=== PATIENT | male | born 1940 | race American Indian/Alaskan Native ===

== ENCOUNTER 2019-09-24 20:52 | Emergency (ER) | payer SELFPAY ==
[2019-09-24] MEDS ORDERED: ACETAMINOPHEN 325 MG TAB PO ONE (20:57)
[2019-09-24] MEDS ORDERED: NEOMY 3.5 MG/BACIT 400 UNITS/POLY B 5000 UNITS/GM OINT PACKET TP ONE (20:57)
[2019-09-24] MEDS ORDERED: SODIUM CHLORIDE 0.9% IRR 500 ML BOTTLE IR ONE (20:57)
[2019-09-24] MEDS ORDERED: TETANUS,DIPHTHERIA TOXOID ADULT 0.5 ML INJ IM ONE (20:57)
[2019-09-24] MEDS ORDERED: LIDOCAINE (1%) 10 MG/1 ML VIAL 20 ML MDV INFILTRATI ONE (20:57)
--- NOTE | 2019-09-24 20:58 | Event Note ---
ED Screening Note ED Screening Note: lac l hand earlier today needs tdap cut on fence full rom no daily meds This initial assessment/diagnostic orders/clinical plan/treatment(s) is/are subject to change based on patients health status, clinical progression and re- assessment by fellow clinical providers in the ED. Further treatment and workup at subsequent clinical providers discretion. Patient/guardian urged not to elope from the ED as their condition may be serious if not clinically assessed and managed. Initial orders include: lac repair tdap
[2019-09-24 21:08] VITALS: BP 183/76
[2019-09-24] MEDS ORDERED: DIPHtheria,PERTUSSIS(ACELL),TETANUS VACCINE/PF 0.5 ML VIAL IM ONE (21:30)
== END 2019-09-25 01:58 | disposition left against medical advice (07) ==
LOC: ED 20:52
DX: M79.642 Pain in left hand (principal); Z53.21 Procedure and treatment not carried out due to patient leaving prior to being seen by health care provider

== ENCOUNTER 2020-09-08 19:13 | Inpatient (IN) | payer MEDICARE ==
[2020-09-08] MEDS ORDERED: dexAMETHasone 4 MG/ML VIAL IV ONE (19:42)
--- NOTE | 2020-09-08 19:42 | Emergency Department Report ---
<DALTON STRONG - Last Filed: 09/09/20 02:36> ED General Adult HPI - General Chief complaint: Fever Stated complaint: Patient very hard of hearing Time Seen by Provider: 09/08/20 19:39 - Related Data Home Medications Medication Instructions Recorded Confirmed Last Taken No Known Home Medications [No 09/08/20 09/08/20 Unknown Reported Home Medications] Allergies Allergy/AdvReac Type Severity Reaction Status Date / Time No Known Allergies Allergy Verified 09/24/19 21:12 ED Past Medical Hx - Medications Home Medications: Home Medications Medication Instructions Recorded Confirmed Last Taken Type No Known Home Medications [No 09/08/20 09/08/20 Unknown History Reported Home Medications] ED Medical Decision Making - Lab Data Result diagrams: 09/08/20 20:34 09/08/20 20:34 ED Disposition Clinical Impression: SIRS (systemic inflammatory response syndrome), Narrow complex tachycardia, Fall, Suspected 2019 novel coronavirus infection, Acute respiratory failure with hypoxia, Hypokalemia, Hydronephrosis, Atherosclerotic vascular disease, UTI (urinary tract infection), Pneumonia Disposition: OP ADMIT IP TO THIS HOSP Is pt being admited?: Yes Does the pt Need Aspirin: No Condition: Serious Time of Disposition: 02:36 <ARNIE VALDEZ - Last Filed: 09/09/20 23:16> ED General Adult HPI - General PUI?: Yes Source: patient, EMS (Verbal report received from emergency medical services. EMS documentation not available at time of chart dictation ), RN notes reviewed Mode of arrival: Stretcher Limitations: Physical Limitation - History of Present Illness Initial comments: The patient was evaluated in the emergency department for symptoms described in the history of present illness. He/she was evaluated in the context of the global COVID-19 pandemic, which necessitated consideration that the patient might be at risk for infection with the virus that causes COVID-19. Institutional protocols and algorithms that pertain to the evaluation of patients at risk for COVID-19 are in a state of rapid change based on i nformation released by regulatory bodies including the CDC and federal and state organizations. These policies and algorithms were followed during the patient's care in the emergency department. Please note that these policies, procedures and recommendations changed on a rapid basis. During the entire history and physical examination, I had on complete personal protective equipment. Patient is an 79-year-old gentleman. He is not known to myself previously. The details of his past medical history, primary care doctor, current medical conditions are unknown. The patient is brought to the hospital by the fire department. History entirely obtained from EMS. EMS states that the family brought the patient over to the fire house with flulike symptoms for about 1 week. EMS states th the patient was hypoxic in the field, and tachypneic. The patient is not accompanied by friends or family at this time for additional information or collateral information. He is awake, very hard of hearing, and is moving 4 extremities. He is found to be febrile, tachycardic, and hypoxic in the emergency room. The patient is very hard of hearing, not able to describe the qualitative nature of symptoms, exacerbating factors, relieving factors, or aggravating factors. EMS states that the patient did not receive their Covid vaccination. Patient's Courtney Louise; [phone] Daughter: [phone]; Sola Bravo Called up patient's , and patient's daughter, and obtain additional col lateral information. Patient reportedly exposed to COVID-19 last week. Patient fell and may have hit head a few days ago. Has not seen a primary care doctor in years. No chronic medical issues that they are aware of. No allergies to medications. No hematemesis, bright red blood per rectum that they are aware of. -: Gradual, days(s) Consistency: constant Improves with: none Worsens with: none ED Review of Systems ROS: Stated complaint: FLU LIKE SX Other details as noted in HPI Comment: Unobtainable due to pts medical conditions Constitutional: fever, malaise, weakness ENT: congestion Respiratory: shortness of breath Cardiovascular: denies: syncope Gastrointestinal: denies: nausea, vomiting, diarrhea Neurological: weakness ED Past Medical Hx - Social History Smoking Status: Current Every Day Smoker Substance Use Type: None ED Physical Exam - General Limitations: Physical Limitation General appearance: anxious - Head Head exam: Present: atraumatic, normocephalic - Eye Eye exam: Present: normal appearance, EOMI. Absent: nystagmus - ENT ENT exam: Present: normal exam, normal orophraynx, mucous membranes dry, normal external ear exam - Neck Neck exam: Present: normal inspection, full ROM. Absent: tenderness, meningismus - Respiratory Respiratory exam: Present: other (Pulmonary auscultation not performed secondary to lack of disposable stethoscope). Absent: stridor - Cardiovascular Cardiovascular Exam: Present: tachycardia, other (Cardiac auscultation not performed secondary to lack of disposable stethoscope) - GI/Abdominal GI/Abdominal exam: Present: soft. Absent: distended, tenderness, guarding, rebound, rigid, pulsatile mass - Rectal Rectal exam: Present: deferred - Extremities Exam Extremities exam: Present: normal inspection, full ROM, other (2+ pulses noted in the bilateral upper and lower extremities. There is no palpable cord. negative Homans sign. Muscular compartments are soft. The pelvis is stable.). Absent: pedal edema, calf tenderness - Back Exam Back exam: Present: normal inspection. Absent: tenderness, CVA tenderness (R), CVA tenderness (L), paraspinal tenderness, vertebral tenderness - Neurological Exam Neurological exam: Present: alert, other (The patient is awake. The patient is moving 4 extremities. There is no facial droop. The tongue is midline.) - Psychiatric Psychiatric exam: Present: normal affect, normal mood - Skin Skin exam: Present: warm, dry, intact, normal color. Absent: rash ED Course Vital Signs 09/08/20 09/08/20 09/08/20 19:30 19:35 19:50 Temperature 101.8 F H Pulse Rate 136 H Respiratory 25 H Rate Blood Pressure 137/71 Blood Pressure [Left] O2 Sat by Pulse 88 93 91 Oximetry 09/08/20 09/08/20 09/08/20 20:00 20:30 20:45 Temperature Pulse Rate 142 H 132 H Respiratory 25 H 31 H Rate Blood Pressure 137/71 Blood Pressure 145/83 [Left] O2 Sat by Pulse 95 93 Oximetry 09/08/20 09/08/20 09/08/20 21:01 21:31 22:01 Temperature Pulse Rate 134 H 131 H 123 H Respiratory 26 H 20 33 H Rate Blood Pressure 145/83 131/70 138/78 Blood Pressure [Left] O2 Sat by Pulse 94 93 93 Oximetry 09/08/20 09/08/20 09/08/20 22:20 22:41 23:01 Temperature 99.6 F Pulse Rate 138 H 126 H 70 Respiratory 19 22 19 Rate Blood Pressure 138/78 131/70 120/54 Blood Pressure [Left] O2 Sat by Pulse 93 94 94 Oximetry 09/08/20 09/08/20 09/09/20 23:21 23:31 00:01 Temperature Pulse Rate 69 59 L 68 Respiratory 20 19 22 Rate Blood Pressure 138/78 136/64 130/55 Blood Pressure [Left] O2 Sat by Pulse 93 96 95 Oximetry 09/09/20 09/09/20 09/09/20 00:47 01:01 01:31 Temperature Pulse Rate 62 58 L 63 Respiratory 19 12 19 Rate Blood Pressure 140/59 Blood Pressure [Left] O2 Sat by Pulse 100 97 93 Oximetry 09/09/20 09/09/20 09/09/20 02:01 03:01 04:01 Temperature Pulse Rate 62 59 L 64 Respiratory 18 14 17 Rate Blood Pressure 152/60 157/68 160/69 Blood Pressure [Left] O2 Sat by Pulse 95 99 90 Oximetry - Reevaluation(s) Reevaluation #1: 09/08/20 21:11 Differential diagnosis, including but not limited to: Pneumonia, COVID-19, urinary tract infection, bacteremia, viremia, dementia, arrhythmia, delirium, thyroid derangement, electrolyte derangement Assessment and plan: 79-year-old gentleman, who is tachycardic, febrile and hypoxic, hemodynamically stable, meets criteria for sepsis/systemic inflammatory response syndrome. Place patient on cardiac technician, isolation, and supplemental oxygen. Administer Tylenol, steroids, and empiric antibiotics, and appropriate fluid bolus. Obtain CT scan of the brain, CT scan of the chest. Patient's family endorses a possible fall a few days ago. EKG suggests a flutter. This may be compensatory to underlying sepsis picture. Hold negative inotropes; after initial resuscitation, reassess rate, and if still tachycardic after antipyresis, and appropriate fluid bolus, consider negative inotropes. Admit patient to the medical service. Have discussed this plan of care with the patient's daughter, and his . They are agreeable to the aforementioned. 09/08/20 23:28 CT scan of the brain shows no bleed. Nonspecific facial areas noted. No evidence of pneumomediastinum noted on x-ray/CT scan of the chest. Pneumonia is suggested. Right-sided hydronephrosis is suggested. Discussed with interpreting radiologist. Offers that mild blunt trauma, coughing and Valsalva can cause these findings. Patient has spontaneously converted to a normal sinus rhythm at this time. Have ordered on CT scan of the face, soft tissue neck, soft tissue/noncontrast abdomen pelvis. Patient resting comfortably at this time. 09/09/20 01:50 CT scan of the face, neck did not demonstrate any significant findings that would require emergent intervention or transfer. CT scan of the abdomen pelvis demonstrates hydronephrosis, redemonstration of pneumonia, without evidence of obstructing kidney stone. Hospitalist currently responded to code met/rapid response upstairs on the floor. Care will be transferred to the oncoming ER physician/overnight physician, to contact hospital physician to arrange admission, when they are available to take this admission. Please note that I did not cancel this patient's repeat lactic acid. I spoke to our phlebotomists, Mr. Medrano, and Mr. Dorado, and it was not clear how this patient's repeat lactic acid was canceled. I have therefore ordered the patient's repeat lactic acid. He has also been ordered for additional 500 cc of lactated Ringer's. I will defer to the inpatient team to follow-up on repeat lactic acid. Patient resting comfortably in stretcher, tachycardia resolved, he is now in normal sinus rhythm, and does not require negative inotropes, or systemic anticoagulation. ED Medical Decision Making - Lab Data Result diagrams: 09/08/20 20:34 09/08/20 20:34 Vital Signs 09/08/20 09/08/20 09/08/20 19:30 19:35 20:30 Temperature 101.8 F H Pulse Rate 136 H Respiratory 25 H Rate Blood Pressure 137/71 Blood Pressure 145/83 [Left] O2 Sat by Pulse 88 93 Oximetry 09/08/20 20:45 Temperature Pulse Rate 132 H Respiratory 31 H Rate Blood Pressure Blood Pressure [Left] O2 Sat by Pulse 93 Oximetry Lab Results 09/08/20 Range/Units 20:34 WBC 6.6 (4.5-11.0) K/mm3 RBC 4.09 (3.65-5.03) M/mm3 Hgb 13.2 (11.8-15.2) gm/dl Hct 38.3 (35.5-45.6) % MCV 94 (84-94) fl MCH 32 (28-32) pg MCHC 34 (32-34) % RDW 14.7 (13.2-15.2) % Plt Count 146 (140-440) K/mm3 Seg Neutrophils % [employer] - EKG Data -: EKG Interpreted by Wy Rate: tachycardia - EKG Data 09/08/20 21:10 EKG is interpreted at 20: 1 2 Narrow complex tachycardia, borderline rightward axis deviation, nonspecific ST depression, right bundle branch block, borderline left anterior fascicular block, motion artifact, QTC 450 ms, a flutter versus SVT. EKG. Not a STEMI. No prior for comparison. Favor a flutter. 09/08/20 23:29 EKG #3 shows a sinus rhythm, 71 bpm, QTC prolonged, 529 ms, borderline normal axis, right bundle branch block, left ventricular hypertrophy, not a STEMI, interpreted at 23: 07 EKG #2 unchanged from EKG #1. - Radiology Data Radiology results: report reviewed, image reviewed CHEST 1 VIEW 1956 INDICATION / CLINICAL INFORMATION: Dyspnea COMPARISON: None available. FINDINGS: SUPPORT DEVICES: None HEART / MEDIASTINUM: Mild cardiomegaly LUNGS / PLEURA: Patient is mildly rotated. Pulmonary vascularity appears within normal limits. Moderate chronic changes are seen. Bibasilar mostly linear densities are noted which are of unknown chronicity. These are more prominent on the right. This could just be scarring and/or atelectasis but developing pneumonitis is possible the right base and I would suggest clinical correlation and follow-up. No pneumothorax. ADDITIONAL FINDINGS: No significant additional findings. Signer Name: Abiodun Tijerina MD Signed: 09/08/2020 7:43 PM Workstation Name: [id number] CT HEAD WITHOUT CONTRAST INDICATION / CLINICAL INFORMATION: Fall A.M.S.. TECHNIQUE: All CT scans at this location are performed using CT dose reduction for ALARA by means of automated exposure control. COMPARISON: None available. FINDINGS: HEMORRHAGE: None. EXTRA-AXIAL SPACES: Mildly prominent likely related to cortical atrophy. VENTRICULAR SYSTEM: Normal in size and morphology for the patient's age. CEREBRAL PARENCHYMA: No acute abnormality. No acute territorial infarct. There is decreased attenuation periventricular white matter characteristic of microangiopathic change. MIDLINE SHIFT / HERNIATION: None. CEREBELLUM / BRAINSTEM: No significant abnormality. ORBITS: Normal as visualized. SOFT TISSUES: There is small amount of gas noted in the soft tissues in the lower anterior temporal regions and posterior to the maxillary sinuses. The source for this soft tissue gas is not defined. SKULL: No significant abnormality. PARANASAL SINUSES / MASTOID AIR CELLS: There is a small amount of fluid in the right maxillary sinus. There is mucosal thickening in sphenoid sinus and several ethmoid air cells. ADDITIONAL FINDINGS: None. IMPRESSION: 1. No acute intracranial abnormality. 2. There is some soft tissue gas noted in the anterior temporal musculature bilaterally in the musculature posterior to the maxillary sinuses. The source for this soft tissue gas is not identified. Signer Name: Quentin Campbell MD Signed: 09/08/2020 9:57 PM Workstation Name: [id number] CT CHEST WITHOUT CONTRAST INDICATION / CLINICAL INFORMATION: Fever, cough pna vs Covid. TECHNIQUE: Axial CT images were obtained through the chest without contrast. All CT scans at this location are performed using CT dose reduction for [employer] by means of automated exposure control. COMPARISON: None available. FINDINGS: HEART: Heart is enlarged CORONARY ARTERY CALCIFICATION: Severe. THORACIC AORTA: Moderate atherosclerotic calcification without acute abnormality. . MEDIASTINUM / LATOYA: No significant abnormality. PLEURA: There is mild pleural thickening posteriorly on the left. No significant pleural effusion is seen. No pneumothorax. LUNGS: There is airspace consolidation noted in both lung bases which could represent pneumonia or atelectasis. There is bullous disease most prominent in the upper lobes. ADDITIONAL FINDINGS: None. UPPER ABDOMEN: There is moderate to severe hydronephrosis on the right. Ath erosclerotic calcifications are noted in the imaged portion of the abdominal aorta. SKELETAL SYSTEM: No significant abnormality. IMPRESSION: 1. There is airspace consolidation in the lung bases could represent atelectasis or pneumonia. 2. There is cardiomegaly. 3. There is atherosclerotic disease. 4. There is moderate to severe right hydronephrosis. Signer Name: Quentin Campbell MD Signed: 09/08/2020 10:02 PM Workstation Name: [id number] CT MAXILLOFACIAL WITHOUT CONTRAST INDICATION / CLINICAL INFORMATION: coughing, air in face. TECHNIQUE: All CT scans at this location are performed using CT dose reduction for ALARA by means of automated exposure control. COMPARISON: CT head dated 08/09/2020 FINDINGS: FACIAL BONES: No fracture or other significant abnormality. PARANASAL SINUSES: There is mucosal thickening in the maxillary sinuses and several ethmoid air cells. ORBITS: No acute abnormality SOFT TISSUES: Soft tissue gas within the musculature posterior to the sinuses is decreased in volume when compared to the CT scan performed earlier. The air in the temporal musculature region is also decreased. VISUALIZED INTRACRANIAL STRUCTURES: No acute abnormality ADDITIONAL FINDINGS: There is degenerative change in the imaged portion of the cervical spine. IMPRESSION: 1. There is an interval decrease in soft tissue gas. No fracture is seen. No fluid collections are seen. Signer Name: Quentin Campbell MD Signed: 09/09/2020 12:16 AM Workstation Name: [email or web address] CT ABDOMEN AND PELVIS WITHOUT CONTRAST INDICATION / CLINICAL INFORMATION: rigth sided hydronephrosis. TECHNIQUE: Axial CT images were obtained through the abdomen and pelvis without IV contrast. All CT scans at this location are performed using CT dose reduction for ALARA by means of automated exposure control. COMPARISON: Chest CT performed 09/08/2020 FINDINGS: LOWER CHEST: Airspace opacities in the lung bases appear unchanged. LIVER: No acute abnormality. GALLBLADDER: Gallbladder is contracted BILE DUCTS: No significant abnormality. PANCREAS: No significant abnormality. SPLEEN: No significant abnorm ality. ADRENALS: No significant abnormality. RIGHT KIDNEY / URETER: There is moderate right hydroureteronephrosis. No ureteral calculi are seen. The cause for the dilatation is not identified. LEFT KIDNEY / URETER: No significant abnormality. STOMACH / SMALL BOWEL: No significant abnormality. COLON: Diverticulosis without acute inflammation. APPENDIX: Not visualized. PERITONEUM: No free fluid. No free air. No fluid collection. LYMPH NODES: No significant adenopathy. AORTA / ARTERIES: Moderate atherosclerotic calcification without acute abnormality. IVC / VEINS: No significant abnormality. URINARY BLADDER: No significant abnormality. REPRODUCTIVE ORGANS: No significant abnormality. ADDITIONAL FINDINGS: None. SKELETAL SYSTEM: No acute abnormality IMPRESSION: 1. There is moderate right hydronephrosis. The cause is not determined by this exam. No renal or ureteral calculi are seen. 2. There is atherosclerotic disease. 3. There is no bowel obstruction, inflammation, or free air. Signer Name: Quentin Campbell MD Signed: 09/09/2020 12:22 AM Workstation Name: [id number] CT scan of the neck without contrast INDICATION: coughing, air in face. TECHNIQUE: All CT scans at this location are performed using the following dose modulation technique: Automated exposure control. Helical slices were obtained through the neck. No contrast is administered. COMPARISON: None available. F INDINGS: Overall volume of soft tissue gas is decreased in the interval. Source of soft tissue gas is not identified definitively is likely related to the patient's coughing. No fluid collections are seen. No discrete mass lesions are seen within limits of this study. There are small lymph nodes in the neck is are not pathologically enlarged. There is relatively extensive atherosclerotic calcifications in the carotid arteries and vertebral arteries. On review of bone windows there is extensive degenerative change in the cervical spine. No fracture is seen. There is bullous disease in the lung apices. There is no pneumothorax. There is no pneumomediastinum. IMPRESSION: 1. Volume of soft [place] gas noted in the temporal regions and posterior to the maxillary sinuses is decreased since previous imaging. There is atherosclerotic disease in the carotid arteries and vertebral arteries. No fluid collections are seen. Signer Name: Quentin Campbell MD Signed: 09/09/2020 12:45 AM Workstation Name: [id number] Critical Care Time: Yes Critical care time in (mins) excluding proc time.: 45 Critical care attestation.: If time is entered above; I have spent that time in minutes in the direct care of this critically ill patient, excluding procedure time. Critical Care Time: Critical care time includes time spent interpreting laboratory studies, radiology studies, EKG, donning and doffing personal protective equipment, discussing with family, daughter, and time spent resuscitating patient with hypoxic respiratory failure, meeting SIRS criteria. This does not include procedure time. ED Disposition Is pt being admited?: Yes Does the pt Need Aspirin: No
[2020-09-08] MEDS ORDERED: ACETAMINOPHEN 325 MG TAB PO STA (20:22)
[2020-09-08] MEDS ORDERED: cefTRIAXone/NS 2 GM/100 ML 2 GM/100 ML BAG IV ONE (20:22)
[2020-09-08] MEDS ORDERED: SODIUM CHLORIDE 0.9% 1000 ML IV SOLN IV ONE (20:22)
[2020-09-08] MEDS ORDERED: AZITHROMYCIN/NS 500 MG/250 ML 500 MG/250 ML BAG IV ONE (20:22)
--- NOTE | 2020-09-08 20:47 | XRay Report ---
CHEST 1 VIEW 1956 INDICATION / CLINICAL INFORMATION: Dyspnea COMPARISON: None available. FINDINGS: SUPPORT DEVICES: None HEART / MEDIASTINUM: Mild cardiomegaly LUNGS / PLEURA: Patient is mildly rotated. Pulmonary vascularity appears within normal limits. Modera te chronic changes are seen. Bibasilar mostly linear densities are noted which are of unknown chronic ity. These are more prominent on the right. This could just be scarring and/or atelectasis but develo ping pneumonitis is possible the right base and I would suggest clinical correlation and follow-up. N o pneumothorax. ADDITIONAL FINDINGS: No significant additional findings. Signer Name: Abiodun Tijerina MD Signed: 09/08/2020 8:43 PM Workstation Name: [id number]
[2020-09-08 20:50] LABS: Hematocrit 38.3 % (35.5-45.6); Hemoglobin 13.2 gm/dl (11.8-15.2); Mean Corpuscular HGB Conc 34 % (32-34); Mean Corpuscular Volume 94 fl (84-94); Platelet Count 146 K/mm3 (140-440); Red Blood Count 4.09 M/mm3 (3.65-5.03); Red Cell Distribution Width 14.7 % (13.2-15.2)
[2020-09-08 20:58] LABS: INR 1.06 (0.87-1.13); Partial Thromboplastin Time 36.1 Sec. (24.2-36.6)
[2020-09-08 21:12] LABS: C-Reactive Protein 5.4 mg/dL (0.00-1.30)
[2020-09-08 21:14] LABS: Alanine Aminotransferase 27 units/L (7-56); Albumin 3.3 g/dL (3.9-5); Blood Urea Nitrogen 21 mg/dL (9-20); Calcium 8.9 mg/dL (8.4-10.2); Hemolysis Index 5
[2020-09-08 21:19] LABS: BUN/Creatinine Ratio 30
[2020-09-08] MEDS ORDERED: POTASSIUM CHLORIDE 20 MEQ 20 MEQ/100 ML BAG IV ONE (21:34)
[2020-09-08] MEDS ORDERED: POTASSIUM CHLORIDE ER 20 MEQ TAB PO ONE (21:34)
[2020-09-08 21:41] LABS: Platelet Estimate Consistent w Auto; RBC Morphology Normal; Total Cells Counted 100; Toxic Vacuolation Few
[2020-09-08] MEDS: POTASSIUM CHLORIDE 10 MEQ 10 MEQ/100 ML BAG IV SCH (22:45)
--- NOTE | 2020-09-08 23:02 | Cat Scan Report ---
CT HEAD WITHOUT CONTRAST INDICATION / CLINICAL INFORMATION: Fall A.M.S.. TECHNIQUE: All CT scans at this location are performed using CT dose reduction for ALARA by means of automated exposure control. COMPARISON: None available. FINDINGS: HEMORRHAGE: None. EXTRA-AXIAL SPACES: Mildly prominent likely related to cortical atrophy. VENTRICULAR SYSTEM: Normal in size and morphology for the patient's age. CEREBRAL PARENCHYMA: No acute abnormality. No acute territorial infarct. There is decreased attenuat ion periventricular white matter characteristic of microangiopathic change. MIDLINE SHIFT / HERNIATION: None. CEREBELLUM / BRAINSTEM: No significant abnormality. ORBITS: Normal as visualized. SOFT TISSUES: There is small amount of gas noted in the soft tissues in the lower anterior temporal r egions and posterior to the maxillary sinuses. The source for this soft tissue gas is not defined. SKULL: No significant abnormality. PARANASAL SINUSES / MASTOID AIR CELLS: There is a small amount of fluid in the right maxillary sinus. There is mucosal thickening in sphenoid sinus and several ethmoid air cells. ADDITIONAL FINDINGS: None. IMPRESSION: 1. No acute intracranial abnormality. 2. There is some soft tissue gas noted in the anterior temporal musculature bilaterally in the muscul ature posterior to the maxillary sinuses. The source for this soft tissue gas is not identified. Signer Name: Quentin Campbell MD Signed: 09/08/2020 10:57 PM Workstation Name: [id number]
--- NOTE | 2020-09-08 23:06 | Cat Scan Report ---
CT CHEST WITHOUT CONTRAST INDICATION / CLINICAL INFORMATION: Fever, cough pna vs Covid. TECHNIQUE: Axial CT images were obtained through the chest without contrast. [facility] CT [facility] are performed using CT dose reduction for ALARA by means of automated exposure control. COMPARISON: None available. FINDINGS: HEART: Heart is enlarged CORONARY ARTERY CALCIFICATION: Severe. THORACIC AORTA: Moderate atherosclerotic calcification without acute abnormality. . MEDIASTINUM / LATOYA: No significant abnormality. PLEURA: There is mild pleural thickening posteriorly on the left. No significant pleural effusion is seen. No pneumothorax. LUNGS: There is airspace consolidation noted in both lung bases which could represent pneumonia or at electasis. There is bullous disease most prominent in the upper lobes. ADDITIONAL FINDINGS: None. UPPER ABDOMEN: There is moderate to severe hydronephrosis on the right. Atherosclerotic calcification s are noted in the imaged portion of the abdominal aorta. SKELETAL SYSTEM: No significant abnormality. IMPRESSION: 1. There is airspace consolidation in the lung bases could represent atelectasis or pneumonia. 2. There is cardiomegaly. 3. There is atherosclerotic disease. 4. There is moderate to severe right hydronephrosis. Signer Name: Quentin Campbell MD Signed: 09/08/2020 11:02 PM Workstation Name: [id number]
[2020-09-09 00:32] LABS: Bacteria,Urine 4+ /HPF (Negative); Bilirubin,Urine NEG (Negative); Blood,Urine MOD (Negative); Color,Urine Yellow (Yellow); Hyaline Casts,Urine 1 /LPF; Mucus,Urine FEW /HPF; Urobilinogen,Urine < 2.0 mg/dL (<2.0)
[2020-09-09] MEDS: POTASSIUM CHLORIDE 10 MEQ 10 MEQ/100 ML BAG IV SCH (01:03)
--- NOTE | 2020-09-09 01:21 | Cat Scan Report ---
CT MAXILLOFACIAL WITHOUT CONTRAST INDICATION / CLINICAL INFORMATION: coughing, air in face. TECHNIQUE: All CT scans at this location are performed using CT dose reduction for ALARA by means of automated exposure control. COMPARISON: CT head dated 08/09/2020 FINDINGS: FACIAL BONES: No fracture or other significant abnormality. PARANASAL SINUSES: There is mucosal thickening in the maxillary sinuses and several ethmoid air cells . ORBITS: No acute abnormality SOFT TISSUES: Soft tissue gas within the musculature posterior to the sinuses is decreased in volume when compared to the CT scan performed earlier. The air in the temporal musculature region is also de creased. VISUALIZED INTRACRANIAL STRUCTURES: No acute abnormality ADDITIONAL FINDINGS: There is degenerative change in the imaged portion of the cervical spine. IMPRESSION: 1. There is an interval decrease in soft tissue gas. No fracture is seen. No fluid collections are se en. Signer Name: Quentin Campbell MD Signed: 09/09/2020 1:16 AM Workstation Name: [id number]
--- NOTE | 2020-09-09 01:26 | Cat Scan Report ---
CT ABDOMEN AND PELVIS WITHOUT CONTRAST INDICATION / CLINICAL INFORMATION: rigth sided hydronephrosis. TECHNIQUE: Axial CT images were obtained through the abdomen and pelvis without IV contrast. All CT scans at this location are performed using CT dose reduction for ALARA by means of automated exposure control. COMPARISON: Chest CT performed 09/08/2020 FINDINGS: LOWER CHEST: Airspace opacities in the lung bases appear unchanged. LIVER: No acute abnormality. GALLBLADDER: Gallbladder is contracted BILE DUCTS: No significant abnormality. PANCREAS: No significant abnormality. SPLEEN: No significant abnormality. ADRENALS: No significant abnormality. RIGHT KIDNEY / URETER: There is moderate right hydroureteronephrosis. No ureteral calculi are seen. T he cause for the dilatation is not identified. LEFT KIDNEY / URETER: No significant abnormality. STOMACH / SMALL BOWEL: No significant abnormality. COLON: Diverticulosis without acute inflammation. APPENDIX: Not visualized. PERITONEUM: No free fluid. No free air. No fluid collection. LYMPH NODES: No significant adenopathy. AORTA / ARTERIES: Moderate atherosclerotic calcification without acute abnormality. IVC / VEINS: No significant abnormality. URINARY BLADDER: No significant abnormality. REPRODUCTIVE ORGANS: No significant abnormality. ADDITIONAL FINDINGS: None. SKELETAL SYSTEM: No acute abnormality IMPRESSION: 1. There is moderate right hydronephrosis. The cause is not determined by this exam. No renal or uret eral calculi are seen. 2. There is atherosclerotic disease. 3. There is no bowel obstruction, inflammation, or free air. Signer Name: Quentin Campbell MD Signed: 09/09/2020 1:22 AM Workstation Name: [id number]
[2020-09-09] MEDS ORDERED: LACTATED RINGERS 500 ML IV ONE (01:46)
--- NOTE | 2020-09-09 01:49 | Cat Scan Report ---
CT scan of the neck without contrast INDICATION: coughing, air in face. TECHNIQUE: All CT scans at this location are performed using the following dose modulation technique: Automated exposure control. Helical slices were obtained through the neck. No contrast is administered. COMPARISON: None available. FINDINGS: Overall volume of soft tissue gas is decreased in the interval. Source of soft tissue gas is not iden tified definitively is likely related to the patient's coughing. No fluid collections are seen. No di screte mass lesions are seen within limits of this study. There are small lymph nodes in the neck is are not pathologically enlarged. There is relatively extensive atherosclerotic calcifications in the carotid arteries and vertebral arteries. On review of bone windows there is extensive degenerative change in the cervical spine. No fracture i s seen. There is bullous disease in the lung apices. There is no pneumothorax. There is no pneumomedi astinum. IMPRESSION: 1. Volume of soft tissue gas noted in the temporal regions and posterior to the maxillary sinuses is decreased since previous imaging. There is atherosclerotic disease in the carotid arteries and vertebral arteries. No fluid collections are seen. Signer Name: Quentin Campbell MD Signed: 09/09/2020 1:45 AM Workstation Name: [id number]
[2020-09-09] MEDS ORDERED: ALBUTEROL 2.5 MG/3 ML NEBU IH PRN (02:56)
[2020-09-09] MEDS ORDERED: ONDANSETRON 4 MG/2 ML INJ IV PRN (02:56)
[2020-09-09] MEDS ORDERED: NALOXONE 0.4 MG/1 ML INJ IV PRN (02:56)
[2020-09-09] MEDS ORDERED: ACETAMINOPHEN 325 MG TAB PO PRN (02:56)
--- NOTE | 2020-09-09 03:14 | History and Physical Report ---
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 Of note patient is unable to provide history. History is provided by review of medical records, medical reports, and family ( Courtney Louise [phone]). reports patient spent a prolonged period of time with her grandson over the past 2 weeks, who has since tested positive for COVID-19 virus. Upon arrival to the ED patient was found to be febrile, tachycardic, and hypoxic on room air. Additionally right foot reports patient fell and may have hit his head a few days ago. denies medical history, and surgical history. Per patient, "has not seen a medical provider in many years", and he is not currently nor has he been on any medication in the past 10 years or greater. Upon assessment patient is seen a week on stretcher. Able to track with eyes, spontaneously moves extremities, but unable to answer simple yes/no questions. Past History Past Surgical History: No surgical history Social history: , lives with family, smoking (1 pack of small cigars per day (provided by )) Family history: no significant family history Medications and Allergies Allergies Allergy/AdvReac Type Severity Reaction Status Date / Time No Known Allergies Allergy Verified 09/24/19 21:12 Home Medications Medication Instructions Recorded Confirmed Last Taken Type No Known Home Medications [No 09/08/20 09/08/20 Unknown History Reported Home Medications] Active Meds: Active Medications Acetaminophen (Acetaminophen 325 Mg Tab) 650 mg PO Q4H PRN PRN Reason: Pain MILD(1-3)/Fever >100.5/SALAMANCA Albuterol (Albuterol 2.5 Mg/3 Ml Nebu) 2.5 mg IH Q3HRT PRN PRN Reason: Shortness Of Breath Docusate Sodium (Docusate Sodium 100 Mg Cap) 100 mg PO BID TEJAS Enoxaparin Sodium (Enoxaparin 40 Mg/0.4 Ml Inj) 40 mg SUB-Q QDAY TEJAS Ceftriaxone Sodium (Rocephin/Ns 1 Gm/50 Ml) 1 gm in 50 mls @ 100 mls/hr IV Q24H TEJAS; Protocol Azithromycin (Zithromax/Ns) 500 mg in 250 mls @ 250 mls/hr IV Q24H TEJAS Naloxone HCl (Naloxone 0.4 Mg/1 Ml Inj) 0.1 mg IV Q2MIN PRN PRN Reason: Res Rate </= 8 or 02 SAT < 92% Nicotine (Nicotine 14 Mg/24 Hr Patch) 14 mg TD QDAY TEJAS Ondansetron HCl (Ondansetron 4 Mg/2 Ml Inj) 4 mg IV Q6H PRN PRN Reason: Nausea And Vomiting Oxycodone/Acetaminophen (Oxycodone /Acetaminophen 5-325mg Tab) 1 tab PO Q6H PRN PRN Reason: Pain, Moderate (4-6) Sodium Chloride (Sodium Chloride 0.9% 10 Ml Flush Syringe) 10 ml IV BID TEJAS Sodium Chloride (Sodium Chloride 0.9% 10 Ml Flush Syringe) 10 ml IV PRN PRN PRN Reason: LINE FLUSH Zinc Sulfate (Zinc Sulfate 220 Mg Cap) 220 mg PO BID TEJAS Review of Systems ROS unobtainable: due to mental status Exam - Physical Exam Narrative exam: Physical exam General appearance: Present: Chronically ill-appearing, thin, awake in stretcher, older adult male - EENT Eyes: Present: PERRL, EOM intact ENT: Hard of hearing, missing teeth - Neck Neck: Present: supple, normal ROM - Respiratory Respiratory effort: Non-labored Respiratory: Clear throughout - Cardiovascular Heart rate: 71 (bpm) Rhythm: Sinus Heart Sounds: Present: S1 & S2. Absent: rub, click - Extremities Extremities: no ischemia, pulses intact, - Peripheral Assessment Peripheral Pulses: within normal limits - Abdominal General gastrointestinal: soft, non-tender, normal bowel sounds - Integumentary Integumentary: Present: warm, dry - Musculoskeletal Musculoskeletal: Able to move all extremities -Neurological Neurological: CN II-XII intact - Psychiatric Psychiatric: Calm - Constitutional Vitals: Temp Pulse Resp BP Pulse Ox 99.6 F 62 18 152/60 95 09/08/20 22:20 09/09/20 02:01 09/09/20 02:01 09/09/20 02:01 09/09/20 02:01 HEART Score - HEART Score Troponin: Troponin T 0.029 ng/mL (0.00-0.029) 09/08/20 20:34 Results - Labs CBC & Chem 7: 09/08/20 20:34 09/08/20 20:34 Labs: Laboratory Last Values WBC 6.6 K/mm3 (4.5-11.0) 09/08/20 20:34 RBC 4.09 M/mm3 (3.65-5.03) 09/08/20 20:34 Hgb 13.2 gm/dl (11.8-15.2) 09/08/20 20:34 Hct 38.3 % (35.5-45.6) 09/08/20 20:34 MCV 94 fl (84-94) 09/08/20 20:34 MCH 32 pg (28-32) 09/08/20 20:34 MCHC 34 % (32-34) 09/08/20 20:34 RDW 14.7 % (13.2-15.2) 09/08/20 20:34 Plt Count 146 K/mm3 (140-440) 09/08/20 20:34 Add Manual Diff Complete 09/08/20 20:34 Total Counted 100 09/08/20 20:34 Seg Neutrophils % [employer] 09/08/20 20:34 Seg Neuts % (Manual) 90.0 % (40.0-70.0) H 09/08/20 20:34 Lymphocytes % (Manual) 4.0 % (13.4-35.0) L 09/08/20 20:34 Monocytes % (Manual) 6.0 % (0.0-7.3) 09/08/20 20:34 Nucleated RBC % Not Reportable 09/08/20 20:34 Seg Neutrophils # Man 5.9 K/mm3 (1.8-7.7) 09/08/20 20:34 Band Neutrophils # 0.0 K/mm3 09/08/20 20:34 Lymphocytes # (Manual) 0.3 K/mm3 (1.2-5.4) L 09/08/20 20:34 Abs React Lymphs (Man) 0.0 K/mm3 09/08/20 20:34 Monocytes # (Manual) 0.4 K/mm3 (0.0-0.8) 09/08/20 20:34 Eosinophils # (Manual) 0.0 K/mm3 (0.0-0.4) 09/08/20 20:34 Basophils # (Manual) 0.0 K/mm3 (0.0-0.1) 09/08/20 20:34 Metamyelocytes # 0.0 K/mm3 09/08/20 20:34 Myelocytes # 0.0 K/mm3 09/08/20 20:34 Promyelocytes # 0.0 K/mm3 09/08/20 20:34 Blast Cells # 0.0 K/mm3 09/08/20 20:34 WBC Morphology Not Reportable 09/08/20 20:34 Hypersegmented Neuts Not Reportable 09/08/20 20:34 Hyposegmented Neuts Not Reportable 09/08/20 20:34 Hypogranular Neuts Not Reportable 09/08/20 20:34 Smudge Cells Not Reportable 09/08/20 20:34 Toxic Granulation Not Reportable 09/08/20 20:34 Toxic Vacuolation Few 09/08/20 20:34 Dohle Bodies Not Reportable 09/08/20 20:34 Pelger-Huet Anomaly Not Reportable 09/08/20 20:34 Shweta Rods Not Reportable 09/08/20 20:34 Platelet Estimate Consistent w auto 09/08/20 20:34 Clumped Platelets Not Reportable 09/08/20 20:34 Plt Clumps, EDTA Not Reportable 09/08/20 20:34 Large Platelets Not Reportable 09/08/20 20:34 Giant Platelets Not Reportable 09/08/20 20:34 Platelet Satelliting Not Reportable 09/08/20 20:34 Plt Morphology Comment Not Reportable 09/08/20 20:34 RBC Morphology Normal 09/08/20 20:34 Dimorphic RBCs Not Reportable 09/08/20 20:34 Polychromasia Not Reportable 09/08/20 20:34 Hypochromasia Not Reportable 09/08/20 20:34 Poikilocytosis Not Reportable 09/08/20 20:34 Anisocytosis Not Reportable 09/08/20 20:34 Microcytosis Not Reportable 09/08/20 20:34 Macrocytosis Not Reportable 09/08/20 20:34 Spherocytes Not Reportable 09/08/20 20:34 Pappenheimer Bodies Not Reportable 09/08/20 20:34 Sickle Cells Not Reportable 09/08/20 20:34 Target Cells Not Reportable 09/08/20 20:34 Tear Drop Cells Not Reportable 09/08/20 20:34 Ovalocytes Not Reportable 09/08/20 20:34 Helmet Cells Not Reportable 09/08/20 20:34 Carr-[place] Bodies Not Reportable 09/08/20 20:34 [place] Rings Not Reportable 09/08/20 20:34 Milena Cells Not Reportable 09/08/20 20:34 Bite Cells Not Reportable 09/08/20 20:34 Crenated Cell Not Reportable 09/08/20 20:34 Elliptocytes Not Reportable 09/08/20 20:34 Acanthocytes (Spur) Not Reportable 09/08/20 20:34 Rouleaux Not Reportable 09/08/20 20:34 Hemoglobin C Crystals Not Reportable 09/08/20 20:34 Schistocytes Not Reportable 09/08/20 20:34 Malaria parasites Not Reportable 09/08/20 20:34 Viraj Bodies Not Reportable 09/08/20 20:34 Hem Pathologist Commnt No 09/08/20 20:34 PT 14.3 Sec. (12.2-14.9) 09/08/20 20:34 INR 1.06 (0.87-1.13) 09/08/20 20:34 APTT 36.1 Sec. (24.2-36.6) 09/08/20 20:34 D-Dimer 405.34 ng/mlDDU (0-234) H 09/08/20 20:34 Sodium 137 mmol/L (137-145) 09/08/20 20:34 Potassium 3.3 mmol/L (3.6-5.0) L 09/08/20 20:34 Chloride 97.1 mmol/L (98-107) L 09/08/20 20:34 Carbon Dioxide 24 mmol/L (22-30) 09/08/20 20:34 Anion Gap 19 mmol/L 09/08/20 20:34 BUN 21 mg/dL (9-20) H 09/08/20 20:34 Creatinine 0.7 mg/dL (0.8-1.3) L 09/08/20 20:34 Estimated GFR > 60 ml/min 09/08/20 20:34 BUN/Creatinine Ratio 30 % 09/08/20 20:34 Glucose 162 mg/dL (75-100) H 09/08/20 20:34 Glucose 164 mg/dL (75-100) H 09/08/20 20:34 Lactic Acid 1.60 mmol/L (0.7-2.0) 09/09/20 01:09 Calcium 8.9 mg/dL (8.4-10.2) 09/08/20 20:34 Magnesium 1.70 mg/dL (1.7-2.3) 09/08/20 20:34 Ferritin 638.9 ng/mL (30.0-300.0) H 09/08/20 20:34 Total Bilirubin 0.40 mg/dL (0.1-1.2) 09/08/20 20:34 AST 96 units/L (5-40) H 09/08/20 20:34 ALT 27 units/L (7-56) 09/08/20 20:34 Alkaline Phosphatase 84 units/L (35-129) 09/08/20 20:34 Lactate Dehydrogenase 286 units/L (91-180) H 09/08/20 20:34 Total Creatine Kinase 1277 units/L (55-170) H 09/08/20 20:34 Troponin T 0.029 ng/mL (0.00-0.029) 09/08/20 20:34 C-Reactive Protein 5.40 mg/dL (0.00-1.30) H 09/08/20 20:34 NT-Pro-B Natriuret Pep 4471 pg/mL (0-900) H 09/08/20 20:34 Total Protein 7.0 g/dL (6.3-8.2) 09/08/20 20:34 Albumin 3.3 g/dL (3.9-5) L 09/08/20 20:34 Albumin/Globulin Ratio 0.9 % 09/08/20 20:34 TSH 0.581 mlU/mL (0.270-4.200) 09/08/20 20:34 Free T4 1.37 ng/dL (0.76-1.46) 09/08/20 20:34 Urine Color Yellow (Yellow) 09/08/20 Unknown Urine Turbidity Hazy (Clear) 09/08/20 Unknown Urine pH 5.0 (5.0-7.0) 09/08/20 Unknown Ur Specific Isabel 1.015 (1.003-1.030) 09/08/20 Unknown Urine Protein 30 mg/dl mg/dL (Negative) 09/08/20 Unknown Urine Glucose (UA) 50 mg/dL (Negative) 09/08/20 Unknown Urine Ketones Neg mg/dL (Negative) 09/08/20 Unknown Urine Blood Mod (Negative) 09/08/20 Unknown Urine Nitrite Pos (Negative) 09/08/20 Unknown Urine Bilirubin Neg (Negative) 09/08/20 Unknown Urine Urobilinogen < 2.0 mg/dL (<2.0) 09/08/20 Unknown Ur Leukocyte Esterase Neg (Negative) 09/08/20 Unknown Urine WBC (Auto) 7.0 /HPF (0.0-6.0) H 09/08/20 Unknown Urine RBC (Auto) 3.0 /HPF (0.0-6.0) 09/08/20 Unknown Urine Bacteria (Auto) 4+ /HPF (Negative) 09/08/20 Unknown Hyaline Casts 1 /LPF 09/08/20 Unknown Urine Mucus Few /HPF 09/08/20 Unknown Microbiology: Microbiology 09/08/20 20:34 Peripheral/Venous Blood Culture - Preliminary Culture in Progress 09/08/20 20:34 Peripheral/Venous Blood Culture - Preliminary Culture in Progress - Imaging and Cardiology Imaging and Cardiology: CT chest FINDINGS: HEART: Heart is enlarged CORONARY ARTERY CALCIFICATION: Severe. THORACIC AORTA: Moderate atherosclerotic calcification without acute abnormality. . MEDIASTINUM / LATOYA: No significant abnormality. PLEURA: There is mild pleural thickening posteriorly on the left. No significant pleural effusion is seen. No pneumothorax. LUNGS: There is airspace consolidation noted in both lung bases which could represent pneumonia or atelectasis. There is bullous dis ease most prominent in the upper lobes. ADDITIONAL FINDINGS: None. UPPER ABDOMEN: There is moderate to severe hydronephrosis on the right. Atherosclerotic calcifications are noted in the imaged portion of the abdominal aorta. SKELETAL SYSTEM: No significant abnormality. IMPRESSION: 1. There is airspace consolidation in the lung bases could represent atelectasis or pneumonia. 2. There is cardiomegaly. 3. There is atherosclerotic disease. 4. There is moderate to severe right hydronephrosis. CT head FINDINGS: HEMORRHAGE: None. EXTRA-AXIAL SPACES: Mildly prominent likely related to cortical atrophy. VENTRICULAR SYSTEM: Normal in size and morphology for the patient's age. CEREBRAL PARENCHYMA: No acute abnormality. No acute territorial infarct. There is decreased attenuation periventricular white matter characteristic of microangiopathic change. MIDLINE SHIFT / HERNIATION: None. CEREBELLUM / BRAINSTEM: No significant abnormality. ORBITS: Normal as visualized. SOFT TISSUES: There is small amount of gas noted in the soft tissues in the lower anterior temporal regions and posterior to the maxillary sinuses. The source for this soft tissue gas is not defined. SKULL: No significant abnormality. PARANASAL SINUSES / MASTOID AIR CELLS: There is a small amount of fluid in the right maxillary sinus. There is mucosal thickening in sphenoid sinus and several ethmoid air cells. ADDITIONAL FINDINGS: None. IMPRESSION: 1. No acute intracranial abnormality. 2. There is some soft tissue gas noted in the anterior temporal musculature bilaterally in the musculature posterior to the maxillary sinuses. The source for this soft tissue gas is not identified. CXR: FINDINGS: SUPPORT DEVICES: None HEART / MEDIASTINUM: Mild cardiomegaly LUNGS / PLEURA: Patient is mildly rotated. Pulmonary vascularity appears within normal limits. Moderate chronic changes are seen. Bibasilar mostly linear densities are noted which are of unknown chronicity. These are more prominent on the right. This could just be scarring and/or atelectasis but developing pneumonitis is possible the right base and I would suggest clinical correlation and follow-up. No pneumothorax. ADDITIONAL FINDINGS: No significant additional findings. CT abdomen pelvis: FINDINGS: LOWER CHEST: Airspace opacities in the lung bases appear unchanged. LIVER: No acute abnormality. GALLBLADDER: Gallbladder is contracted BILE DUCTS: No significant abnormality. PANCREAS: No significant abnormality. SPLEEN: No significant abnormality. ADRENALS: No significant abnormality. RIGHT KIDNEY / URETER: There is moderate right hydroureteronephrosis. No ureteral calculi are seen. The cause for the dilatation is not identified. LEFT KIDNEY / URETER: No significant abnormality. STOMACH / SMALL BOWEL: No significant abnormality. COLON: Diverticulosis without acute inflammation. APPENDIX: Not visualized. PERITONEUM: No free fluid. No free air. No fluid collection. LYMPH NODES: No significant adenopathy. AORTA / ARTERIES: Moderate atherosclerotic calcification without acute abnormality. IVC / VEINS: No significant abnormality. URINARY BLADDER: No significant abnormality. REPRODUCTIVE ORGANS: No significant abnormality. ADDITIONAL FINDINGS: None. SKELETAL SYSTEM: No acute abnormality IMPRESSION: 1. There is moderate right hydronephrosis. The cause is not determined by this exam. No renal or ureteral calculi are seen. 2. There is atherosclerotic disease. 3. There is no bowel obstruction, inflammation, or free air CT neck FINDINGS: Overall volume of soft tissue gas is decreased in the interval. Source of soft tissue gas is not identified definitively is likely related to the patient's coughing. No fluid collections are seen. No discrete mass lesions are seen within limits of this study. There are small lymph nodes in the neck is are not pathologically enlarged. There is relatively extensive atherosclerotic calcifications in the carotid arteries and vertebral arteries. On review of bone windows there is extensive degenerative change in the cervical spine. No fracture is seen. There is bullous disease in the lung apices. There is no pneumothorax. There is no pneumomediastinum. IMPRESSION: 1. Volume of soft tissue gas noted in the temporal regions and posterior to the maxillary sinuses is decreased since previous imaging. There is atherosclerotic disease in the carotid arteries and vertebral arteries. No fluid collections are seen. CT face FINDINGS: FACIAL BONES: No fracture or other significant abnormality. PARANASAL SINUSES: There is mucosal thickening in the maxillary sinuses and several ethmoid air cells. ORBITS: No acute abnormality SOFT TISSUES: Soft tissue gas within the musculature posterior to the sinuses is decreased in volume when compared to the CT scan performed earlier. The air in the temporal musculature region is also decreased. VISUALIZED INTRACRANIAL STRUCTURES: No acute abnormality ADDITIONAL FINDINGS: There is degenerative change in the imaged portion of the cervical spine. IMPRESSION: 1. There is an interval decrease in soft tissue gas. No fracture is seen. No fluid collections are seen. Assessment and Plan Assessment and plan: Suspected COVID-19 virus -Confirmed exposure to COVID-19 (grandson tested positive, and was around grandson for prolonged periods of time) -Ferritin, and D-dimer inflammatory markers elevated -CT angio chest shows consolidation in both lungs -PCR pending -Isolate -Follow-up on labs -ID consulted -On IV azithromycin and Rocephin Pneumonia -Likely due to #1 -CXR negative -CT angio chest shows airspace consolidation in both lungs -Blood Cultures pending -Start on IV Abx Acute hypoxic respiratory failure -No Baseline home oxygen requirements -Saturation of 88% on room air -Currently on supplemental -Monitor saturations -Continue supplemental oxygen wean as tolerated Acute metabolic encephalopathy -CT head negative for acute abnormalities; show some soft tissue gas noted in anterior temporal musculature bilaterally and in the posterior maxillary sinuses -T-max one 1.8 -No leukocytosis -Blood cultures pending -Neuro checks Urinary tract infection -UA positive for UTI -Urine culture pending -on IV Abx Elevated D-dimer -CT angio chest negative for PE -On prophylaxis Lovenox Elevated BNP - at 4417 -Troponin x1, will trend -Denies history of heart failure, or cardiac history -Echo pending -Day team may consider cardiology consult Malnutrition -Mild to moderate -Albumin 3.3 -Dietitian consult pending Tobacco abuse -Current every day smoker -Per patient smokes 1 pack of small cigars daily -Counseled for cessation, will need reinforcement when mentation improves -Nicotine patch when necessary Hypokalemia -Moderate -Received replacement -Monitor electrolytes and replace as needed History of recent fall -Patient fell may have hit his head, per reports -Imaging negative for acute abnormalities -Initiate fall precautions -PT OT eval pending DVT PPX -On Lovenox Advance Directives: No VTE prophylaxis?: Chemical, Mechanical Plan of care discussed with patient/family: Yes
--- NOTE | 2020-09-09 10:49 | Event Note ---
Date: 09/09/20 Patient seen and examined no acute distress answers yes or no to questions poor historian. I will obtain an MRI of the head to further evaluate. Hydronephrosis noted on CT. Renal function is intact no complaints of urinary output issues. Will monitor closely if worsening renal function will obtain urology consult. Consider possible rhabdomyolysis we will repeat creatinine kinase
[2020-09-09] MEDS: ENOXAPARIN 40 MG/0.4 ML INJ SUB-Q SCH (11:20)
[2020-09-09] MEDS: NICOTINE 14 MG/24 HR PATCH TD SCH (11:21)
[2020-09-09] MEDS: DOCUSATE SODIUM 100 MG CAP PO SCH ×2 (11:21→21:45)
[2020-09-09] MEDS: ZINC SULFATE 220 MG CAP PO SCH ×2 (11:21→21:45)
--- NOTE | 2020-09-09 17:05 | Consultation ---
History of Present Illness - Reason for Consult Consult date: 09/09/20 covid19 Requesting physician: KHUSHBOO NAIK - History of Present Illness 79-year-old male with a smoking abuse, hard of hearing, admitted on 09/08/2020 secondary to a week history of generalized malaise, cough and subjective fever. Patient is not the best historian. Patient was exposed to grandson 2 weeks before who tested positive for 19. On arrival, temperature 101.8, HR 136, RR 25, O2 sat 98%, BP 137/71. Initial WBC 6.6. Hemoglobin 13.2. Platelets 146. Lactate 3. Creatinine 0.7. AST 96. Procalcitonin 0.2. CRP 5.4. Urinalysis with [address] shows right moderate hydronephrosis. Chest CT shows bibasilar airspace disease. SARS-CoV-2 PCR positive. Review of Systems: Unable to obtain due to altered mental status Past History Past Surgical History: No surgical history Social history: , lives with family, smoking (1 pack of small cigars per day (provided by )) Family history: no significant family history Medications and Allergies Allergies Allergy/AdvReac Type Severity Reaction Status Date / Time No Known Allergies Allergy Verified 09/24/19 21:12 Home Medications Medication Instructions Recorded Confirmed Last Taken Type No Known Home Medications [No 09/08/20 09/08/20 Unknown History Reported Home Medications] Active Meds: Active Medications Acetaminophen (Acetaminophen 325 Mg Tab) 650 mg PO Q4H PRN PRN Reason: Pain MILD(1-3)/Fever >100.5/SALAMANCA Albuterol (Albuterol 2.5 Mg/3 Ml Nebu) 2.5 mg IH Q3HRT PRN PRN Reason: Shortness Of Breath Docusate Sodium (Docusate Sodium 100 Mg Cap) 100 mg PO BID [facility] Last Admin: 09/09/20 11:21 Dose: 100 mg Documented by: Enoxaparin Sodium (Enoxaparin 40 Mg/0.4 Ml Inj) 40 mg SUB-Q QDAY [facility] Last Admin: 09/09/20 11:20 Dose: 40 mg Documented by: Ceftriaxone Sodium (Rocephin/Ns 1 Gm/50 Ml) 1 gm in 50 mls @ 100 mls/hr IV Q24H [facility]; Protocol Azithromycin (Zithromax/Ns) 500 mg in 250 mls @ 250 mls/hr IV Q24H [facility] Stop: 09/12/20 21:59 Naloxone HCl (Naloxone 0.4 Mg/1 Ml Inj) 0.1 mg IV Q2MIN PRN PRN Reason: Res Rate </= 8 or 02 SAT < 92% Nicotine (Nicotine 14 Mg/24 Hr Patch) 14 mg TD QDAY [facility] Last Admin: 09/09/20 11:21 Dose: 14 mg Documented by: Ondansetron HCl (Ondansetron 4 Mg/2 Ml Inj) 4 mg IV Q6H PRN PRN Reason: Nausea And Vomiting Oxycodone/Acetaminophen (Oxycodone /Acetaminophen 5-325mg Tab) 1 tab PO Q6H PRN PRN Reason: Pain, Moderate (4-6) Sodium Chloride (Sodium Chloride 0.9% 10 Ml Flush Syringe) 10 ml IV BID [facility] Last Admin: 09/09/20 11:21 Dose: 10 ml Documented by: Sodium Chloride (Sodium Chloride 0.9% 10 Ml Flush Syringe) 10 ml IV PRN PRN PRN Reason: LINE FLUSH Zinc Sulfate (Zinc Sulfate 220 Mg Cap) 220 mg PO BID [facility] Last Admin: 09/09/20 11:21 Dose: 220 mg Documented by: Physical Examination - Physical Exam Narrative exam: General appearance: Alert in NAD pleasant nonverbal cachectic Eyes: anicteric sclerae, moist conjunctivae; no lid-lag; PERRLA HENT: Normocephalic, Atraumatic; normal external ears, nares open, oropharynx clear Neck: supple, tracheal midline, no JVD Lungs: Bilateral crackles CV: RRR no murmur Abdomen: Soft, non-tender; no masses or hepatosplenomegaly Extremities: no edema, no cyanosis Skin: No rash. Psych: no agitated Neuro: alert and oriented x 3. Moving all extermities - Constitutional Vitals: Vital Signs Temp Pulse Resp BP Pulse Ox 97.6 F 70 18 175/71 90 09/09/20 11:25 09/09/20 11:25 09/09/20 11:25 09/09/20 11:25 09/09/20 11:25 Temperature -Last 24 Hours Temperature 97.6 F Temperature 97.5 F Temperature 99.6 F Temperature 101.8 F Results - Labs CBC & Chem 7: 09/08/20 20:34 09/08/20 20:34 Labs: Abnormal lab results 09/08/20 09/08/20 09/08/20 Range/Units 20:34 20:34 20:34 Seg Neuts % (Manual) 90.0 H (40.0-70.0) % Lymphocytes % (Manual) 4.0 L (13.4-35.0) % Lymphocytes # (Manual) 0.3 L (1.2-5.4) K/mm3 D-Dimer (0-234) ng/mlDDU Potassium 3.3 L (3.6-5.0) mmol/L Chloride 97.1 L (98-107) mmol/L BUN 21 H (9-20) mg/dL Creatinine 0.7 L (0.8-1.3) mg/dL Glucose 162 H (75-100) mg/dL Lactic Acid 3.00 H* (0.7-2.0) mmol/L Ferritin (30.0-300.0) ng/mL AST 96 H (5-40) units/L Lactate Dehydrogenase (91-180) units/L Total Creatine Kinase 1277 H (55-170) units/L C-Reactive Protein (0.00-1.30) mg/dL NT-Pro-B Natriuret Pep 4471 H (0-900) pg/mL Albumin 3.3 L (3.9-5) g/dL Urine WBC (Auto) (0.0-6.0) /HPF Coronavirus (PCR) (Negative) 09/08/20 09/08/20 09/08/20 Range/Units 20:34 20:34 20:34 Seg Neuts % (Manual) (40.0-70.0) % Lymphocytes % (Manual) (13.4-35.0) % Lymphocytes # (Manual) (1.2-5.4) K/mm3 D-Dimer 405.34 H (0-234) ng/mlDDU Potassium (3.6-5.0) mmol/L Chloride (98-107) mmol/L BUN (9-20) mg/dL Creatinine (0.8-1.3) mg/dL Glucose 164 H (75-100) mg/dL Lactic Acid (0.7-2.0) mmol/L Ferritin 638.9 H (30.0-300.0) ng/mL AST (5-40) units/L Lactate Dehydrogenase 286 H (91-180) units/L Total Creatine Kinase (55-170) units/L C-Reactive Protein 5.40 H (0.00-1.30) mg/dL NT-Pro-B Natriuret Pep (0-900) pg/mL Albumin (3.9-5) g/dL Urine WBC (Auto) (0.0-6.0) /HPF Coronavirus (PCR) (Negative) 09/08/20 09/08/20 09/09/20 Range/Units Unknown Unknown 16:04 Seg Neuts % (Manual) (40.0-70.0) % Lymphocytes % (Manual) (13.4-35.0) % Lymphocytes # (Manual) (1.2-5.4) K/mm3 D-Dimer (0-234) ng/mlDDU Potassium (3.6-5.0) mmol/L Chloride (98-107) mmol/L BUN (9-20) mg/dL Creatinine (0.8-1.3) mg/dL Glucose (75-100) mg/dL Lactic Acid (0.7-2.0) mmol/L Ferritin (30.0-300.0) ng/mL AST (5-40) units/L Lactate Dehydrogenase (91-180) units/L Total Creatine Kinase 1303 H (55-170) units/L C-Reactive Protein (0.00-1.30) mg/dL NT-Pro-B Natriuret Pep (0-900) pg/mL Albumin (3.9-5) g/dL Urine WBC (Auto) 7.0 H (0.0-6.0) /HPF Coronavirus (PCR) Positive A (Negative) Assessment and Plan Cultures: SARS-CoV-2 PCR positive Blood cultures pending. Assessment: 79-year-old male with a smoking abuse, hard of hearing, admitted on 09/08/2020 secondary to a week history of generalized malaise, cough and subjective fever: #Severe sepsis: Present on admission with elevated lactate, tachycardia, fever, hypoxia, likely due to bilateral pneumonia +/-UTI. #Severe COVID pneumonia: Chest CT with bibasilar airspace disease. Inflammatory markers elevated CRP 5.4, ferritin 628, D-dimer 405. Patient is not vaccinated. #Mild UTI with moderate right hydronephrosis: Urinalysis with mild pyuria. #Acute hypoxemic respiratory failure: Currently on 3 days. Initial steps dropped to 88%. Likely secondary to COVID-19 infection. #Elevated LFTs: from COVID #Thrombocytopenia: Mild likely secondary to COVID-19 #Sinusitis on CT Recommendations: -Start Dexamethasone 6 mg IV/PO daily for 10 days -Start Remdesivir for 5 days (CrCl>30 mg/mL) -Monitor inflammatory markers - ferritin, Ddimer, CRP, LDH -Monitor liver function test on Remdesivir -Continue anticoagulation per System Protocol -Prone positioning as possible -Continue ceftriaxone for UTI -Urology consult for right moderate hydronephrosis examination -Stop azithromycin All laboratory, cultures and imaging were reviewed. Will follow Kylee Lira MD Infectious Diseases Boring Machine Set Up Operator [facility] M [phone] O [phone]
[2020-09-09] MEDS ORDERED: REMDESIVIR 200 MG in SODIUM CHLORIDE 0.9% 250ML 250 ML IV ONE (18:30)
[2020-09-09] MEDS: dexAMETHasone 4 MG/ML VIAL IV SCH (18:32)
[2020-09-09] MEDS: cefTRIAXone/NS 1 GM/50 ML 1 GM/50 ML BAG IV SCH (20:10)
[2020-09-09] MEDS: SODIUM CHLORIDE 0.9% 50 ML IVPB IV SCH (20:11)
[2020-09-09] MEDS ORDERED: AZITHROMYCIN/NS 500 MG/250 ML 500 MG/250 ML BAG IV SCH (21:00)
--- NOTE | 2020-09-10 07:39 | Progress Note ---
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 Of note patient is unable to provide history. History is provided by review of medical records, medical reports, and family ( Courtney Louise [phone]). reports patient spent a prolonged period of time with her grandson over the past 2 weeks, who has since tested positive for COVID-19 virus. Upon arrival to the ED patient was found to be febrile, tachycardic, and hypoxic on room air. Additionally right foot reports patient fell and may have hit his head a few days ago. denies medical history, and surgical history. Per patient, "has not seen a medical provider in many years", and he is not currently nor has he been on any medication in the past 10 years or greater. Upon assessment patient is seen a week on stretcher. Able to track with eyes, spontaneously moves extremities, but unable to answer simple yes/no questions. Imaging studies were reviewed showed some in the maxillary area unknown etiology. CT shows a right hydronephrosis. 09/10: ID input is appreciated of also discussed with family of the patient and informed him of the diagnosis and the need to have other people at home tested. Patient is on 3 L of oxygen will continue to monitor. Patient will need PT OT evaluation considering recurrent falls. May actually need rehab based on the condition he appears. Dietitian consultation. Considering his age he is with a guarded prognosis at this time. Azithromycin has been discontinued for the antibiotics management per ID at this time. We will continue remdesivir and steroid therapy. And intermittent pulse ox monitoring. We will continue to encourage prone positioning. We will also obtain pulmonary evaluation COVID-19 virus pneumonia with associated respiratory hypoxia. -Confirmed exposure to COVID-19 (grandson tested positive, and was around grandson for prolonged periods of time) -Ferritin, and D-dimer inflammatory markers elevated -CT angio chest shows consolidation in both lungs -PCR pending -Isolate -Follow-up on labs -ID consulted -On IV azithromycin and Rocephin Severe sepsis secondary to COVID-19 -ID currently following Pneumonia -Likely due to #1 -CXR negative -CT angio chest shows airspace consolidation in both lungs -Blood Cultures pending -Start on IV Abx Acute hypoxic respiratory failure -No Baseline home oxygen requirements -Saturation of 88% on room air -Currently on supplemental -Monitor saturations -Continue supplemental oxygen wean as tolerated Acute metabolic encephalopathy -CT head negative for acute abnormalities; show some soft tissue gas noted in anterior temporal musculature bilaterally and in the posterior maxillary sinuses -T-max one 1.8 -No leukocytosis -Blood cultures pending -Neuro checks Acute cystitismild -UA positive for UTI -Urine culture pending -on IV Abx Elevated D-dimer -CT angio chest negative for PE -On prophylaxis Lovenox Elevated BNP - at 4417 -Troponin x1, will trend -Denies history of heart failure, or cardiac history -Echo pending -Day team may consider cardiology consult Malnutrition -Mild to moderate -Albumin 3.3 -Dietitian consult pending Tobacco abuse -Current every day smoker -Per patient smokes 1 pack of small cigars daily -Counseled for cessation, will need reinforcement when mentation improves -Nicotine patch when necessary Thrombocytopenia Mild sinusitis Elevated LFTs likely secondary to COVID-19 hypokalemia -Moderate -Received replacement -Monitor electrolytes and replace as needed History of recent fall -Patient fell may have hit his head, per reports -Imaging negative for acute abnormalities -Initiate fall precautions -PT OT eval pending Right-sided hydronephrosis -No renal impairment -Outpatient urology follow-up DVT PPX -On Lovenox Advance Directives: No VTE prophylaxis?: Chemical, Mechanical Plan of care discussed with patient/family: Yes History Interval history: Seen and examined resting no acute distress on 3 L. Hospitalist Physical - Physical exam Narrative exam: VITAL SIGNS: Reviewed. GENERAL: The patient appears markedly cachectic, lethargic, on 3 L of oxygen vital signs as documented. HEAD: No signs of head trauma. EYES: Pupils are equal. Extraocular motions intact. EARS: Hearing grossly intact. MOUTH: Oropharynx is normal. NECK: No adenopathy, no JVD. CHEST: Chest with clear breath sounds bilaterally. No wheezes, rales, or rhonchi. CARDIAC: Regular rate and rhythm. S1 and S2, without murmurs, gallops, or rubs. VASCULAR: No Edema. Peripheral pulses normal and equal in all extremities. ABDOMEN: Soft, non tender and non distended. No rebound or guarding, and no masses palpated. Bowel Sounds normal. MUSCULOSKELETAL: Good range of motion of all major joints. Extremities without clubbing, cyanosis or edema. NEUROLOGIC EXAM: Awake orientation could not be fully examined nursing mumbles words. While he does not have any focal neurological deficit he is deconditioned. He does move all extremities but I doubt. Follows commands. PSYCHIATRIC: Mood normal. SKIN: detail exam as documented in skin assessment - Constitutional Vitals: Temp Pulse Resp BP Pulse Ox 98.0 F 83 20 175/84 98 09/09/20 20:36 09/09/20 20:36 09/09/20 20:36 09/09/20 20:36 09/09/20 22:00 HEART Score - HEART Score Troponin: Troponin T 0.020 ng/mL (0.00-0.029) 09/09/20 04:25 Results - Labs CBC & Chem 7: 09/10/20 08:42 09/08/20 20:34 Labs: Laboratory Last Values WBC 6.6 K/mm3 (4.5-11.0) 09/08/20 20:34 RBC 4.09 M/mm3 (3.65-5.03) 09/08/20 20:34 Hgb 13.2 gm/dl (11.8-15.2) 09/08/20 20:34 Hct 38.3 % (35.5-45.6) 09/08/20 20:34 MCV 94 fl (84-94) 09/08/20 20:34 MCH 32 pg (28-32) 09/08/20 20:34 MCHC 34 % (32-34) 09/08/20 20:34 RDW 14.7 % (13.2-15.2) 09/08/20 20:34 Plt Count 146 K/mm3 (140-440) 09/08/20 20:34 Add Manual Diff Complete 09/08/20 20:34 Total Counted 100 09/08/20 20:34 Seg Neutrophils % Monument Setter Helper 09/08/20 20:34 Seg Neuts % (Manual) 90.0 % (40.0-70.0) H 09/08/20 20:34 Lymphocytes % (Manual) 4.0 % (13.4-35.0) L 09/08/20 20:34 Monocytes % (Manual) 6.0 % (0.0-7.3) 09/08/20 20:34 Nucleated RBC % Not Reportable 09/08/20 20:34 Seg Neutrophils # Man 5.9 K/mm3 (1.8-7.7) 09/08/20 20:34 Band Neutrophils # 0.0 K/mm3 09/08/20 20:34 Lymphocytes # (Manual) 0.3 K/mm3 (1.2-5.4) L 09/08/20 20:34 Abs React Lymphs (Man) 0.0 K/mm3 09/08/20 20:34 Monocytes # (Manual) 0.4 K/mm3 (0.0-0.8) 09/08/20 20:34 Eosinophils # (Manual) 0.0 K/mm3 (0.0-0.4) 09/08/20 20:34 Basophils # (Manual) 0.0 K/mm3 (0.0-0.1) 09/08/20 20:34 Metamyelocytes # 0.0 K/mm3 09/08/20 20:34 Myelocytes # 0.0 K/mm3 09/08/20 20:34 Promyelocytes # 0.0 K/mm3 09/08/20 20:34 Blast Cells # 0.0 K/mm3 09/08/20 20:34 WBC Morphology Not Reportable 09/08/20 20:34 Hypersegmented Neuts Not Reportable 09/08/20 20:34 Hyposegmented Neuts Not Reportable 09/08/20 20:34 Hypogranular Neuts Not Reportable 09/08/20 20:34 Smudge Cells Not Reportable 09/08/20 20:34 Toxic Granulation Not Reportable 09/08/20 20:34 Toxic Vacuolation Few 09/08/20 20:34 Dohle Bodies Not Reportable 09/08/20 20:34 Pelger-Huet Anomaly Not Reportable 09/08/20 20:34 Shweta Rods Not Reportable 09/08/20 20:34 Platelet Estimate Consistent w auto 09/08/20 20:34 Clumped Platelets Not Reportable 09/08/20 20:34 Plt Clumps, EDTA Not Reportable 09/08/20 20:34 Large Platelets Not Reportable 09/08/20 20:34 Giant Platelets Not Reportable 09/08/20 20:34 Platelet Satelliting Not Reportable 09/08/20 20:34 Plt Morphology Comment Not Reportable 09/08/20 20:34 RBC Morphology Normal 09/08/20 20:34 Dimorphic RBCs Not Reportable 09/08/20 20:34 Polychromasia Not Reportable 09/08/20 20:34 Hypochromasia Not Reportable 09/08/20 20:34 Poikilocytosis Not Reportable 09/08/20 20:34 Anisocytosis Not Reportable 09/08/20 20:34 Microcytosis Not Reportable 09/08/20 20:34 Macrocytosis Not Reportable 09/08/20 20:34 Spherocytes Not Reportable 09/08/20 20:34 Pappenheimer Bodies Not Reportable 09/08/20 20:34 Sickle Cells Not Reportable 09/08/20 20:34 Target Cells Not Reportable 09/08/20 20:34 Tear Drop Cells Not Reportable 09/08/20 20:34 Ovalocytes Not Reportable 09/08/20 20:34 Helmet Cells Not Reportable 09/08/20 20:34 Carr-Amberg Bodies Not Reportable 09/08/20 20:34 Chester Rings Not Reportable 09/08/20 20:34 Piseco Cells Not Reportable 09/08/20 20:34 Bite Cells Not Reportable 09/08/20 20:34 Crenated Cell Not Reportable 09/08/20 20:34 Elliptocytes Not Reportable 09/08/20 20:34 Acanthocytes (Spur) Not Reportable 09/08/20 20:34 Rouleaux Not Reportable 09/08/20 20:34 Hemoglobin C Crystals Not Reportable 09/08/20 20:34 Schistocytes Not Reportable 09/08/20 20:34 Malaria parasites Not Reportable 09/08/20 20:34 Viraj Bodies Not Reportable 09/08/20 20:34 Hem Pathologist Commnt No 09/08/20 20:34 PT 14.3 Sec. (12.2-14.9) 09/08/20 20:34 INR 1.06 (0.87-1.13) 09/08/20 20:34 APTT 36.1 Sec. (24.2-36.6) 09/08/20 20:34 D-Dimer 405.34 ng/mlDDU (0-234) H 09/08/20 20:34 Sodium 137 mmol/L (137-145) 09/08/20 20:34 Potassium 3.3 mmol/L (3.6-5.0) L 09/08/20 20:34 Chloride 97.1 mmol/L (98-107) L 09/08/20 20:34 Carbon Dioxide 24 mmol/L (22-30) 09/08/20 20:34 Anion Gap 19 mmol/L 09/08/20 20:34 BUN 21 mg/dL (9-20) H 09/08/20 20:34 Creatinine 0.7 mg/dL (0.8-1.3) L 09/08/20 20:34 Estimated GFR > 60 ml/min 09/08/20 20:34 BUN/Creatinine Ratio 30 % 09/08/20 20:34 Glucose 162 mg/dL (75-100) H 09/08/20 20:34 Glucose 164 mg/dL (75-100) H 09/08/20 20:34 Lactic Acid 1.60 mmol/L (0.7-2.0) 09/09/20 01:09 Calcium 8.9 mg/dL (8.4-10.2) 09/08/20 20:34 Magnesium 1.70 mg/dL (1.7-2.3) 09/08/20 20:34 Ferritin 638.9 ng/mL (30.0-300.0) H 09/08/20 20:34 Total Bilirubin 0.40 mg/dL (0.1-1.2) 09/08/20 20:34 AST 96 units/L (5-40) H 09/08/20 20:34 ALT 27 units/L (7-56) 09/08/20 20:34 Alkaline Phosphatase 84 units/L (35-129) 09/08/20 20:34 Lactate Dehydrogenase 286 units/L (91-180) H 09/08/20 20:34 Total Creatine Kinase 1303 units/L (55-170) H 09/09/20 16:04 Troponin T 0.020 ng/mL (0.00-0.029) 09/09/20 04:25 C-Reactive Protein 5.40 mg/dL (0.00-1.30) H 09/08/20 20:34 NT-Pro-B Natriuret Pep 4471 pg/mL (0-900) H 09/08/20 20:34 Total Protein 7.0 g/dL (6.3-8.2) 09/08/20 20:34 Albumin 3.3 g/dL (3.9-5) L 09/08/20 20:34 Albumin/Globulin Ratio 0.9 % 09/08/20 20:34 Procalcitonin 0.23 ng/mL (<0.15) 09/08/20 20:34 TSH 0.581 mlU/mL (0.270-4.200) 09/08/20 20:34 Free T4 1.37 ng/dL (0.76-1.46) 09/08/20 20:34 Urine Color Yellow (Yellow) 09/08/20 Unknown Urine Turbidity Hazy (Clear) 09/08/20 Unknown Urine pH 5.0 (5.0-7.0) 09/08/20 Unknown Ur Specific [place] 1.015 (1.003-1.030) 09/08/20 Unknown Urine Protein 30 mg/dl mg/dL (Negative) 09/08/20 Unknown Urine Glucose (UA) 50 mg/dL (Negative) 09/08/20 Unknown Urine Ketones Neg mg/dL (Negative) 09/08/20 Unknown Urine Blood Mod (Negative) 09/08/20 Unknown Urine Nitrite Pos (Negative) 09/08/20 Unknown Urine Bilirubin Neg (Negative) 09/08/20 Unknown Urine Urobilinogen < 2.0 mg/dL (<2.0) 09/08/20 Unknown Ur Leukocyte Esterase Neg (Negative) 09/08/20 Unknown Urine WBC (Auto) 7.0 /HPF (0.0-6.0) H 09/08/20 Unknown Urine RBC (Auto) 3.0 /HPF (0.0-6.0) 09/08/20 Unknown Urine Bacteria (Auto) 4+ /HPF (Negative) 09/08/20 Unknown Hyaline Casts 1 /LPF 09/08/20 Unknown Urine Mucus Few /HPF 09/08/20 Unknown Coronavirus (PCR) Positive (Negative) A 09/08/20 Unknown Microbiology: Microbiology 09/08/20 20:34 Peripheral/Venous Blood Culture - Preliminary NO GROWTH AFTER 24 HOURS 09/08/20 20:34 Peripheral/Venous Blood Culture - Preliminary NO GROWTH AFTER 24 HOURS Long/IV: Voiding Method Condom Catheter Active Medications - Current Medications Current Medications: Generic Name Dose Route Start Last Admin Trade Name Freq PRN Reason Stop Dose Admin Acetaminophen 650 mg 09/09/20 02:56 Acetaminophen 325 Mg Tab PO Q4H PRN Pain MILD(1-3)/Fever >100.5/SALAMANCA Albuterol 2.5 mg 09/09/20 02:56 Albuterol 2.5 Mg/3 Ml Nebu IH Q3HRT PRN Shortness Of Breath Dexamethasone 6 mg 09/09/20 18:00 09/09/20 18:32 Dexamethasone 4 Mg/Ml Vial IV 09/19/20 17:59 6 mg Q24HR TEJAS Administration Docusate Sodium 100 mg 09/09/20 10:00 09/09/20 21:45 Docusate Sodium 100 Mg Cap PO 100 mg BID TEJAS Administration Enoxaparin Sodium 40 mg 09/09/20 10:00 09/09/20 11:20 Enoxaparin 40 Mg/0.4 Ml Inj SUB-Q 40 mg QDAY TEJAS Administration Ceftriaxone Sodium 1 gm in 50 mls @ 100 mls/hr 09/09/20 20:00 09/09/20 20:10 Rocephin/Ns 1 Gm/50 Ml IV 100 mls/hr Q24H TEJAS Administration Protocol REMDESIVIR 100 mg/ Sodium 250 mls @ 500 mls/hr 09/10/20 21:00 Chloride IV 09/13/20 21:29 Q24HR@2100 TEJAS Naloxone HCl 0.1 mg 09/09/20 02:56 Naloxone 0.4 Mg/1 Ml Inj IV Q2MIN PRN Res Rate </= 8 or 02 SAT < 92% Nicotine 14 mg 09/09/20 10:00 09/09/20 11:21 Nicotine 14 Mg/24 Hr Patch TD 14 mg QDAY TEJAS Administration Ondansetron HCl 4 mg 09/09/20 02:56 Ondansetron 4 Mg/2 Ml Inj IV Q6H PRN Nausea And Vomiting Oxycodone/Acetaminophen 1 tab 09/09/20 02:56 Oxycodone /Acetaminophen 5-325mg Tab PO Q6H PRN Pain, Moderate (4-6) Sodium Chloride 10 ml 09/09/20 10:00 09/09/20 21:45 Sodium Chloride 0.9% 10 Ml Flush Syringe IV 10 ml BID TEJAS Administration Sodium Chloride 10 ml 09/09/20 02:56 Sodium Chloride 0.9% 10 Ml Flush Syringe IV PRN PRN LINE FLUSH Sodium Chloride 50 ml 09/09/20 19:00 09/09/20 20:11 Sodium Chloride 0.9% 50 Ml Ivpb IV 09/13/20 21:01 50 ml Q24HR@2100 TEJAS Administration Zinc Sulfate 220 mg 09/09/20 10:00 09/09/20 21:45 Zinc Sulfate 220 Mg Cap PO 220 mg BID TEJAS Administration Nutrition/Malnutrition Assess - Dietary Evaluation Nutrition/Malnutrition Findings: Nutrition Notes Start: 09/09/20 08:51 Freq: Status: Active Protocol: Document 09/09/20 08:51 NIVIA (Rec: 09/09/20 09:05 NIVIA [id number]) Nutrition Notes Need for Assessment generated from: MD Order Initial or Follow up Assessment Other Pertinent Diagnosis Pneu, r/o COVID-19, acute metabolic encephalopathy, UTI, tobacco dependence Current Diet Cardiac/Consistent CHO Labs/Tests Reviewed Pertinent Medications Colace, zinc sulfate Height 5 ft 5 in Weight 44.497 kg [place] Body Weight (kg) 61.81 BMI 16.3 Weight Status Underweight Subjective/Other Information RD consulted for malnutrition; pt also screened for low BMI. Pt currently alert and oriented x 1. Burn Absent Trauma Absent Skin Integrity/Comment Mathew score: 13 Minimum of two criteria Yes Body Fat Depletion Moderate depletion (severe) Muscle Mass Moderate Depletion (severe) Reduced Credit Risk Analytics Manager Strength Measurably Reduced (severe) Protein-Calorie Malnutrition Severe #1 Nutrition Diagnosis Malnutrition Etiology advanced age, questionable PO intake As Evidenced by Signs and Symptoms subcutaneous fat loss, muscle loss, weak hand law firm consultant strength, BMI 16.3 Is patient on ventilator? No Is Patient Ambulatory and/or Out of Bed No REE-([facility]-confined to bed) 1299.456 Kcal/Kg value to use for calculation 40 Approximate Energy Requirements Using 1780 kcal/Kg Calculation Used for Recommendations Kcal/kg Additional Notes Pro needs 1.2-1.5g/k-67g/ day Fluid needs 1500ml/day Nutrition Intervention Change Diet Order: Continue current diet order Add Supplement/Snack (indicate name/kcal Ensure Enlive BID /protein ) Provides kCal: 700 Provides Protein (gm) 40 Goal #1 PO intake of meals plus ONS to meet 80-100% energy and pro needs Goal #2 Wt maintenance and/or gain Anticipated Discharge Needs: ONS 1-2 times daily for wt maintenance Follow-Up By: 09/11/20 Additional Comments F/U: intakes (meals, ONS)
[2020-09-10 09:20] LABS: Hemoglobin 15.3 gm/dl (11.8-15.2); Mean Corpuscular HGB Conc 34 % (32-34); Mean Corpuscular Volume 92 fl (84-94); Platelet Count 123 K/mm3 (140-440); Red Blood Count 4.83 M/mm3 (3.65-5.03); Red Cell Distribution Width 14.2 % (13.2-15.2)
[2020-09-10 09:26] LABS: Basophils % (Auto) 0.2 % (0.0-1.8); Hematocrit 43.5 % (35.5-45.6); Lymphocytes # (Auto) 0.4 K/mm3 (1.2-5.4); Lymphocytes % (Auto) 6.2 % (13.4-35.0); Monocytes # (Auto) 0.5 K/mm3 (0.0-0.8); Monocytes % (Auto) 7.6 % (0.0-7.3)
[2020-09-10] MEDS: DOCUSATE SODIUM 100 MG CAP PO SCH ×2 (09:43→22:14)
[2020-09-10] MEDS: NICOTINE 14 MG/24 HR PATCH TD SCH (09:43)
[2020-09-10] MEDS: ENOXAPARIN 40 MG/0.4 ML INJ SUB-Q SCH (09:43)
[2020-09-10] MEDS: ZINC SULFATE 220 MG CAP PO SCH ×2 (09:43→22:14)
[2020-09-10] MEDS: dexAMETHasone 4 MG/ML VIAL IV SCH (09:43)
[2020-09-10 09:55] LABS: Alanine Aminotransferase 38 units/L (7-56); Albumin 3.2 g/dL (3.9-5); Blood Urea Nitrogen 23 mg/dL (9-20); Calcium 9.2 mg/dL (8.4-10.2); Hemolysis Index 4
[2020-09-10 09:58] LABS: BUN/Creatinine Ratio 46
--- NOTE | 2020-09-10 12:15 | Electrocardiograph Report ---
[facility] Test Date: 2020-09-08 Test Time: 20:12:09 Pat Name: LUIS CAO Department: Room: A360 1 Gender: M Tool Filer: EVERARDO : 1940 Requested By: ARNIE VALDEZ Order Number: [id number] Reading MD: Riki Cleveland Measurements Intervals [place] Rate: 132 P: MN: QRS: -112 QRSD: 141 T: -72 QT: 344 QTc: 514 Interpretive Statements Probably atrial fibrillation with rapid ventricular rate RBBB and LAFB ST depression consider acute inferior ischemia No previous ECG available for comparison Electronically Signed On 09-10-2020 12:15:30 EDT by Riki Cleveland
--- NOTE | 2020-09-10 12:17 | Electrocardiograph Report ---
[facility] Test Date: 2020-09-08 Test Time: 23:07:41 Pat Name: LUIS CAO Department: Room: A360 1 Gender: M Evp Chief Exploration Officer: : 1940 Requested By: ARNIE VALDEZ Order Number: [id number] Reading MD: Riki Cleveland Measurements Intervals [place] Rate: 71 P: 87 [place]: 155 QRS: 73 QRSD: 152 T: -45 QT: 487 QTc: 529 Interpretive Statements Sinus rhythm Probable left atrial enlargement Right bundle branch block No previous ECG available for comparison Electronically Signed On 09-10-2020 12:17:12 EDT by Riki Cleveland
--- NOTE | 2020-09-10 12:17 | Electrocardiograph Report ---
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
--- NOTE | 2020-09-10 16:39 | Magnetic Resonance Report ---
MRI BRAIN WITHOUT CONTRAST INDICATION / CLINICAL INFORMATION: encephalopathy. TECHNIQUE: Multiplanar, multisequence MR images of the brain were obtained. COMPARISON: Head CT on 09/08/2020 FINDINGS: BRAIN / INTRACRANIAL CONTENTS: No acute ischemia, acute hemorrhage, mass effect, midline shift, or hy drocephalus. There is extensive cerebral white matter confluent T2/FLAIR hyperintensity. There is mo derate global brain atrophy. CRANIOCERVICAL JUNCTION: No significant abnormality. VASCULAR FLOW-VOIDS: No significant abnormality. ORBITS: No significant abnormality of visualized orbits. SINUSES / MASTOIDS: No significant abnormality of visualized sinuses and mastoid air cells. ADDITIONAL FINDINGS: None. IMPRESSION: 1. No acute intracranial abnormality. 2. Moderate global brain atrophy. 3. Extensive confluent cerebral white matter T2/FLAIR hyperintensity that most likely indicates chron ic small vessel ischemic change. Signer Name: Willie Ohara MD Signed: 09/10/2020 4:33 PM Workstation Name: [id number]
--- NOTE | 2020-09-10 17:55 | Progress Note ---
Assessment and Plan Cultures: SARS-CoV-2 PCR positive Blood cultures no growth today Assessment: 79-year-old male with a smoking abuse, hard of hearing, admitted on 09/08/2020 secondary to a week history of generalized malaise, cough and subjective fever: #Severe sepsis: Present on admission with elevated lactate, tachycardia, fever, hypoxia, likely due to bilateral pneumonia +/-UTI. #Severe COVID pneumonia: Chest CT with bibasilar airspace disease. Inflammatory markers elevated CRP 5.4, ferritin 628, D-dimer 405. Patient is not vaccinated. #Mild UTI with moderate right hydronephrosis: Urinalysis with mild pyuria. #Acute hypoxemic respiratory failure: Currently on 3 days. Initial steps dropped to 88%. Likely secondary to COVID-19 infection. #Elevated LFTs: from COVID #Thrombocytopenia: Mild likely secondary to COVID-19 #Sinusitis on CT #Encephalopathy: Noted global brain atrophy and extensive confluent white matter on MRI. Recommendations: -Continue dexamethasone 6 mg IV/PO daily for 10 days -Continue remdesivir D2 of 5 -Monitor inflammatory markers - ferritin, Ddimer, CRP, LDH -Monitor liver function test on Remdesivir -Continue anticoagulation per System Protocol -Prone positioning as possible -Continue ceftriaxone for UTI total 3 days -Urology consult for right moderate hydronephrosis examination All laboratory, cultures and imaging were reviewed. Will follow Kylee Lira MD Infectious Diseases Pharm Tech [facility] ([facility]) M [phone] O [phone] Subjective Date of service: 09/10/20 Principal diagnosis: COVID Interval history: Patient remains on 3 L. Currently out of the room. Objective - Exam Narrative Exam: Out of the room for imaging - Constitutional Vitals: Vital Signs Temp Pulse Resp BP Pulse Ox 98.2 F 89 18 140/78 94 09/10/20 11:29 09/10/20 11:29 09/10/20 11:29 09/10/20 11:29 09/10/20 11:29 Temperature -Last 24 Hours Temperature 98.2 F Temperature 98.0 F - Labs CBC & Chem 7: 09/10/20 08:42 09/10/20 08:42 Labs: Abnormal lab results 09/10/20 09/10/20 09/10/20 Range/Units 08:42 08:42 08:42 Hgb 15.3 H (11.8-15.2) gm/dl Plt Count 123 L (140-440) K/mm3 Lymph % (Auto) 6.2 L (13.4-35.0) % [place] % (Auto) 7.6 H (0.0-7.3) % Lymph # (Auto) 0.4 L (1.2-5.4) K/mm3 Seg Neutrophils % 86.0 H (40.0-70.0) % Sodium 134 L (137-145) mmol/L Chloride 93.0 L (98-107) mmol/L BUN 23 H (9-20) mg/dL Creatinine 0.5 L (0.8-1.3) mg/dL Glucose 134 H (75-100) mg/dL AST 117 H (5-40) units/L Total Creatine Kinase 1113 H (55-170) units/L Albumin 3.2 L (3.9-5) g/dL
[2020-09-10] MEDS: REMDESIVIR 100 MG in SODIUM CHLORIDE 0.9% 250ML 250 ML IV SCH (22:12)
[2020-09-10] MEDS: SODIUM CHLORIDE 0.9% 50 ML IVPB IV SCH (22:12)
[2020-09-10] MEDS: cefTRIAXone/NS 1 GM/50 ML 1 GM/50 ML BAG IV SCH (22:13)
[2020-09-10] MEDS: D5W/0.9% NACL 1,000 ML IV SCH (22:15)
[2020-09-10] MEDS ORDERED: METOPROLOL TARTRATE 5 MG/5 ML INJ IV ONE (22:21)
[2020-09-10] MEDS ORDERED: traZODone 50 MG TAB PO ONE (22:30)
[2020-09-11] MEDS ORDERED: SODIUM CHLORIDE 0.9% 500 ML 500 ML IV ONE ×2 (01:46→15:00)
[2020-09-11] MEDS: oxyCODONE /ACETAMINOPHEN 5-325MG TAB PO PRN (01:58)
--- NOTE | 2020-09-11 07:13 | Event Note ---
Date: 09/10/20 Called by patient's nurse-Patients heart rate was at 170 and was sustaining. patient on A-fib. Lopressor IVP ordered and given. Heart rate in the 130's,
[2020-09-11 07:44] LABS: Alanine Aminotransferase 29 units/L (7-56); Albumin 2.9 g/dL (3.9-5); BUN/Creatinine Ratio 44; Blood Urea Nitrogen 53 mg/dL (9-20); Calcium 8.3 mg/dL (8.4-10.2); Hemolysis Index 14
--- NOTE | 2020-09-11 08:25 | Progress Note ---
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 Of note patient is unable to provide history. History is provided by review of medical records, medical reports, and family ( Courtney Louise [phone]). reports patient spent a prolonged period of time with her grandson over the past 2 weeks, who has since tested positive for COVID-19 virus. Upon arrival to the ED patient was found to be febrile, tachycardic, and hypoxic on room air. Additionally right foot reports patient fell and may have hit his head a few days ago. denies medical history, and surgical history. Per patient, "has not seen a medical provider in many years", and he is not currently nor has he been on any medication in the past 10 years or greater. Upon assessment patient is seen a week on stretcher. Able to track with eyes, spontaneously moves extremities, but unable to answer simple yes/no questions. Imaging studies were reviewed showed some in the maxillary area unknown etiology. CT shows a right hydronephrosis. 09/10: ID input is appreciated of also discussed with family of the patient and informed him of the diagnosis and the need to have other people at home tested. Patient is on 3 L of oxygen will continue to monitor. Patient will need PT OT evaluation considering recurrent falls. May actually need rehab based on the condition he appears. Dietitian consultation. Considering his age he is with a guarded prognosis at this time. Azithromycin has been discontinued for the antibiotics management per ID at this time. We will continue remdesivir and steroid therapy. And intermittent pulse ox monitoring. We will continue to encourage prone positioning. We will also obtain pulmonary evaluation 09/11: Afib with RVR, Cardiology consulted, will start on Eliquis. Echo Reviewed. Pulmonary consulted due to worsening hypoxia. Prone positioning if able. Will give a dose of lasix today. Monitor Renal function. Disucssed and updated spouse. She is still insistent of home management when he is better,and also tells me he was not on any medication of physician care prior to hospitalization. Poor prognosis considering her tobacco use disorder and overall medical condition including severe protein calorie malnutrition COVID-19 virus pneumonia with associated respiratory hypoxia. -Confirmed exposure to COVID-19 (grandson tested positive, and was around grandson for prolonged periods of time) -Ferritin, and D-dimer inflammatory markers elevated -CT angio chest shows consolidation in both lungs -PCR pending -Isolate -Follow-up on labs -ID consulted -On IV azithromycin and Rocephin Severe sepsis secondary to COVID-19 -ID currently following Afib with RVR Pneumonia -Likely due to #1 -CXR negative -CT angio chest shows airspace consolidation in both lungs -Blood Cultures pending -Start on IV Abx Acute hypoxic respiratory failure -No Baseline home oxygen requirements -Saturation of 88% on room air -Currently on supplemental -Monitor saturations -Continue supplemental oxygen wean as tolerated Acute metabolic encephalopathy -CT head negative for acute abnormalities; show some soft tissue gas noted in anterior temporal musculature bilaterally and in the posterior maxillary sinuses -T-max one 1.8 -No leukocytosis -Blood cultures pending -Neuro checks Acute cystitismild -UA positive for UTI -Urine culture pending -on IV Abx Elevated D-dimer -CT angio chest negative for PE -On prophylaxis Lovenox Elevated BNP - at 4417 -Troponin x1, will trend -Denies history of heart failure, or cardiac history -Echo pending -Day team may consider cardiology consult Malnutrition -Moderate to severe -Albumin 3.3 -Dietitian consult Tobacco abuse -Current every day smoker -Per patient smokes 1 pack of small cigars daily -Counseled for cessation, will need reinforcement when mentation improves -Nicotine patch when necessary Thrombocytopenia Mild sinusitis Elevated LFTs likely secondary to COVID-19 hypokalemia -Moderate -Received replacement -Monitor electrolytes and replace as needed History of recent fall -Patient fell may have hit his head, per reports -Imaging negative for acute abnormalities -Initiate fall precautions -PT OT eval pending Right-sided hydronephrosis -No renal impairment -Outpatient urology follow-up DVT PPX -On Lovenox Advance Directives: No VTE prophylaxis?: Chemical, Mechanical Plan of care discussed with patient/family: Yes History Interval history: Seen and examined worsening respiratory status, now on 8 liters, noted to have Afib with RVR. Hospitalist Physical - Physical exam Narrative exam: VITAL SIGNS: Reviewed. GENERAL: The patient appears markedly cachectic, lethargic, on 8 L of oxygen vital signs as documented. HEAD: No signs of head trauma. EYES: Pupils are equal. Extraocular motions intact. EARS: Hearing grossly intact. MOUTH: Oropharynx is normal. NECK: No adenopathy, no JVD. CHEST: Chest with Diminshed, breath sounds bilaterally. No wheezes, rales, or rhonchi. CARDIAC: Irregulary irregular rate and rhythm. S1 and S2, without murmurs, gallops, or rubs. VASCULAR: No Edema. Peripheral pulses normal and equal in all extremities. ABDOMEN: Soft, non tender and non distended. No rebound or guarding, and no masses palpated. Bowel Sounds normal. MUSCULOSKELETAL: Good range of motion of all major joints. Extremities without clubbing, cyanosis or edema. NEUROLOGIC EXAM: Awake orientation could not be fully examined nursing mumbles words. While he does not have any focal neurological deficit he is deconditioned. He does move all extremities but I doubt. Follows commands. PSYCHIATRIC: Mood normal. SKIN: detail exam as documented in skin assessment - Constitutional Vitals: Temp Pulse Resp BP Pulse Ox 97.7 F 136 H 18 96/62 95 09/11/20 07:35 09/11/20 07:35 09/11/20 07:35 09/11/20 07:35 09/11/20 08:09 HEART Score - HEART Score Troponin: Troponin T 0.020 ng/mL (0.00-0.029) 09/09/20 04:25 Results - Labs CBC & Chem 7: 09/10/20 08:42 09/11/20 06:43 Labs: Laboratory Last Values WBC 6.7 K/mm3 (4.5-11.0) 09/10/20 08:42 RBC 4.83 M/mm3 (3.65-5.03) 09/10/20 08:42 Hgb 15.3 gm/dl (11.8-15.2) H 09/10/20 08:42 Hct 43.5 % (35.5-45.6) 09/10/20 08:42 MCV 92 fl (84-94) 09/10/20 08:42 MCH 32 pg (28-32) 09/10/20 08:42 MCHC 34 % (32-34) 09/10/20 08:42 RDW 14.2 % (13.2-15.2) 09/10/20 08:42 Plt Count 123 K/mm3 (140-440) L 09/10/20 08:42 Lymph % (Auto) 6.2 % (13.4-35.0) L 09/10/20 08:42 [place] % (Auto) 7.6 % (0.0-7.3) H 09/10/20 08:42 Eos % (Auto) 0.0 % (0.0-4.3) 09/10/20 08:42 Baso % (Auto) 0.2 % (0.0-1.8) 09/10/20 08:42 Lymph # (Auto) 0.4 K/mm3 (1.2-5.4) L 09/10/20 08:42 [place] # (Auto) 0.5 K/mm3 (0.0-0.8) 09/10/20 08:42 Eos # (Auto) 0.0 K/mm3 (0.0-0.4) 09/10/20 08:42 Baso # (Auto) 0.0 K/mm3 (0.0-0.1) 09/10/20 08:42 Add Manual Diff Complete 09/08/20 20:34 Total Counted 100 09/08/20 20:34 Seg Neutrophils % 86.0 % (40.0-70.0) H 09/10/20 08:42 Seg Neuts % (Manual) 90.0 % (40.0-70.0) H 09/08/20 20:34 Lymphocytes % (Manual) 4.0 % (13.4-35.0) L 09/08/20 20:34 Monocytes % (Manual) 6.0 % (0.0-7.3) 09/08/20 20:34 Nucleated RBC % Not Reportable 09/08/20 20:34 Seg Neutrophils # 5.8 K/mm3 (1.8-7.7) 09/10/20 08:42 Seg Neutrophils # Man 5.9 K/mm3 (1.8-7.7) 09/08/20 20:34 Band Neutrophils # 0.0 K/mm3 09/08/20 20:34 Lymphocytes # (Manual) 0.3 K/mm3 (1.2-5.4) L 09/08/20 20:34 Abs React Lymphs (Man) 0.0 K/mm3 09/08/20 20:34 Monocytes # (Manual) 0.4 K/mm3 (0.0-0.8) 09/08/20 20:34 Eosinophils # (Manual) 0.0 K/mm3 (0.0-0.4) 09/08/20 20:34 Basophils # (Manual) 0.0 K/mm3 (0.0-0.1) 09/08/20 20:34 Metamyelocytes # 0.0 K/mm3 09/08/20 20:34 Myelocytes # 0.0 K/mm3 09/08/20 20:34 Promyelocytes # 0.0 K/mm3 09/08/20 20:34 Blast Cells # 0.0 K/mm3 09/08/20 20:34 WBC Morphology Not Reportable 09/08/20 20:34 Hypersegmented Neuts Not Reportable 09/08/20 20:34 Hyposegmented Neuts Not Reportable 09/08/20 20:34 Hypogranular Neuts Not Reportable 09/08/20 20:34 Smudge Cells Not Reportable 09/08/20 20:34 Toxic Granulation Not Reportable 09/08/20 20:34 Toxic Vacuolation Few 09/08/20 20:34 Dohle Bodies Not Reportable 09/08/20 20:34 Pelger-Huet Anomaly Not Reportable 09/08/20 20:34 Shweta Rods Not Reportable 09/08/20 20:34 Platelet Estimate Consistent w auto 09/08/20 20:34 Clumped Platelets Not Reportable 09/08/20 20:34 Plt Clumps, EDTA Not Reportable 09/08/20 20:34 Large Platelets Not Reportable 09/08/20 20:34 Giant Platelets Not Reportable 09/08/20 20:34 Platelet Satelliting Not Reportable 09/08/20 20:34 Plt Morphology Comment Not Reportable 09/08/20 20:34 RBC Morphology Normal 09/08/20 20:34 Dimorphic RBCs Not Reportable 09/08/20 20:34 Polychromasia Not Reportable 09/08/20 20:34 Hypochromasia Not Reportable 09/08/20 20:34 Poikilocytosis Not Reportable 09/08/20 20:34 Anisocytosis Not Reportable 09/08/20 20:34 Microcytosis Not Reportable 09/08/20 20:34 Macrocytosis Not Reportable 09/08/20 20:34 Spherocytes Not Reportable 09/08/20 20:34 Pappenheimer Bodies Not Reportable 09/08/20 20:34 Sickle Cells Not Reportable 09/08/20 20:34 Target Cells Not Reportable 09/08/20 20:34 Tear Drop Cells Not Reportable 09/08/20 20:34 Ovalocytes Not Reportable 09/08/20 20:34 Helmet Cells Not Reportable 09/08/20 20:34 Carr-Marston Bodies Not Reportable 09/08/20 20:34 Burns Rings Not Reportable 09/08/20 20:34 [place] Cells Not Reportable 09/08/20 20:34 Bite Cells Not Reportable 09/08/20 20:34 Crenated Cell Not Reportable 09/08/20 20:34 Elliptocytes Not Reportable 09/08/20 20:34 Acanthocytes (Spur) Not Reportable 09/08/20 20:34 Rouleaux Not Reportable 09/08/20 20:34 Hemoglobin C Crystals Not Reportable 09/08/20 20:34 Schistocytes Not Reportable 09/08/20 20:34 Malaria parasites Not Reportable 09/08/20 20:34 Viraj Bodies Not Reportable 09/08/20 20:34 Hem Pathologist Commnt No 09/08/20 20:34 PT 14.3 Sec. (12.2-14.9) 09/08/20 20:34 INR 1.06 (0.87-1.13) 09/08/20 20:34 APTT 36.1 Sec. (24.2-36.6) 09/08/20 20:34 D-Dimer 405.34 ng/mlDDU (0-234) H 09/08/20 20:34 Sodium 136 mmol/L (137-145) L 09/11/20 06:43 Potassium 3.7 mmol/L (3.6-5.0) 09/11/20 06:43 Chloride 97.3 mmol/L (98-107) L 09/11/20 06:43 Carbon Dioxide 25 mmol/L (22-30) 09/11/20 06:43 Anion Gap 17 mmol/L 09/11/20 06:43 BUN 53 mg/dL (9-20) H 09/11/20 06:43 Creatinine 1.2 mg/dL (0.8-1.3) D 09/11/20 06:43 Estimated GFR > 60 ml/min 09/11/20 06:43 BUN/Creatinine Ratio 44 % 09/11/20 06:43 Glucose 175 mg/dL (75-100) H 09/11/20 06:43 Lactic Acid 1.60 mmol/L (0.7-2.0) 09/09/20 01:09 Calcium 8.3 mg/dL (8.4-10.2) L 09/11/20 06:43 Magnesium 1.70 mg/dL (1.7-2.3) 09/08/20 20:34 Ferritin 638.9 ng/mL (30.0-300.0) H 09/08/20 20:34 Total Bilirubin 0.20 mg/dL (0.1-1.2) 09/11/20 06:43 AST 94 units/L (5-40) H 09/11/20 06:43 ALT 29 units/L (7-56) 09/11/20 06:43 Alkaline Phosphatase 67 units/L (35-129) 09/11/20 06:43 Lactate Dehydrogenase 286 units/L (91-180) H 09/08/20 20:34 Total Creatine Kinase 1113 units/L (55-170) H 09/10/20 08:42 Troponin T 0.020 ng/mL (0.00-0.029) 09/09/20 04:25 C-Reactive Protein 5.40 mg/dL (0.00-1.30) H 09/08/20 20:34 NT-Pro-B Natriuret Pep 4471 pg/mL (0-900) H 09/08/20 20:34 Total Protein 6.0 g/dL (6.3-8.2) L 09/11/20 06:43 Albumin 2.9 g/dL (3.9-5) L 09/11/20 06:43 Albumin/Globulin Ratio 0.9 % 09/11/20 06:43 Procalcitonin 0.23 ng/mL (<0.15) 09/08/20 20:34 TSH 0.581 mlU/mL (0.270-4.200) 09/08/20 20:34 Free T4 1.37 ng/dL (0.76-1.46) 09/08/20 20:34 Urine Color Yellow (Yellow) 09/08/20 Unknown Urine Turbidity Hazy (Clear) 09/08/20 Unknown Urine pH 5.0 (5.0-7.0) 09/08/20 Unknown Ur Specific [place] 1.015 (1.003-1.030) 09/08/20 Unknown Urine Protein 30 mg/dl mg/dL (Negative) 09/08/20 Unknown Urine Glucose (UA) 50 mg/dL (Negative) 09/08/20 Unknown Urine Ketones Neg mg/dL (Negative) 09/08/20 Unknown Urine Blood Mod (Negative) 09/08/20 Unknown Urine Nitrite Pos (Negative) 09/08/20 Unknown Urine Bilirubin Neg (Negative) 09/08/20 Unknown Urine Urobilinogen < 2.0 mg/dL (<2.0) 09/08/20 Unknown Ur Leukocyte Esterase Neg (Negative) 09/08/20 Unknown Urine WBC (Auto) 7.0 /HPF (0.0-6.0) H 09/08/20 Unknown Urine RBC (Auto) 3.0 /HPF (0.0-6.0) 09/08/20 Unknown Urine Bacteria (Auto) 4+ /HPF (Negative) 09/08/20 Unknown Hyaline Casts 1 /LPF 09/08/20 Unknown Urine Mucus Few /HPF 09/08/20 Unknown Coronavirus (PCR) Positive (Negative) A 09/08/20 Unknown Microbiology: Microbiology 09/08/20 20:34 Peripheral/Venous Blood Culture - Preliminary NO GROWTH AFTER 48 HOURS 09/08/20 20:34 Peripheral/Venous Blood Culture - Preliminary NO GROWTH AFTER 48 HOURS Long/IV: Voiding Method Incontinent Active Medications - Current Medications Current Medications: Generic Name Dose Route Start Last Admin Trade Name Freq PRN Reason Stop Dose Admin Acetaminophen 650 mg 09/09/20 02:56 Acetaminophen 325 Mg Tab PO Q4H PRN Pain MILD(1-3)/Fever >100.5/SALAMANCA Albuterol 2.5 mg 09/09/20 02:56 Albuterol 2.5 Mg/3 Ml Nebu IH Q3HRT PRN Shortness Of Breath Dexamethasone 6 mg 09/09/20 18:00 09/10/20 09:43 Dexamethasone 4 Mg/Ml Vial IV 09/19/20 17:59 6 mg Q24HR TEJAS Administration Docusate Sodium 100 mg 09/09/20 10:00 09/10/20 22:14 Docusate Sodium 100 Mg Cap PO Not Given BID TEJAS Enoxaparin Sodium 40 mg 09/09/20 10:00 09/10/20 09:43 Enoxaparin 40 Mg/0.4 Ml Inj SUB-Q 40 mg QDAY TEJAS Administration Ceftriaxone Sodium 1 gm in 50 mls @ 100 mls/hr 09/09/20 20:00 09/10/20 22:13 Rocephin/Ns 1 Gm/50 Ml IV 100 mls/hr Q24H TEJAS Administration Protocol REMDESIVIR 100 mg/ Sodium 250 mls @ 500 mls/hr 09/10/20 21:00 09/10/20 22:12 Chloride IV 09/13/20 21:29 500 mls/hr Q24HR@2100 TEJAS Administration Dextrose/Sodium Chloride 1,000 mls @ 42 mls/hr 09/10/20 20:00 09/10/20 22:15 D5ns IV 42 mls/hr DIRECT TEJAS Administration Naloxone HCl 0.1 mg 09/09/20 02:56 Naloxone 0.4 Mg/1 Ml Inj IV Q2MIN PRN Res Rate </= 8 or 02 SAT < 92% Nicotine 14 mg 09/09/20 10:00 09/10/20 09:43 Nicotine 14 Mg/24 Hr Patch TD 14 mg QDAY TEJAS Administration Ondansetron HCl 4 mg 09/09/20 02:56 Ondansetron 4 Mg/2 Ml Inj IV Q6H PRN Nausea And Vomiting Oxycodone/Acetaminophen 1 tab 09/09/20 02:56 09/11/20 01:58 Oxycodone /Acetaminophen 5-325mg Tab PO 1 tab Q6H PRN Administration Pain, Moderate (4-6) Sodium Chloride 10 ml 09/09/20 10:00 09/10/20 22:14 Sodium Chloride 0.9% 10 Ml Flush Syringe IV 10 ml BID TEJAS Administration Sodium Chloride 10 ml 09/09/20 02:56 Sodium Chloride 0.9% 10 Ml Flush Syringe IV PRN PRN LINE FLUSH Sodium Chloride 50 ml 09/09/20 19:00 09/10/20 22:12 Sodium Chloride 0.9% 50 Ml Ivpb IV 09/13/20 21:01 50 ml Q24HR@2100 TEJAS Administration Zinc Sulfate 220 mg 09/09/20 10:00 09/10/20 22:14 Zinc Sulfate 220 Mg Cap PO 220 mg BID TEJAS Administration Nutrition/Malnutrition Assess - Dietary Evaluation Nutrition/Malnutrition Findings: Nutrition Notes Start: 09/09/20 08:51 Freq: Status: Active Protocol: Document 09/09/20 08:51 NIVIA (Rec: 09/09/20 09:05 NIVIA [id number]) Nutrition Notes Need for Assessment generated from: MD Order Initial or Follow up Assessment Other Pertinent Diagnosis Pneu, r/o COVID-19, acute metabolic encephalopathy, UTI, tobacco dependence Current Diet Cardiac/Consistent CHO Labs/Tests Reviewed Pertinent Medications Colace, zinc sulfate Height 5 ft 5 in Weight 44.497 kg [place] Body Weight (kg) 61.81 BMI 16.3 Weight Status Underweight Subjective/Other Information RD consulted for malnutrition; pt also screened for low BMI. Pt currently alert and oriented x 1. 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 No Is Patient Ambulatory and/or Out of Bed No REE-([facility]-confined to bed) 1299.456 Kcal/Kg value to use for calculation 40 Approximate Energy Requirements Using 1780 kcal/Kg Calculation Used for Recommendations Kcal/kg Additional Notes Pro needs 1.2-1.5g/k-67g/ day Fluid needs 1500ml/day Nutrition Intervention Change Diet Order: Continue current diet order Add Supplement/Snack (indicate name/kcal Ensure Enlive BID /protein ) Provides kCal: 700 Provides Protein (gm) 40 Goal #1 PO intake of meals plus ONS to meet 80-100% energy and pro needs Goal #2 Wt maintenance and/or gain Anticipated Discharge Needs: ONS 1-2 times daily for wt maintenance Follow-Up By: 09/11/20 Additional Comments F/U: intakes (meals, ONS)
[2020-09-11] MEDS: DOCUSATE SODIUM 100 MG CAP PO SCH (10:43)
[2020-09-11] MEDS: dexAMETHasone 4 MG/ML VIAL IV SCH (10:43)
[2020-09-11] MEDS: NICOTINE 14 MG/24 HR PATCH TD SCH (10:43)
[2020-09-11] MEDS: ZINC SULFATE 220 MG CAP PO SCH (10:44)
[2020-09-11] MEDS ORDERED: APIXABAN 5 MG TAB PO SCH ×2 (11:00→11:28)
[2020-09-11 11:35] LABS: Hematocrit 43.5 % (35.5-45.6); Hemoglobin 14.8 gm/dl (11.8-15.2); Mean Corpuscular HGB Conc 34 % (32-34); Mean Corpuscular Volume 94 fl (84-94); Platelet Count 121 K/mm3 (140-440); Red Blood Count 4.61 M/mm3 (3.65-5.03); Red Cell Distribution Width 14.6 % (13.2-15.2)
[2020-09-11 11:45] LABS: INR 1.17 (0.87-1.13)
[2020-09-11 11:47] LABS: Partial Thromboplastin Time 39.2 Sec. (24.2-36.6)
[2020-09-11] MEDS ORDERED: METOPROLOL TARTRATE 25 MG TAB PO SCH (12:00)
--- NOTE | 2020-09-11 14:42 | Consultation ---
History of Present Illness Consult date: 09/11/20 Requesting physician: ROBERTO CARLOS VEGA Consult reason: atrial fibrillation History of present illness: Patient is an 79 y/o male with no significant PMHx. At time of interview patient was unable to provide history due to AMS, therefor ehistroy is taken from the chart. Patient was brought into the ED for flu like symptoms x 1 week. Per documentation patient has not had a provider or been on any medication for years. Patient has reportedly spent time around his grandson over the last 2 weeks who has tested positive for COVID-19. Patient arrived to hospital febrile, tachycardic, and hypoxic. Patient has since tested positive for COVID- 19. Cardiology has been consulted for Afib w/ RVR. 09/09/2020-Left ventricular function is mildly decreased with an EF of 40 to 45%, mild diastolic dysfunction, normal left ventricular wall thickness, right ventricular function is normal, mild to moderate aortic regurgitation, no tricuspid valve regurgitation mild to moderate pulmonic regurgitation Past History Past Surgical History: No surgical history Social history: , lives with family, smoking (1 pack of small cigars per day (provided by )) Family history: no significant family history Medications and Allergies Allergies Allergy/AdvReac Type Severity Reaction Status Date / Time No Known Allergies Allergy Verified 09/24/19 21:12 Home Medications Medication Instructions Recorded Confirmed Last Taken Type No Known Home Medications [No 09/08/20 09/08/20 Unknown History Reported Home Medications] Active Meds: Active Medications Acetaminophen (Acetaminophen 325 Mg Tab) 650 mg PO Q4H PRN PRN Reason: Pain MILD(1-3)/Fever >100.5/[place] Albuterol (Albuterol 2.5 Mg/3 Ml Nebu) 2.5 mg IH Q3HRT PRN PRN Reason: Shortness Of Breath Apixaban (Apixaban 2.5 Mg Tab) 2.5 mg PO Q12HR [facility] Dexamethasone (Dexamethasone 4 Mg/Ml Vial) 6 mg IV Q24HR TEJAS Stop: 09/19/20 17:59 Last Admin: 09/11/20 10:43 Dose: 6 mg Documented by: Docusate Sodium (Docusate Sodium 100 Mg Cap) 100 mg PO BID [facility]JAS Last Admin: 09/11/20 10:43 Dose: 100 mg Documented by: Ceftriaxone Sodium (Rocephin/Ns 1 Gm/50 Ml) 1 gm in 50 mls @ 100 mls/hr IV Q24H [facility]; Protocol Stop: 09/11/20 20:29 Last Admin: 09/10/20 22:13 Dose: 100 mls/hr Documented by: REMDESIVIR 100 mg/ Sodium (Chloride) 250 mls @ 500 mls/hr IV Q24HR@2100 [facility] Stop: 09/13/20 21:29 Last Admin: 09/10/20 22:12 Dose: 500 mls/hr Documented by: Dextrose/Sodium Chloride (D5ns) 1,000 mls @ 42 mls/hr IV DIRECT [facility] Last Admin: 09/10/20 22:15 Dose: 42 mls/hr Documented by: Sodium Chloride (Nacl 0.9% 500 Ml) 500 mls @ 999 mls/hr IV ONCE ONE Stop: 09/11/20 15:08 Metoprolol Tartrate (Metoprolol Tartrate 25 Mg Tab) 25 mg PO BID [facility] Last Admin: 09/11/20 12:12 Dose: 25 mg Documented by: Naloxone HCl (Naloxone 0.4 Mg/1 Ml Inj) 0.1 mg IV Q2MIN PRN PRN Reason: Res Rate </= 8 or 02 SAT < 92% Nicotine (Nicotine 14 Mg/24 Hr Patch) 14 mg TD QDAY [facility] Last Admin: 09/11/20 10:43 Dose: 14 mg Documented by: Ondansetron HCl (Ondansetron 4 Mg/2 Ml Inj) 4 mg IV Q6H PRN PRN Reason: Nausea And Vomiting Oxycodone/Acetaminophen (Oxycodone /Acetaminophen 5-325mg Tab) 1 tab PO Q6H PRN PRN Reason: Pain, Moderate (4-6) Last Admin: 09/11/20 01:58 Dose: 1 tab Documented by: Sodium Chloride (Sodium Chloride 0.9% 10 Ml Flush Syringe) 10 ml IV BID [facility] Last Admin: 09/11/20 10:44 Dose: 10 ml Documented by: Sodium Chloride (Sodium Chloride 0.9% 10 Ml Flush Syringe) 10 ml IV PRN PRN PRN Reason: LINE FLUSH Sodium Chloride (Sodium Chloride 0.9% 50 Ml Ivpb) 50 ml IV Q24HR@2100 [facility] Stop: 09/13/20 21:01 Last Admin: 09/10/20 22:12 Dose: 50 ml Documented by: Zinc Sulfate (Zinc Sulfate 220 Mg Cap) 220 mg PO BID [facility] Last Admin: 09/11/20 10:44 Dose: 220 mg Documented by: Review of Systems ROS unobtainable: due to mental status Physical Examination Last Vital Signs Temp 97.9 F 09/11/20 12:05 Pulse 125 H 09/11/20 12:05 Resp 18 09/11/20 12:05 BP 102/72 09/11/20 12:05 Pulse Ox 94 09/11/20 12:05 General appearance: no acute distress, cachectic HEENT: Positive: PERRL Neck: Positive: trachea midline Cardiac: Positive: Irregularly Regular, S1/S2 Lungs: Positive: Decreased Breath Sounds. Negative: Rales, Wheezes Neuro: Positive: Grossly Intact Abdomen: Positive: Soft, Active Bowel Sounds Skin: Negative: Rash, Suspicious Lesions, Ulceration Extremities: Present: upper extr. pulses, lower extr. pulses. Absent: edema Results 09/11/20 11:07 09/11/20 11:07 Cardiac Enzymes 09/11/20 Range/Units 06:43 AST 94 H (5-40) units/L Coagulation 09/11/20 Range/Units 11:07 PT 15.5 H (12.2-14.9) Sec. INR 1.17 H (0.87-1.13) APTT 39.2 H (24.2-36.6) Sec. CBC 09/11/20 Range/Units 11:07 WBC 7.7 (4.5-11.0) K/mm3 RBC 4.61 (3.65-5.03) M/mm3 Hgb 14.8 (11.8-15.2) gm/dl Hct 43.5 (35.5-45.6) % Plt Count 121 L (140-440) K/mm3 Comprehensive Metabolic Panel 09/11/20 09/11/20 Range/Units 06:43 11:07 Sodium 136 L (137-145) mmol/L Potassium 3.7 (3.6-5.0) mmol/L Chloride 97.3 L (98-107) mmol/L Carbon Dioxide 25 (22-30) mmol/L BUN 53 H (9-20) mg/dL Creatinine 1.2 D 1.1 (0.8-1.3) mg/dL Glucose 175 H (75-100) mg/dL Calcium 8.3 L (8.4-10.2) mg/dL AST 94 H (5-40) units/L ALT 29 (7-56) units/L Alkaline Phosphatase 67 (35-129) units/L Total Protein 6.0 L (6.3-8.2) g/dL Albumin 2.9 L (3.9-5) g/dL - Imaging and Cardiology Echo: report reviewed EKG: report reviewed, image reviewed EKG interpretations - Telemetry EKG Rhythm: Atrial Flutter - EKG Supraventricular dysrhythmia: atrial flutter Assessment and Plan Atrial Flutter 2:1 conduction with RVR * Patient is atrial flutter on monitor with RVR into 130s * Initiate Eliquis 5mg PO QD for anticoagulation * Initiaated Amiodorone gtt and Metoprolol 25mg PO BID for rate control * Continue to monitor on Tele * Echo 09/09/2020-Left ventricular function is mildly decreased with an EF of 40 to 45%, mild diastolic dysfunction, normal left ventricular wall thickness, right ventricular function is normal, mild to moderate aortic regurgitation, no tricuspid valve regurgitation mild to moderate pulmonic regurgitation COVID-19 Severe Sepsis * Likely Secondary to COVID-19 infection * Infectious disease is following Acute hypoxic respiratory failure * Likely due to COVID-19 infection * Pulmonology is following DVT prophylaxis * Patient anticoagulated on Eliquis Patient seen in conjunction with Dr. Yadav who agrees with this plan. We will continue to follow - Patient Problems (1) Atrial flutter Current Visit: Yes Status: Acute (2) Acute respiratory failure with hypoxia Current Visit: Yes Status: Acute (3) SIRS (systemic inflammatory response syndrome) Current Visit: Yes Status: Acute (4) Suspected 2019 novel coronavirus infection Current Visit: Yes Status: Acute
--- NOTE | 2020-09-11 14:52 | Consultation ---
History of Present Illness Consult date: 09/11/20 Requesting physician: ROBERTO CARLOS VEGA Reason for consult: other (COVID-19 infection; Pneumonia) History of present illness: PULMONARY/CCM CONSULT NOTE (Full dictation # [id number]) Please see dictated notes for full details Past History Past Surgical History: No surgical history Social history: , lives with family, smoking (1 pack of small cigars per day (provided by )) Family history: no significant family history Medications and Allergies Allergies Allergy/AdvReac Type Severity Reaction Status Date / Time No Known Allergies Allergy Verified 09/24/19 21:12 Home Medications Medication Instructions Recorded Confirmed Last Taken Type No Known Home Medications [No 09/08/20 09/08/20 Unknown History Reported Home Medications] Active Meds: Active Medications Acetaminophen (Acetaminophen 325 Mg Tab) 650 mg PO Q4H PRN PRN Reason: Pain MILD(1-3)/Fever >100.5/[place] Albuterol (Albuterol 2.5 Mg/3 Ml Nebu) 2.5 mg IH Q3HRT PRN PRN Reason: Shortness Of Breath Apixaban (Apixaban 2.5 Mg Tab) 2.5 mg PO Q12HR [facility] Dexamethasone (Dexamethasone 4 Mg/Ml Vial) 6 mg IV Q24HR [facility] Stop: 09/19/20 17:59 Last Admin: 09/11/20 10:43 Dose: 6 mg Documented by: Docusate Sodium (Docusate Sodium 100 Mg Cap) 100 mg PO BID TEJAS Last Admin: 09/11/20 10:43 Dose: 100 mg Documented by: Ceftriaxone Sodium (Rocephin/Ns 1 Gm/50 Ml) 1 gm in 50 mls @ 100 mls/hr IV Q24H [facility]; Protocol Stop: 09/11/20 20:29 Last Admin: 09/10/20 22:13 Dose: 100 mls/hr Documented by: REMDESIVIR 100 mg/ Sodium (Chloride) 250 mls @ 500 mls/hr IV Q24HR@2100 [facility] Stop: 09/13/20 21:29 Last Admin: 09/10/20 22:12 Dose: 500 mls/hr Documented by: Dextrose/Sodium Chloride (D5ns) 1,000 mls @ 42 mls/hr IV DIRECT [facility] Last Admin: 09/10/20 22:15 Dose: 42 mls/hr Documented by: Sodium Chloride (Nacl 0.9% 500 Ml) 500 mls @ 999 mls/hr IV ONCE ONE Stop: 09/11/20 15:30 Metoprolol Tartrate (Metoprolol Tartrate 25 Mg Tab) 25 mg PO BID [facility] Last Admin: 09/11/20 12:12 Dose: 25 mg Documented by: Naloxone HCl (Naloxone 0.4 Mg/1 Ml Inj) 0.1 mg IV Q2MIN PRN PRN Reason: Res Rate </= 8 or 02 SAT < 92% Nicotine (Nicotine 14 Mg/24 Hr Patch) 14 mg TD QDAY [facility] Last Admin: 09/11/20 10:43 Dose: 14 mg Documented by: Ondansetron HCl (Ondansetron 4 Mg/2 Ml Inj) 4 mg IV Q6H PRN PRN Reason: Nausea And Vomiting Oxycodone/Acetaminophen (Oxycodone /Acetaminophen 5-325mg Tab) 1 tab PO Q6H PRN PRN Reason: Pain, Moderate (4-6) Last Admin: 09/11/20 01:58 Dose: 1 tab Documented by: Sodium Chloride (Sodium Chloride 0.9% 10 Ml Flush Syringe) 10 ml IV BID [facility] Last Admin: 09/11/20 10:44 Dose: 10 ml Documented by: Sodium Chloride (Sodium Chloride 0.9% 10 Ml Flush Syringe) 10 ml IV PRN PRN PRN Reason: LINE FLUSH Sodium Chloride (Sodium Chloride 0.9% 50 Ml Ivpb) 50 ml IV Q24HR@2100 [facility] Stop: 09/13/20 21:01 Last Admin: 09/10/20 22:12 Dose: 50 ml Documented by: Zinc Sulfate (Zinc Sulfate 220 Mg Cap) 220 mg PO BID [facility] Last Admin: 09/11/20 10:44 Dose: 220 mg Documented by: Physical Examination Vital signs: Vital Signs Temp Pulse Resp BP Pulse Ox 101.8 F H 136 H 25 H 137/71 88 09/08/20 19:30 09/08/20 19:30 09/08/20 19:30 09/08/20 19:30 09/08/20 19:30 Results - Laboratory Findings CBC and BMP: 09/11/20 11:07 09/11/20 11:07 PT/INR, D-dimer PT 15.5 Sec. (12.2-14.9) H 09/11/20 11:07 INR 1.17 (0.87-1.13) H 09/11/20 11:07 D-Dimer 405.34 ng/mlDDU (0-234) H 09/08/20 20:34 Abnormal lab findings: Abnormal Labs 09/08/20 09/08/20 09/08/20 20:34 20:34 20:34 Hgb Plt Count Lymph % (Auto) [place] % (Auto) Lymph # (Auto) Seg Neutrophils % Seg Neuts % (Manual) 90.0 H Lymphocytes % (Manual) 4.0 L Lymphocytes # (Manual) 0.3 L PT INR APTT D-Dimer Sodium Potassium 3.3 L Chloride 97.1 L BUN 21 H Creatinine 0.7 L Glucose 162 H Lactic Acid 3.00 H* Calcium Ferritin AST 96 H Lactate Dehydrogenase Total Creatine Kinase 1277 H C-Reactive Protein NT-Pro-B Natriuret Pep 4471 H Total Protein Albumin 3.3 L Urine WBC (Auto) Coronavirus (PCR) 09/08/20 09/08/20 09/08/20 20:34 20:34 20:34 Hgb Plt Count Lymph % (Auto) [place] % (Auto) Lymph # (Auto) Seg Neutrophils % Seg Neuts % (Manual) Lymphocytes % (Manual) Lymphocytes # (Manual) PT INR APTT D-Dimer 405.34 H Sodium Potassium Chloride BUN Creatinine Glucose 164 H Lactic Acid Calcium Ferritin 638.9 H AST Lactate Dehydrogenase 286 H Total Creatine Kinase C-Reactive Protein 5.40 H NT-Pro-B Natriuret Pep Total Protein Albumin Urine WBC (Auto) Coronavirus (PCR) 09/08/20 09/08/20 09/09/20 Unknown Unknown 16:04 Hgb Plt Count Lymph % (Auto) [place] % (Auto) Lymph # (Auto) Seg Neutrophils % Seg Neuts % (Manual) Lymphocytes % (Manual) Lymphocytes # (Manual) PT INR APTT D-Dimer Sodium Potassium Chloride BUN Creatinine Glucose Lactic Acid Calcium Ferritin AST Lactate Dehydrogenase Total Creatine Kinase 1303 H C-Reactive Protein NT-Pro-B Natriuret Pep Total Protein Albumin Urine WBC (Auto) 7.0 H Coronavirus (PCR) Positive A 09/10/20 09/10/20 09/10/20 08:42 08:42 08:42 Hgb 15.3 H Plt Count 123 L Lymph % (Auto) 6.2 L [place] % (Auto) 7.6 H Lymph # (Auto) 0.4 L Seg Neutrophils % 86.0 H Seg Neuts % (Manual) Lymphocytes % (Manual) Lymphocytes # (Manual) PT INR APTT D-Dimer Sodium 134 L Potassium Chloride 93.0 L BUN 23 H Creatinine 0.5 L Glucose 134 H Lactic Acid Calcium Ferritin AST 117 H Lactate Dehydrogenase Total Creatine Kinase 1113 H C-Reactive Protein NT-Pro-B Natriuret Pep Total Protein Albumin 3.2 L Urine WBC (Auto) Coronavirus (PCR) 09/11/20 09/11/20 09/11/20 06:43 11:07 11:07 Hgb Plt Count 121 L Lymph % (Auto) [place] % (Auto) Lymph # (Auto) Seg Neutrophils % Seg Neuts % (Manual) Lymphocytes % (Manual) Lymphocytes # (Manual) PT 15.5 H INR 1.17 H APTT 39.2 H D-Dimer Sodium 136 L Potassium Chloride 97.3 L BUN 53 H Creatinine Glucose 175 H Lactic Acid Calcium 8.3 L Ferritin AST 94 H Lactate Dehydrogenase Total Creatine Kinase C-Reactive Protein NT-Pro-B Natriuret Pep Total Protein 6.0 L Albumin 2.9 L Urine WBC (Auto) Coronavirus (PCR)
[2020-09-11] MEDS ORDERED: AMIODARONE 150 MG in DEXTROSE 5% IN WATER 97 ML IV ONE (16:00)
[2020-09-11] MEDS ORDERED: AZITHROMYCIN/NS 500 MG/250 ML 500 MG/250 ML BAG IV SCH (16:00)
[2020-09-11] MEDS: AMIODARONE 900 MG in DEXTROSE 5% IN WATER 482 ML IV SCH (16:26)
[2020-09-11] MEDS: FAMOTIDINE 20 MG TAB PO SCH (16:44)
--- NOTE | 2020-09-11 19:41 | Procedure Note ---
Date of procedure: 09/11/20 Pre-op diagnosis: Sepsis, coronavirus infection Post-op diagnosis: same Procedure: Right internal jugular vein central line placement under ultrasound guidance. A timeout was taken to verify the correct patient, procedure and correct operative site. The patient was prepped and draped in usual sterile fashion. Local anesthesia obtained with 2% lidocaine. The ultrasound was used to localize the right internal jugular vein without difficulty. The Seldinger technique was utilized to access the right internal jugular vein under ultrasound guidance without difficulty. Under ultrasound guidance the right internal jugular vein was identified a seeker needle was then utilized to access the right internal jugular vein without difficulty a guidewire was then advanced into the right internal jugular vein and the seeker needle removed over the guidewire. A scalpel was used to incise the skin and a dilator was then subsequently placed over the guidewire and subsequently removed. A preflushed triple-lumen catheter was then advanced to the right internal jugular vein without difficulty and subsequently sewn in place. A Biopatch was placed at the insertion site. All 3 ports flush and draw with ease. Estimated blood loss minimal. Complications none. Anesthesia: local Estimated blood loss: minimal Pathology: none Disposition: ICU
[2020-09-11] MEDS ORDERED: MIDODRINE 5 MG TAB PO ONE (20:00)
[2020-09-11] MEDS ORDERED: SODIUM CHLORIDE 0.9% 250ML 250 ML IV ONE (20:00)
--- NOTE | 2020-09-11 22:10 | XRay Report ---
Abdomen 1 view INDICATION: NG tube placement FINDINGS: NG tube is not visualized. There is diffuse opacities in bilateral lungs. IMPRESSION: NG tube is not visualized. Chest 1 view INDICATION: Central line placement FINDINGS: Right jugular line tip overlies the distal SVC. Bilateral pulmonary opacities are noted. No pneumothorax. Signer Name: Catracho Bronson MD Signed: 09/11/2020 10:06 PM Workstation Name: [id number]
[2020-09-11] MEDS: REMDESIVIR 100 MG in SODIUM CHLORIDE 0.9% 250ML 250 ML IV SCH (22:38)
[2020-09-11] MEDS: cefTRIAXone/NS 1 GM/50 ML 1 GM/50 ML BAG IV SCH (22:38)
--- NOTE | 2020-09-12 01:09 | Consultation ---
DATE OF CONSULTATION: 09/11/2020 PULMONARY CRITICAL CARE CONSULT NOTE CONSULTING PHYSICIAN: Dr. Doyle. REASON FOR CONSULTATION: 1. Acute hypoxemic respiratory failure. 2. COVID-19 pneumonia. 3. Atrial fibrillation with rapid ventricular response. CHIEF COMPLAINT AND HISTORY OF PRESENT ILLNESS: The patient is a now 79-year-old male with a past medical history that is undocumented who was transferred to the Emergency Room after his family brought the patient the patient to the [facility] complaining of flu-like symptoms for about a week. The patient himself is unable to give a history. According to the , the patient spent a prolonged period of time with her grandson in the preceding 2 weeks. He had since tested positive for COVID-19 virus infection. In the ER, the patient was febrile, tachycardic and hypoxemic. He was initially admitted to the medical floor; however, on the floor, he developed atrial fibrillation with rapid ventricular response this morning and his work of breathing increased slightly. Hence, the decision to transfer him down to intermediate care unit. We are asked to assist with management. When I stopped by to see him, he was resting peacefully in bed. He was tachycardic with a pulse ranging from about 130-140 per minute. It was an irregular pulse, intermittently it seemed like he was in paroxysmal type atrial fibrillation. I do not have any history of vomiting or overt aspiration. There is a report of the patient possibly falling and hitting his head a few days prior. The above is as much of the history of presentation as I have. I should mention he is described as an ongoing smoker. PAST MEDICAL HISTORY: Unknown then also history of tobacco use. PAST SURGICAL HISTORY: Unknown. MEDICATIONS: He was on at the time I stopped by to see him, according to the medication administration record included the following: Tylenol 650 mg p.o. q. 4 hours p.r.n. mild pain or fevers, albuterol 2.5 mg nebulized q. 3 hours p.r.n. shortness of breath, Eliquis 2.5 mg p.o. q. 12 hours scheduled, Rocephin 1 gram IV daily, Decadron 6 mg IV daily, docusate sodium 100 mg p.o. b.i.d., D5NS was going at 42 mL per hour, metoprolol 25 mg p.o. b.i.d., nicotine 14 mg per day transdermally, Zofran 4 mg IV q. 6 hours p.r.n. nausea and vomiting, Percocet 5/325 mg 1 tablet p.o. q. 6 hours p.r.n. moderate pain, remdesivir 100 mg IV daily. Zinc sulfate 220 mg p.o. b.i.d. ALLERGIES: No known drug allergies. DIET: Cachectic gentleman, BMI 16.3. Acute weight loss or gain history is unknown. FAMILY AND SOCIAL HISTORY: Apparently lived in the community. No current alcohol, illicit drug use or abuse reported. He is a daily smoker, 40+ pack year smoker. FAMILY AND SOCIAL HISTORY: Otherwise unknown. REVIEW OF SYSTEMS: Unobtainable secondary to patient's medical and mental condition. Since he has been here, no gross hematochezia or melena, no gross hematuria, no hematemesis, no hemoptysis. REVIEW OF SYSTEMS: Otherwise unobtainable or as in body of history above. PHYSICAL EXAMINATION: VITAL SIGNS: On presentation, he was febrile, temperature 101.8 degrees Fahrenheit, pulse was 136, respiratory rate was 25, blood pressure 137/71, O2 sats were 88%, inspired oxygen concentration at that time was not recorded. When I stopped by to see him, O2 sats were about 95% on 8 liters nasal cannula. GENERAL: He is an elderly looking, chronically ill looking male. Normocephalic, atraumatic. Resting in bed with mildly increased respiratory effort at rest. HEAD, EYES, EARS, NOSE AND THROAT: Anicteric. No conjunctival erythema. Oropharynx was dry. NECK: No gross jugular venous distention, no thyromegaly. Grossly, there were no palpable lymph nodes in the supraclavicular or submandibular lymph node chains. He was partially edentulous. HEART: Sounds 1 and 2 are heard at the time of my evaluation, regular rate and rhythm without overt rubs or murmurs. LUNGS: Auscultation of both lung perez significant for diminished bilateral breath sounds, however, clear mostly, scant basilar rhonchi at the time of my evaluation. Slightly prolonged expiratory phase. ABDOMEN: Soft, flat, bowel sounds are positive, nontender, no palpable hepatosplenomegaly. EXTREMITIES: Without overt digital clubbing or cyanosis, no pedal edema. Pedal pulses are 2+ bilaterally. NEUROLOGIC: Pupils were equal, round, about 3 mm, reactive to light. Extraocular muscle movements could not be assessed. He had some spontaneous movements to all extremities. SKIN: Very poor turgor; however, without overt cellulitis or rash in the areas I examined. Please see the wound care nurses' notes for full description of his skin. PSYCHIATRIC: Mood and affect could not be well examined, his affect was flat essentially. He was encephalopathic. LABORATORY DATA: From my review are as follows: Admission white cell count 6600, hemoglobin 13.2, hematocrit 38.3, platelet count 146. No band forms on the manual differential. INR was 1.06. D-dimer was slightly elevated at 405. Serum sodium was 137, potassium 3.3, chloride 97, bicarbonate 24, BUN 21, creatinine 0.7, glucose was 164. Lactic acid level was 3.0, now within normal limits. Ferritin elevated at 639, AST 96. CPK was up at 1277. CRP 5.4. BNP was elevated at 4471. Procalcitonin 0.23. TSH within normal limits. Free T4 within normal limits. Urinalysis was positive for nitrites, 7 white cells per high power field and 4+ bacteria. Coronavirus PCR was positive. Two sets of blood cultures are no growth to date. Chest x-ray shows cardiomegaly in the setting of hyperinflation and COPD with flattened hemidiaphragms, especially on the left side. I cannot rule out a small pleural effusion on the left. Increased interstitial markings and bilateral alveolar type infiltrates. No gross pneumothorax, no gross bony fracture. A CT scan was also done of his head. It was read as no acute intracranial abnormality. They think they see some soft tissue gas in the musculature posterior to the maxillary sinuses, indication is unclear, I should say the cause of that gas. A CT scan of his chest was also done. It shows severe emphysematous changes bilaterally and bibasilar predominant infiltrates in particular actually both lower lobes. It was a noncontrast CT scan. Unable to evaluate the mediastinum well, but he does have an enlarged main pulmonary artery trunk. An echocardiogram was done. CT of the abdomen and pelvis reports moderate to severe right hydronephrosis. CT scan of the orbits showed a decrease in soft tissue gas. CT of the neck, no mention of any C-spine fracture. An MRI of the brain has also been done, the report is pending. A 2D echocardiogram was done, reports ejection fraction of 40-45% with diastolic dysfunction, normal right ventricular systolic function. RV systolic pressures of 8.0. ASSESSMENT: 1. Acute hypoxemic respiratory failure. 2. COVID-19 virus infection. 3. Bilateral pneumonia. 4. Acute toxic metabolic encephalopathy. 5. Severe sepsis, presumably secondary to urinary tract infection. 6. Urinary tract infection. 7. Tobacco use disorder. 8. Dehydration and a mild element of intravascular volume depletion. 9. Rhabdomyolysis. 10. Congestive heart failure with reduced ejection fraction. 11. Adult failure to thrive. PLAN: I am going to bolus him 500 mL of normal saline to see if it helps with atrial fibrillation, blood pressure is a little bit soft at this time. Oxygen will be weaned to keep sats greater than or equal to about 92%. Aspiration precautions will be maintained. He will be also started on vitamin C along with the zinc as adjuncts for COVID-19 treatment. He is on remdesivir therapy. I will defer to the infectious disease physician. We will continue with Rocephin for his urinary tract infection, but I will also give about 3-5 days of azithromycin for treatment of a possible community-acquired pneumonia in this gentleman with severe COPD. I will be starting him on long-acting bronchodilators with Brovana as well as inhaled corticosteroids for the COPD. He will remain in contact and airborne precautions. We will defer to the infectious disease physician otherwise. Cardiology consultation has been placed. I will defer to them for optimization of his congestive heart failure. In the acute septic state, I think he will benefit from volume resuscitation. I will defer also to Cardiology in terms of rate control and rhythm control. I do feel that there is a physiologic element here and continued volume resuscitation should help the pulse and stroke volume variation in the short term. Otherwise, again I will defer to the chief sustainability officer for rate control. Enteral nutrition will be the feeding modality of choice. I am going to ask that a feeding tube be placed. We will follow him clinically off full anticoagulation at this time, the VTE workup is negative so far, but he is also on anticoagulation for his atrial fibrillation, so I guess that is the issue. Consideration will be made for bilateral lower extremity Dopplers and we will continue the dexamethasone therapy for severe oxygen dependent COVID-19 infection. He is going to be placed on GI prophylaxis with Pepcid. Flu and pneumonia vaccination will be addressed per protocol. I will deploy bilevel positive airway pressure ventilation therapy at bedtime just to ensure adequate ventilation and for alveolar recruitment. Thank you very much for the consult, Dr. Doyle. We will follow along and make further recommendations as picture progresses/becomes clearer. He will be watched closely in the step-down unit for now with a short leash to transfer to the critical care unit. TID: [id number] RECEIPT: [id number] JAYE/BALJIT
--- NOTE | 2020-09-12 01:17 | XRay Report ---
ABDOMEN 1 VIEW INDICATION / CLINICAL INFORMATION: ngt placement. COMPARISON: KUB from 09/11/2020 FINDINGS: TUBES / LINES: An NG tube has been placed down the right main bronchus with the tip terminating along the right lung base. Unchanged positioning of a right internal jugular CVL. BOWEL GAS PATTERN: No significant abnormality. FREE AIR / EXTRALUMINAL GAS: None seen. ADDITIONAL FINDINGS: Bilateral pulmonary opacities are unchanged. IMPRESSION: Malpositioned NG tube as above. CRITICAL RESULT: Time of Discovery (CASINO CONTROLLER/CDT): 00:05 Time of Communication (CASINO CONTROLLER/CDT): 00:12 Licensed Practitioner Receiving Report: EMMA Granados nurse Read-Back Performed: Yes. Signer Name: Paul Gonzáles MD Signed: 09/12/2020 1:12 AM Workstation Name: [id number]
--- NOTE | 2020-09-12 01:36 | XRay Report ---
ABDOMEN 1 VIEW INDICATION / CLINICAL INFORMATION: feeding tube placement. COMPARISON: KUB performed earlier today. FINDINGS: TUBES / LINES: The NG tube has been repositioned and now terminates over the gastric fundus. Unchange d right internal jugular CVL. BOWEL GAS PATTERN: No significant abnormality. FREE AIR / EXTRALUMINAL GAS: None seen. ADDITIONAL FINDINGS: Unchanged bilateral pulmonary opacities. IMPRESSION: Satisfactory positioning of the NG tube. No new acute findings. Signer Name: Paul Gonzáles MD Signed: 09/12/2020 1:32 AM Workstation Name: [id number]
[2020-09-12] MEDS: APIXABAN 2.5 MG TAB PO SCH ×3 (03:27→22:45)
[2020-09-12] MEDS: DOCUSATE SODIUM 100 MG CAP PO SCH ×3 (03:27→22:11)
[2020-09-12] MEDS: ASCORBIC ACID 500 MG TAB PO SCH ×4 (03:28→22:11)
[2020-09-12] MEDS: SODIUM CHLORIDE 0.9% 50 ML IVPB IV SCH ×2 (03:33→22:10)
[2020-09-12] MEDS: ZINC SULFATE 220 MG CAP PO SCH ×4 (04:12→22:11)
[2020-09-12] MEDS: D5W/0.9% NACL 1,000 ML IV SCH (04:57)
[2020-09-12 07:29] LABS: Alanine Aminotransferase 34 units/L (7-56); Albumin 2.8 g/dL (3.9-5); BUN/Creatinine Ratio 60; Blood Urea Nitrogen 54 mg/dL (9-20); Calcium 8.1 mg/dL (8.4-10.2); Hemolysis Index 4
--- NOTE | 2020-09-12 08:09 | Progress Note ---
Assessment and Plan Cultures: SARS-CoV-2 PCR positive Blood cultures no growth today Assessment: 79-year-old male with a smoking abuse, hard of hearing, admitted on 09/08/2020 secondary to a week history of generalized malaise, cough and subjective fever: #Severe sepsis: Present on admission with elevated lactate, tachycardia, fever, hypoxia, likely due to bilateral pneumonia +/-UTI. #Severe COVID pneumonia: Chest CT with bibasilar airspace disease. Inflammatory markers elevated CRP 5.4, ferritin 628, D-dimer 405. Patient is not vaccinated. #Mild UTI with moderate right hydronephrosis: Urinalysis with mild pyuria. #Acute hypoxemic respiratory failure: worsening now on Salter 10L. Initial sats dropped to 88%. Likely secondary to COVID-19 infection. #Elevated LFTs: from COVID #Thrombocytopenia: Mild likely secondary to COVID-19 #Sinusitis on CT #A flutter/RVR #Encephalopathy: Noted global brain atrophy and extensive confluent white matter on MRI. Recommendations: -Continue dexamethasone 6 mg IV/PO daily for 10 days -Continue remdesivir D4 of 5 -No indication for Tocilizumab as CRP < 7.5 -Monitor inflammatory markers - ferritin, Ddimer, CRP, LDH -Monitor liver function test on Remdesivir -Continue anticoagulation per System Protocol -Prone positioning as possible -Completed ceftriaxone for UTI total 3 days -Urology consult for right moderate hydronephrosis examination/obtain renal ultrasound All laboratory, cultures and imaging were reviewed. Will follow Kylee Lira MD Infectious Diseases Social Science Professor [facility] M [phone] O [phone] Subjective Date of service: 09/12/20 Principal diagnosis: COVID Interval history: Worsening hypoxia, now on salter nasal cannula 10 L. No complaints, looks anxious. Objective - Exam Narrative Exam: General appearance: Alert, anxious, in moderate respiratory distress Eyes: anicteric sclerae, moist conjunctivae; no lid-lag; PERRLA HENT: Normocephalic, Atraumatic; normal external ears, nares open, oropharynx edentulous Neck: supple, tracheal midline, no JVD Lungs: Diminished breath sounds CV: Tachycardic Abdomen: Soft, non-tender; no masses or hepatosplenomegaly Extremities: no edema, no cyanosis Skin: No rash. Psych: Anxious Neuro: Alert, confused, not following commands - Constitutional Vitals: Vital Signs Temp Pulse Resp BP Pulse Ox 97.9 F 133 H 25 H 132/81 97 09/12/20 08:00 09/12/20 07:46 09/12/20 07:46 09/12/20 07:46 09/12/20 07:52 Temperature -Last 24 Hours Temperature 97.9 F Temperature 98.2 F Temperature 98.8 F Temperature 99.8 F Temperature 98.5 F Temperature 97.9 F - Labs CBC & Chem 7: 09/11/20 11:07 09/12/20 06:40 Labs: Abnormal lab results 09/11/20 09/11/20 09/11/20 Range/Units 11:07 11:07 14:39 Plt Count 121 L (140-440) K/mm3 PT 15.5 H (12.2-14.9) Sec. INR 1.17 H (0.87-1.13) APTT 39.2 H (24.2-36.6) Sec. POC ABG pO2 81.5 L (83-108) mmHg ABG Sodium 135.5 L (136.0-145.0) mmol/L ABG Potassium 3.3 L (3.40-4.50) mmol/L ABG Glucose 355 H (65-95) mg/dL Carboxyhemoglobin 0.4 L (0.5-1.5) BUN (9-20) mg/dL Glucose (75-100) mg/dL POC Glucose (70-105) mg/dL Calcium (8.4-10.2) mg/dL AST (5-40) units/L Total Protein (6.3-8.2) g/dL Albumin (3.9-5) g/dL Arterial Blood Glucose 355 H (65-95) mg/dL Arterial Blood Ionized Calcium 4.3 L (4.6-5.3) mg/dL 09/11/20 09/11/20 09/12/20 Range/Units 17:26 23:27 05:16 Plt Count (140-440) K/mm3 PT (12.2-14.9) Sec. INR (0.87-1.13) APTT (24.2-36.6) Sec. POC ABG pO2 (83-108) mmHg ABG Sodium (136.0-145.0) mmol/L ABG Potassium (3.40-4.50) mmol/L ABG Glucose (65-95) mg/dL Carboxyhemoglobin (0.5-1.5) BUN (9-20) mg/dL Glucose (75-100) mg/dL POC Glucose 220 H 136 H 137 H (70-105) mg/dL Calcium (8.4-10.2) mg/dL AST (5-40) units/L Total Protein (6.3-8.2) g/dL Albumin (3.9-5) g/dL Arterial Blood Glucose (65-95) mg/dL Arterial Blood Ionized Calcium (4.6-5.3) mg/dL 09/12/20 Range/Units 06:40 Plt Count (140-440) K/mm3 PT (12.2-14.9) Sec. INR (0.87-1.13) APTT (24.2-36.6) Sec. POC ABG pO2 (83-108) mmHg ABG Sodium (136.0-145.0) mmol/L ABG Potassium (3.40-4.50) mmol/L ABG Glucose (65-95) mg/dL Carboxyhemoglobin (0.5-1.5) BUN 54 H (9-20) mg/dL Glucose 140 H (75-100) mg/dL POC Glucose (70-105) mg/dL Calcium 8.1 L (8.4-10.2) mg/dL AST 100 H (5-40) units/L Total Protein 5.9 L (6.3-8.2) g/dL Albumin 2.8 L (3.9-5) g/dL Arterial Blood Glucose (65-95) mg/dL Arterial Blood Ionized Calcium (4.6-5.3) mg/dL
--- NOTE | 2020-09-12 08:29 | Progress Note ---
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 Of note patient is unable to provide history. History is provided by review of medical records, medical reports, and family ( Courtney Louise [phone]). reports patient spent a prolonged period of time with her grandson over the past 2 weeks, who has since tested positive for COVID-19 virus. Upon arrival to the ED patient was found to be febrile, tachycardic, and hypoxic on room air. Additionally right foot reports patient fell and may have hit his head a few days ago. denies medical history, and surgical history. Per patient, "has not seen a medical provider in many years", and he is not currently nor has he been on any medication in the past 10 years or greater. Upon assessment patient is seen a week on stretcher. Able to track with eyes, spontaneously moves extremities, but unable to answer simple yes/no questions. Imaging studies were reviewed showed some in the maxillary area unknown etiology. CT shows a right hydronephrosis. 09/10: ID input is appreciated of also discussed with family of the patient and informed him of the diagnosis and the need to have other people at home tested. Patient is on 3 L of oxygen will continue to monitor. Patient will need PT OT evaluation considering recurrent falls. May actually need rehab based on the condition he appears. Dietitian consultation. Considering his age he is with a guarded prognosis at this time. Azithromycin has been discontinued for the antibiotics management per ID at this time. We will continue remdesivir and steroid therapy. And intermittent pulse ox monitoring. We will continue to encourage prone positioning. We will also obtain pulmonary evaluation 09/11: Afib with RVR, Cardiology consulted, will start on Eliquis. Echo Reviewed. Pulmonary consulted due to worsening hypoxia. Prone positioning if able. Will give a dose of lasix today. Monitor Renal function. Disucssed and updated spouse. She is still insistent of home management when he is better,and also tells me he was not on any medication of physician care prior to hospitalization. Poor prognosis considering her tobacco use disorder and overall medical condition including severe protein calorie malnutrition 09/12: Patient unfortunately is declining medically. Now with A. fib with RVR and was hypotensive yesterday right central line placed and internal jugular pressure extremely good satisfactory position. Also NG tube in place will obtain dietary consultation for tube feeds. Patient currently off pressors on my understanding was that the amiodarone drip was off for some time due to mechanical issues which has since been fixed and the drip is back on running heart rate was still in the 130s this morning he remains very lethargic discussed with the nurse to continue to monitor closely. I have also called the family (Spouse) and updated them on the condition and the patient being in the ICU. Continue aggressive Blood sugar control COVID-19 virus pneumonia with associated respiratory hypoxia. -Confirmed exposure to COVID-19 (grandson tested positive, and was around grandson for prolonged periods of time) -Ferritin, and D-dimer inflammatory markers elevated -CT angio chest shows consolidation in both lungs -PCR pending -Isolate -Follow-up on labs -ID consulted -On IV azithromycin and Rocephin Severe sepsis secondary to COVID-19 -ID currently following Afib with RVR Hypotensive- Presumed Septic Shock Severe sepsis with pneumonia -Likely due to #1 -CXR negative -CT angio chest shows airspace consolidation in both lungs -Blood Cultures pending -Start on IV Abx Acute hypoxic respiratory failure -No Baseline home oxygen requirements -Saturation of 88% on room air -Currently on supplemental -Monitor saturations -Continue supplemental oxygen wean as tolerated Acute metabolic encephalopathy -CT head negative for acute abnormalities; show some soft tissue gas noted in anterior temporal musculature bilaterally and in the posterior maxillary sinuses -T-max one 1.8 -No leukocytosis -Blood cultures pending -Neuro checks Acute cystitismild -UA positive for UTI -Urine culture pending -on IV Abx Elevated D-dimer -CT angio chest negative for PE -On prophylaxis Lovenox Elevated BNP - at 4417 -Troponin x1, will trend -Denies history of heart failure, or cardiac history -Echo pending -Day team may consider cardiology consult Malnutrition -Moderate to severe -Albumin 3.3 -Dietitian consult Tobacco abuse -Current every day smoker -Per patient smokes 1 pack of small cigars daily -Counseled for cessation, will need reinforcement when mentation improves -Nicotine patch when necessary Thrombocytopenia Mild sinusitis Elevated LFTs likely secondary to COVID-19 hypokalemia -Moderate -Received replacement -Monitor electrolytes and replace as needed History of recent fall -Patient fell may have hit his head, per reports -Imaging negative for acute abnormalities -Initiate fall precautions -PT OT eval pending Right-sided hydronephrosis -No renal impairment -Outpatient urology follow-up DVT PPX -On Lovenox Advance Directives: No VTE prophylaxis?: Chemical, Mechanical Plan of care discussed with patient/family: Yes History Interval history: Seen and examined no acute overnight event except A. fib with RVR which started late yesterday requiring transfer to the ICU. Patient blood pressure improved with a bolus of fluid and also with midodrine. Hospitalist Physical - Physical exam Narrative exam: VITAL SIGNS: Reviewed. GENERAL: The patient appears markedly cachectic, lethargic, on 10 L of oxygen vital signs as documented. HEAD: No signs of head trauma. EYES: Pupils are equal. Extraocular motions intact. EARS: Hearing grossly intact. MOUTH: Oropharynx is normal. NECK: No adenopathy, no JVD. CHEST: Chest with Diminshed, breath sounds bilaterally. No wheezes, rales, or rhonchi. CARDIAC: Irregulary irregular rate and rhythm. S1 and S2, without murmurs, gallops, or rubs. VASCULAR: No Edema. Peripheral pulses normal and equal in all extremities. ABDOMEN: Soft, non tender and non distended. No rebound or guarding, and no masses palpated. Bowel Sounds normal. MUSCULOSKELETAL: Good range of motion of all major joints. Extremities without clubbing, cyanosis or edema. NEUROLOGIC EXAM: Somnolent although arousable still markedly lethargic. While he does not have any focal neurological deficit he is deconditioned. He does move all extremities but I doubt. Follows simple commands. PSYCHIATRIC: Lethargic SKIN: detail exam as documented in skin assessment - Constitutional Vitals: Temp Pulse Resp BP Pulse Ox 97.9 F 133 H 25 H 132/81 97 09/12/20 08:00 09/12/20 07:46 09/12/20 07:46 09/12/20 07:46 09/12/20 07:52 General appearance: Present: no acute distress, cachectic HEART Score - HEART Score Troponin: Troponin T 0.020 ng/mL (0.00-0.029) 09/09/20 04:25 Results - Labs CBC & Chem 7: 09/11/20 11:07 09/12/20 06:40 Labs: Laboratory Last Values WBC 7.7 K/mm3 (4.5-11.0) 09/11/20 11:07 RBC 4.61 M/mm3 (3.65-5.03) 09/11/20 11:07 Hgb 14.8 gm/dl (11.8-15.2) 09/11/20 11:07 Hct 43.5 % (35.5-45.6) 09/11/20 11:07 MCV 94 fl (84-94) 09/11/20 11:07 MCH 32 pg (28-32) 09/11/20 11:07 MCHC 34 % (32-34) 09/11/20 11:07 RDW 14.6 % (13.2-15.2) 09/11/20 11:07 Plt Count 121 K/mm3 (140-440) L 09/11/20 11:07 Lymph % (Auto) 6.2 % (13.4-35.0) L 09/10/20 08:42 [place] % (Auto) 7.6 % (0.0-7.3) H 09/10/20 08:42 Eos % (Auto) 0.0 % (0.0-4.3) 09/10/20 08:42 Baso % (Auto) 0.2 % (0.0-1.8) 09/10/20 08:42 Lymph # (Auto) 0.4 K/mm3 (1.2-5.4) L 09/10/20 08:42 [place] # (Auto) 0.5 K/mm3 (0.0-0.8) 09/10/20 08:42 Eos # (Auto) 0.0 K/mm3 (0.0-0.4) 09/10/20 08:42 Baso # (Auto) 0.0 K/mm3 (0.0-0.1) 09/10/20 08:42 Add Manual Diff Complete 09/08/20 20:34 Total Counted 100 09/08/20 20:34 Seg Neutrophils % 86.0 % (40.0-70.0) H 09/10/20 08:42 Seg Neuts % (Manual) 90.0 % (40.0-70.0) H 09/08/20 20:34 Lymphocytes % (Manual) 4.0 % (13.4-35.0) L 09/08/20 20:34 Monocytes % (Manual) 6.0 % (0.0-7.3) 09/08/20 20:34 Nucleated RBC % Not Reportable 09/08/20 20:34 Seg Neutrophils # 5.8 K/mm3 (1.8-7.7) 09/10/20 08:42 Seg Neutrophils # Man 5.9 K/mm3 (1.8-7.7) 09/08/20 20:34 Band Neutrophils # 0.0 K/mm3 09/08/20 20:34 Lymphocytes # (Manual) 0.3 K/mm3 (1.2-5.4) L 09/08/20 20:34 Abs React Lymphs (Man) 0.0 K/mm3 09/08/20 20:34 Monocytes # (Manual) 0.4 K/mm3 (0.0-0.8) 09/08/20 20:34 Eosinophils # (Manual) 0.0 K/mm3 (0.0-0.4) 09/08/20 20:34 Basophils # (Manual) 0.0 K/mm3 (0.0-0.1) 09/08/20 20:34 Metamyelocytes # 0.0 K/mm3 09/08/20 20:34 Myelocytes # 0.0 K/mm3 09/08/20 20:34 Promyelocytes # 0.0 K/mm3 09/08/20 20:34 Blast Cells # 0.0 K/mm3 09/08/20 20:34 WBC Morphology Not Reportable 09/08/20 20:34 Hypersegmented Neuts Not Reportable 09/08/20 20:34 Hyposegmented Neuts Not Reportable 09/08/20 20:34 Hypogranular Neuts Not Reportable 09/08/20 20:34 Smudge Cells Not Reportable 09/08/20 20:34 Toxic Granulation Not Reportable 09/08/20 20:34 Toxic Vacuolation Few 09/08/20 20:34 Dohle Bodies Not Reportable 09/08/20 20:34 Pelger-Huet Anomaly Not Reportable 09/08/20 20:34 Shweta Rods Not Reportable 09/08/20 20:34 Platelet Estimate Consistent w auto 09/08/20 20:34 Clumped Platelets Not Reportable 09/08/20 20:34 Plt Clumps, EDTA Not Reportable 09/08/20 20:34 Large Platelets Not Reportable 09/08/20 20:34 Giant Platelets Not Reportable 09/08/20 20:34 Platelet Satelliting Not Reportable 09/08/20 20:34 Plt Morphology Comment Not Reportable 09/08/20 20:34 RBC Morphology Normal 09/08/20 20:34 Dimorphic RBCs Not Reportable 09/08/20 20:34 Polychromasia Not Reportable 09/08/20 20:34 Hypochromasia Not Reportable 09/08/20 20:34 Poikilocytosis Not Reportable 09/08/20 20:34 Anisocytosis Not Reportable 09/08/20 20:34 Microcytosis Not Reportable 09/08/20 20:34 Macrocytosis Not Reportable 09/08/20 20:34 Spherocytes Not Reportable 09/08/20 20:34 Pappenheimer Bodies Not Reportable 09/08/20 20:34 Sickle Cells Not Reportable 09/08/20 20:34 Target Cells Not Reportable 09/08/20 20:34 Tear Drop Cells Not Reportable 09/08/20 20:34 Ovalocytes Not Reportable 09/08/20 20:34 Helmet Cells Not Reportable 09/08/20 20:34 Carr-Cale Bodies Not Reportable 09/08/20 20:34 Sidon Rings Not Reportable 09/08/20 20:34 Milena Cells Not Reportable 09/08/20 20:34 Bite Cells Not Reportable 09/08/20 20:34 Crenated Cell Not Reportable 09/08/20 20:34 Elliptocytes Not Reportable 09/08/20 20:34 Acanthocytes (Spur) Not Reportable 09/08/20 20:34 Rouleaux Not Reportable 09/08/20 20:34 Hemoglobin C Crystals Not Reportable 09/08/20 20:34 Schistocytes Not Reportable 09/08/20 20:34 Malaria parasites Not Reportable 09/08/20 20:34 Viraj Bodies Not Reportable 09/08/20 20:34 Hem Pathologist Commnt No 09/08/20 20:34 PT 15.5 Sec. (12.2-14.9) H 07/23/21 11:07 INR 1.17 (0.87-1.13) H 09/11/20 11:07 APTT 39.2 Sec. (24.2-36.6) H 09/11/20 11:07 D-Dimer 405.34 ng/mlDDU (0-234) H 09/08/20 20:34 ABG pH 7.433 (7.320-7.450) 09/11/20 14:39 POC ABG pCO2 37.0 mmHg (32.0-48.0) 09/11/20 14:39 POC ABG pO2 81.5 mmHg (83-108) L 09/11/20 14:39 POC ABG HCO3 24.2 09/11/20 14:39 ABG O2 Saturation 95.4 (0-100) 09/11/20 14:39 POC ABG Base Excess 0.2 09/11/20 14:39 ABG Hemoglobin 14.1 (12.0-17.5) 09/11/20 14:39 ABG Oxyhemoglobin 94.7 (94-98) 09/11/20 14:39 ABG Methemoglobin 0.3 (0.0-1.5) 09/11/20 14:39 ABG Sodium 135.5 mmol/L (136.0-145.0) L 09/11/20 14:39 ABG Potassium 3.3 mmol/L (3.40-4.50) L 09/11/20 14:39 ABG Chloride 104.0 mmol/L (98-107) 09/11/20 14:39 ABG Glucose 355 mg/dL (65-95) H 09/11/20 14:39 Carboxyhemoglobin 0.4 (0.5-1.5) L 09/11/20 14:39 FiO2 % 65.0 09/11/20 14:39 Sodium 141 mmol/L (137-145) 09/12/20 06:40 Potassium 3.6 mmol/L (3.6-5.0) 09/12/20 06:40 Chloride 102.9 mmol/L (98-107) 09/12/20 06:40 Carbon Dioxide 28 mmol/L (22-30) 09/12/20 06:40 Anion Gap 14 mmol/L 09/12/20 06:40 BUN 54 mg/dL (9-20) H 09/12/20 06:40 Creatinine 0.9 mg/dL (0.8-1.3) 09/12/20 06:40 Estimated GFR > 60 ml/min 09/12/20 06:40 BUN/Creatinine Ratio 60 % 09/12/20 06:40 Glucose 140 mg/dL (75-100) H 09/12/20 06:40 POC Glucose 137 mg/dL (70-105) H 09/12/20 05:16 Lactic Acid 1.80 mmol/L (0.7-2.0) 09/12/20 06:40 Calcium 8.1 mg/dL (8.4-10.2) L 09/12/20 06:40 Phosphorus 4.10 mg/dL (2.5-4.5) 09/11/20 11:07 Magnesium 1.70 mg/dL (1.7-2.3) 09/08/20 20:34 Ferritin 638.9 ng/mL (30.0-300.0) H 09/08/20 20:34 Total Bilirubin 0.30 mg/dL (0.1-1.2) 09/12/20 06:40 AST 100 units/L (5-40) H 09/12/20 06:40 ALT 34 units/L (7-56) 09/12/20 06:40 Alkaline Phosphatase 83 units/L (35-129) 09/12/20 06:40 Lactate Dehydrogenase 286 units/L (91-180) H 09/08/20 20:34 Total Creatine Kinase 1113 units/L (55-170) H 09/10/20 08:42 Troponin T 0.020 ng/mL (0.00-0.029) 09/09/20 04:25 C-Reactive Protein 5.40 mg/dL (0.00-1.30) H 09/08/20 20:34 NT-Pro-B Natriuret Pep 4471 pg/mL (0-900) H 09/08/20 20:34 Total Protein 5.9 g/dL (6.3-8.2) L 09/12/20 06:40 Albumin 2.8 g/dL (3.9-5) L 09/12/20 06:40 Albumin/Globulin Ratio 0.9 % 09/12/20 06:40 Procalcitonin 0.23 ng/mL (<0.15) 09/08/20 20:34 TSH 0.581 mlU/mL (0.270-4.200) 09/08/20 20:34 Free T4 1.37 ng/dL (0.76-1.46) 09/08/20 20:34 Arterial Blood Glucose 355 mg/dL (65-95) H 09/11/20 14:39 Arterial Blood Ionized Calcium 4.3 mg/dL (4.6-5.3) L 09/11/20 14:39 Urine Color Yellow (Yellow) 09/08/20 Unknown Urine Turbidity Hazy (Clear) 09/08/20 Unknown Urine pH 5.0 (5.0-7.0) 09/08/20 Unknown Ur Specific Avinger 1.015 (1.003-1.030) 09/08/20 Unknown Urine Protein 30 mg/dl mg/dL (Negative) 09/08/20 Unknown Urine Glucose (UA) 50 mg/dL (Negative) 09/08/20 Unknown Urine Ketones Neg mg/dL (Negative) 09/08/20 Unknown Urine Blood Mod (Negative) 09/08/20 Unknown Urine Nitrite Pos (Negative) 09/08/20 Unknown Urine Bilirubin Neg (Negative) 09/08/20 Unknown Urine Urobilinogen < 2.0 mg/dL (<2.0) 09/08/20 Unknown Ur Leukocyte Esterase Neg (Negative) 09/08/20 Unknown Urine WBC (Auto) 7.0 /HPF (0.0-6.0) H 09/08/20 Unknown Urine RBC (Auto) 3.0 /HPF (0.0-6.0) 09/08/20 Unknown Urine Bacteria (Auto) 4+ /HPF (Negative) 09/08/20 Unknown Hyaline Casts 1 /LPF 09/08/20 Unknown Urine Mucus Few /HPF 09/08/20 Unknown Coronavirus (PCR) Positive (Negative) A 09/08/20 Unknown Microbiology: Microbiology 09/08/20 20:34 Peripheral/Venous Blood Culture - Preliminary NO GROWTH AFTER 72 HOURS 09/08/20 20:34 Peripheral/Venous Blood Culture - Preliminary NO GROWTH AFTER 72 HOURS Long/IV: Voiding Method Condom Catheter Active Medications - Current Medications Current Medications: Generic Name Dose Route Start Last Admin Trade Name Freq PRN Reason Stop Dose Admin Acetaminophen 650 mg 09/09/20 02:56 Acetaminophen 325 Mg Tab PO Q4H PRN Pain MILD(1-3)/Fever >100.5/SALAMANCA Albuterol 2.5 mg 09/09/20 02:56 Albuterol 2.5 Mg/3 Ml Nebu IH Q3HRT PRN Shortness Of Breath Apixaban 2.5 mg 09/11/20 22:00 09/12/20 03:27 Apixaban 2.5 Mg Tab PO 2.5 mg Q12HR TEJAS Administration Ascorbic Acid 500 mg 09/11/20 22:00 09/12/20 03:28 Ascorbic Acid 500 Mg Tab PO 500 mg BID TEJAS Administration Dexamethasone 6 mg 09/09/20 18:00 09/11/20 10:43 Dexamethasone 4 Mg/Ml Vial IV 09/19/20 17:59 6 mg Q24HR TEJAS Administration Docusate Sodium 100 mg 09/09/20 10:00 09/12/20 03:27 Docusate Sodium 100 Mg Cap PO 100 mg BID TEJAS Administration Famotidine 20 mg 09/11/20 16:00 09/11/20 16:44 Famotidine 20 Mg Tab PO Not Given QDAY TEJAS REMDESIVIR 100 mg/ Sodium 250 mls @ 500 mls/hr 09/10/20 21:00 09/11/20 22:38 Chloride IV 09/13/20 21:29 500 mls/hr Q24HR@2100 TEJAS Administration Dextrose/Sodium Chloride 1,000 mls @ 42 mls/hr 09/10/20 20:00 09/12/20 04:57 D5ns IV 42 mls/hr DIRECT TEJAS Administration Amiodarone HCl 900 mg/ 500 mls @ 33.333 mls/hr 09/11/20 16:30 09/11/20 16:26 Dextrose IV 1 mg/min DIRECT TEJAS 33.333 mls/hr Administration Protocol 1 MG/MIN Norepinephrine 4 mg in 250 mls @ 7.5 mls/hr 09/11/20 20:00 Levophed Drip 4 Mg/Ns 250 Ml IV TITR TEJAS Protocol 2 MCG/MIN Naloxone HCl 0.1 mg 09/09/20 02:56 Naloxone 0.4 Mg/1 Ml Inj IV Q2MIN PRN Res Rate </= 8 or 02 SAT < 92% Nicotine 14 mg 09/09/20 10:00 09/11/20 10:43 Nicotine 14 Mg/24 Hr Patch TD 14 mg QDAY TEJAS Administration Ondansetron HCl 4 mg 09/09/20 02:56 Ondansetron 4 Mg/2 Ml Inj IV Q6H PRN Nausea And Vomiting Oxycodone/Acetaminophen 1 tab 09/09/20 02:56 09/11/20 01:58 Oxycodone /Acetaminophen 5-325mg Tab PO 1 tab Q6H PRN Administration Pain, Moderate (4-6) Sodium Chloride 10 ml 09/09/20 10:00 09/12/20 03:29 Sodium Chloride 0.9% 10 Ml Flush Syringe IV 10 ml BID TEJAS Administration Sodium Chloride 10 ml 09/09/20 02:56 Sodium Chloride 0.9% 10 Ml Flush Syringe IV PRN PRN LINE FLUSH Sodium Chloride 50 ml 09/09/20 19:00 09/12/20 03:33 Sodium Chloride 0.9% 50 Ml Ivpb IV 09/13/20 21:01 Not Given Q24HR@2100 TEJAS Zinc Sulfate 220 mg 09/09/20 10:00 09/12/20 04:12 Zinc Sulfate 220 Mg Cap PO 220 mg BID TEJAS Administration Nutrition/Malnutrition Assess - Dietary Evaluation Nutrition/Malnutrition Findings: Nutrition Notes Start: 09/09/20 08:51 Freq: Status: Active Protocol: Document 09/11/20 11:16 (Rec: 09/11/20 11:22 [id number]) Nutrition Notes Initial or Follow up Reassessment Other Pertinent Diagnosis Pneu, r/o COVID-19, acute metabolic encephalopathy, UTI, tobacco dependence Current Diet Cardiac/Consistent CHO Labs/Tests Na 136 BUN 53 BG 175 Pertinent Medications decadron Height 5 ft 5 in Weight 44.497 kg Supai Body Weight (kg) 61.81 BMI 16.3 Weight Status Underweight Subjective/Other Information F/u for intakes. POLITICAL SCIENCE CHAIR recommends NPO. Burn Absent Trauma Absent Minimum of two criteria Yes Body Fat Depletion Moderate depletion (severe) Muscle Mass Moderate Depletion (severe) Reduced Pig Farmer Strength Measurably Reduced (severe) Protein-Calorie Malnutrition Severe #1 Nutrition Diagnosis Malnutrition Diagnosis Progress(for reassessment Continues documentation) Is patient on ventilator? No Is Patient Ambulatory and/or Out of Bed No REE-([place]-St. Jeor-confined to bed) 1299.456 Kcal/Kg value to use for calculation 40 Approximate Energy Requirements Using 1780 kcal/Kg Calculation Used for Recommendations Kcal/kg Additional Notes Pro needs 1.2-1.5g/k-67g/ day Fluid needs 1500ml/day Nutrition Intervention Change Diet Order: Start TF when able Nutrition Support: Osmolite 1.5 at 50 ml/hr. Flush 150 ml q4h Kcal 1,800 Protein (gm) 75 Fluid (mL) 914 Goal #1 Start TF Goal #2 Wt maintenance and/or gain Anticipated Discharge Needs: Unable to detemine at this time Follow-Up By: 09/15/20 Additional Comments FU for POC or TF consult
[2020-09-12] MEDS ORDERED: SIMPLE SYRUP 15 ML FEEDTUBE PRN ×2 (09:57)
[2020-09-12] MEDS ORDERED: LIPASE 10,500/PROTEASE 25,000/AMYLASE 43,750 (UNITS) DR CAP FEEDTUBE PRN (09:57)
[2020-09-12] MEDS ORDERED: SODIUM BICARBONATE 325 MG TAB FEEDTUBE PRN (09:57)
[2020-09-12 10:15] LABS: C-Reactive Protein 5.7 mg/dL (0.00-1.30)
[2020-09-12] MEDS: NICOTINE 14 MG/24 HR PATCH TD SCH (10:30)
[2020-09-12] MEDS: POTASSIUM CHLORIDE 10 MEQ 10 MEQ/100 ML BAG IV SCH ×4 (10:30→14:18)
[2020-09-12] MEDS: dexAMETHasone 4 MG/ML VIAL IV SCH (10:30)
--- NOTE | 2020-09-12 10:44 | Progress Note ---
Assessment and Plan 79-year-old male with malnutrition Covid pneumonia with hypoxemia with atrial flutter on oral anticoagulation and amiodarone add low-dose Cardizem. Prognosis guarded - Patient Problems (1) Pneumonia due to COVID-19 virus Current Visit: Yes Status: Acute (2) Acute respiratory failure with hypoxia Current Visit: Yes Status: Acute (3) Atherosclerotic vascular disease Current Visit: Yes Status: Chronic (4) Atrial flutter Current Visit: Yes Status: Acute (5) Pneumonia Current Visit: Yes Status: Acute (6) SIRS (systemic inflammatory response syndrome) Current Visit: Yes Status: Acute (7) Malnutrition of moderate degree Current Visit: Yes Status: Acute Subjective Date of service: 09/12/20 Principal diagnosis: COVID Interval history: on 10 l lethargic opens eyes Objective Vital Signs Temp Pulse Pulse Resp BP Pulse Ox 09/12/20 10:14 134 H 31 H 128/93 100 09/12/20 08:00 97.9 F 09/12/20 07:52 97 09/12/20 07:46 133 H 25 H 132/81 09/12/20 07:30 133 H 26 H 132/81 09/12/20 07:16 23 132/81 09/12/20 07:00 132 H 23 132/81 09/12/20 06:46 132 H 30 H 143/88 09/12/20 06:30 133 H 24 143/88 09/12/20 06:16 127 H 25 H 143/88 09/12/20 06:00 131 H 25 H 143/88 09/12/20 05:46 131 H 21 127/85 09/12/20 05:30 130 H 31 H 127/85 09/12/20 05:16 126 H 24 127/85 09/12/20 05:00 114 H 20 127/85 09/12/20 04:46 129 H 17 133/92 09/12/20 04:30 125 H 16 133/92 09/12/20 04:16 123 H 18 133/92 09/12/20 04:00 129 H 28 H 133/92 09/12/20 03:46 128 H 28 H 126/72 09/12/20 03:30 130 H 17 126/72 09/12/20 03:21 98.2 F 09/12/20 03:16 130 H 17 126/72 09/12/20 03:00 114 H 17 126/72 09/12/20 02:46 124 H 15 120/90 09/12/20 02:30 113 H 16 120/90 09/12/20 02:16 113 H 20 120/90 09/12/20 02:00 105 H 18 120/90 09/12/20 01:46 106 H 16 104/56 09/12/20 01:30 105 H 18 104/56 09/12/20 01:16 112 H 24 104/56 09/12/20 01:06 94 H 22 104/56 100 09/12/20 01:00 98 H 23 104/56 09/12/20 00:46 98 H 23 107/43 09/12/20 00:30 111 H 23 107/43 09/12/20 00:16 90 21 107/43 09/12/20 00:00 96 H 19 107/43 09/11/20 23:46 95 H 21 104/68 09/11/20 23:41 98.8 F 09/11/20 23:30 104 H 18 104/68 09/11/20 23:16 110 H 24 104/68 09/11/20 23:00 80 18 85/61 09/11/20 22:46 82 17 85/61 09/11/20 22:30 88 19 85/61 09/11/20 22:24 83 19 85/61 09/11/20 22:19 83 16 09/11/20 22:00 85 24 100/65 09/11/20 21:45 98 H 21 95/61 09/11/20 21:30 85 20 97/62 09/11/20 21:15 89 19 96/64 09/11/20 21:00 86 19 93/72 09/11/20 20:45 96 H 21 90/67 09/11/20 20:30 94 H 25 H 109/66 09/11/20 20:15 72 87 18 101/62 09/11/20 20:09 99.8 F H 09/11/20 20:00 98.5 F 83 18 09/11/20 19:46 70 19 85/61 09/11/20 19:45 89 09/11/20 19:30 67 19 85/61 09/11/20 19:16 168 H 20 85/61 09/11/20 19:00 76 19 85/61 09/11/20 18:30 79 21 79/45 69 L 09/11/20 18:16 67 30 H 76/53 98 09/11/20 18:00 63 17 112/65 96 09/11/20 17:45 64 17 112/65 96 09/11/20 17:30 65 14 112/65 97 09/11/20 17:16 66 19 112/65 93 09/11/20 17:00 65 18 112/65 98 09/11/20 16:46 79 20 109/76 98 09/11/20 16:30 81 14 109/76 98 09/11/20 16:16 99 H 15 109/76 97 09/11/20 16:00 120 H 21 109/76 96 09/11/20 15:46 108 H 18 105/81 98 09/11/20 15:30 126 H 14 105/81 98 09/11/20 15:16 102 H 15 105/81 96 09/11/20 15:00 120 H 22 105/81 98 09/11/20 14:46 94 H 21 98/72 09/11/20 14:30 144 H 25 H 98/72 93 09/11/20 14:16 138 H 18 98/72 90 09/11/20 14:00 139 H 17 98/72 92 09/11/20 13:48 96 09/11/20 12:05 97.9 F 125 H 18 102/72 94 - Physical Examination General: Cachectic HEENT: Positive: PERRL Neck: Positive: trachea midline Cardiac: Positive: Tachycardia Lungs: Positive: Decreased Breath Sounds Neuro: Positive: Grossly Intact Abdomen: Positive: Soft, Active Bowel Sounds Skin: Negative: Rash, Suspicious Lesions, Ulceration Extremities: Present: upper extr. pulses, lower extr. pulses. Absent: edema - Labs and Meds Cardiac Enzymes 09/12/20 09/12/20 Range/Units 06:40 Unknown AST 100 H (5-40) units/L Lactate Dehydrogenase 521 H (91-180) units/L Coagulation 09/11/20 Range/Units 11:07 PT 15.5 H (12.2-14.9) Sec. INR 1.17 H (0.87-1.13) APTT 39.2 H (24.2-36.6) Sec. CBC 09/11/20 Range/Units 11:07 WBC 7.7 (4.5-11.0) K/mm3 RBC 4.61 (3.65-5.03) M/mm3 Hgb 14.8 (11.8-15.2) gm/dl Hct 43.5 (35.5-45.6) % Plt Count 121 L (140-440) K/mm3 Comprehensive Metabolic Panel 09/11/20 09/12/20 Range/Units 11:07 06:40 Sodium 141 (137-145) mmol/L Potassium 3.6 (3.6-5.0) mmol/L Chloride 102.9 (98-107) mmol/L Carbon Dioxide 28 (22-30) mmol/L BUN 54 H (9-20) mg/dL Creatinine 1.1 0.9 (0.8-1.3) mg/dL Glucose 140 H (75-100) mg/dL Calcium 8.1 L (8.4-10.2) mg/dL AST 100 H (5-40) units/L ALT 34 (7-56) units/L Alkaline Phosphatase 83 (35-129) units/L Total Protein 5.9 L (6.3-8.2) g/dL Albumin 2.8 L (3.9-5) g/dL - Imaging and Cardiology EKG: report reviewed, image reviewed Echo: report reviewed (Mild LV dysfunction EF 45% with mild mitral rotation) - Telemetry EKG Rhythm: Atrial Flutter
[2020-09-12] MEDS: FAMOTIDINE 20 MG TAB PO SCH (11:42)
[2020-09-12] MEDS: dilTIAZem 30 MG TAB PO SCH ×3 (12:41→23:24)
--- NOTE | 2020-09-12 16:07 | Progress Note ---
Assessment and Plan Acute hypoxemic respiratory failure COVID-19 virus infection Bilateral pneumonia Acute toxic metabolic encephalopathy Severe sepsis Urinary tract infection Tobacco use disorder Dehydration and a mild element of intravascular volume depletion Rhabdomyolysis Congestive heart failure with reduced ejection fraction Adult failure to thrive - begin mucomyst nebs for secretion control - NGT placed at bedside and placement confirmed - begin oral cardizem and continue IV Amiodarone - continue NIV scheduled qhs with prn daytime use - continue to wean supplemental oxygen for target O2 sat's > 92% acutely - aspiration precautions - continue bronchodilators (YAMILKA & LABA) with pulmonary hygiene per RT - wean per pulmonary driven protocols otherwise - continue accuchecks with glycemic control per SSI (While critically ill target blood glucose of 140-180 mg/dL; avoid hypoglycemia) - avoid nephrotoxins, renally dose all medications - continue to avoid benzodiazepine's, reduce the possibility of delirium - complete antiinfective's per ID rec's - prn analgesia per CPOT score - Maintenance of sleep-wake cycle, avoid delirium - continue enteral nutritional support at goal rate as tolerated - G.I. & VTE prophylaxis - PT/OT/ROM exercises - continue mobility protocols for pressure ulcer prophylaxis - Monitor hemodynamics closely - continue other care per attending / other consultants - discharge planning ongoing concurrently COVID SPECIFIC INTERVENTIONS - Remdesivir as per ID/Pulmonary developed protocols - continue systemic steroids for severe COVID-19 infection empirically - follow repeat COVID tests results - zinc and vitamin C supplementation - Monitor inflammatory markers per facility protocol - ferritin, Ddimer, CRP - therapeutic anticoagulation per system Protocol based on d-dimer and clinical considerations (Full anticoagulation for A-fib) - Continue contact and airborne isolation .... Re-evaluate in am & prn CONDITION: CRITICAL PROGNOSIS: GUARDED CODE STATUS: FULL CODE The high probability of a clinically significant, sudden or life-threatening deterioration of the [respiratory, cardiovascular & neurologic] system(s) required my full and direct attention, intervention and personal management. The aggregate critical care time was [34] minutes without overlap. Time includes spent on; [x] Data Review and interpretation [x] Patient assessment and monitoring of vital signs [x] Documentation [x] Medication orders and management Subjective Date of service: 09/12/20 Principal diagnosis: Ac hypoxemic resp failure; COVID-19; PNA; AMS; Sepsis; UTI; A-fib; CHF Interval history: Patient is seen today for: Acute hypoxemic respiratory failure; COVID-19 infxn; Chay. pneumonia; Acute toxic metabolic encephalopathy; Severe sepsis; UTI; Rhabdomyolysis; HFrEF; A-fib with RVR Seen and examined at bedside; 24hour events reviewed; nursing and respiratory care staff consulted; no adverse overnight events reported to me; resting in bed; FiO2 up to 100% via HFNC; secretions thick and moderate per RT; he is NPO+ acutely; remains on supplemental oxygen; remains in A-fib/flutter with RVR; Levophed started yesterday for hypotension Objective Vital Signs - 12hr 09/12/20 09/12/20 09/12/20 04:16 04:30 04:46 Temperature Pulse Rate 123 H 125 H 129 H Pulse Rate [ Apical] Respiratory 18 16 17 Rate Blood Pressure 133/92 133/92 133/92 O2 Sat by Pulse Oximetry 09/12/20 09/12/20 09/12/20 05:00 05:16 05:30 Temperature Pulse Rate 114 H 126 H 130 H Pulse Rate [ Apical] Respiratory 20 24 31 H Rate Blood Pressure 127/85 127/85 127/85 O2 Sat by Pulse Oximetry 09/12/20 09/12/20 09/12/20 05:46 06:00 06:16 Temperature Pulse Rate 131 H 131 H 127 H Pulse Rate [ Apical] Respiratory 21 25 H 25 H Rate Blood Pressure 127/85 143/88 143/88 O2 Sat by Pulse Oximetry 09/12/20 09/12/20 09/12/20 06:30 06:46 07:00 Temperature Pulse Rate 133 H 132 H 132 H Pulse Rate [ Apical] Respiratory 24 30 H 23 Rate Blood Pressure 143/88 143/88 132/81 O2 Sat by Pulse Oximetry 09/12/20 09/12/20 09/12/20 07:16 07:30 07:46 Temperature Pulse Rate 133 H 133 H Pulse Rate [ Apical] Respiratory 23 26 H 25 H Rate Blood Pressure 132/81 132/81 132/81 O2 Sat by Pulse Oximetry 09/12/20 09/12/20 09/12/20 07:52 08:00 08:16 Temperature 97.9 F Pulse Rate 134 H 133 H Pulse Rate [ Apical] Respiratory 25 H 16 Rate Blood Pressure 139/85 139/85 O2 Sat by Pulse 97 97 94 Oximetry 0709/12/20 09/12/20 08:30 08:46 09:00 Temperature Pulse Rate 134 H 136 H 136 H Pulse Rate [ Apical] Respiratory 17 26 H 28 H Rate Blood Pressure 139/85 139/85 137/84 O2 Sat by Pulse 96 94 96 Oximetry 09/12/20 09/12/20 09/12/20 09:16 09:30 09:46 Temperature Pulse Rate 137 H 136 H 133 H Pulse Rate [ Apical] Respiratory 20 26 H 25 H Rate Blood Pressure 137/84 137/84 137/84 O2 Sat by Pulse 96 96 95 Oximetry 09/12/20 09/12/20 09/12/20 10:00 10:14 10:16 Temperature Pulse Rate 134 H 134 H 135 H Pulse Rate [ 134 H Apical] Respiratory 37 H 31 H 34 H Rate Blood Pressure 137/84 128/93 128/93 O2 Sat by Pulse 87 100 100 Oximetry 09/12/20 09/12/20 09/12/20 10:30 10:46 11:00 Temperature Pulse Rate 136 H 135 H 137 H Pulse Rate [ Apical] Respiratory 30 H 32 H 25 H Rate Blood Pressure 128/93 128/93 128/93 O2 Sat by Pulse 100 100 100 Oximetry 09/12/20 09/12/20 09/12/20 11:13 11:16 11:30 Temperature Pulse Rate 136 H 136 H 135 H Pulse Rate [ Apical] Respiratory 21 28 H 26 H Rate Blood Pressure 138/91 138/91 138/91 O2 Sat by Pulse 100 99 99 Oximetry 09/12/20 09/12/20 09/12/20 11:46 12:00 12:16 Temperature 99 F Pulse Rate 136 H 137 H 137 H Pulse Rate [ Apical] Respiratory 24 32 H 30 H Rate Blood Pressure 138/91 123/79 123/79 O2 Sat by Pulse 100 99 99 Oximetry 09/12/20 09/12/20 12:30 13:40 Temperature Pulse Rate 131 H Pulse Rate [ Apical] Respiratory 27 H Rate Blood Pressure 123/79 O2 Sat by Pulse 98 95 Oximetry Constitutional: appears uncomfortable, other (elderly thin male with mildly in creased respiratory effort at rest ) Eyes: non-icteric ENT: oropharynx dry Neck: supple, no lymphadenopathy, no JVD Effort: mildly labored Ascultation: Bilateral: diminished breath sounds, rhonchi Percussion: Bilateral: not dull Cardiovascular: regular rate and rhythm Gastrointestinal: normoactive bowel sounds, soft, non-tender, non-distended Integumentary: other (poor turgor) Extremities: no cyanosis, no edema, pink and warm, pulses normal Neurologic: non-focal exam (grossly), pupils equal and round, unable to assess Psychiatric: anxious CBC and BMP: 09/11/20 11:07 09/12/20 06:40 ABG, PT/INR, D-dimer: ABG ABG pH 7.433 (7.320-7.450) 09/11/20 14:39 POC ABG pCO2 37.0 mmHg (32.0-48.0) 09/11/20 14:39 POC ABG pO2 81.5 mmHg (83-108) L 09/11/20 14:39 POC ABG HCO3 24.2 09/11/20 14:39 ABG O2 Saturation 95.4 (0-100) 09/11/20 14:39 PT/INR, D-dimer PT 15.5 Sec. (12.2-14.9) H 09/11/20 11:07 INR 1.17 (0.87-1.13) H 09/11/20 11:07 D-Dimer 352.35 ng/mlDDU (0-234) H 09/12/20 Unknown Abnormal lab findings: Abnormal Labs 09/08/20 09/08/20 09/08/20 20:34 20:34 20:34 Hgb Plt Count Lymph % (Auto) Bartholomew % (Auto) Lymph # (Auto) Seg Neutrophils % Seg Neuts % (Manual) 90.0 H Lymphocytes % (Manual) 4.0 L Lymphocytes # (Manual) 0.3 L PT INR APTT D-Dimer POC ABG pO2 ABG Sodium ABG Potassium ABG Glucose Carboxyhemoglobin Sodium Potassium 3.3 L Chloride 97.1 L BUN 21 H Creatinine 0.7 L Glucose 162 H POC Glucose Lactic Acid 3.00 H* Calcium Ferritin AST 96 H Lactate Dehydrogenase Total Creatine Kinase 1277 H C-Reactive Protein NT-Pro-B Natriuret Pep 4471 H Total Protein Albumin 3.3 L Arterial Blood Glucose Arterial Blood Ionized Calcium Urine WBC (Auto) Coronavirus (PCR) 09/08/20 09/08/20 09/08/20 20:34 20:34 20:34 Hgb Plt Count Lymph % (Auto) Bartholomew % (Auto) Lymph # (Auto) Seg Neutrophils % Seg Neuts % (Manual) Lymphocytes % (Manual) Lymphocytes # (Manual) PT INR APTT D-Dimer 405.34 H POC ABG pO2 ABG Sodium ABG Potassium ABG Glucose Carboxyhemoglobin Sodium Potassium Chloride BUN Creatinine Glucose 164 H POC Glucose Lactic Acid Calcium Ferritin 638.9 H AST Lactate Dehydrogenase 286 H Total Creatine Kinase C-Reactive Protein 5.40 H NT-Pro-B Natriuret Pep Total Protein Albumin Arterial Blood Glucose Arterial Blood Ionized Calcium Urine WBC (Auto) Coronavirus (PCR) 09/08/20 09/08/20 09/09/20 Unknown Unknown 16:04 Hgb Plt Count Lymph % (Auto) Bartholomew % (Auto) Lymph # (Auto) Seg Neutrophils % Seg Neuts % (Manual) Lymphocytes % (Manual) Lymphocytes # (Manual) PT INR APTT D-Dimer POC ABG pO2 ABG Sodium ABG Potassium ABG Glucose Carboxyhemoglobin Sodium Potassium Chloride BUN Creatinine Glucose POC Glucose Lactic Acid Calcium Ferritin AST Lactate Dehydrogenase Total Creatine Kinase 1303 H C-Reactive Protein NT-Pro-B Natriuret Pep Total Protein Albumin Arterial Blood Glucose Arterial Blood Ionized Calcium Urine WBC (Auto) 7.0 H Coronavirus (PCR) Positive A 09/10/20 09/10/20 09/10/20 08:42 08:42 08:42 Hgb 15.3 H Plt Count 123 L Lymph % (Auto) 6.2 L Bartholomew % (Auto) 7.6 H Lymph # (Auto) 0.4 L Seg Neutrophils % 86.0 H Seg Neuts % (Manual) Lymphocytes % (Manual) Lymphocytes # (Manual) PT INR APTT D-Dimer POC ABG pO2 ABG Sodium ABG Potassium ABG Glucose Carboxyhemoglobin Sodium 134 L Potassium Chloride 93.0 L BUN 23 H Creatinine 0.5 L Glucose 134 H POC Glucose Lactic Acid Calcium Ferritin AST 117 H Lactate Dehydrogenase Total Creatine Kinase 1113 H C-Reactive Protein NT-Pro-B Natriuret Pep Total Protein Albumin 3.2 L Arterial Blood Glucose Arterial Blood Ionized Calcium Urine WBC (Auto) Coronavirus (PCR) 09/11/20 09/11/20 09/11/20 06:43 11:07 11:07 Hgb Plt Count 121 L Lymph % (Auto) Bartholomew % (Auto) Lymph # (Auto) Seg Neutrophils % Seg Neuts % (Manual) Lymphocytes % (Manual) Lymphocytes # (Manual) PT 15.5 H INR 1.17 H APTT 39.2 H D-Dimer POC ABG pO2 ABG Sodium ABG Potassium ABG Glucose Carboxyhemoglobin Sodium 136 L Potassium Chloride 97.3 L BUN 53 H Creatinine Glucose 175 H POC Glucose Lactic Acid Calcium 8.3 L Ferritin AST 94 H Lactate Dehydrogenase Total Creatine Kinase C-Reactive Protein NT-Pro-B Natriuret Pep Total Protein 6.0 L Albumin 2.9 L Arterial Blood Glucose Arterial Blood Ionized Calcium Urine WBC (Auto) Coronavirus (PCR) 09/11/20 09/11/20 09/11/20 14:39 17:26 23:27 Hgb Plt Count Lymph % (Auto) Bartholomew % (Auto) Lymph # (Auto) Seg Neutrophils % Seg Neuts % (Manual) Lymphocytes % (Manual) Lymphocytes # (Manual) PT INR APTT D-Dimer POC ABG pO2 81.5 L ABG Sodium 135.5 L ABG Potassium 3.3 L ABG Glucose 355 H Carboxyhemoglobin 0.4 L Sodium Potassium Chloride BUN Creatinine Glucose POC Glucose 220 H 136 H Lactic Acid Calcium Ferritin AST Lactate Dehydrogenase Total Creatine Kinase C-Reactive Protein NT-Pro-B Natriuret Pep Total Protein Albumin Arterial Blood Glucose 355 H Arterial Blood Ionized Calcium 4.3 L Urine WBC (Auto) Coronavirus (PCR) 09/12/20 09/12/20 09/12/20 05:16 06:40 Unknown Hgb Plt Count Lymph % (Auto) Bartholomew % (Auto) Lymph # (Auto) Seg Neutrophils % Seg Neuts % (Manual) Lymphocytes % (Manual) Lymphocytes # (Manual) PT INR APTT D-Dimer 352.35 H POC ABG pO2 ABG Sodium ABG Potassium ABG Glucose Carboxyhemoglobin Sodium Potassium Chloride BUN 54 H Creatinine Glucose 140 H POC Glucose 137 H Lactic Acid Calcium 8.1 L Ferritin AST 100 H Lactate Dehydrogenase Total Creatine Kinase C-Reactive Protein NT-Pro-B Natriuret Pep Total Protein 5.9 L Albumin 2.8 L Arterial Blood Glucose Arterial Blood Ionized Calcium Urine WBC (Auto) Coronavirus (PCR) 09/12/20 09/12/20 Unknown Unknown Hgb Plt Count Lymph % (Auto) Bartholomew % (Auto) Lymph # (Auto) Seg Neutrophils % Seg Neuts % (Manual) Lymphocytes % (Manual) Lymphocytes # (Manual) PT INR APTT D-Dimer POC ABG pO2 ABG Sodium ABG Potassium ABG Glucose Carboxyhemoglobin Sodium Potassium Chloride BUN Creatinine Glucose POC Glucose Lactic Acid Calcium Ferritin 1869.0 H AST Lactate Dehydrogenase 521 H Total Creatine Kinase C-Reactive Protein 5.70 H NT-Pro-B Natriuret Pep Total Protein Albumin Arterial Blood Glucose Arterial Blood Ionized Calcium Urine WBC (Auto) Coronavirus (PCR) Allied health notes reviewed: nursing
--- NOTE | 2020-09-12 17:38 | XRay Report ---
ABDOMEN 1 VIEW 09/12/2020 4:27 PM INDICATION / CLINICAL INFORMATION: ngt placement. COMPARISON: None available. FINDINGS: TUBES / LINES: NG tube is within the stomach in the left upper abdomen. Signer Name: Catracho Bronson MD Signed: 09/12/2020 5:34 PM Workstation Name: [id number]
[2020-09-12] MEDS: ACETYLCYSTEINE 20% 200 MG/1 ML *FOR INHALATION USE INHALATION SCH (21:34)
[2020-09-12] MEDS: ALBUTEROL 2.5 MG/3 ML NEBU IH SCH (21:34)
[2020-09-12] MEDS: REMDESIVIR 100 MG in SODIUM CHLORIDE 0.9% 250ML 250 ML IV SCH (22:10)
[2020-09-12] MEDS: AMIODARONE 900 MG in DEXTROSE 5% IN WATER 482 ML IV SCH (22:32)
[2020-09-13] MEDS: oxyCODONE /ACETAMINOPHEN 5-325MG TAB PO PRN (03:27)
[2020-09-13] MEDS: dilTIAZem 30 MG TAB PO SCH (05:14)
[2020-09-13 06:09] LABS: Hematocrit 40.1 % (35.5-45.6); Hemoglobin 13.4 gm/dl (11.8-15.2); Mean Corpuscular HGB Conc 34 % (32-34); Mean Corpuscular Volume 94 fl (84-94); Platelet Count 115 K/mm3 (140-440); Red Blood Count 4.29 M/mm3 (3.65-5.03); Red Cell Distribution Width 14.3 % (13.2-15.2)
[2020-09-13 06:39] LABS: Alanine Aminotransferase 36 units/L (7-56); Albumin 2.3 g/dL (3.9-5); BUN/Creatinine Ratio 51; Blood Urea Nitrogen 46 mg/dL (9-20); Calcium 7.5 mg/dL (8.4-10.2); Hemolysis Index 1
[2020-09-13] MEDS: ALBUTEROL 2.5 MG/3 ML NEBU IH SCH ×3 (07:46→20:43)
[2020-09-13] MEDS: ACETYLCYSTEINE 20% 200 MG/1 ML *FOR INHALATION USE INHALATION SCH ×3 (07:46→20:42)
[2020-09-13] MEDS: ASCORBIC ACID 500 MG TAB PO SCH ×2 (09:27→21:45)
[2020-09-13] MEDS: D5W/0.9% NACL 1,000 ML IV SCH (09:27)
[2020-09-13] MEDS: NICOTINE 14 MG/24 HR PATCH TD SCH (09:27)
[2020-09-13] MEDS: APIXABAN 2.5 MG TAB PO SCH ×2 (09:27→21:46)
[2020-09-13] MEDS: DOCUSATE SODIUM 100 MG CAP PO SCH ×2 (09:27→21:44)
[2020-09-13] MEDS: FAMOTIDINE 20 MG TAB PO SCH (09:28)
[2020-09-13] MEDS: dexAMETHasone 4 MG/ML VIAL IV SCH (09:28)
[2020-09-13] MEDS: ZINC SULFATE 220 MG CAP PO SCH ×2 (09:28→21:44)
--- NOTE | 2020-09-13 09:38 | Progress Note ---
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 Of note patient is unable to provide history. History is provided by review of medical records, medical reports, and family ( Courtney Louise [phone]). reports patient spent a prolonged period of time with her grandson over the past 2 weeks, who has since tested positive for COVID-19 virus. Upon arrival to the ED patient was found to be febrile, tachycardic, and hypoxic on room air. Additionally right foot reports patient fell and may have hit his head a few days ago. denies medical history, and surgical history. Per patient, "has not seen a medical provider in many years", and he is not currently nor has he been on any medication in the past 10 years or greater. Upon assessment patient is seen a week on stretcher. Able to track with eyes, spontaneously moves extremities, but unable to answer simple yes/no questions. Imaging studies were reviewed showed some in the maxillary area unknown etiology. CT shows a right hydronephrosis. 09/10: ID input is appreciated of also discussed with family of the patient and informed him of the diagnosis and the need to have other people at home tested. Patient is on 3 L of oxygen will continue to monitor. Patient will need PT OT evaluation considering recurrent falls. May actually need rehab based on the condition he appears. Dietitian consultation. Considering his age he is with a guarded prognosis at this time. Azithromycin has been discontinued for the antibiotics management per ID at this time. We will continue remdesivir and steroid therapy. And intermittent pulse ox monitoring. We will continue to encourage prone positioning. We will also obtain pulmonary evaluation 09/11: Afib with RVR, Cardiology consulted, will start on Eliquis. Echo Reviewed. Pulmonary consulted due to worsening hypoxia. Prone positioning if able. Will give a dose of lasix today. Monitor Renal function. Disucssed and updated spouse. She is still insistent of home management when he is better,and also tells me he was not on any medication of physician care prior to hospitalization. Poor prognosis considering her tobacco use disorder and overall medical condition including severe protein calorie malnutrition 09/12: Patient unfortunately is declining medically. Now with A. fib with RVR and was hypotensive yesterday right central line placed and internal jugular pressure extremely good satisfactory position. Also NG tube in place will obtain dietary consultation for tube feeds. Patient currently off pressors on my understanding was that the amiodarone drip was off for some time due to mechanical issues which has since been fixed and the drip is back on running heart rate was still in the 130s this morning he remains very lethargic discussed with the nurse to continue to monitor closely. I have also called the family (Spouse) and updated them on the condition and the patient being in the ICU. Continue aggressive Blood sugar control 09/13: Blood pressure shown some improvement. Patient currently on amiodarone and Cardizem. Heart rate appears better controlled with the addition of the Cardizem may need to adjust as mild bradycardia is also noted in regards today a flutter/A. fib. Electrolytes reviewed and stable. Still with some hypoxia. Very high risk for aspiration and as a result tube feeds has been held. Continue monitoring discussed with nursing staff at bedside Patient is on Mucomyst nebs for secretion. Still with intermittent BiPAP COVID-19 virus pneumonia with associated respiratory hypoxia. -Confirmed exposure to COVID-19 (grandson tested positive, and was around grandson for prolonged periods of time) -Ferritin, and D-dimer inflammatory markers elevated -CT angio chest shows consolidation in both lungs -PCR pending -Isolate -Follow-up on labs -ID consulted -On IV azithromycin and Rocephin Severe sepsis secondary to COVID-19 -ID currently following Afib with RVR Hypotensive- Presumed Septic Shock Severe sepsis with pneumonia -Likely due to #1 -CXR negative -CT angio chest shows airspace consolidation in both lungs -Blood Cultures pending -Start on IV Abx Acute hypoxic respiratory failure -No Baseline home oxygen requirements -Saturation of 88% on room air -Currently on supplemental -Monitor saturations -Continue supplemental oxygen wean as tolerated Acute metabolic encephalopathy -CT head negative for acute abnormalities; show some soft tissue gas noted in anterior temporal musculature bilaterally and in the posterior maxillary sinuses -T-max one 1.8 -No leukocytosis -Blood cultures pending -Neuro checks Acute cystitismild -UA positive for UTI -Urine culture pending -on IV Abx Elevated D-dimer -CT angio chest negative for PE -On prophylaxis Lovenox Elevated BNP - at 4417 -Troponin x1, will trend -Denies history of heart failure, or cardiac history -Echo pending -Day team may consider cardiology consult Malnutrition -Moderate to severe -Albumin 3.3 -Dietitian consult Tobacco abuse -Current every day smoker -Per patient smokes 1 pack of small cigars daily -Counseled for cessation, will need reinforcement when mentation improves -Nicotine patch when necessary Thrombocytopenia Mild sinusitis Elevated LFTs likely secondary to COVID-19 Adult failure to thrive hypokalemia -Moderate -Received replacement -Monitor electrolytes and replace as needed History of recent fall -Patient fell may have hit his head, per reports -Imaging negative for acute abnormalities -Initiate fall precautions -PT OT eval pending Right-sided hydronephrosis -No renal impairment -Outpatient urology follow-up DVT PPX -On Lovenox Advance Directives: No VTE prophylaxis?: Chemical, Mechanical Plan of care discussed with patient/family: Yes Prognosis remains guarded The high probability of a clinically significant, sudden or life threatening deterioration of the [pulmonary, cardiac] system(s) required my full and direct attention, intervention and personal management. The aggregate critical care time was [35] minutes. This time is in addition to time spent performing reported procedures but includes the following: [x] Data Review and interpretation [x] Patient assessment and monitoring of vital signs [x] Documentation [x] Medication orders and management History Interval history: Seen and examined no acute overnight event except still in A. fib but with slow ventricular response now. Still intermittently confused although follows some commands. Hospitalist Physical - Physical exam Narrative exam: VITAL SIGNS: Reviewed. GENERAL: The patient appears markedly cachectic, lethargic, on 10 L of oxygen vital signs as documented. HEAD: No signs of head trauma. EYES: Pupils are equal. Extraocular motions intact. EARS: Hearing grossly intact. MOUTH: Oropharynx is normal. NECK: No adenopathy, no JVD. CHEST: Chest with Diminshed, breath sounds bilaterally. No wheezes, rales, or rhonchi. CARDIAC: Irregulary irregular rate and rhythm. Bradycardia S1 and S2, without murmurs, gallops, or rubs. VASCULAR: No Edema. Peripheral pulses normal and equal in all extremities. ABDOMEN: Soft, non tender and non distended. No rebound or guarding, and no masses palpated. Bowel Sounds normal. MUSCULOSKELETAL: Good range of motion of all major joints. Extremities without clubbing, cyanosis or edema. NEUROLOGIC EXAM: Somnolent although arousable still markedly lethargic. While he does not have any focal neurological deficit he is deconditioned. He does move all extremities Follows simple commands. PSYCHIATRIC: Lethargic SKIN: detail exam as documented in skin assessment - Constitutional Vitals: Temp Pulse Resp BP Pulse Ox 97.7 F 64 34 H 112/64 96 09/13/20 07:15 09/13/20 08:00 09/13/20 08:00 09/13/20 08:00 09/13/20 08:40 General appearance: Present: no acute distress, cachectic HEART Score - HEART Score Troponin: Troponin T 0.020 ng/mL (0.00-0.029) 09/09/20 04:25 Results - Labs CBC & Chem 7: 09/13/20 05:00 09/13/20 05:00 Labs: Laboratory Last Values WBC 11.5 K/mm3 (4.5-11.0) H 09/13/20 05:00 RBC 4.29 M/mm3 (3.65-5.03) 09/13/20 05:00 Hgb 13.4 gm/dl (11.8-15.2) 09/13/20 05:00 Hct 40.1 % (35.5-45.6) 09/13/20 05:00 MCV 94 fl (84-94) 09/13/20 05:00 MCH 31 pg (28-32) 09/13/20 05:00 MCHC 34 % (32-34) 09/13/20 05:00 RDW 14.3 % (13.2-15.2) 09/13/20 05:00 Plt Count 115 K/mm3 (140-440) L 09/13/20 05:00 Lymph % (Auto) 6.2 % (13.4-35.0) L 09/10/20 08:42 [place] % (Auto) 7.6 % (0.0-7.3) H 09/10/20 08:42 Eos % (Auto) 0.0 % (0.0-4.3) 09/10/20 08:42 Baso % (Auto) 0.2 % (0.0-1.8) 09/10/20 08:42 Lymph # (Auto) 0.4 K/mm3 (1.2-5.4) L 09/10/20 08:42 [place] # (Auto) 0.5 K/mm3 (0.0-0.8) 09/10/20 08:42 Eos # (Auto) 0.0 K/mm3 (0.0-0.4) 09/10/20 08:42 Baso # (Auto) 0.0 K/mm3 (0.0-0.1) 09/10/20 08:42 Add Manual Diff Complete 09/08/20 20:34 Total Counted 100 09/08/20 20:34 Seg Neutrophils % 86.0 % (40.0-70.0) H 09/10/20 08:42 Seg Neuts % (Manual) 90.0 % (40.0-70.0) H 09/08/20 20:34 Lymphocytes % (Manual) 4.0 % (13.4-35.0) L 09/08/20 20:34 Monocytes % (Manual) 6.0 % (0.0-7.3) 09/08/20 20:34 Nucleated RBC % Not Reportable 09/08/20 20:34 Seg Neutrophils # 5.8 K/mm3 (1.8-7.7) 09/10/20 08:42 Seg Neutrophils # Man 5.9 K/mm3 (1.8-7.7) 09/08/20 20:34 Band Neutrophils # 0.0 K/mm3 09/08/20 20:34 Lymphocytes # (Manual) 0.3 K/mm3 (1.2-5.4) L 09/08/20 20:34 Abs React Lymphs (Man) 0.0 K/mm3 09/08/20 20:34 Monocytes # (Manual) 0.4 K/mm3 (0.0-0.8) 09/08/20 20:34 Eosinophils # (Manual) 0.0 K/mm3 (0.0-0.4) 09/08/20 20:34 Basophils # (Manual) 0.0 K/mm3 (0.0-0.1) 09/08/20 20:34 Metamyelocytes # 0.0 K/mm3 09/08/20 20:34 Myelocytes # 0.0 K/mm3 09/08/20 20:34 Promyelocytes # 0.0 K/mm3 09/08/20 20:34 Blast Cells # 0.0 K/mm3 09/08/20 20:34 WBC Morphology Not Reportable 09/08/20 20:34 Hypersegmented Neuts Not Reportable 09/08/20 20:34 Hyposegmented Neuts Not Reportable 09/08/20 20:34 Hypogranular Neuts Not Reportable 09/08/20 20:34 Smudge Cells Not Reportable 09/08/20 20:34 Toxic Granulation Not Reportable 09/08/20 20:34 Toxic Vacuolation Few 09/08/20 20:34 Dohle Bodies Not Reportable 09/08/20 20:34 Pelger-Huet Anomaly Not Reportable 09/08/20 20:34 Shweta Rods Not Reportable 09/08/20 20:34 Platelet Estimate Consistent w auto 09/08/20 20:34 Clumped Platelets Not Reportable 09/08/20 20:34 Plt Clumps, EDTA Not Reportable 09/08/20 20:34 Large Platelets Not Reportable 09/08/20 20:34 Giant Platelets Not Reportable 09/08/20 20:34 Platelet Satelliting Not Reportable 09/08/20 20:34 Plt Morphology Comment Not Reportable 09/08/20 20:34 RBC Morphology Normal 09/08/20 20:34 Dimorphic RBCs Not Reportable 09/08/20 20:34 Polychromasia Not Reportable 09/08/20 20:34 Hypochromasia Not Reportable 09/08/20 20:34 Poikilocytosis Not Reportable 09/08/20 20:34 Anisocytosis Not Reportable 09/08/20 20:34 Microcytosis Not Reportable 09/08/20 20:34 Macrocytosis Not Reportable 09/08/20 20:34 Spherocytes Not Reportable 09/08/20 20:34 Pappenheimer Bodies Not Reportable 09/08/20 20:34 Sickle Cells Not Reportable 09/08/20 20:34 Target Cells Not Reportable 09/08/20 20:34 Tear Drop Cells Not Reportable 09/08/20 20:34 Ovalocytes Not Reportable 09/08/20 20:34 Helmet Cells Not Reportable 09/08/20 20:34 Carr-Burna Bodies Not Reportable 09/08/20 20:34 Jackson Rings Not Reportable 09/08/20 20:34 Milena Cells Not Reportable 09/08/20 20:34 Bite Cells Not Reportable 09/08/20 20:34 Crenated Cell Not Reportable 09/08/20 20:34 Elliptocytes Not Reportable 09/08/20 20:34 Acanthocytes (Spur) Not Reportable 09/08/20 20:34 Rouleaux Not Reportable 09/08/20 20:34 Hemoglobin C Crystals Not Reportable 09/08/20 20:34 Schistocytes Not Reportable 09/08/20 20:34 Malaria parasites Not Reportable 09/08/20 20:34 Viraj Bodies Not Reportable 09/08/20 20:34 Hem Pathologist Commnt No 09/08/20 20:34 PT 15.5 Sec. (12.2-14.9) H 09/11/20 11:07 INR 1.17 (0.87-1.13) H 09/11/20 11:07 APTT 39.2 Sec. (24.2-36.6) H 09/11/20 11:07 D-Dimer 352.35 ng/mlDDU (0-234) H 09/12/20 Unknown ABG pH 7.416 (7.320-7.450) 09/13/20 09:00 POC ABG pCO2 34.0 mmHg (32.0-48.0) 09/13/20 09:00 POC ABG pO2 69.0 mmHg (83-108) L 09/13/20 09:00 POC ABG HCO3 21.4 09/13/20 09:00 ABG O2 Saturation 92.6 (0-100) 09/13/20 09:00 POC ABG Base Excess -2.4 09/13/20 09:00 ABG Hemoglobin 14.6 (12.0-17.5) 09/13/20 09:00 ABG Oxyhemoglobin 92.1 (94-98) L 09/13/20 09:00 ABG Methemoglobin 0.3 (0.0-1.5) 09/13/20 09:00 ABG Sodium 140.9 mmol/L (136.0-145.0) 09/13/20 09:00 ABG Potassium 3.8 mmol/L (3.40-4.50) 09/13/20 09:00 ABG Chloride 110.0 mmol/L (98-107) H 09/13/20 09:00 ABG Glucose 196 mg/dL (65-95) H 09/13/20 09:00 Carboxyhemoglobin 0.2 (0.5-1.5) L 09/13/20 09:00 FiO2 % 100.0 09/13/20 09:00 Sodium 143 mmol/L (137-145) 09/13/20 05:00 Potassium 4.0 mmol/L (3.6-5.0) 09/13/20 05:00 Chloride 108.0 mmol/L (98-107) H 09/13/20 05:00 Carbon Dioxide 25 mmol/L (22-30) 09/13/20 05:00 Anion Gap 14 mmol/L 09/13/20 05:00 BUN 46 mg/dL (9-20) H 09/13/20 05:00 Creatinine 0.9 mg/dL (0.8-1.3) 09/13/20 05:00 Estimated GFR > 60 ml/min 09/13/20 05:00 BUN/Creatinine Ratio 51 % 09/13/20 05:00 Glucose 187 mg/dL (75-100) H 09/13/20 05:00 POC Glucose 181 mg/dL (70-105) H 09/13/20 05:35 Lactic Acid 1.80 mmol/L (0.7-2.0) 09/12/20 06:40 Calcium 7.5 mg/dL (8.4-10.2) L 09/13/20 05:00 Phosphorus 4.10 mg/dL (2.5-4.5) 09/11/20 11:07 Magnesium 2.10 mg/dL (1.7-2.3) 09/12/20 Unknown Ferritin 1869.0 ng/mL (30.0-300.0) H 09/12/20 Unknown Total Bilirubin 0.50 mg/dL (0.1-1.2) 09/13/20 05:00 AST 93 units/L (5-40) H 09/13/20 05:00 ALT 36 units/L (7-56) 09/13/20 05:00 Alkaline Phosphatase 83 units/L (35-129) 09/13/20 05:00 Lactate Dehydrogenase 521 units/L (91-180) H 09/12/20 Unknown Total Creatine Kinase 1113 units/L (55-170) H 09/10/20 08:42 Troponin T 0.020 ng/mL (0.00-0.029) 09/09/20 04:25 C-Reactive Protein 5.70 mg/dL (0.00-1.30) H 09/12/20 Unknown NT-Pro-B Natriuret Pep 4471 pg/mL (0-900) H 09/08/20 20:34 Total Protein 5.5 g/dL (6.3-8.2) L 09/13/20 05:00 Albumin 2.3 g/dL (3.9-5) L 09/13/20 05:00 Albumin/Globulin Ratio 0.7 % 09/13/20 05:00 Procalcitonin 0.44 ng/mL (<0.15) 09/12/20 Unknown TSH 0.581 mlU/mL (0.270-4.200) 09/08/20 20:34 Free T4 1.37 ng/dL (0.76-1.46) 09/08/20 20:34 Arterial Blood Glucose 196 mg/dL (65-95) H 09/13/20 09:00 Arterial Blood Ionized Calcium 4.5 mg/dL (4.6-5.3) L 09/13/20 09:00 Urine Color Yellow (Yellow) 09/08/20 Unknown Urine Turbidity Hazy (Clear) 09/08/20 Unknown Urine pH 5.0 (5.0-7.0) 09/08/20 Unknown Ur Specific [place] 1.015 (1.003-1.030) 09/08/20 Unknown Urine Protein 30 mg/dl mg/dL (Negative) 09/08/20 Unknown Urine Glucose (UA) 50 mg/dL (Negative) 09/08/20 Unknown Urine Ketones Neg mg/dL (Negative) 09/08/20 Unknown Urine Blood Mod (Negative) 09/08/20 Unknown Urine Nitrite Pos (Negative) 09/08/20 Unknown Urine Bilirubin Neg (Negative) 09/08/20 Unknown Urine Urobilinogen < 2.0 mg/dL (<2.0) 09/08/20 Unknown Ur Leukocyte Esterase Neg (Negative) 09/08/20 Unknown Urine WBC (Auto) 7.0 /HPF (0.0-6.0) H 09/08/20 Unknown Urine RBC (Auto) 3.0 /HPF (0.0-6.0) 09/08/20 Unknown Urine Bacteria (Auto) 4+ /HPF (Negative) 09/08/20 Unknown Hyaline Casts 1 /LPF 09/08/20 Unknown Urine Mucus Few /HPF 09/08/20 Unknown Coronavirus (PCR) Positive (Negative) A 09/08/20 Unknown Microbiology: Microbiology 09/08/20 20:34 Peripheral/Venous Blood Culture - Preliminary NO GROWTH AFTER 4 DAYS 09/08/20 20:34 Peripheral/Venous Blood Culture - Preliminary NO GROWTH AFTER 4 DAYS Long/IV: Voiding Method Condom Catheter Active Medications - Current Medications Current Medications: Generic Name Dose Route Start Last Admin Trade Name Freq PRN Reason Stop Dose Admin Acetaminophen 650 mg 09/09/20 02:56 Acetaminophen 325 Mg Tab PO Q4H PRN Pain MILD(1-3)/Fever >100.5/SALAMANCA Acetylcysteine 200 mg 09/12/20 20:00 09/13/20 07:46 Acetylcysteine 20% 200 Mg/1 Ml *For Inhalation Use* INHALATION 09/17/20 19:59 200 mg TIDRT TEJAS Administration Albuterol 2.5 mg 09/12/20 20:00 09/13/20 07:46 Albuterol 2.5 Mg/3 Ml Nebu IH 2.5 mg TIDRT TEJAS Administration Lipase/Protease/Amylase 1 each 09/12/20 09:57 Lipase 10,500/Protease 25,000/Amylase 43,750 (Units) Dr Rowe FEEDTUBE PRN PRN For Clogged Feeding Tube Apixaban 2.5 mg 09/11/20 22:00 09/13/20 09:27 Apixaban 2.5 Mg Tab PO 2.5 mg Q12HR TEJAS Administration Ascorbic Acid 500 mg 09/11/20 22:00 09/13/20 09:27 Ascorbic Acid 500 Mg Tab PO 500 mg BID TEJAS Administration Dexamethasone 6 mg 09/09/20 18:00 09/13/20 09:28 Dexamethasone 4 Mg/Ml Vial IV 09/19/20 17:59 6 mg Q24HR TEJAS Administration Diltiazem HCl 30 mg 09/12/20 12:00 09/13/20 05:14 Diltiazem 30 Mg Tab PO 30 mg Q6HR TEJAS Administration Docusate Sodium 100 mg 09/09/20 10:00 09/13/20 09:27 Docusate Sodium 100 Mg Cap PO 100 mg BID TEJAS Administration Famotidine 20 mg 09/11/20 16:00 09/13/20 09:28 Famotidine 20 Mg Tab PO 20 mg QDAY TEJAS Administration REMDESIVIR 100 mg/ Sodium 250 mls @ 500 mls/hr 09/10/20 21:00 09/12/20 22:10 Chloride IV 09/13/20 21:29 500 mls/hr Q24HR@2100 TEJAS Administration Dextrose/Sodium Chloride 1,000 mls @ 42 mls/hr 09/10/20 20:00 09/13/20 09:27 D5ns IV 42 mls/hr DIRECT TEJAS Administration Amiodarone HCl 900 mg/ 500 mls @ 33.333 mls/hr 09/11/20 16:30 09/12/20 22:32 Dextrose IV 1 mg/min DIRECT TEJAS 33.3 mls/hr Administration Protocol 1 MG/MIN Norepinephrine 4 mg in 250 mls @ 7.5 mls/hr 09/11/20 20:00 Levophed Drip 4 Mg/Ns 250 Ml IV TITR TEJAS Protocol 2 MCG/MIN Naloxone HCl 0.1 mg 09/09/20 02:56 Naloxone 0.4 Mg/1 Ml Inj IV Q2MIN PRN Res Rate </= 8 or 02 SAT < 92% Nicotine 14 mg 09/09/20 10:00 09/13/20 09:27 Nicotine 14 Mg/24 Hr Patch TD 14 mg QDAY TEJAS Administration Ondansetron HCl 4 mg 09/09/20 02:56 Ondansetron 4 Mg/2 Ml Inj IV Q6H PRN Nausea And Vomiting Oxycodone/Acetaminophen 1 tab 09/09/20 02:56 09/13/20 03:27 Oxycodone /Acetaminophen 5-325mg Tab PO 1 tab Q6H PRN Administration Pain, Moderate (4-6) Simple Syrup 15 ml 09/12/20 09:57 Simple Syrup 15 Ml FEEDTUBE PRN PRN Hypoglycemia Simple Syrup 30 ml 09/12/20 09:57 Simple Syrup 15 Ml FEEDTUBE PRN PRN Hypoglycemia Sodium Bicarbonate 325 mg 09/12/20 09:57 Sodium Bicarbonate 325 Mg Tab FEEDTUBE PRN PRN For Clogged Feeding Tube Sodium Chloride 10 ml 09/09/20 10:00 09/13/20 09:28 Sodium Chloride 0.9% 10 Ml Flush Syringe IV 10 ml BID TEJAS Administration Sodium Chloride 10 ml 09/09/20 02:56 Sodium Chloride 0.9% 10 Ml Flush Syringe IV PRN PRN LINE FLUSH Sodium Chloride 50 ml 09/09/20 19:00 09/12/20 22:10 Sodium Chloride 0.9% 50 Ml Ivpb IV 09/13/20 21:01 50 ml Q24HR@2100 TEJAS Administration Zinc Sulfate 220 mg 09/09/20 10:00 09/13/20 09:28 Zinc Sulfate 220 Mg Cap PO 220 mg BID TEJAS Administration Nutrition/Malnutrition Assess - Dietary Evaluation Nutrition/Malnutrition Findings: Nutrition Notes Start: 09/09/20 08:51 Freq: Status: Active Protocol: Document 09/12/20 09:52 DIXON (Rec: 09/12/20 09:55 [id number]) Nutrition Notes Need for Assessment generated from: MD Order Initial or Follow up Reassessment Other Pertinent Diagnosis Pneu, COVID-19, acute metabolic encephalopathy, UTI, tobacco dependence Current Diet Cardiac/Consistent CHO Labs/Tests BUN 54 Pertinent Medications D5NS at 75ml/hr Height 5 ft 5 in Weight 44.497 kg [place] Body Weight (kg) 61.81 BMI 16.3 Weight Status Underweight Subjective/Other Information MD consult for TF. RN screen for MST and skin risk. Pt has pressure ulcers on R and L hip . 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 No Is Patient Ambulatory and/or Out of Bed No REE-(Ellis-St. Jeor-confined to bed) 1299.456 Kcal/Kg value to use for calculation 40 Approximate Energy Requirements Using 1780 kcal/Kg Calculation Used for Recommendations Kcal/kg Additional Notes Pro needs 1.25-1.5g/k-67g /day Fluid needs 1500ml/day Nutrition Intervention Change Diet Order: Start TF Nutrition Support: Osmolite 1.5 at 50 ml/hr. Flush 150 ml q4h Kcal 1,800 Protein (gm) 75 Fluid (mL) 914 Goal #1 Meet 80-100% energy and pro needs via TF Goal #2 Wt maintenance and/or gain Anticipated Discharge Needs: Unable to detemine at this time Follow-Up By: 09/15/20 Additional Comments FU for TF start and tolerance, BG
--- NOTE | 2020-09-13 10:29 | Progress Note ---
Assessment and Plan 79-year-old male with malnutrition Covid pneumonia with hypoxemia with atrial flutter on oral anticoagulation patient converted to sinus rhythm we will stop amiodarone and start low-dose beta-erasto prognosis poor - Patient Problems (1) Pneumonia due to COVID-19 virus Current Visit: Yes Status: Acute (2) Acute respiratory failure with hypoxia Current Visit: Yes Status: Acute (3) Atherosclerotic vascular disease Current Visit: Yes Status: Chronic (4) Atrial flutter Current Visit: Yes Status: Acute (5) Pneumonia Current Visit: Yes Status: Acute (6) SIRS (systemic inflammatory response syndrome) Current Visit: Yes Status: Acute (7) Malnutrition of moderate degree Current Visit: Yes Status: Acute Subjective Date of service: 09/13/20 Principal diagnosis: Ac hypoxemic resp failure; COVID-19; PNA; AMS; Sepsis; UTI; A-fib; CHF Interval history: On high flow oxygen lethargic Objective Vital Signs Temp Pulse Pulse Resp Resp BP Pulse Ox 09/13/20 08:40 96 09/13/20 08:00 64 34 H 112/64 99 09/13/20 07:46 69 55 L 33 H 24 99/70 98 09/13/20 07:30 97 H 15 99/70 97 09/13/20 07:15 97.7 F 09/13/20 07:00 92 H 12 99/70 95 09/13/20 06:30 102 H 17 107/68 96 09/13/20 06:00 98 H 13 107/68 97 09/13/20 05:30 94 H 15 115/70 96 09/13/20 05:14 94 H 115/70 09/13/20 05:00 99 H 12 115/70 97 09/13/20 04:30 110 H 15 117/77 97 09/13/20 04:00 127 H 28 H 117/77 94 09/13/20 03:30 135 H 29 H 135/81 09/13/20 03:29 99.0 F 09/13/20 03:13 130 H 38 H 135/81 93 09/13/20 03:00 129 H 37 H 135/81 95 09/13/20 02:30 130 H 37 H 86/62 09/13/20 02:00 130 H 125/73 97 09/13/20 01:30 129 H 21 125/73 95 09/13/20 01:00 132 H 26 H 122/80 95 09/13/20 00:50 131 H 37 H 125/73 95 09/13/20 00:30 130 H 29 H 122/80 89 09/13/20 00:00 132 H 122/80 99 09/12/20 23:57 98.9 F 09/12/20 23:30 135 H 34 H 121/71 94 09/12/20 23:24 139 H 121/71 09/12/20 23:18 130 H 36 H 120/96 96 09/12/20 23:00 135 H 36 H 120/96 97 09/12/20 22:33 96 09/12/20 22:30 131 H 38 H 120/96 97 09/12/20 22:00 138 H 35 H 120/96 95 09/12/20 21:35 111 H 28 H 09/12/20 21:30 131 H 30 H 120/96 92 09/12/20 21:00 131 H 34 H 126/66 89 09/12/20 20:30 130 H 48 H 126/66 86 09/12/20 20:00 99.5 F 129 H 39 H 126/66 93 09/12/20 19:30 132 H 42 H 103/71 90 09/12/20 19:00 132 H 33 H 119/75 86 09/12/20 18:46 132 H 41 H 119/75 87 09/12/20 18:30 131 H 41 H 119/75 80 L 09/12/20 18:16 132 H 22 119/75 83 L 09/12/20 18:00 132 H 42 H 119/75 85 09/12/20 17:46 131 H 44 H 139/90 89 09/12/20 17:31 131 H 139/90 09/12/20 17:30 131 H 43 H 139/90 95 09/12/20 17:16 137 H 36 H 139/90 88 09/12/20 17:00 131 H 47 H 139/90 82 L 09/12/20 16:46 130 H 47 H 133/78 95 09/12/20 16:30 129 H 44 H 133/78 94 09/12/20 16:16 129 H 46 H 133/78 89 09/12/20 16:00 99.2 F 130 H 31 H 133/78 09/12/20 15:46 130 H 48 H 125/83 98 09/12/20 15:30 131 H 40 H 125/83 92 09/12/20 15:16 131 H 33 H 125/83 67 L 09/12/20 15:00 132 H 49 H 125/83 94 09/12/20 14:46 133 H 43 H 131/74 94 09/12/20 14:30 134 H 36 H 131/74 83 L 09/12/20 14:16 137 H 51 H 131/74 86 09/12/20 14:00 26 H 131/74 97 09/12/20 13:46 22 129/79 95 09/12/20 13:40 95 09/12/20 13:30 134 H 25 H 129/79 99 09/12/20 13:16 31 H 129/79 100 09/12/20 13:00 162 H 20 123/79 100 09/12/20 12:46 135 H 29 H 123/79 93 09/12/20 12:30 131 H 27 H 123/79 98 09/12/20 12:16 137 H 30 H 123/79 99 09/12/20 12:00 99 F 137 H 32 H 123/79 99 09/12/20 11:46 136 H 24 138/91 100 09/12/20 11:30 135 H 26 H 138/91 99 09/12/20 11:16 136 H 28 H 138/91 99 09/12/20 11:13 136 H 21 138/91 100 09/12/20 11:00 137 H 25 H 128/93 100 09/12/20 10:46 135 H 32 H 128/93 100 09/12/20 10:30 136 H 30 H 128/93 100 - Physical Examination General: Cachectic HEENT: Positive: PERRL Neck: Positive: trachea midline Cardiac: Positive: Reg Rate and Rhythm Lungs: Positive: Decreased Breath Sounds Neuro: Positive: Grossly Intact Abdomen: Positive: Soft, Active Bowel Sounds Skin: Negative: Rash, Suspicious Lesions, Ulceration Extremities: Present: upper extr. pulses, lower extr. pulses. Absent: edema - Labs and Meds Cardiac Enzymes 09/13/20 Range/Units 05:00 AST 93 H (5-40) units/L CBC 09/13/20 Range/Units 05:00 WBC 11.5 H (4.5-11.0) K/mm3 RBC 4.29 (3.65-5.03) M/mm3 Hgb 13.4 (11.8-15.2) gm/dl Hct 40.1 (35.5-45.6) % Plt Count 115 L (140-440) K/mm3 Comprehensive Metabolic Panel 09/13/20 Range/Units 05:00 Sodium 143 (137-145) mmol/L Potassium 4.0 (3.6-5.0) mmol/L Chloride 108.0 H (98-107) mmol/L Carbon Dioxide 25 (22-30) mmol/L BUN 46 H (9-20) mg/dL Creatinine 0.9 (0.8-1.3) mg/dL Glucose 187 H (75-100) mg/dL Calcium 7.5 L (8.4-10.2) mg/dL AST 93 H (5-40) units/L ALT 36 (7-56) units/L Alkaline Phosphatase 83 (35-129) units/L Total Protein 5.5 L (6.3-8.2) g/dL Albumin 2.3 L (3.9-5) g/dL - Imaging and Cardiology EKG: report reviewed, image reviewed Echo: report reviewed (Mild LV dysfunction EF 45% with mild mitral rotation) - Telemetry EKG Rhythm: Sinus Rhythm - Allied health notes Allied health notes reviewed: nursing
--- NOTE | 2020-09-13 10:34 | Ultrasound Report ---
ULTRASOUND RENAL INDICATION / CLINICAL INFORMATION: Evaluation for hydronephrosis, stone. COMPARISON: None available. FINDINGS: RIGHT KIDNEY: Length = 10.1 cm. - Echogenicity: Normal. - Cortical Thickness: Normal. - Hydronephrosis: Mild - Cyst or mass: No significant abnormality. - Stones: None seen. LEFT KIDNEY: Length = 9.4 cm. - Echogenicity: Normal. - Cortical Thickness: Normal. - Hydronephrosis: None. - Cyst or mass: No significant abnormality. - Stones: None seen. URINARY BLADDER: No significant abnormality. FREE FLUID: None. ADDITIONAL FINDINGS: Questionable small amount of fluid between the liver and the right kidney hypoec hoic area in the spleen. IMPRESSION: 1. Small amount of fluid between the liver in the right kidney. Mild right hydronephrosis Signer Name: Catracho Bronson MD Signed: 09/13/2020 10:30 AM Workstation Name: [id number]
[2020-09-13 11:03] LABS: Hematocrit 42.7 % (35.5-45.6); Hemoglobin 14.4 gm/dl (11.8-15.2); Mean Corpuscular HGB Conc 34 % (32-34); Mean Corpuscular Volume 94 fl (84-94); Platelet Count 113 K/mm3 (140-440); Red Blood Count 4.56 M/mm3 (3.65-5.03); Red Cell Distribution Width 14.5 % (13.2-15.2)
[2020-09-13] MEDS: METOPROLOL TARTRATE 25 MG TAB PO SCH ×2 (11:24→21:43)
--- NOTE | 2020-09-13 14:23 | Electrocardiograph Report ---
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
--- NOTE | 2020-09-13 14:36 | Electrocardiograph Report ---
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
--- NOTE | 2020-09-13 15:48 | Progress Note ---
Assessment and Plan Acute hypoxemic respiratory failure COVID-19 virus infection Bilateral pneumonia Acute toxic metabolic encephalopathy Severe sepsis Urinary tract infection Tobacco use disorder Dehydration and a mild element of intravascular volume depletion Rhabdomyolysis Congestive heart failure with reduced ejection fraction Adult failure to thrive - repeat CXR in am - continue NIV scheduled qhs with prn daytime use (HFNC in am) - continue mucomyst nebs for secretion control - continue care as below otherwise; - A-fib rate & rhythm control per cardiology (on IV Amiodarone) - continue to wean supplemental oxygen for target O2 sat's > 92% acutely - continue aspiration precautions - continue bronchodilators (YAMILKA & LABA) with pulmonary hygiene per RT - wean per pulmonary driven protocols otherwise - continue accuchecks with glycemic control per SSI (While critically ill target blood glucose of 140-180 mg/dL; avoid hypoglycemia) - avoid nephrotoxins, renally dose all medications - continue to avoid benzodiazepine's, reduce the possibility of delirium - complete antiinfective's per ID rec's - prn analgesia per CPOT score - Maintenance of sleep-wake cycle, avoid delirium - continue enteral nutritional support at goal rate as tolerated - G.I. & VTE prophylaxis - PT/OT/ROM exercises - continue mobility protocols for pressure ulcer prophylaxis - Monitor hemodynamics closely - continue other care per attending / other consultants - discharge planning ongoing concurrently COVID SPECIFIC INTERVENTIONS - Remdesivir as per ID/Pulmonary developed protocols - continue systemic steroids for severe COVID-19 infection empirically - follow repeat COVID tests results - zinc and vitamin C supplementation - Monitor inflammatory markers per facility protocol - ferritin, Ddimer, CRP - therapeutic anticoagulation per system Protocol based on d-dimer and clinical considerations (Full anticoagulation for A-fib) - Continue contact and airborne isolation .... Re-evaluate in am & prn CONDITION: CRITICAL PROGNOSIS: GUARDED CODE STATUS: FULL CODE The high probability of a clinically significant, sudden or life-threatening deterioration of the [respiratory, cardiovascular & neurologic] system(s) requi red my full and direct attention, intervention and personal management. The aggregate critical care time was [32] minutes without overlap. Time includes spent on; [x] Data Review and interpretation [x] Patient assessment and monitoring of vital signs [x] Documentation [x] Medication orders and management Subjective Date of service: 09/13/20 Principal diagnosis: Ac hypoxemic resp failure; COVID-19; PNA; AMS; Sepsis; UTI; A-fib; CHF Interval history: Patient is seen today for: Acute hypoxemic respiratory failure; COVID-19 infxn; [place]. pneumonia; Acute toxic metabolic encephalopathy; Severe sepsis; UTI; Rhabdomyolysis; HFrEF; A-fib with RVR Seen and examined at bedside; 24hour events reviewed; nursing and respiratory care staff consulted; no adverse overnight events reported to me; resting peacefully in bed; remains on 100% FiO2 via HFNC; no emesis or overt aspiration; not hypotensive; afebrile Objective Vital Signs - 12hr 09/13/20 09/13/20 09/13/20 04:00 04:30 05:00 Temperature Pulse Rate 127 H 110 H 99 H Pulse Rate [ Posterior Bilateral Throughout] Respiratory 28 H 15 12 Rate Respiratory Rate [Posterior Bilateral Throughout] Blood Pressure 117/77 117/77 115/70 O2 Sat by Pulse 94 97 97 Oximetry 09/13/20 09/13/20 09/13/20 05:14 05:30 06:00 Temperature Pulse Rate 94 H 94 H 98 H Pulse Rate [ Posterior Bilateral Throughout] Respiratory 15 13 Rate Respiratory Rate [Posterior Bilateral Throughout] Blood Pressure 115/70 115/70 107/68 O2 Sat by Pulse 96 97 Oximetry 09/13/20 09/13/20 09/13/20 06:30 07:00 07:15 Temperature 97.7 F Pulse Rate 102 H 92 H Pulse Rate [ Posterior Bilateral Throughout] Respiratory 17 12 Rate Respiratory Rate [Posterior Bilateral Throughout] Blood Pressure 107/68 99/70 O2 Sat by Pulse 96 95 Oximetry 09/13/20 09/13/20 09/13/20 07:30 07:46 08:00 Temperature 98.9 F Pulse Rate 97 H 69 64 Pulse Rate [ 55 L Posterior Bilateral Throughout] Respiratory 15 33 H 34 H Rate Respiratory 24 Rate [Posterior Bilateral Throughout] Blood Pressure 99/70 99/70 112/64 O2 Sat by Pulse 97 98 99 Oximetry 09/13/20 09/13/20 09/13/20 08:30 08:40 09:00 Temperature Pulse Rate 62 62 Pulse Rate [ Posterior Bilateral Throughout] Respiratory 17 26 H Rate Respiratory Rate [Posterior Bilateral Throughout] Blood Pressure 112/64 108/60 O2 Sat by Pulse 99 96 97 Oximetry 09/13/20 09/13/20 09/13/20 09:30 10:00 10:30 Temperature Pulse Rate 55 L 56 L 63 Pulse Rate [ Posterior Bilateral Throughout] Respiratory 11 L 12 39 H Rate Respiratory Rate [Posterior Bilateral Throughout] Blood Pressure 108/60 107/63 107/63 O2 Sat by Pulse 93 99 95 Oximetry 09/13/20 09/13/20 09/13/20 11:00 11:24 11:30 Temperature Pulse Rate 58 L 59 L 53 L Pulse Rate [ Posterior Bilateral Throughout] Respiratory 14 13 Rate Respiratory Rate [Posterior Bilateral Throughout] Blood Pressure 108/61 108/61 108/61 O2 Sat by Pulse Oximetry 09/13/20 09/13/20 09/13/20 11:57 12:00 12:30 Temperature 97.4 F L Pulse Rate 65 55 L Pulse Rate [ Posterior Bilateral Throughout] Respiratory 28 H 15 Rate Respiratory Rate [Posterior Bilateral Throughout] Blood Pressure 108/61 119/60 O2 Sat by Pulse 87 89 Oximetry 09/13/20 09/13/20 09/13/20 13:00 13:30 14:00 Temperature Pulse Rate 56 L 65 70 Pulse Rate [ Posterior Bilateral Throughout] Respiratory 12 25 H 19 Rate Respiratory Rate [Posterior Bilateral Throughout] Blood Pressure 126/65 126/65 125/61 O2 Sat by Pulse 99 98 80 L Oximetry 09/13/20 09/13/20 14:30 15:44 Temperature Pulse Rate 53 L Pulse Rate [ Posterior Bilateral Throughout] Respiratory 14 Rate Respiratory Rate [Posterior Bilateral Throughout] Blood Pressure 125/61 O2 Sat by Pulse 96 97 Oximetry Constitutional: appears uncomfortable, other (elderly thin male with mildly increased respiratory effort at rest ) Eyes: non-icteric ENT: oropharynx dry Neck: supple, no lymphadenopathy, no JVD Effort: mildly labored Ascultation: Bilateral: diminished breath sounds, rhonchi Percussion: Bilateral: not dull Cardiovascular: regular rate and rhythm Gastrointestinal: normoactive bowel sounds, soft, non-tender, non-distended Integumentary: other (poor turgor) Extremities: no cyanosis, no edema, pink and warm, pulses normal Neurologic: non-focal exam (grossly), pupils equal and round, unable to assess Psychiatric: anxious CBC and BMP: 09/13/20 10:12 09/13/20 05:00 ABG, PT/INR, D-dimer: ABG ABG pH 7.416 (7.320-7.450) 09/13/20 09:00 POC ABG pCO2 34.0 mmHg (32.0-48.0) 09/13/20 09:00 POC ABG pO2 69.0 mmHg (83-108) L 09/13/20 09:00 POC ABG HCO3 21.4 09/13/20 09:00 ABG O2 Saturation 92.6 (0-100) 09/13/20 09:00 PT/INR, D-dimer PT 15.5 Sec. (12.2-14.9) H 09/11/20 11:07 INR 1.17 (0.87-1.13) H 09/11/20 11:07 D-Dimer 352.35 ng/mlDDU (0-234) H 09/12/20 Unknown Abnormal lab findings: Abnormal Labs 09/08/20 09/08/20 09/08/20 20:34 20:34 20:34 WBC Hgb Plt Count Lymph % (Auto) [place] % (Auto) Lymph # (Auto) Seg Neutrophils % Seg Neuts % (Manual) 90.0 H Lymphocytes % (Manual) 4.0 L Lymphocytes # (Manual) 0.3 L PT INR APTT D-Dimer POC ABG pO2 ABG Oxyhemoglobin ABG Sodium ABG Potassium ABG Chloride ABG Glucose Carboxyhemoglobin Sodium Potassium 3.3 L Chloride 97.1 L BUN 21 H Creatinine 0.7 L Glucose 162 H POC Glucose Lactic Acid 3.00 H* Calcium Ferritin AST 96 H Lactate Dehydrogenase Total Creatine Kinase 1277 H C-Reactive Protein NT-Pro-B Natriuret Pep 4471 H Total Protein Albumin 3.3 L Arterial Blood Glucose Arterial Blood Ionized Calcium Urine WBC (Auto) Coronavirus (PCR) 09/08/20 09/08/20 09/08/20 20:34 20:34 20:34 WBC Hgb Plt Count Lymph % (Auto) [place] % (Auto) Lymph # (Auto) Seg Neutrophils % Seg Neuts % (Manual) Lymphocytes % (Manual) Lymphocytes # (Manual) PT INR APTT D-Dimer 405.34 H POC ABG pO2 ABG Oxyhemoglobin ABG Sodium ABG Potassium ABG Chloride ABG Glucose Carboxyhemoglobin Sodium Potassium Chloride BUN Creatinine Glucose 164 H POC Glucose Lactic Acid Calcium Ferritin 638.9 H AST Lactate Dehydrogenase 286 H Total Creatine Kinase C-Reactive Protein 5.40 H NT-Pro-B Natriuret Pep Total Protein Albumin Arterial Blood Glucose Arterial Blood Ionized Calcium Urine WBC (Auto) Coronavirus (PCR) 09/08/20 09/08/20 09/09/20 Unknown Unknown 16:04 WBC Hgb Plt Count Lymph % (Auto) [place] % (Auto) Lymph # (Auto) Seg Neutrophils % Seg Neuts % (Manual) Lymphocytes % (Manual) Lymphocytes # (Manual) PT INR APTT D-Dimer POC ABG pO2 ABG Oxyhemoglobin ABG Sodium ABG Potassium ABG Chloride ABG Glucose Carboxyhemoglobin Sodium Potassium Chloride BUN Creatinine Glucose POC Glucose Lactic Acid Calcium Ferritin AST Lactate Dehydrogenase Total Creatine Kinase 1303 H C-Reactive Protein NT-Pro-B Natriuret Pep Total Protein Albumin Arterial Blood Glucose Arterial Blood Ionized Calcium Urine WBC (Auto) 7.0 H Coronavirus (PCR) Positive A 09/10/20 09/10/20 09/10/20 08:42 08:42 08:42 WBC Hgb 15.3 H Plt Count 123 L Lymph % (Auto) 6.2 L [place] % (Auto) 7.6 H Lymph # (Auto) 0.4 L Seg Neutrophils % 86.0 H Seg Neuts % (Manual) Lymphocytes % (Manual) Lymphocytes # (Manual) PT INR APTT D-Dimer POC ABG pO2 ABG Oxyhemoglobin ABG Sodium ABG Potassium ABG Chloride ABG Glucose Carboxyhemoglobin Sodium 134 L Potassium Chloride 93.0 L BUN 23 H Creatinine 0.5 L Glucose 134 H POC Glucose Lactic Acid Calcium Ferritin AST 117 H Lactate Dehydrogenase Total Creatine Kinase 1113 H C-Reactive Protein NT-Pro-B Natriuret Pep Total Protein Albumin 3.2 L Arterial Blood Glucose Arterial Blood Ionized Calcium Urine WBC (Auto) Coronavirus (PCR) 09/11/20 09/11/20 09/11/20 06:43 11:07 11:07 WBC Hgb Plt Count 121 L Lymph % (Auto) [place] % (Auto) Lymph # (Auto) Seg Neutrophils % Seg Neuts % (Manual) Lymphocytes % (Manual) Lymphocytes # (Manual) PT 15.5 H INR 1.17 H APTT 39.2 H D-Dimer POC ABG pO2 ABG Oxyhemoglobin ABG Sodium ABG Potassium ABG Chloride ABG Glucose Carboxyhemoglobin Sodium 136 L Potassium Chloride 97.3 L BUN 53 H Creatinine Glucose 175 H POC Glucose Lactic Acid Calcium 8.3 L Ferritin AST 94 H Lactate Dehydrogenase Total Creatine Kinase C-Reactive Protein NT-Pro-B Natriuret Pep Total Protein 6.0 L Albumin 2.9 L Arterial Blood Glucose Arterial Blood Ionized Calcium Urine WBC (Auto) Coronavirus (PCR) 09/11/20 09/11/20 09/11/20 14:39 17:26 23:27 WBC Hgb Plt Count Lymph % (Auto) [place] % (Auto) Lymph # (Auto) Seg Neutrophils % Seg Neuts % (Manual) Lymphocytes % (Manual) Lymphocytes # (Manual) PT INR APTT D-Dimer POC ABG pO2 81.5 L ABG Oxyhemoglobin ABG Sodium 135.5 L ABG Potassium 3.3 L ABG Chloride ABG Glucose 355 H Carboxyhemoglobin 0.4 L Sodium Potassium Chloride BUN Creatinine Glucose POC Glucose 220 H 136 H Lactic Acid Calcium Ferritin AST Lactate Dehydrogenase Total Creatine Kinase C-Reactive Protein NT-Pro-B Natriuret Pep Total Protein Albumin Arterial Blood Glucose 355 H Arterial Blood Ionized Calcium 4.3 L Urine WBC (Auto) Coronavirus (PCR) 09/12/20 09/12/20 09/12/20 05:16 06:40 17:25 WBC Hgb Plt Count Lymph % (Auto) [place] % (Auto) Lymph # (Auto) Seg Neutrophils % Seg Neuts % (Manual) Lymphocytes % (Manual) Lymphocytes # (Manual) PT INR APTT D-Dimer POC ABG pO2 ABG Oxyhemoglobin ABG Sodium ABG Potassium ABG Chloride ABG Glucose Carboxyhemoglobin Sodium Potassium Chloride BUN 54 H Creatinine Glucose 140 H POC Glucose 137 H 126 H Lactic Acid Calcium 8.1 L Ferritin AST 100 H Lactate Dehydrogenase Total Creatine Kinase C-Reactive Protein NT-Pro-B Natriuret Pep Total Protein 5.9 L Albumin 2.8 L Arterial Blood Glucose Arterial Blood Ionized Calcium Urine WBC (Auto) Coronavirus (PCR) 09/12/20 09/12/20 09/12/20 23:20 Unknown Unknown WBC Hgb Plt Count Lymph % (Auto) [place] % (Auto) Lymph # (Auto) Seg Neutrophils % Seg Neuts % (Manual) Lymphocytes % (Manual) Lymphocytes # (Manual) PT INR APTT D-Dimer 352.35 H POC ABG pO2 ABG Oxyhemoglobin ABG Sodium ABG Potassium ABG Chloride ABG Glucose Carboxyhemoglobin Sodium Potassium Chloride BUN Creatinine Glucose POC Glucose 169 H Lactic Acid Calcium Ferritin 1869.0 H AST Lactate Dehydrogenase Total Creatine Kinase C-Reactive Protein NT-Pro-B Natriuret Pep Total Protein Albumin Arterial Blood Glucose Arterial Blood Ionized Calcium Urine WBC (Auto) Coronavirus (PCR) 09/12/20 09/13/20 09/13/20 Unknown 05:00 05:00 WBC 11.5 H Hgb Plt Count 115 L Lymph % (Auto) [place] % (Auto) Lymph # (Auto) Seg Neutrophils % Seg Neuts % (Manual) Lymphocytes % (Manual) Lymphocytes # (Manual) PT INR APTT D-Dimer POC ABG pO2 ABG Oxyhemoglobin ABG Sodium ABG Potassium ABG Chloride ABG Glucose Carboxyhemoglobin Sodium Potassium Chloride 108.0 H BUN 46 H Creatinine Glucose 187 H POC Glucose Lactic Acid Calcium 7.5 L Ferritin AST 93 H Lactate Dehydrogenase 521 H Total Creatine Kinase C-Reactive Protein 5.70 H NT-Pro-B Natriuret Pep Total Protein 5.5 L Albumin 2.3 L Arterial Blood Glucose Arterial Blood Ionized Calcium Urine WBC (Auto) Coronavirus (PCR) 09/13/20 09/13/20 09/13/20 05:35 09:00 10:12 WBC 13.6 H Hgb Plt Count 113 L Lymph % (Auto) [place] % (Auto) Lymph # (Auto) Seg Neutrophils % Seg Neuts % (Manual) Lymphocytes % (Manual) Lymphocytes # (Manual) PT INR APTT D-Dimer POC ABG pO2 69.0 L ABG Oxyhemoglobin 92.1 L ABG Sodium ABG Potassium ABG Chloride 110.0 H ABG Glucose 196 H Carboxyhemoglobin 0.2 L Sodium Potassium Chloride BUN Creatinine Glucose POC Glucose 181 H Lactic Acid Calcium Ferritin AST Lactate Dehydrogenase Total Creatine Kinase C-Reactive Protein NT-Pro-B Natriuret Pep Total Protein Albumin Arterial Blood Glucose 196 H Arterial Blood Ionized Calcium 4.5 L Urine WBC (Auto) Coronavirus (PCR) 09/13/20 11:34 WBC Hgb Plt Count Lymph % (Auto) [place] % (Auto) Lymph # (Auto) Seg Neutrophils % Seg Neuts % (Manual) Lymphocytes % (Manual) Lymphocytes # (Manual) PT INR APTT D-Dimer POC ABG pO2 ABG Oxyhemoglobin ABG Sodium ABG Potassium ABG Chloride ABG Glucose Carboxyhemoglobin Sodium Potassium Chloride BUN Creatinine Glucose POC Glucose 188 H Lactic Acid Calcium Ferritin AST Lactate Dehydrogenase Total Creatine Kinase C-Reactive Protein NT-Pro-B Natriuret Pep Total Protein Albumin Arterial Blood Glucose Arterial Blood Ionized Calcium Urine WBC (Auto) Coronavirus (PCR) Chest x-ray: pending Allied health notes reviewed: nursing
[2020-09-13] MEDS: SODIUM CHLORIDE 0.9% 50 ML IVPB IV SCH (21:44)
[2020-09-13] MEDS: REMDESIVIR 100 MG in SODIUM CHLORIDE 0.9% 250ML 250 ML IV SCH (21:45)
[2020-09-14] MEDS: ALBUTEROL 2.5 MG/3 ML NEBU IH SCH ×3 (08:06→20:05)
[2020-09-14] MEDS: ACETYLCYSTEINE 20% 200 MG/1 ML *FOR INHALATION USE INHALATION SCH ×3 (08:06→20:04)
[2020-09-14] MEDS: D5W/0.9% NACL 1,000 ML IV SCH ×2 (08:20→20:23)
--- NOTE | 2020-09-14 10:47 | Progress Note ---
Assessment and Plan Cultures: SARS-CoV-2 PCR positive Blood cultures no growth Assessment: 79-year-old male with smoking abuse, hard of hearing, admitted on 09/08/2020 secondary to a week history of generalized malaise, cough and subjective fever: #Severe sepsis: likely due to bilateral pneumonia +/-UTI. #Severe COVID pneumonia: Chest CT with bibasilar airspace disease. Inflammatory markers elevated CRP 5.4, ferritin 628, D-dimer 405. Patient is not vaccinated. #Mild UTI with mild right hydronephrosis noted on renal US: Urinalysis with mild pyuria. S/P ceftriaxone. #Acute hypoxemic respiratory failure: secondary to COVID-19 infection. on HFNC. #Elevated LFTs: from COVID #Thrombocytopenia: Mild likely secondary to COVID-19 #Sinusitis on CT #A flutter/RVR #Encephalopathy: Noted global brain atrophy and extensive confluent white matter on MRI. Recs: -Continue dexamethasone 6 mg IV/PO daily for 10 days -Completed Remdesivir x 5 days -Monitor inflammatory markers - ferritin, Ddimer, CRP, LDH every 2-3 days -on Eliquis for A.fib -prone positioning as tolerated Francisco Hazel MD, FACP [facility] O: [phone] F: [phone] Subjective Date of service: 09/14/20 Principal diagnosis: Ac hypoxemic resp failure; COVID-19; PNA; AMS; Sepsis; UTI; A-fib; CHF Interval history: No fever. On high flow nasal cannula. Mild bradycardia. Objective - Exam Narrative Exam: Physical Exam (reviewed in chart to minimize risk of transmission) Constitutional: deferred Head, Ears, Nose: deferred Eyes: deferred Neck: deferred Oral: deferred Cardiovascular: deferred Respiratory: deferred GI: deferred Musculoskeletal: deferred Skin: deferred Hem/Lymphatic: deferred Psych: deferred Neurological: deferred - Constitutional Vitals: Vital Signs Temp Pulse Resp BP Pulse Ox 97.6 F 63 25 H 117/94 92 09/14/20 07:12 09/14/20 10:00 09/14/20 10:00 09/14/20 10:00 09/14/20 10:00 Temperature -Last 24 Hours Temperature 97.6 F Temperature 97.3 F Temperature 97.9 F Temperature 98.8 F Temperature 97.6 F Temperature 97.4 F - Labs CBC & Chem 7: 09/13/20 10:12 09/14/20 05:50 Labs: Abnormal lab results 09/13/20 09/13/20 09/13/20 Range/Units 10:12 11:34 23:13 WBC 13.6 H (4.5-11.0) K/mm3 Plt Count 113 L (140-440) K/mm3 POC Glucose 188 H 176 H (70-105) mg/dL 09/14/20 Range/Units 05:28 WBC (4.5-11.0) K/mm3 Plt Count (140-440) K/mm3 POC Glucose 169 H (70-105) mg/dL
[2020-09-14] MEDS: DOCUSATE SODIUM 100 MG CAP PO SCH ×3 (11:02→21:33)
[2020-09-14] MEDS: ASCORBIC ACID 500 MG TAB PO SCH ×2 (11:03→21:34)
[2020-09-14] MEDS: METOPROLOL TARTRATE 25 MG TAB PO SCH (11:03)
[2020-09-14] MEDS: ZINC SULFATE 220 MG CAP PO SCH ×2 (11:03→21:32)
[2020-09-14] MEDS: dexAMETHasone 4 MG/ML VIAL IV SCH (11:03)
[2020-09-14] MEDS: APIXABAN 2.5 MG TAB PO SCH ×2 (11:04→21:32)
[2020-09-14] MEDS: NICOTINE 14 MG/24 HR PATCH TD SCH (11:04)
[2020-09-14] MEDS: FAMOTIDINE 20 MG TAB PO SCH (11:04)
[2020-09-14 11:23] LABS: Alanine Aminotransferase 44 units/L (7-56); Albumin 2.4 g/dL (3.9-5); Blood Urea Nitrogen 42 mg/dL (9-20); Calcium 8.3 mg/dL (8.4-10.2); Hemolysis Index 15
[2020-09-14 11:26] LABS: BUN/Creatinine Ratio 60
[2020-09-14 11:30] LABS: C-Reactive Protein 15.8 mg/dL (0.00-1.30)
--- NOTE | 2020-09-14 11:37 | Progress Note ---
Assessment and Plan Obtain repeat ECG. Decrease PO Lopressor to 12.5mg BID. Continue anticoagulation with Eliquis 2.5mg BID. Prognosis remains guarded. Pt seen in conjunction with Dr. Johnson, who agrees with the assessment and plan of care. - Patient Problems (1) Acute metabolic encephalopathy Current Visit: Yes Status: Acute (2) Acute respiratory failure Current Visit: Yes Status: Acute (3) Sepsis Current Visit: Yes Status: Acute (4) Pneumonia due to COVID-19 virus Current Visit: Yes Status: Acute (5) UTI (urinary tract infection) Current Visit: Yes Status: Acute (6) Rhabdomyolysis Current Visit: Yes Status: Acute (7) Atrial flutter Current Visit: Yes Status: Resolved (8) LV dysfunction Current Visit: Yes Status: Acute (9) Tobacco abuse Current Visit: Yes Status: Chronic (10) Failure to thrive Current Visit: Yes Status: Chronic Subjective Date of service: 09/14/20 Principal diagnosis: AF Interval history: Remains lethargic. On HFNC. Tele reviewed - SR 50-60s w/PACs and intermittent short sinus pauses. Objective Last Vital Signs Temp 97.6 F 09/14/20 07:12 Pulse 61 09/14/20 11:03 Resp 26 H 09/14/20 11:00 BP 140/68 09/14/20 11:03 Pulse Ox 92 09/14/20 11:00 - Physical Examination General: Cachectic HEENT: Positive: EOMI, Normocephaly Neck: Negative: JVD/HJR Cardiac: Positive: Reg Rate and Rhythm, S1/S2 Lungs: Positive: Decreased Breath Sounds Neuro: Positive: Grossly Intact Abdomen: Positive: Soft. Negative: Tender Skin: Negative: Rash Musculoskeletal: No Pain Extremities: Present: lower extr. pulses. Absent: edema - Labs and Meds Cardiac Enzymes 09/14/20 09/14/20 Range/Units 10:45 10:45 AST 90 H (5-40) units/L Lactate Dehydrogenase 658 H (91-180) units/L Comprehensive Metabolic Panel 09/14/20 09/14/20 Range/Units 05:50 10:45 Sodium 145 (137-145) mmol/L Potassium 4.2 (3.6-5.0) mmol/L Chloride 111.5 H (98-107) mmol/L Carbon Dioxide 23 (22-30) mmol/L BUN 42 H (9-20) mg/dL Creatinine 0.8 0.7 L (0.8-1.3) mg/dL Glucose 169 H (75-100) mg/dL Calcium 8.3 L (8.4-10.2) mg/dL AST 90 H (5-40) units/L ALT 44 (7-56) units/L Alkaline Phosphatase 85 (35-129) units/L Total Protein 5.6 L (6.3-8.2) g/dL Albumin 2.4 L (3.9-5) g/dL - Imaging and Cardiology EKG: report reviewed, image reviewed Echo: report reviewed (09/09/2020 - EF 40-45%, mild diastolic dysfxn, mild-mod AR, mild MR, mild-mod OR) - Telemetry EKG Rhythm: Sinus Rhythm - EKG Sinus rhythms and dysrhythmias: sinus rhythm AV and intraventricular conduction: right bundle branch block Repolarization changes or abnormalities: nonspecific abnormality, ST segment, and/or T wave - Allied health notes Allied health notes reviewed: nursing
[2020-09-14] MEDS ORDERED: DEXTROSE 50% IN WATER (25GM) 50 ML SYRINGE IV PRN (12:17)
--- NOTE | 2020-09-14 12:43 | Progress Note ---
Assessment and Plan Acute hypoxemic respiratory failure COVID-19 virus infection Bilateral pneumonia Acute toxic metabolic encephalopathy Severe sepsis Urinary tract infection Tobacco use disorder Dehydration and a mild element of intravascular volume depletion Rhabdomyolysis Congestive heart failure with reduced ejection fraction Adult failure to thrive - intubated - Levophed started for target MAP > 65 mmHg - s/p ACLS with epi X 1; atropine prior and bicabonate X 1 - repeat ABG at 9pm and address - warming blanket for hypothermia - trend CVP's - to get A-line - continue mucomyst nebs for secretion control - continue care as below otherwise; - A-fib rate & rhythm control per cardiology - continue to wean supplemental oxygen for target O2 sat's > 92% acutely - continue Daily SAT and SBT assessment as tolerated - VAP bundle addressed - continue lung protective strategies - continue bronchodilators (YAMILKA & LABA) with pulmonary hygiene per RT - wean per pulmonary driven protocols otherwise - continue accuchecks with glycemic control per SSI (While critically ill target blood glucose of 140-180 mg/dL; avoid hypoglycemia) - sedation prn for target RASS 0 to -1 - avoid nephrotoxins, renally dose all medications - continue to avoid benzodiazepine's, reduce the possibility of delirium - complete antiinfective's per ID rec's - prn analgesia per CPOT score - Maintenance of sleep-wake cycle, avoid delirium - continue enteral nutritional support at goal rate as tolerated - G.I. & VTE prophylaxis - PT/OT/ROM exercises - continue mobility protocols for pressure ulcer prophylaxis - Monitor hemodynamics closely - continue other care per attending / other consultants - discharge planning ongoing concurrently COVID SPECIFIC INTERVENTIONS - Remdesivir as per ID/Pulmonary developed protocols - continue systemic steroids for severe COVID-19 infection empirically - follow repeat COVID tests results - zinc and vitamin C supplementation - Monitor inflammatory markers per facility protocol - ferritin, Ddimer, CRP - therapeutic anticoagulation per system Protocol based on d-dimer and clinical considerations (Full anticoagulation for A-fib) - Continue contact and airborne isolation .... Re-evaluate in am & prn CONDITION: CRITICAL PROGNOSIS: GUARDED CODE STATUS: FULL CODE The high probability of a clinically significant, sudden or life-threatening deterioration of the [respiratory, cardiovascular & neurologic] system(s) required my full and direct attention, intervention and personal management. The aggregate critical care time was [48] minutes without overlap. Time includes spent on; [x] Data Review and interpretation [x] Patient assessment and monitoring of vital signs [x] Documentation [x] Medication orders and management Subjective Date of service: 09/14/20 Principal diagnosis: Ac hypoxemic resp failure; COVID-19; PNA; AMS; Sepsis; UTI; A-fib; CHF Interval history: Patient is seen today for: Acute hypoxemic respiratory failure; COVID-19 infxn; Chay. pneumonia; Acute toxic metabolic encephalopathy; Severe sepsis; UTI; Rhabdomyolysis; HFrEF; A-fib with RVR Seen and examined at bedside; 24hour events reviewed; nursing and respiratory care staff consulted; no adverse overnight events reported to me; resting peacefully in bed; s/p cardiac arrest; de-compensated with bradycardia and persistent hypoxemia and after consultation with his a decision was made to intubate; no N/V/F/C reported prior Objective Vital Signs - 12hr 09/14/20 09/14/20 09/14/20 01:00 01:30 01:59 Temperature Pulse Rate 57 L 59 L 50 L Respiratory 22 25 H Rate Blood Pressure 114/66 108/45 O2 Sat by Pulse 92 97 Oximetry 09/14/20 09/14/20 09/14/20 02:00 02:30 03:00 Temperature Pulse Rate 59 L 57 L 58 L Respiratory 26 H 20 24 Rate Blood Pressure 108/45 105/58 105/58 O2 Sat by Pulse 94 92 93 Oximetry 09/14/20 09/14/20 09/14/20 03:30 03:41 04:00 Temperature 97.3 F L Pulse Rate 58 L 57 L 58 L Respiratory 27 H 25 H 19 Rate Blood Pressure 105/58 105/58 O2 Sat by Pulse 92 89 Oximetry 09/14/20 09/14/20 09/14/20 05:00 06:00 07:00 Temperature Pulse Rate 55 L 56 L 55 L Respiratory 26 H 24 25 H Rate Blood Pressure 109/73 124/79 134/65 O2 Sat by Pulse 90 95 94 Oximetry 09/14/20 09/14/20 09/14/20 07:12 08:00 08:14 Temperature 97.6 F Pulse Rate 59 L Respiratory 28 H Rate Blood Pressure 134/65 O2 Sat by Pulse 95 94 Oximetry 09/14/20 09/14/20 09/14/20 08:41 09:00 10:00 Temperature Pulse Rate 56 L 54 L 63 Respiratory 24 25 H Rate Blood Pressure 128/80 117/94 O2 Sat by Pulse 92 92 Oximetry 09/14/20 09/14/20 09/14/20 11:00 11:03 11:52 Temperature Pulse Rate 58 L 61 55 L Respiratory 26 H Rate Blood Pressure 140/68 140/68 O2 Sat by Pulse 92 Oximetry 09/14/20 11:58 Temperature 98.2 F Pulse Rate Respiratory Rate Blood Pressure O2 Sat by Pulse Oximetry Constitutional: appears uncomfortable, other (elderly thin male with mildly increased respiratory effort at rest now on MVS) Eyes: non-icteric ENT: oropharynx dry, other (ETT 24 cm EBENEZER) Neck: supple, no lymphadenopathy, no JVD Effort: mildly labored Ascultation: Bilateral: diminished breath sounds, rhonchi Percussion: Bilateral: not dull Cardiovascular: regular rate and rhythm Gastrointestinal: normoactive bowel sounds, soft, non-tender, non-distended Integumentary: other (poor turgor) Extremities: no cyanosis, no edema, pink and warm, pulses normal Neurologic: non-focal exam (grossly), pupils equal and round, unable to assess Psychiatric: other (sedated) CBC and BMP: 09/13/20 10:12 09/14/20 10:45 ABG, PT/INR, D-dimer: ABG ABG pH 7.416 (7.320-7.450) 09/13/20 09:00 POC ABG pCO2 34.0 mmHg (32.0-48.0) 09/13/20 09:00 POC ABG pO2 69.0 mmHg (83-108) L 09/13/20 09:00 POC ABG HCO3 21.4 09/13/20 09:00 ABG O2 Saturation 92.6 (0-100) 09/13/20 09:00 PT/INR, D-dimer PT 15.5 Sec. (12.2-14.9) H 09/11/20 11:07 INR 1.17 (0.87-1.13) H 09/11/20 11:07 D-Dimer 430.94 ng/mlDDU (0-234) H 09/14/20 10:45 Abnormal lab findings: Abnormal Labs 09/08/20 09/08/20 09/08/20 20:34 20:34 20:34 WBC Hgb Plt Count Lymph % (Auto) [place] % (Auto) Lymph # (Auto) Seg Neutrophils % Seg Neuts % (Manual) 90.0 H Lymphocytes % (Manual) 4.0 L Lymphocytes # (Manual) 0.3 L PT INR APTT D-Dimer POC ABG pO2 ABG Oxyhemoglobin ABG Sodium ABG Potassium ABG Chloride ABG Glucose Carboxyhemoglobin Sodium Potassium 3.3 L Chloride 97.1 L BUN 21 H Creatinine 0.7 L Glucose 162 H POC Glucose Lactic Acid 3.00 H* Calcium Ferritin AST 96 H Lactate Dehydrogenase Total Creatine Kinase 1277 H C-Reactive Protein NT-Pro-B Natriuret Pep 4471 H Total Protein Albumin 3.3 L Arterial Blood Glucose Arterial Blood Ionized Calcium Urine WBC (Auto) Coronavirus (PCR) 09/08/20 09/08/20 09/08/20 20:34 20:34 20:34 WBC Hgb Plt Count Lymph % (Auto) [place] % (Auto) Lymph # (Auto) Seg Neutrophils % Seg Neuts % (Manual) Lymphocytes % (Manual) Lymphocytes # (Manual) PT INR APTT D-Dimer 405.34 H POC ABG pO2 ABG Oxyhemoglobin ABG Sodium ABG Potassium ABG Chloride ABG Glucose Carboxyhemoglobin Sodium Potassium Chloride BUN Creatinine Glucose 164 H POC Glucose Lactic Acid Calcium Ferritin 638.9 H AST Lactate Dehydrogenase 286 H Total Creatine Kinase C-Reactive Protein 5.40 H NT-Pro-B Natriuret Pep Total Protein Albumin Arterial Blood Glucose Arterial Blood Ionized Calcium Urine WBC (Auto) Coronavirus (PCR) 09/08/20 09/08/20 09/09/20 Unknown Unknown 16:04 WBC Hgb Plt Count Lymph % (Auto) [place] % (Auto) Lymph # (Auto) Seg Neutrophils % Seg Neuts % (Manual) Lymphocytes % (Manual) Lymphocytes # (Manual) PT INR APTT D-Dimer POC ABG pO2 ABG Oxyhemoglobin ABG Sodium ABG Potassium ABG Chloride ABG Glucose Carboxyhemoglobin Sodium Potassium Chloride BUN Creatinine Glucose POC Glucose Lactic Acid Calcium Ferritin AST Lactate Dehydrogenase Total Creatine Kinase 1303 H C-Reactive Protein NT-Pro-B Natriuret Pep Total Protein Albumin Arterial Blood Glucose Arterial Blood Ionized Calcium Urine WBC (Auto) 7.0 H Coronavirus (PCR) Positive A 09/10/20 09/10/20 09/10/20 08:42 08:42 08:42 WBC Hgb 15.3 H Plt Count 123 L Lymph % (Auto) 6.2 L [place] % (Auto) 7.6 H Lymph # (Auto) 0.4 L Seg Neutrophils % 86.0 H Seg Neuts % (Manual) Lymphocytes % (Manual) Lymphocytes # (Manual) PT INR APTT D-Dimer POC ABG pO2 ABG Oxyhemoglobin ABG Sodium ABG Potassium ABG Chloride ABG Glucose Carboxyhemoglobin Sodium 134 L Potassium Chloride 93.0 L BUN 23 H Creatinine 0.5 L Glucose 134 H POC Glucose Lactic Acid Calcium Ferritin AST 117 H Lactate Dehydrogenase Total Creatine Kinase 1113 H C-Reactive Protein NT-Pro-B Natriuret Pep Total Protein Albumin 3.2 L Arterial Blood Glucose Arterial Blood Ionized Calcium Urine WBC (Auto) Coronavirus (PCR) 09/11/20 09/11/20 09/11/20 06:43 11:07 11:07 WBC Hgb Plt Count 121 L Lymph % (Auto) [place] % (Auto) Lymph # (Auto) Seg Neutrophils % Seg Neuts % (Manual) Lymphocytes % (Manual) Lymphocytes # (Manual) PT 15.5 H INR 1.17 H APTT 39.2 H D-Dimer POC ABG pO2 ABG Oxyhemoglobin ABG Sodium ABG Potassium ABG Chloride ABG Glucose Carboxyhemoglobin Sodium 136 L Potassium Chloride 97.3 L BUN 53 H Creatinine Glucose 175 H POC Glucose Lactic Acid Calcium 8.3 L Ferritin AST 94 H Lactate Dehydrogenase Total Creatine Kinase C-Reactive Protein NT-Pro-B Natriuret Pep Total Protein 6.0 L Albumin 2.9 L Arterial Blood Glucose Arterial Blood Ionized Calcium Urine WBC (Auto) Coronavirus (PCR) 09/11/20 09/11/20 09/11/20 14:39 17:26 23:27 WBC Hgb Plt Count Lymph % (Auto) [place] % (Auto) Lymph # (Auto) Seg Neutrophils % Seg Neuts % (Manual) Lymphocytes % (Manual) Lymphocytes # (Manual) PT INR APTT D-Dimer POC ABG pO2 81.5 L ABG Oxyhemoglobin ABG Sodium 135.5 L ABG Potassium 3.3 L ABG Chloride ABG Glucose 355 H Carboxyhemoglobin 0.4 L Sodium Potassium Chloride BUN Creatinine Glucose POC Glucose 220 H 136 H Lactic Acid Calcium Ferritin AST Lactate Dehydrogenase Total Creatine Kinase C-Reactive Protein NT-Pro-B Natriuret Pep Total Protein Albumin Arterial Blood Glucose 355 H Arterial Blood Ionized Calcium 4.3 L Urine WBC (Auto) Coronavirus (PCR) 09/12/20 09/12/20 09/12/20 05:16 06:40 17:25 WBC Hgb Plt Count Lymph % (Auto) [place] % (Auto) Lymph # (Auto) Seg Neutrophils % Seg Neuts % (Manual) Lymphocytes % (Manual) Lymphocytes # (Manual) PT INR APTT D-Dimer POC ABG pO2 ABG Oxyhemoglobin ABG Sodium ABG Potassium ABG Chloride ABG Glucose Carboxyhemoglobin Sodium Potassium Chloride BUN 54 H Creatinine Glucose 140 H POC Glucose 137 H 126 H Lactic Acid Calcium 8.1 L Ferritin AST 100 H Lactate Dehydrogenase Total Creatine Kinase C-Reactive Protein NT-Pro-B Natriuret Pep Total Protein 5.9 L Albumin 2.8 L Arterial Blood Glucose Arterial Blood Ionized Calcium Urine WBC (Auto) Coronavirus (PCR) 09/12/20 09/12/20 09/12/20 23:20 Unknown Unknown WBC Hgb Plt Count Lymph % (Auto) [place] % (Auto) Lymph # (Auto) Seg Neutrophils % Seg Neuts % (Manual) Lymphocytes % (Manual) Lymphocytes # (Manual) PT INR APTT D-Dimer 352.35 H POC ABG pO2 ABG Oxyhemoglobin ABG Sodium ABG Potassium ABG Chloride ABG Glucose Carboxyhemoglobin Sodium Potassium Chloride BUN Creatinine Glucose POC Glucose 169 H Lactic Acid Calcium Ferritin 1869.0 H AST Lactate Dehydrogenase Total Creatine Kinase C-Reactive Protein NT-Pro-B Natriuret Pep Total Protein Albumin Arterial Blood Glucose Arterial Blood Ionized Calcium Urine WBC (Auto) Coronavirus (PCR) 09/12/20 09/13/20 09/13/20 Unknown 05:00 05:00 WBC 11.5 H Hgb Plt Count 115 L Lymph % (Auto) [place] % (Auto) Lymph # (Auto) Seg Neutrophils % Seg Neuts % (Manual) Lymphocytes % (Manual) Lymphocytes # (Manual) PT INR APTT D-Dimer POC ABG pO2 ABG Oxyhemoglobin ABG Sodium ABG Potassium ABG Chloride ABG Glucose Carboxyhemoglobin Sodium Potassium Chloride 108.0 H BUN 46 H Creatinine Glucose 187 H POC Glucose Lactic Acid Calcium 7.5 L Ferritin AST 93 H Lactate Dehydrogenase 521 H Total Creatine Kinase C-Reactive Protein 5.70 H NT-Pro-B Natriuret Pep Total Protein 5.5 L Albumin 2.3 L Arterial Blood Glucose Arterial Blood Ionized Calcium Urine WBC (Auto) Coronavirus (PCR) 09/13/20 09/13/20 09/13/20 05:35 09:00 10:12 WBC 13.6 H Hgb Plt Count 113 L Lymph % (Auto) [place] % (Auto) Lymph # (Auto) Seg Neutrophils % Seg Neuts % (Manual) Lymphocytes % (Manual) Lymphocytes # (Manual) PT INR APTT D-Dimer POC ABG pO2 69.0 L ABG Oxyhemoglobin 92.1 L ABG Sodium ABG Potassium ABG Chloride 110.0 H ABG Glucose 196 H Carboxyhemoglobin 0.2 L Sodium Potassium Chloride BUN Creatinine Glucose POC Glucose 181 H Lactic Acid Calcium Ferritin AST Lactate Dehydrogenase Total Creatine Kinase C-Reactive Protein NT-Pro-B Natriuret Pep Total Protein Albumin Arterial Blood Glucose 196 H Arterial Blood Ionized Calcium 4.5 L Urine WBC (Auto) Coronavirus (PCR) 09/13/20 09/13/20 09/14/20 11:34 23:13 05:28 WBC Hgb Plt Count Lymph % (Auto) [place] % (Auto) Lymph # (Auto) Seg Neutrophils % Seg Neuts % (Manual) Lymphocytes % (Manual) Lymphocytes # (Manual) PT INR APTT D-Dimer POC ABG pO2 ABG Oxyhemoglobin ABG Sodium ABG Potassium ABG Chloride ABG Glucose Carboxyhemoglobin Sodium Potassium Chloride BUN Creatinine Glucose POC Glucose 188 H 176 H 169 H Lactic Acid Calcium Ferritin AST Lactate Dehydrogenase Total Creatine Kinase C-Reactive Protein NT-Pro-B Natriuret Pep Total Protein Albumin Arterial Blood Glucose Arterial Blood Ionized Calcium Urine WBC (Auto) Coronavirus (PCR) 09/14/20 09/14/20 09/14/20 10:45 10:45 10:45 WBC Hgb Plt Count Lymph % (Auto) [place] % (Auto) Lymph # (Auto) Seg Neutrophils % Seg Neuts % (Manual) Lymphocytes % (Manual) Lymphocytes # (Manual) PT INR APTT D-Dimer 430.94 H POC ABG pO2 ABG Oxyhemoglobin ABG Sodium ABG Potassium ABG Chloride ABG Glucose Carboxyhemoglobin Sodium Potassium Chloride BUN Creatinine Glucose POC Glucose Lactic Acid Calcium Ferritin 2709.0 H AST Lactate Dehydrogenase 658 H Total Creatine Kinase C-Reactive Protein 15.80 H NT-Pro-B Natriuret Pep Total Protein Albumin Arterial Blood Glucose Arterial Blood Ionized Calcium Urine WBC (Auto) Coronavirus (PCR) 09/14/20 09/14/20 10:45 11:38 WBC Hgb Plt Count Lymph % (Auto) [place] % (Auto) Lymph # (Auto) Seg Neutrophils % Seg Neuts % (Manual) Lymphocytes % (Manual) Lymphocytes # (Manual) PT INR APTT D-Dimer POC ABG pO2 ABG Oxyhemoglobin ABG Sodium ABG Potassium ABG Chloride ABG Glucose Carboxyhemoglobin Sodium Potassium Chloride 111.5 H BUN 42 H Creatinine 0.7 L Glucose 169 H POC Glucose 154 H Lactic Acid Calcium 8.3 L Ferritin AST 90 H Lactate Dehydrogenase Total Creatine Kinase C-Reactive Protein NT-Pro-B Natriuret Pep Total Protein 5.6 L Albumin 2.4 L Arterial Blood Glucose Arterial Blood Ionized Calcium Urine WBC (Auto) Coronavirus (PCR) Chest x-ray: image reviewed (ETT in good position; RLL infiltrate increased) Allied health notes reviewed: nursing
[2020-09-14] MEDS ORDERED: SUCCINYLCHOLINE CHLORIDE 200 MG/10 ML INJ MDV ONE (12:58)
[2020-09-14] MEDS ORDERED: ETOMIDATE 20 MG/10 ML INJ IV ONE (12:58)
[2020-09-14] MEDS ORDERED: ROCURONIUM 50 MG/5 ML INJ IV ONE (12:58)
[2020-09-14] MEDS ORDERED: propofoL 200 MG/20 ML VIAL IV ONE ×2 (12:59→14:00)
[2020-09-14] MEDS ORDERED: ATROPINE 0.1% (1 MG/10 ML) CARDIAC SYRINGE ONE (13:06)
[2020-09-14] MEDS ORDERED: MINERAL OIL/PETROLATUM, WHITE OPHTH OINT 3.5 GM OU PRN (13:15)
[2020-09-14] MEDS ORDERED: SODIUM BICARB 8.4% 50 MEQ/50 ML SYRINGE IV ONE ×2 (13:23→14:00)
[2020-09-14] MEDS ORDERED: EPINEPHrine 1 MG/10 ML SYRINGE ONE (13:23)
[2020-09-14] MEDS ORDERED: ATROPINE 0.1% (1 MG/10 ML) CARDIAC SYRINGE IV ONE (14:00)
[2020-09-14] MEDS ORDERED: fentaNYL DRIP Premix 2,000 MCG/100 ML BAG IV SCH (14:00)
--- NOTE | 2020-09-14 14:11 | XRay Report ---
CHEST 1 VIEW 09/14/2020 1:46 PM INDICATION / CLINICAL INFORMATION: post intubation. COMPARISON: 09/11/2020 FINDINGS: SUPPORT DEVICES: Endotracheal tube is in good position terminating approximately T5. Right IJ central line is in good position. Esophagogastric tube is coiled in the proximal stomach. HEART / MEDIASTINUM: Stable. LUNGS / PLEURA: Worsening opacities throughout the right lung extending now into the right upper lobe . No pneumothorax. ADDITIONAL FINDINGS: No significant additional findings. IMPRESSION: 1. Satisfactory position of endotracheal tube. 2. Worsening right lung opacities. Signer Name: Naseem Salcedo MD Signed: 09/14/2020 2:07 PM Workstation Name: [id number]
[2020-09-14] MEDS ORDERED: SODIUM CHLORIDE 0.9% 1000 ML 1,000 ML ONE (14:52)
[2020-09-14] MEDS ORDERED: LIP THERAPY VASELINE TP PRN (15:02)
[2020-09-14] MEDS: fentaNYL 100 MCG/2 ML INJ IV PRN (15:10)
[2020-09-14] MEDS: NORepinephrine/NS 4 MG-250 ML 4 MG/250 ML BAG IV SCH ×4 (15:53→22:56)
[2020-09-14] MEDS: INSULIN LISPRO 100 UNIT/ML SUB-Q SCH ×2 (18:25→23:58)
[2020-09-14] MEDS: VASOPRESSIN 20 UNIT in SODIUM CHLORIDE 0.9% 100 ML IV SCH (20:13)
--- NOTE | 2020-09-14 20:22 | Progress Note ---
<KRISTINTALIA WallerGisell - Last Filed: 09/14/20 20:46> Assessment and Plan Assessment and plan: This is a 79-year-old male who is a current smoker admitted with COVID-19 pneumonia, severe sepsis, A. fib RVR, septic shock, acute hypoxic respiratory failure, acute cystitis and thrombocytopenia Past medical history: None per family Past surgical history: None per family Social history: Smoker Home medications: No known home medications Neuro: Acute metabolic encephalopathy, s/p GLF per family -CT head shows no acute intracranial abnormality, soft tissue gas noted in the anterior temporal musculature bilaterally in the musculature posterior to the maxillary sinus however shows decrease in soft tissue gas, no fracture, no fluid collection -CT neck shows volume soft tissue gas noted in the temporal regions and posterior to the maxillary sinuses decreased, arthrosclerosis disease in the carotid arteries and vertebral arteries -Aspiration/fall precautions -Reorientation as needed -Sedated on fentanyl -RASS of 0 to -1 -SAT daily CV: A. fib with RVR, hypotension; SR, s/p cardiac arrest -Cardiology consulted, patient recommendations -Vasopressor support with Levophed, vasopressin -MAP goal of 65 or greater -Blood pressure monitoring per protocol -Anticoagulation with Eliquis -Rate control with metoprolol -Echocardiogram shows LVEF 40 to 45% -09/14 cardiac arrest Respiratory: Acute hypoxic respiratory failure, nicotine abuse -Was on-nasal cannula 100%, 40 L and BiPAP nightly 11/25 at 32% FiO2 -09/14 ABG: Seven-point 06/19//24 on 100% -Intubated 09/14 -Oral ETT 7.5 at 24 at lip -Current vent settings: AC, rate 30, TV 400, FiO2 100%, PEEP of 14 -Serial CXR and ABGs -VAP bundle -Wean mechanical ventilation as tolerated -CCM consulted, appreciate recommendations -Nicotine patch GI: Malnutrition, adult failure to thrive, tube feedings -Accu-Cheks every 6 -PPI -Nutrition consulted, appreciate recommendations -Dulcolax suppository x1 -BR: Senokot -ST consulted and recommended n.p.o. with alternative mode of nutrition : Hyperchloremia, mild hydronephrosis -condom cath -24-hour deficit -50 mL -CT abdomen shows moderate right hydronephrosis, no renal or ureteral calculi seen, atherosclerotic disease -Renal ultrasound shows small amount of fluid between the liver and the right kidney, mild right hydronephrosis -Trend BMP Heme: Thrombocytopenia -Presented with platelet count of 146, now trending down, 09/13 113 -Anticoagulation with Eliquis for A. fib -SCDs to bilateral actions while in bed -Trend CBC ID: Severe sepsis, COVID-19 pneumonia, UTI, sinusitis -COVID-19 PCR positive on 09/08 -Infectious disease consulted, appreciate recommendations -Ceftriaxone 09/08 through 09/12 -Remdesivir 09/09 through 09/13 -Dexamethasone 09/08 through 09/19 -Isolation/droplet precautions -Vitamin C, zinc -Zithromax and 09/08 through , Rocephin 09/08 through 09/11 -Trend COVID-19 from 2 markers -Prone as needed -UA shows UTI -09/08 BCx2 NGTD Endo: Hyperglycemia -SSI, Accu-Cheks every 6 -Avoid hypoglycemia Disposition: ICU Full code Prognosis remains guarded The high probability of a clinically significant, sudden or life threatening deterioration of the [pulmonary, cardiac] system(s) required my full and direct attention, intervention and personal management. The aggregate critical care time was [60] minutes. 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 Patient's reported a prolonged period of time was spent with her grandson over the past 2 weeks who had tested positive for COVID-19 on 09/08. Upon arrival to the emergency department patient was found to be febrile, tachycardic and hypoxic on room air and upon assessment patient was seen weak on a stretcher, able to track and spontaneously move extremities but unable to answer simple yes/no questions. CT abdomen/pelvis showed right hydronephrosis. Patient was admitted to the hospitalist service with consults to ID. Patient subsequently required transfer to ICU and CCM was consulted and developed A. fib with RVR and cardiology was consulted. 09/10: ID input is appreciated of also discussed with family of the patient and informed him of the diagnosis and the need to have other people at home tested. Patient is on 3 L of oxygen will continue to monitor. Patient will need PT OT evaluation considering recurrent falls. May actually need rehab based on the condition he appears. Dietitian consultation. Considering his age he is with a guarded prognosis at this time. Azithromycin has been discontinued for the antibiotics management per ID at this time. We will continue remdesivir and steroid therapy. And intermittent pulse ox monitoring. We will continue to encourage prone positioning. We will also obtain pulmonary evaluation 09/11: Afib with RVR, Cardiology consulted, will start on Eliquis. Echo Reviewed. Pulmonary consulted due to worsening hypoxia. Prone positioning if able. Will g mirela a dose of lasix today. Monitor Renal function. Disucssed and updated spouse. She is still insistent of home management when he is better,and also tells me he was not on any medication of physician care prior to hospitalization. Poor prognosis considering her tobacco use disorder and overall medical condition including severe protein calorie malnutrition 09/12: Patient unfortunately is declining medically. Now with A. fib with RVR and was hypotensive yesterday right central line placed and internal jugular pressure extremely good satisfactory position. Also NG tube in place will obtain dietary consultation for tube feeds. Patient currently off pressors on my understanding was that the amiodarone drip was off for some time due to mechanical issues which has since been fixed and the drip is back on running heart rate was still in the 130s this morning he remains very lethargic disc ussed with the nurse to continue to monitor closely. I have also called the family (Spouse) and updated them on the condition and the patient being in the ICU. Continue aggressive Blood sugar control 09/13: Blood pressure shown some improvement. Patient currently on amiodarone and Cardizem. Heart rate appears better controlled with the addition of the Cardizem may need to adjust as mild bradycardia is also noted in regards today a flutter/A. fib. Electrolytes reviewed and stable. Still with some hypoxia. Very high risk for aspiration and as a result tube feeds has been held. Continue monitoring discussed with nursing staff at bedside Patient is on Mucomyst nebs for secretion. Still with intermittent BiPAP 09/14: Patient went sinus pericardiac and had a PEA arrest with ACLS x1 being administered. Patient was intubated and ROSC was achieved. Patient received a femoral A-line today. He was started on pressors due to hypotension. In the morning patient was on high flow nasal cannula at 100%. Hospitalist Physical - Constitutional Vitals: Temp Pulse Resp BP Pulse Ox 99.4 F 72 30 H 123/69 82 L 09/14/20 19:53 09/14/20 20:01 09/14/20 20:01 09/14/20 20:01 09/14/20 20:01 General appearance: Present: no acute distress, cachectic - EENT Eyes: Present: PERRL ENT: hearing decreased - Neck Neck: Present: normal ROM - Respiratory Respiratory effort: normal Respiratory: bilateral: diminished - Cardiovascular Rhythm: regularly irregular Peripheral Pulses: within normal limits - Abdominal General gastrointestinal: soft, non-tender, non-distended - Integumentary Integumentary: Present: warm, dry - Psychiatric Psychiatric: other (sedated on ventilator) - Allied Health Allied health notes reviewed: nursing, RT, social work HEART Score - HEART Score Troponin: Troponin T 0.020 ng/mL (0.00-0.029) 09/09/20 04:25 Results - Labs CBC & Chem 7: 09/13/20 10:12 09/14/20 10:45 Labs: Laboratory Last Values WBC 13.6 K/mm3 (4.5-11.0) H 09/13/20 10:12 RBC 4.56 M/mm3 (3.65-5.03) 09/13/20 10:12 Hgb 14.4 gm/dl (11.8-15.2) 09/13/20 10:12 Hct 42.7 % (35.5-45.6) 09/13/20 10:12 MCV 94 fl (84-94) 09/13/20 10:12 MCH 32 pg (28-32) 09/13/20 10:12 MCHC 34 % (32-34) 09/13/20 10:12 RDW 14.5 % (13.2-15.2) 09/13/20 10:12 Plt Count 113 K/mm3 (140-440) L 09/13/20 10:12 Lymph % (Auto) 6.2 % (13.4-35.0) L 09/10/20 08:42 [place] % (Auto) 7.6 % (0.0-7.3) H 09/10/20 08:42 Eos % (Auto) 0.0 % (0.0-4.3) 09/10/20 08:42 Baso % (Auto) 0.2 % (0.0-1.8) 09/10/20 08:42 Lymph # (Auto) 0.4 K/mm3 (1.2-5.4) L 09/10/20 08:42 [place] # (Auto) 0.5 K/mm3 (0.0-0.8) 09/10/20 08:42 Eos # (Auto) 0.0 K/mm3 (0.0-0.4) 09/10/20 08:42 Baso # (Auto) 0.0 K/mm3 (0.0-0.1) 09/10/20 08:42 Add Manual Diff Complete 09/08/20 20:34 Total Counted 100 09/08/20 20:34 Seg Neutrophils % 86.0 % (40.0-70.0) H 09/10/20 08:42 Seg Neuts % (Manual) 90.0 % (40.0-70.0) H 09/08/20 20:34 Lymphocytes % (Manual) 4.0 % (13.4-35.0) L 09/08/20 20:34 Monocytes % (Manual) 6.0 % (0.0-7.3) 09/08/20 20:34 Nucleated RBC % Not Reportable 09/08/20 20:34 Seg Neutrophils # 5.8 K/mm3 (1.8-7.7) 09/10/20 08:42 Seg Neutrophils # Man 5.9 K/mm3 (1.8-7.7) 09/08/20 20:34 Band Neutrophils # 0.0 K/mm3 09/08/20 20:34 Lymphocytes # (Manual) 0.3 K/mm3 (1.2-5.4) L 09/08/20 20:34 Abs React Lymphs (Man) 0.0 K/mm3 09/08/20 20:34 Monocytes # (Manual) 0.4 K/mm3 (0.0-0.8) 09/08/20 20:34 Eosinophils # (Manual) 0.0 K/mm3 (0.0-0.4) 09/08/20 20:34 Basophils # (Manual) 0.0 K/mm3 (0.0-0.1) 09/08/20 20:34 Metamyelocytes # 0.0 K/mm3 09/08/20 20:34 Myelocytes # 0.0 K/mm3 09/08/20 20:34 Promyelocytes # 0.0 K/mm3 09/08/20 20:34 Blast Cells # 0.0 K/mm3 09/08/20 20:34 WBC Morphology Not Reportable 09/08/20 20:34 Hypersegmented Neuts Not Reportable 09/08/20 20:34 Hyposegmented Neuts Not Reportable 09/08/20 20:34 Hypogranular Neuts Not Reportable 09/08/20 20:34 Smudge Cells Not Reportable 09/08/20 20:34 Toxic Granulation Not Reportable 09/08/20 20:34 Toxic Vacuolation Few 09/08/20 20:34 Dohle Bodies Not Reportable 09/08/20 20:34 Pelger-Huet Anomaly Not Reportable 09/08/20 20:34 Shweta Rods Not Reportable 09/08/20 20:34 Platelet Estimate Consistent w auto 09/08/20 20:34 Clumped Platelets Not Reportable 09/08/20 20:34 Plt Clumps, EDTA Not Reportable 09/08/20 20:34 Large Platelets Not Reportable 09/08/20 20:34 Giant Platelets Not Reportable 09/08/20 20:34 Platelet Satelliting Not Reportable 09/08/20 20:34 Plt Morphology Comment Not Reportable 09/08/20 20:34 RBC Morphology Normal 09/08/20 20:34 Dimorphic RBCs Not Reportable 09/08/20 20:34 Polychromasia Not Reportable 09/08/20 20:34 Hypochromasia Not Reportable 09/08/20 20:34 Poikilocytosis Not Reportable 09/08/20 20:34 Anisocytosis Not Reportable 09/08/20 20:34 Microcytosis Not Reportable 09/08/20 20:34 Macrocytosis Not Reportable 09/08/20 20:34 Spherocytes Not Reportable 09/08/20 20:34 Pappenheimer Bodies Not Reportable 09/08/20 20:34 Sickle Cells Not Reportable 09/08/20 20:34 Target Cells Not Reportable 09/08/20 20:34 Tear Drop Cells Not Reportable 09/08/20 20:34 Ovalocytes Not Reportable 09/08/20 20:34 Helmet Cells Not Reportable 09/08/20 20:34 [place] Bodies Not Reportable 09/08/20 20:34 [place] Rings Not Reportable 09/08/20 20:34 Palms Cells Not Reportable 09/08/20 20:34 Bite Cells Not Reportable 09/08/20 20:34 Crenated Cell Not Reportable 09/08/20 20:34 Elliptocytes Not Reportable 09/08/20 20:34 Acanthocytes (Spur) Not Reportable 09/08/20 20:34 Rouleaux Not Reportable 09/08/20 20:34 Hemoglobin C Crystals Not Reportable 09/08/20 20:34 Schistocytes Not Reportable 09/08/20 20:34 Malaria parasites Not Reportable 09/08/20 20:34 Viraj Bodies Not Reportable 09/08/20 20:34 Hem Pathologist Commnt No 09/08/20 20:34 PT 15.5 Sec. (12.2-14.9) H 09/11/20 11:07 INR 1.17 (0.87-1.13) H 09/11/20 11:07 APTT 39.2 Sec. (24.2-36.6) H 09/11/20 11:07 D-Dimer 430.94 ng/mlDDU (0-234) H 09/14/20 10:45 ABG pH 7.129 (7.320-7.450) L 09/14/20 13:32 POC ABG pCO2 62.6 mmHg (32.0-48.0) H 09/14/20 13:32 POC ABG pO2 60.7 mmHg (83-108) L 09/14/20 13:32 POC ABG HCO3 20.3 09/14/20 13:32 ABG O2 Saturation 79.2 (0-100) 09/14/20 12:42 POC ABG Base Excess -9.5 09/14/20 13:32 ABG Hemoglobin 12.9 (12.0-17.5) 09/14/20 13:32 ABG Oxyhemoglobin 80.0 (94-98) L 09/14/20 13:32 ABG Methemoglobin 0.3 (0.0-1.5) 09/14/20 13:32 ABG Sodium 143.9 mmol/L (136.0-145.0) 09/14/20 13:32 ABG Potassium 5.1 mmol/L (3.40-4.50) H 09/14/20 13:32 ABG Chloride 115.0 mmol/L (98-107) H 09/14/20 13:32 ABG Glucose 402 mg/dL (65-95) H 09/14/20 13:32 Carboxyhemoglobin 0.2 (0.5-1.5) L 09/14/20 13:32 FiO2 % 100.0 09/14/20 13:32 Sodium 145 mmol/L (137-145) 09/14/20 10:45 Potassium 4.2 mmol/L (3.6-5.0) 09/14/20 10:45 Chloride 111.5 mmol/L (98-107) H 09/14/20 10:45 Carbon Dioxide 23 mmol/L (22-30) 09/14/20 10:45 Anion Gap 15 mmol/L 09/14/20 10:45 BUN 42 mg/dL (9-20) H 09/14/20 10:45 Creatinine 0.7 mg/dL (0.8-1.3) L 09/14/20 10:45 Estimated GFR > 60 ml/min 09/14/20 10:45 BUN/Creatinine Ratio 60 % 09/14/20 10:45 Glucose 169 mg/dL (75-100) H 09/14/20 10:45 POC Glucose 193 mg/dL (70-105) H 09/14/20 17:54 Lactic Acid 1.80 mmol/L (0.7-2.0) 09/12/20 06:40 Calcium 8.3 mg/dL (8.4-10.2) L 09/14/20 10:45 Phosphorus 4.10 mg/dL (2.5-4.5) 09/11/20 11:07 Magnesium 2.10 mg/dL (1.7-2.3) 09/12/20 Unknown Ferritin 2709.0 ng/mL (30.0-300.0) H 09/14/20 10:45 Total Bilirubin 0.70 mg/dL (0.1-1.2) 09/14/20 10:45 AST 90 units/L (5-40) H 09/14/20 10:45 ALT 44 units/L (7-56) 09/14/20 10:45 Alkaline Phosphatase 85 units/L (35-129) 09/14/20 10:45 Lactate Dehydrogenase 658 units/L (91-180) H 09/14/20 10:45 Total Creatine Kinase 1113 units/L (55-170) H 09/10/20 08:42 Troponin T 0.020 ng/mL (0.00-0.029) 09/09/20 04:25 C-Reactive Protein 15.80 mg/dL (0.00-1.30) H 09/14/20 10:45 NT-Pro-B Natriuret Pep 4471 pg/mL (0-900) H 09/08/20 20:34 Total Protein 5.6 g/dL (6.3-8.2) L 09/14/20 10:45 Albumin 2.4 g/dL (3.9-5) L 09/14/20 10:45 Albumin/Globulin Ratio 0.8 % 09/14/20 10:45 Procalcitonin 0.44 ng/mL (<0.15) 09/12/20 Unknown TSH 0.581 mlU/mL (0.270-4.200) 09/08/20 20:34 Free T4 1.37 ng/dL (0.76-1.46) 09/08/20 20:34 Arterial Blood Glucose 402 mg/dL (65-95) H 09/14/20 13:32 Arterial Blood Ionized Calcium 4.6 mg/dL (4.6-5.3) 09/14/20 13:32 Urine Color Yellow (Yellow) 09/08/20 Unknown Urine Turbidity Hazy (Clear) 09/08/20 Unknown Urine pH 5.0 (5.0-7.0) 09/08/20 Unknown Ur Specific [place] 1.015 (1.003-1.030) 09/08/20 Unknown Urine Protein 30 mg/dl mg/dL (Negative) 09/08/20 Unknown Urine Glucose (UA) 50 mg/dL (Negative) 09/08/20 Unknown Urine Ketones Neg mg/dL (Negative) 09/08/20 Unknown Urine Blood Mod (Negative) 09/08/20 Unknown Urine Nitrite Pos (Negative) 09/08/20 Unknown Urine Bilirubin Neg (Negative) 09/08/20 Unknown Urine Urobilinogen < 2.0 mg/dL (<2.0) 09/08/20 Unknown Ur Leukocyte Esterase Neg (Negative) 09/08/20 Unknown Urine WBC (Auto) 7.0 /HPF (0.0-6.0) H 09/08/20 Unknown Urine RBC (Auto) 3.0 /HPF (0.0-6.0) 09/08/20 Unknown Urine Bacteria (Auto) 4+ /HPF (Negative) 09/08/20 Unknown Hyaline Casts 1 /LPF 09/08/20 Unknown Urine Mucus Few /HPF 09/08/20 Unknown Coronavirus (PCR) Positive (Negative) A 09/08/20 Unknown Microbiology: Microbiology 09/08/20 20:34 Peripheral/Venous Blood Culture - Final NO GROWTH AFTER 5 DAYS 09/08/20 20:34 Peripheral/Venous Blood Culture - Final NO GROWTH AFTER 5 DAYS Long/IV: Voiding Method Condom Catheter Active Medications - Current Medications Current Medications: Generic Name Dose Route Start Last Admin Trade Name Freq PRN Reason Stop Dose Admin Acetaminophen 650 mg 09/09/20 02:56 Acetaminophen 325 Mg Tab PO Q4H PRN Pain MILD(1-3)/Fever >100.5/SALAMANCA Acetylcysteine 200 mg 09/12/20 20:00 09/14/20 20:04 Acetylcysteine 20% 200 Mg/1 Ml *For Inhalation Use* INHALATION 09/17/20 19:59 Not Given TIDRT TEJAS Albuterol 2.5 mg 09/12/20 20:00 09/14/20 20:05 Albuterol 2.5 Mg/3 Ml Nebu IH Not Given TIDRT TEJAS Lipase/Protease/Amylase 1 each 09/12/20 09:57 Lipase 10,500/Protease 25,000/Amylase 43,750 (Units) Dr Rowe FEEDTUBE PRN PRN For Clogged Feeding Tube Apixaban 2.5 mg 09/11/20 22:00 09/14/20 11:04 Apixaban 2.5 Mg Tab PO 2.5 mg Q12HR TEJAS Administration Ascorbic Acid 500 mg 09/11/20 22:00 09/14/20 11:03 Ascorbic Acid 500 Mg Tab PO 500 mg BID TEJAS Administration Dexamethasone 6 mg 09/09/20 18:00 09/14/20 11:03 Dexamethasone 4 Mg/Ml Vial IV 09/19/20 17:59 6 mg Q24HR TEJAS Administration Dextrose 50 ml 09/14/20 12:17 Dextrose 50% In Water (25gm) 50 Ml Syringe IV Q30MIN PRN Hypoglycemia Protocol Docusate Sodium 100 mg 09/09/20 10:00 09/14/20 11:02 Docusate Sodium 100 Mg Cap PO 100 mg BID TEJAS Administration Famotidine 10 mg 09/14/20 22:00 Famotidine 20 Mg/2 Ml Inj IV BID TEJAS Fentanyl 50 mcg 09/14/20 13:58 09/14/20 15:10 Fentanyl 100 Mcg/2 Ml Inj IV 50 mcg Q10MIN PRN Administration ANALGESIA Hydrophilic Ointment 1 applic 09/14/20 15:02 Lip Therapy Vaseline TP Q2H PRN Dry Lips Dextrose/Sodium Chloride 1,000 mls @ 42 mls/hr 09/10/20 20:00 09/14/20 08:20 D5ns IV 42 mls/hr DIRECT TEJAS Administration Norepinephrine 4 mg in 250 mls @ 7.5 mls/hr 09/11/20 20:00 09/14/20 20:13 Levophed Drip 4 Mg/Ns 250 Ml IV 30 mcg/min TITR TEJAS 112.5 mls/hr Administration Protocol 2 MCG/MIN Vasopressin 20 unit/ Sodium 101 mls @ 9.09 mls/hr 09/14/20 14:00 09/14/20 20:13 Chloride IV 0.03 units/min TITR TEJAS 9.09 mls/hr Administration Protocol 0.03 UNITS/MIN Fentanyl Citrate 2,000 mcg in 100 mls @ 2.2 mls/hr 09/14/20 14:00 09/14/20 17:47 Fentanyl Drip Premix IV 2 mcg/kg/hr TITR TEJAS 4.4 mls/hr Titration Protocol 1 MCG/KG/HR Insulin Human Lispro 0 unit 09/14/20 18:00 09/14/20 18:25 Insulin Lispro 100 Unit/Ml SUB-Q Not Given Q6HR TEJAS Protocol Metoprolol Tartrate 12.5 mg 09/14/20 22:00 Metoprolol Tartrate 25 Mg Tab PO BID TEJAS Multi-Ingred Cream/Lotion/Oil/Oint 1 applic 09/14/20 13:15 Mineral Oil/Petrolatum, White Ophth Oint 3.5 Gm OU Q4HR PRN Dry Eye(s) Naloxone HCl 0.1 mg 09/09/20 02:56 Naloxone 0.4 Mg/1 Ml Inj IV Q2MIN PRN Res Rate </= 8 or 02 SAT < 92% Nicotine 14 mg 09/09/20 10:00 09/14/20 11:04 Nicotine 14 Mg/24 Hr Patch TD 14 mg QDAY TEJAS Administration Ondansetron HCl 4 mg 09/09/20 02:56 Ondansetron 4 Mg/2 Ml Inj IV Q6H PRN Nausea And Vomiting Oxycodone/Acetaminophen 1 tab 09/09/20 02:56 09/13/20 03:27 Oxycodone /Acetaminophen 5-325mg Tab PO 1 tab Q6H PRN Administration Pain, Moderate (4-6) Senna/Docusate Sodium 1 tab 09/14/20 22:00 Sennosides/Docusate Sodium 8.6/50 Mg Tab FEEDTUBE BID TEJAS Simple Syrup 15 ml 09/12/20 09:57 Simple Syrup 15 Ml FEEDTUBE PRN PRN Hypoglycemia Simple Syrup 30 ml 09/12/20 09:57 Simple Syrup 15 Ml FEEDTUBE PRN PRN Hypoglycemia Sodium Bicarbonate 325 mg 09/12/20 09:57 Sodium Bicarbonate 325 Mg Tab FEEDTUBE PRN PRN For Clogged Feeding Tube Sodium Chloride 10 ml 09/09/20 10:00 09/14/20 11:06 Sodium Chloride 0.9% 10 Ml Flush Syringe IV 10 ml BID TEJAS Administration Sodium Chloride 10 ml 09/09/20 02:56 Sodium Chloride 0.9% 10 Ml Flush Syringe IV PRN PRN LINE FLUSH Zinc Sulfate 220 mg 09/09/20 10:00 09/14/20 11:03 Zinc Sulfate 220 Mg Cap PO 220 mg BID TEJAS Administration Nutrition/Malnutrition Assess - Dietary Evaluation Nutrition/Malnutrition Findings: Nutrition Notes Start: 09/09/20 08:51 Freq: Status: Active Protocol: Document 09/12/20 09:52 DIXON (Rec: 09/12/20 09:55 DIXON [email or web address]) Nutrition Notes Need for Assessment generated from: MD Order Initial or Follow up Reassessment Other Pertinent Diagnosis Pneu, COVID-19, acute metabolic encephalopathy, UTI, tobacco dependence Current Diet Cardiac/Consistent CHO Labs/Tests BUN 54 Pertinent Medications D5NS at 75ml/hr Height 5 ft 5 in Weight 44.497 kg [place] Body Weight (kg) 61.81 BMI 16.3 Weight Status Underweight Subjective/Other Information MD consult for TF. RN screen for MST and skin risk. Pt has pressure ulcers on R and L hip . Burn Absent Trauma Absent Current % PO Negligible Minimum of two criteria Yes Body Fat Depletion Moderate depletion (severe) Muscle Mass Moderate Depletion (severe) Reduced Factorer Strength Measurably Reduced (severe) Protein-Calorie Malnutrition Severe #2 Nutrition Diagnosis Increased nutrient needs ( specify in comment below) Comments: protein Etiology wound healing As Evidenced by Signs and Symptoms pressure ulcers on R and L hip #1 Nutrition Diagnosis Malnutrition Diagnosis Progress(for reassessment Continues documentation) Is patient on ventilator? No Is Patient Ambulatory and/or Out of Bed No REE-([facility]-confined to bed) 1299.456 Kcal/Kg value to use for calculation 40 Approximate Energy Requirements Using 1780 kcal/Kg Calculation Used for Recommendations Kcal/kg Additional Notes Pro needs 1.25-1.5g/k-67g /day Fluid needs 1500ml/day Nutrition Intervention Change Diet Order: Start TF Nutrition Support: Osmolite 1.5 at 50 ml/hr. Flush 150 ml q4h Kcal 1,800 Protein (gm) 75 Fluid (mL) 914 Goal #1 Meet 80-100% energy and pro needs via TF Goal #2 Wt maintenance and/or gain Anticipated Discharge Needs: Unable to detemine at this time Follow-Up By: 09/15/20 Additional Comments FU for TF start and tolerance, BG <ROBERTO CARLOS VEGA - Last Filed: 09/20/20 05:16> Assessment and Plan Assessment and plan: I saw and evaluated the patient. I agree with the findings and the plan of care as documented in the Nurse Practitioner's~note, with the following corrections and additions. Hospitalist Physical - Constitutional Vitals: Temp Pulse Resp BP Pulse Ox 97.8 F 107 H 0 L 129/31 81 L 09/16/20 15:47 09/16/20 18:36 09/16/20 17:00 09/16/20 17:00 09/16/20 16:30 HEART Score - HEART Score Troponin: Troponin T 0.020 ng/mL (0.00-0.029) 09/09/20 04:25 Results - Labs CBC & Chem 7: 09/15/20 20:21 09/16/20 03:15 Labs: Laboratory Last Values WBC 21.1 K/mm3 (4.5-11.0) H 09/15/20 11:45 RBC 3.67 M/mm3 (3.65-5.03) 09/15/20 11:45 Hgb 11.9 gm/dl (11.8-15.2) 09/15/20 20:21 Hct 37.6 % (35.5-45.6) 09/15/20 20:21 MCV 97 fl (84-94) H 09/15/20 11:45 MCH 32 pg (28-32) 09/15/20 11:45 MCHC 33 % (32-34) 09/15/20 11:45 RDW 15.7 % (13.2-15.2) H 09/15/20 11:45 Plt Count 113 K/mm3 (140-440) L 09/15/20 11:45 Lymph % (Auto) 6.2 % (13.4-35.0) L 09/10/20 08:42 [place] % (Auto) 7.6 % (0.0-7.3) H 09/10/20 08:42 Eos % (Auto) 0.0 % (0.0-4.3) 09/10/20 08:42 Baso % (Auto) 0.2 % (0.0-1.8) 09/10/20 08:42 Lymph # (Auto) 0.4 K/mm3 (1.2-5.4) L 09/10/20 08:42 [place] # (Auto) 0.5 K/mm3 (0.0-0.8) 09/10/20 08:42 Eos # (Auto) 0.0 K/mm3 (0.0-0.4) 09/10/20 08:42 Baso # (Auto) 0.0 K/mm3 (0.0-0.1) 09/10/20 08:42 Add Manual Diff Complete 09/08/20 20:34 Total Counted 100 09/08/20 20:34 Seg Neutrophils % 86.0 % (40.0-70.0) H 09/10/20 08:42 Seg Neuts % (Manual) 90.0 % (40.0-70.0) H 09/08/20 20:34 Lymphocytes % (Manual) 4.0 % (13.4-35.0) L 09/08/20 20:34 Monocytes % (Manual) 6.0 % (0.0-7.3) 09/08/20 20:34 Nucleated RBC % Not Reportable 09/08/20 20:34 Seg Neutrophils # 5.8 K/mm3 (1.8-7.7) 09/10/20 08:42 Seg Neutrophils # Man 5.9 K/mm3 (1.8-7.7) 09/08/20 20:34 Band Neutrophils # 0.0 K/mm3 09/08/20 20:34 Lymphocytes # (Manual) 0.3 K/mm3 (1.2-5.4) L 09/08/20 20:34 Abs React Lymphs (Man) 0.0 K/mm3 09/08/20 20:34 Monocytes # (Manual) 0.4 K/mm3 (0.0-0.8) 09/08/20 20:34 Eosinophils # (Manual) 0.0 K/mm3 (0.0-0.4) 09/08/20 20:34 Basophils # (Manual) 0.0 K/mm3 (0.0-0.1) 09/08/20 20:34 Metamyelocytes # 0.0 K/mm3 09/08/20 20:34 Myelocytes # 0.0 K/mm3 09/08/20 20:34 Promyelocytes # 0.0 K/mm3 09/08/20 20:34 Blast Cells # 0.0 K/mm3 09/08/20 20:34 WBC Morphology Not Reportable 09/08/20 20:34 Hypersegmented Neuts Not Reportable 09/08/20 20:34 Hyposegmented Neuts Not Reportable 09/08/20 20:34 Hypogranular Neuts Not Reportable 09/08/20 20:34 Smudge Cells Not Reportable 09/08/20 20:34 Toxic Granulation Not Reportable 09/08/20 20:34 Toxic Vacuolation Few 09/08/20 20:34 Dohle Bodies Not Reportable 09/08/20 20:34 Pelger-Huet Anomaly Not Reportable 09/08/20 20:34 Shweta Rods Not Reportable 09/08/20 20:34 Platelet Estimate Consistent w auto 09/08/20 20:34 Clumped Platelets Not Reportable 09/08/20 20:34 Plt Clumps, EDTA Not Reportable 09/08/20 20:34 Large Platelets Not Reportable 09/08/20 20:34 Giant Platelets Not Reportable 09/08/20 20:34 Platelet Satelliting Not Reportable 09/08/20 20:34 Plt Morphology Comment Not Reportable 09/08/20 20:34 RBC Morphology Normal 09/08/20 20:34 Dimorphic RBCs Not Reportable 09/08/20 20:34 Polychromasia Not Reportable 09/08/20 20:34 Hypochromasia Not Reportable 09/08/20 20:34 Poikilocytosis Not Reportable 09/08/20 20:34 Anisocytosis Not Reportable 09/08/20 20:34 Microcytosis Not Reportable 09/08/20 20:34 Macrocytosis Not Reportable 09/08/20 20:34 Spherocytes Not Reportable 09/08/20 20:34 Pappenheimer Bodies Not Reportable 09/08/20 20:34 Sickle Cells Not Reportable 09/08/20 20:34 Target Cells Not Reportable 09/08/20 20:34 Tear Drop Cells Not Reportable 09/08/20 20:34 Ovalocytes Not Reportable 09/08/20 20:34 Helmet Cells Not Reportable 09/08/20 20:34 [place] Bodies Not Reportable 09/08/20 20:34 [place] Rings Not Reportable 09/08/20 20:34 Palms Cells Not Reportable 09/08/20 20:34 Bite Cells Not Reportable 09/08/20 20:34 Crenated Cell Not Reportable 09/08/20 20:34 Elliptocytes Not Reportable 09/08/20 20:34 Acanthocytes (Spur) Not Reportable 09/08/20 20:34 Rouleaux Not Reportable 09/08/20 20:34 Hemoglobin C Crystals Not Reportable 09/08/20 20:34 Schistocytes Not Reportable 09/08/20 20:34 Malaria parasites Not Reportable 09/08/20 20:34 Viraj Bodies Not Reportable 09/08/20 20:34 Hem Pathologist Commnt No 09/08/20 20:34 PT 15.5 Sec. (12.2-14.9) H 09/11/20 11:07 INR 1.17 (0.87-1.13) H 09/11/20 11:07 APTT 39.2 Sec. (24.2-36.6) H 09/11/20 11:07 D-Dimer 2544.42 ng/mlDDU (0-234) H 09/16/20 03:15 ABG pH 7.207 (7.320-7.450) L 09/16/20 03:30 POC ABG pCO2 54.2 mmHg (32.0-48.0) H 09/16/20 03:30 POC ABG pO2 46.9 mmHg (83-108) L 09/16/20 03:30 POC ABG HCO3 21.0 09/16/20 03:30 ABG O2 Saturation 75.9 (0-100) 09/16/20 03:30 POC ABG Base Excess -7.1 09/16/20 03:30 ABG Hemoglobin 12.2 (12.0-17.5) 09/16/20 03:30 ABG Oxyhemoglobin 75.3 (94-98) L 09/16/20 03:30 ABG Methemoglobin 0.3 (0.0-1.5) 09/16/20 03:30 ABG Sodium 142.4 mmol/L (136.0-145.0) 09/16/20 03:30 ABG Potassium 4.5 mmol/L (3.40-4.50) 09/16/20 03:30 ABG Chloride 113.0 mmol/L (98-107) H 09/16/20 03:30 ABG Glucose 183 mg/dL (65-95) H 09/16/20 03:30 Carboxyhemoglobin 0.5 (0.5-1.5) 09/16/20 03:30 FiO2 % 100.0 09/16/20 03:30 Sodium 146 mmol/L (137-145) H 09/16/20 03:15 Potassium 4.8 mmol/L (3.6-5.0) 09/16/20 03:15 Chloride 110.8 mmol/L (98-107) H 09/16/20 03:15 Carbon Dioxide 23 mmol/L (22-30) 09/16/20 03:15 Anion Gap 17 mmol/L 09/16/20 03:15 BUN 61 mg/dL (9-20) H 09/16/20 03:15 Creatinine 1.8 mg/dL (0.8-1.3) H 09/16/20 03:15 Estimated GFR 44 ml/min 09/16/20 03:15 BUN/Creatinine Ratio 34 % 09/16/20 03:15 Glucose 199 mg/dL (75-100) H 09/16/20 03:15 POC Glucose 123 mg/dL (70-105) H 09/16/20 11:30 Lactic Acid 4.30 mmol/L (0.7-2.0) H* 09/16/20 03:15 Calcium 7.4 mg/dL (8.4-10.2) L 09/16/20 03:15 Phosphorus 3.00 mg/dL (2.5-4.5) 09/16/20 03:15 Magnesium 2.30 mg/dL (1.7-2.3) 09/16/20 03:15 Ferritin 3300.0 ng/mL (30.0-300.0) H 09/16/20 03:15 Total Bilirubin 0.70 mg/dL (0.1-1.2) 09/15/20 08:50 AST 82 units/L (5-40) H 09/15/20 08:50 ALT 49 units/L (7-56) 09/15/20 08:50 Alkaline Phosphatase 101 units/L (35-129) 09/15/20 08:50 Lactate Dehydrogenase 617 units/L (91-180) H 09/16/20 03:15 Total Creatine Kinase 1113 units/L (55-170) H 09/10/20 08:42 Troponin T 0.020 ng/mL (0.00-0.029) 09/09/20 04:25 C-Reactive Protein 26.30 mg/dL (0.00-1.30) H 09/16/20 03:15 NT-Pro-B Natriuret Pep 4471 pg/mL (0-900) H 09/08/20 20:34 Total Protein 4.9 g/dL (6.3-8.2) L 09/15/20 08:50 Albumin 2.2 g/dL (3.9-5) L 09/15/20 08:50 Albumin/Globulin Ratio 0.8 % 09/15/20 08:50 Procalcitonin 0.44 ng/mL (<0.15) 09/12/20 Unknown TSH 0.581 mlU/mL (0.270-4.200) 09/08/20 20:34 Free T4 1.37 ng/dL (0.76-1.46) 09/08/20 20:34 Arterial Blood Glucose 183 mg/dL (65-95) H 09/16/20 03:30 Arterial Blood Ionized Calcium 4.3 mg/dL (4.6-5.3) L 09/16/20 03:30 Urine Color Yellow (Yellow) 09/08/20 Unknown Urine Turbidity Hazy (Clear) 09/08/20 Unknown Urine pH 5.0 (5.0-7.0) 09/08/20 Unknown Ur Specific [place] 1.015 (1.003-1.030) 09/08/20 Unknown Urine Protein 30 mg/dl mg/dL (Negative) 09/08/20 Unknown Urine Glucose (UA) 50 mg/dL (Negative) 09/08/20 Unknown Urine Ketones Neg mg/dL (Negative) 09/08/20 Unknown Urine Blood Mod (Negative) 09/08/20 Unknown Urine Nitrite Pos (Negative) 09/08/20 Unknown Urine Bilirubin Neg (Negative) 09/08/20 Unknown Urine Urobilinogen < 2.0 mg/dL (<2.0) 09/08/20 Unknown Ur Leukocyte Esterase Neg (Negative) 09/08/20 Unknown Urine WBC (Auto) 7.0 /HPF (0.0-6.0) H 09/08/20 Unknown Urine RBC (Auto) 3.0 /HPF (0.0-6.0) 09/08/20 Unknown Urine Bacteria (Auto) 4+ /HPF (Negative) 09/08/20 Unknown Hyaline Casts 1 /LPF 09/08/20 Unknown Urine Mucus Few /HPF 09/08/20 Unknown Coronavirus (PCR) Positive (Negative) A 09/08/20 Unknown Microbiology: Microbiology 09/14/20 17:23 Tracheal Aspirate Sputum Culture - Preliminary Long/IV: Voiding Method Indwelling Catheter Nutrition/Malnutrition Assess - Dietary Evaluation Nutrition/Malnutrition Findings: Nutrition Notes Start: 09/09/20 08:51 Freq: Status: Discharge Protocol: Document 09/15/20 09:24 CW (Rec: 09/15/20 09:38 CW [id number]) Nutrition Notes Need for Assessment generated from: MD Order Initial or Follow up Reassessment Current Diagnosis Sepsis Other Pertinent Diagnosis Cardiac Arrest, FTT,Pneu, COVID-19, acute metabolic encephalopathy Current Diet Cardiac/Consistent CHO Labs/Tests 09/14/2020 BUN 42 BG 169 Pertinent Medications Levophed,Vasopressin Humalog Decadron Senakot, Colace, Ducolax () Propofol (09/14/2020) NS 1L Height 5 ft 5 in Weight 50.2 kg [place] Body Weight (kg) 61.81 BMI 18.3 Weight change and time frame weight change noted; likely r/ t to fluids and equipment Weight Status Underweight Subjective/Other Information MD consult for evaluate nut risk. Pt is currently receiving TF regimen. Pt has already been screened for malnutrition by RD team. TF being held at this time d/t " hypoactive bowel sounds". Pt has not had a BM since 09/10. Pt undergoing bowel tx regimen . Pt s/p cardiac arrest at 1300 on 09/14 Burn Absent Trauma Absent GI Symptoms Other Difficulty In Swallowing Skin Integrity/Comment Pressure ulcers present Current % PO Negligible Minimum of two criteria Yes Body Fat Depletion Moderate depletion (severe) Muscle Mass Moderate Depletion (severe) Reduced Factorer Strength Measurably Reduced (severe) Protein-Calorie Malnutrition Severe #2 Nutrition Diagnosis Increased nutrient needs ( specify in comment below) Diagnosis Progress(for reassessment Continues documentation) #1 Nutrition Diagnosis Malnutrition Diagnosis Progress(for reassessment Continues documentation) Is patient on ventilator? No Is Patient Ambulatory and/or Out of Bed No REE-([facility]-confined to bed) 1367.820 Kcal/Kg value to use for calculation 40 Approximate Energy Requirements Using 2007 kcal/Kg Calculation Used for Recommendations Kcal/kg Additional Notes Pro needs 1.2-2g/k-89g/ day (44.5kg) Fluid needs 1500ml/day Nutrition Intervention Change Diet Order: Restart TF regimen when medically feasible Nutrition Support: Osmolite 1.5 at 50 ml/hr. Flush 150 ml q4h Kcal 1,800 Protein (gm) 75 Fluid (mL) 914 Add Supplement/Snack (indicate name/kcal d/c /protein ) Goal #1 Meet 80-100% energy and pro needs via TF Goal #2 Wt maintenance and/or gain Goal #3 TF restart Anticipated Discharge Needs: Unable to detemine at this time Follow-Up By: 09/17/20 Additional Comments F/U for TF restart/tolerance; BM
--- NOTE | 2020-09-14 20:54 | Procedure Note ---
Date of procedure: 09/14/20 Pre-op diagnosis: hypotension Post-op diagnosis: same Procedure: femoral rhea Right femoral rhea inserted using sterile technique under ultrasound guidance Area prepped with chlorhexidine and the site was infiltrated with 1ml 1% lidocaine. Arterial line was placed using ultrasound; catheter advanced without difficulty. Line was sutured, biopatch placed and tegaderm dressing applied. Arterial waveform observed on bedside monitor. Line flushed and zeroed. RN at bedside. Pt tolerated procedure well. Procedure time not including critical care time Anesthesia: local Surgeon: TALIA FOSTER Sports Medicine Coordinator: EL LAWRENCE Estimated blood loss: minimal Pathology: none Condition: critical Disposition: ICU
[2020-09-14] MEDS: FAMOTIDINE 20 MG/2 ML INJ IV SCH (21:31)
[2020-09-14] MEDS: SENNOSIDES/DOCUSATE SODIUM 8.6/50 MG TAB FEEDTUBE SCH (21:33)
[2020-09-14] MEDS ORDERED: METOPROLOL TARTRATE 25 MG TAB PO SCH (22:00)
[2020-09-15] MEDS: NORepinephrine/NS 4 MG-250 ML 4 MG/250 ML BAG IV SCH ×6 (02:35→21:31)
[2020-09-15] MEDS: INSULIN LISPRO 100 UNIT/ML SUB-Q SCH ×3 (05:32→17:52)
[2020-09-15] MEDS: VASOPRESSIN 20 UNIT in SODIUM CHLORIDE 0.9% 100 ML IV SCH ×2 (07:40→16:28)
[2020-09-15] MEDS: ACETYLCYSTEINE 20% 200 MG/1 ML *FOR INHALATION USE INHALATION SCH ×3 (08:25→20:51)
[2020-09-15] MEDS: ALBUTEROL 2.5 MG/3 ML NEBU IH SCH ×3 (08:25→20:51)
--- NOTE | 2020-09-15 08:41 | XRay Report ---
CHEST 1 VIEW INDICATION / CLINICAL INFORMATION: Respiratory failure. COMPARISON: 09/14/2020, 09/11/2020. FINDINGS: SUPPORT DEVICES: Stable positioning of endotracheal tube, right-sided central venous catheter, and ga stric tube. HEART / MEDIASTINUM: No significant abnormality. LUNGS / PLEURA: Interval improvement in lower lobe predominant right lung airspace disease. No pneumo thorax. Suspected trace left pleural effusion is unchanged. ADDITIONAL FINDINGS: No significant additional findings. IMPRESSION: Interval improvement in lower lobe predominant right lung airspace disease. Stable positioning of support lines and tubes. Signer Name: Angel Elkins MD Signed: 09/15/2020 8:37 AM Workstation Name: [id number]
[2020-09-15 09:06] LABS: Hematocrit 37.6 % (35.5-45.6); Hemoglobin 12.3 gm/dl (11.8-15.2); Mean Corpuscular HGB Conc 33 % (32-34); Mean Corpuscular Volume 96 fl (84-94); Platelet Count 116 K/mm3 (140-440); Red Blood Count 3.91 M/mm3 (3.65-5.03); Red Cell Distribution Width 15.1 % (13.2-15.2)
[2020-09-15 09:34] LABS: Alanine Aminotransferase 49 units/L (7-56); Albumin 2.2 g/dL (3.9-5); BUN/Creatinine Ratio 44; Blood Urea Nitrogen 53 mg/dL (9-20); Calcium 7.7 mg/dL (8.4-10.2); Hemolysis Index 7
[2020-09-15] MEDS: ZINC SULFATE 220 MG CAP PO SCH ×2 (09:57→21:22)
[2020-09-15] MEDS: ASCORBIC ACID 500 MG TAB PO SCH ×2 (09:57→21:22)
[2020-09-15] MEDS: FAMOTIDINE 20 MG/2 ML INJ IV SCH ×2 (09:57→21:21)
[2020-09-15] MEDS: DOCUSATE SODIUM 100 MG/10 ML ORAL LIQD FEEDTUBE SCH ×2 (09:57→21:24)
[2020-09-15] MEDS: SENNOSIDES/DOCUSATE SODIUM 8.6/50 MG TAB FEEDTUBE SCH (09:57)
[2020-09-15] MEDS: APIXABAN 2.5 MG TAB PO SCH ×2 (09:57→21:22)
[2020-09-15] MEDS: dexAMETHasone 4 MG/ML VIAL IV SCH (09:57)
[2020-09-15] MEDS ORDERED: EPINEPHrine 1 MG/10 ML SYRINGE ONE (10:06)
[2020-09-15] MEDS ORDERED: SODIUM BICARB 8.4% 50 MEQ/50 ML SYRINGE IV ONE (10:06)
--- NOTE | 2020-09-15 10:24 | Event Note ---
Date: 09/15/20 Cardiac arrest Patient noted to be bracycardiac and hypoxic which progressed to PEA, ACLS initiated at 1006, patient already intubated, RT at BS for bagging, received 2 rounds of epi and bicarb with ROSC at 2 minutes. See code sheet for details. Family informed by JOSIAH Barron. Dr. Tamayo and Dr. Christianson at bedside for code. Dr. Doss informed Total time for this event: 30 min
--- NOTE | 2020-09-15 10:24 | Progress Note ---
Assessment and Plan Assessment and plan: This is a 79-year-old male who is a current smoker admitted with COVID-19 pneumonia, severe sepsis, A. fib RVR, septic shock, acute hypoxic respiratory failure, acute cystitis and thrombocytopenia Past medical history: None per family Past surgical history: None per family Social history: Smoker Home medications: No known home medications Neuro: Acute metabolic encephalopathy, s/p GLF per family -CT head shows no acute intracranial abnormality, soft tissue gas noted in the anterior temporal musculature bilaterally in the musculature posterior to the maxillary sinus however shows decrease in soft tissue gas, no fracture, no fluid collection -CT neck shows volume soft tissue gas noted in the temporal regions and posterior to the maxillary sinuses decreased, arthrosclerosis disease in the carotid arteries and vertebral arteries -Aspiration/fall precautions -Reorientation as needed -Sedated on fentanyl -RASS of 0 to -1 -SAT daily CV: A. fib with RVR, hypotension; SR, s/p cardiac arrest -Cardiology consulted, patient recommendations -Vasopressor support with Levophed, vasopressin -MAP goal of 65 or greater -Blood pressure monitoring per protocol -Anticoagulation with Eliquis -Hold Metoprolol -Echocardiogram shows LVEF 40 to 45% -09/14 & 09/15 cardiac arrest (see code sheets for details) -Trend CVP Respiratory: Acute hypoxic respiratory failure, nicotine abuse -Was on high flow nasal cannula 100%, 40 L and BiPAP nightly 11/25 at 32% FiO2 -09/14 ABG: Seven-point 06/19// on 100% -Intubated 09/14 -Oral ETT 7.5 at 24 at lip -Current vent settings: AC, rate 30, TV 400, FiO2 100%, PEEP of 14 -Serial CXR and ABGs -VAP bundle -Wean mechanical ventilation as tolerated -CCM consulted, appreciate recommendations -Nicotine patch GI: Malnutrition, adult failure to thrive, tube feedings -Accu-Cheks every 6 -PPI -Nutrition consulted, appreciate recommendations -Dulcolax suppository x1 -BR: Senokot -ST consulted and recommended n.p.o. with alternative mode of nutrition -trickle feeding for now : Hyperchloremia, Hypernatremia, hyperkalemia (resolved) mild hydronephrosis -villarreal placed for accurate I&Os -24-hour deficit 1180 -CT abdomen shows moderate right hydronephrosis, no renal or ureteral calculi seen, atherosclerotic disease -Renal ultrasound shows small amount of fluid between the liver and the right kidney, mild right hydronephrosis -Trend BMP -D5W@75ml/hr, FWF 200q4 -FW deficit 3.25 L Heme: Thrombocytopenia -Presented with platelet count of 146, now trending down -Anticoagulation with Eliquis for A. fib -SCDs to bilateral LE while in bed -Trend CBC ID: Severe sepsis, COVID-19 pneumonia, UTI, sinusitis, stage II per RN, Leukocytosis -COVID-19 PCR positive on 09/08 -Infectious disease consulted, appreciate recommendations -Ceftriaxone 09/08 through 09/12 -Remdesivir 09/09 through 09/13 -Dexamethasone 09/08 through 09/19 -Isolation/droplet precautions -Vitamin C, zinc -Zithromax and 09/08 through 09/12, Rocephin 09/08 through 09/11 -ID started empiric cefepime, vancomycin added, renally dosed on 09/15 -Trend COVID-19 inflammatory markers -Prone as tolerated -UA showed UTI -09/08 BCx2 NGTD -WOCN consult Endo: Hyperglycemia -SSI, Accu-Cheks every 6 -Avoid hypoglycemia Disposition: ICU DNR FAMILY MEETING SCHEDULED FOR 09/16 2 pm Prognosis remains guarded The high probability of a clinically significant, sudden or life threatening deterioration of the [pulmonary, cardiac] system(s) required my full and direct attention, intervention and personal management. The aggregate critical care time was [60] minutes. 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 Patient's reported a prolonged period of time was spent with her grandson over the past 2 weeks who had tested positive for COVID-19 on 09/08. Upon arrival to the emergency department patient was found to be febrile, tachycardic and hypoxic on room air and upon assessment patient was seen weak on a stretcher, able to track and spontaneously move extremities but unable to answer simple yes/no questions. CT abdomen/pelvis showed right hydronephrosis. Patient was admitted to the hospitalist service with consults to ID. Patient subsequently required transfer to ICU and CCM was consulted and developed A. fib with RVR and cardiology was consulted. 09/10: ID input is appreciated of also discussed with family of the patient and informed him of the diagnosis and the need to have other people at home tested. Patient is on 3 L of oxygen will continue to monitor. Patient will need PT OT evaluation considering recurrent falls. May actually need rehab based on the condition he appears. Dietitian consultation. Considering his age he is with a guarded prognosis at this time. Azithromycin has been discontinued for the antibiotics management per ID at this time. We will continue remdesivir and steroid therapy. And intermittent pulse ox monitoring. We will continue to encourage prone positioning. We will also obtain pulmonary evaluation 09/11: Afib with RVR, Cardiology consulted, will start on Eliquis. Echo Reviewed. Pulmonary consulted due to worsening hypoxia. Prone positioning if able. Will give a dose of lasix today. Monitor Renal function. Disucssed and updated spouse. She is still insistent of home management when he is better,and also tells me he was not on any medication of physician care prior to hospitalization. Poor prognosis considering her tobacco use disorder and overall medical condition including severe protein calorie malnutrition 09/12: Patient unfortunately is declining medically. Now with A. fib with RVR and was hypotensive yesterday right central line placed and internal jugular pressure extremely good satisfactory position. Also NG tube in place will obtain dietary consultation for tube feeds. Patient currently off pressors on my understanding was that the amiodarone drip was off for some time due to mechanical issues which has since been fixed and the drip is back on running heart rate was still in the 130s this morning he remains very lethargic discussed with the nurse to continue to monitor closely. I have also called the family (Spouse) and updated them on the condition and the patient being in the ICU. Continue aggressive Blood sugar control 09/13: Blood pressure shown some improvement. Patient currently on amiodarone and Cardizem. Heart rate appears better controlled with the addition of the Cardizem may need to adjust as mild bradycardia is also noted in regards today a flutter/A. fib. Electrolytes reviewed and stable. Still with some hypoxia. Very high risk for aspiration and as a result tube feeds has been held. Continue monitoring discussed with nursing staff at bedside Patient is on Mucomyst nebs for secretion. Still with intermittent BiPAP 09/14: Patient went sinus pericardiac and had a PEA arrest with ACLS x1 being administered. Patient was intubated and ROSC was achieved. Patient received a femoral A-line today. He was started on pressors due to hypotension. In the morning patient was on high flow nasal cannula at 100%. 09/15: s/p cardiac arrest (see code sheet for details), remains on vasopressin and levophed, increase in FWF d/t increasing Na, trend BMP. Abx added per ID. Hospitalist Physical - Constitutional Vitals: Temp Pulse Resp BP Pulse Ox 99.5 F 56 L 30 H 108/60 83 L 09/15/20 08:59 09/15/20 09:15 09/15/20 09:15 09/15/20 09:15 09/15/20 09:15 General appearance: Present: no acute distress, cachectic - EENT Eyes: Present: PERRL - Neck Neck: Present: normal ROM - Respiratory Respiratory effort: normal Respiratory: bilateral: diminished - Cardiovascular Rhythm: regular - Extremities Extremity abnormal: cold Peripheral Pulses: within normal limits - Abdominal General gastrointestinal: soft, non-tender, non-distended, normal bowel sounds - Integumentary Integumentary: Present: dry - Psychiatric Psychiatric: other (sedated) - Neurologic Neurologic: other (sedated) - Allied Health Allied health notes reviewed: nursing, RT, social work HEART Score - HEART Score Troponin: Troponin T 0.020 ng/mL (0.00-0.029) 09/09/20 04:25 Results - Labs CBC & Chem 7: 09/15/20 11:45 09/15/20 11:45 Labs: Laboratory Last Values WBC 20.3 K/mm3 (4.5-11.0) H 09/15/20 08:50 RBC 3.91 M/mm3 (3.65-5.03) 09/15/20 08:50 Hgb 12.3 gm/dl (11.8-15.2) 09/15/20 08:50 Hct 37.6 % (35.5-45.6) 09/15/20 08:50 MCV 96 fl (84-94) H 09/15/20 08:50 MCH 32 pg (28-32) 09/15/20 08:50 MCHC 33 % (32-34) 09/15/20 08:50 RDW 15.1 % (13.2-15.2) 09/15/20 08:50 Plt Count 116 K/mm3 (140-440) L 09/15/20 08:50 Lymph % (Auto) 6.2 % (13.4-35.0) L 09/10/20 08:42 [place] % (Auto) 7.6 % (0.0-7.3) H 09/10/20 08:42 Eos % (Auto) 0.0 % (0.0-4.3) 09/10/20 08:42 Baso % (Auto) 0.2 % (0.0-1.8) 09/10/20 08:42 Lymph # (Auto) 0.4 K/mm3 (1.2-5.4) L 09/10/20 08:42 [place] # (Auto) 0.5 K/mm3 (0.0-0.8) 09/10/20 08:42 Eos # (Auto) 0.0 K/mm3 (0.0-0.4) 09/10/20 08:42 Baso # (Auto) 0.0 K/mm3 (0.0-0.1) 09/10/20 08:42 Add Manual Diff Complete 09/08/20 20:34 Total Counted 100 09/08/20 20:34 Seg Neutrophils % 86.0 % (40.0-70.0) H 09/10/20 08:42 Seg Neuts % (Manual) 90.0 % (40.0-70.0) H 09/08/20 20:34 Lymphocytes % (Manual) 4.0 % (13.4-35.0) L 09/08/20 20:34 Monocytes % (Manual) 6.0 % (0.0-7.3) 09/08/20 20:34 Nucleated RBC % Not Reportable 09/08/20 20:34 Seg Neutrophils # 5.8 K/mm3 (1.8-7.7) 09/10/20 08:42 Seg Neutrophils # Man 5.9 K/mm3 (1.8-7.7) 09/08/20 20:34 Band Neutrophils # 0.0 K/mm3 09/08/20 20:34 Lymphocytes # (Manual) 0.3 K/mm3 (1.2-5.4) L 09/08/20 20:34 Abs React Lymphs (Man) 0.0 K/mm3 09/08/20 20:34 Monocytes # (Manual) 0.4 K/mm3 (0.0-0.8) 09/08/20 20:34 Eosinophils # (Manual) 0.0 K/mm3 (0.0-0.4) 09/08/20 20:34 Basophils # (Manual) 0.0 K/mm3 (0.0-0.1) 09/08/20 20:34 Metamyelocytes # 0.0 K/mm3 09/08/20 20:34 Myelocytes # 0.0 K/mm3 09/08/20 20:34 Promyelocytes # 0.0 K/mm3 09/08/20 20:34 Blast Cells # 0.0 K/mm3 09/08/20 20:34 WBC Morphology Not Reportable 09/08/20 20:34 Hypersegmented Neuts Not Reportable 09/08/20 20:34 Hyposegmented Neuts Not Reportable 09/08/20 20:34 Hypogranular Neuts Not Reportable 09/08/20 20:34 Smudge Cells Not Reportable 09/08/20 20:34 Toxic Granulation Not Reportable 09/08/20 20:34 Toxic Vacuolation Few 09/08/20 20:34 Dohle Bodies Not Reportable 09/08/20 20:34 Pelger-Huet Anomaly Not Reportable 09/08/20 20:34 Shweta Rods Not Reportable 09/08/20 20:34 Platelet Estimate Consistent w auto 09/08/20 20:34 Clumped Platelets Not Reportable 09/08/20 20:34 Plt Clumps, EDTA Not Reportable 09/08/20 20:34 Large Platelets Not Reportable 09/08/20 20:34 Giant Platelets Not Reportable 09/08/20 20:34 Platelet Satelliting Not Reportable 09/08/20 20:34 Plt Morphology Comment Not Reportable 09/08/20 20:34 RBC Morphology Normal 09/08/20 20:34 Dimorphic RBCs Not Reportable 09/08/20 20:34 Polychromasia Not Reportable 09/08/20 20:34 Hypochromasia Not Reportable 09/08/20 20:34 Poikilocytosis Not Reportable 09/08/20 20:34 Anisocytosis Not Reportable 09/08/20 20:34 Microcytosis Not Reportable 09/08/20 20:34 Macrocytosis Not Reportable 09/08/20 20:34 Spherocytes Not Reportable 09/08/20 20:34 Pappenheimer Bodies Not Reportable 09/08/20 20:34 Sickle Cells Not Reportable 09/08/20 20:34 Target Cells Not Reportable 09/08/20 20:34 Tear Drop Cells Not Reportable 09/08/20 20:34 Ovalocytes Not Reportable 09/08/20 20:34 Helmet Cells Not Reportable 09/08/20 20:34 [place] Bodies Not Reportable 09/08/20 20:34 [place] Rings Not Reportable 09/08/20 20:34 Milena Cells Not Reportable 09/08/20 20:34 Bite Cells Not Reportable 09/08/20 20:34 Crenated Cell Not Reportable 09/08/20 20:34 Elliptocytes Not Reportable 09/08/20 20:34 Acanthocytes (Spur) Not Reportable 09/08/20 20:34 Rouleaux Not Reportable 09/08/20 20:34 Hemoglobin C Crystals Not Reportable 09/08/20 20:34 Schistocytes Not Reportable 09/08/20 20:34 Malaria parasites Not Reportable 09/08/20 20:34 Viraj Bodies Not Reportable 09/08/20 20:34 Hem Pathologist Commnt No 09/08/20 20:34 PT 15.5 Sec. (12.2-14.9) H 09/11/20 11:07 INR 1.17 (0.87-1.13) H 09/11/20 11:07 APTT 39.2 Sec. (24.2-36.6) H 09/11/20 11:07 D-Dimer 430.94 ng/mlDDU (0-234) H 09/14/20 10:45 ABG pH 7.305 (7.320-7.450) L 09/15/20 04:00 POC ABG pCO2 43.0 mmHg (32.0-48.0) 09/15/20 04:00 POC ABG pO2 63.0 mmHg (83-108) L 09/15/20 04:00 POC ABG HCO3 20.9 09/15/20 04:00 ABG O2 Saturation 89.1 (0-100) 09/15/20 04:00 POC ABG Base Excess -5.2 09/15/20 04:00 ABG Hemoglobin 12.4 (12.0-17.5) 09/15/20 04:00 ABG Oxyhemoglobin 88.8 (94-98) L 09/15/20 04:00 ABG Methemoglobin 0.3 (0.0-1.5) 09/15/20 04:00 ABG Sodium 147.5 mmol/L (136.0-145.0) H 09/15/20 04:00 ABG Potassium 4.6 mmol/L (3.40-4.50) H 09/15/20 04:00 ABG Chloride 117.0 mmol/L (98-107) H 09/15/20 04:00 ABG Glucose 194 mg/dL (65-95) H 09/15/20 04:00 Carboxyhemoglobin 0 (0.5-1.5) L 09/15/20 04:00 FiO2 % 100.0 09/15/20 04:00 Sodium 150 mmol/L (137-145) H 09/15/20 08:50 Potassium 5.1 mmol/L (3.6-5.0) H D 09/15/20 08:50 Chloride 116.5 mmol/L (98-107) H 09/15/20 08:50 Carbon Dioxide 22 mmol/L (22-30) 09/15/20 08:50 Anion Gap 17 mmol/L 09/15/20 08:50 BUN 53 mg/dL (9-20) H 09/15/20 08:50 Creatinine 1.2 mg/dL (0.8-1.3) D 09/15/20 08:50 Estimated GFR > 60 ml/min 09/15/20 08:50 BUN/Creatinine Ratio 44 % 09/15/20 08:50 Glucose 211 mg/dL (75-100) H 09/15/20 08:50 POC Glucose 174 mg/dL (70-105) H 09/15/20 10:10 Lactic Acid 1.80 mmol/L (0.7-2.0) 09/12/20 06:40 Calcium 7.7 mg/dL (8.4-10.2) L 09/15/20 08:50 Phosphorus 4.10 mg/dL (2.5-4.5) 09/11/20 11:07 Magnesium 2.10 mg/dL (1.7-2.3) 09/12/20 Unknown Ferritin 2709.0 ng/mL (30.0-300.0) H 09/14/20 10:45 Total Bilirubin 0.70 mg/dL (0.1-1.2) 09/15/20 08:50 AST 82 units/L (5-40) H 09/15/20 08:50 ALT 49 units/L (7-56) 09/15/20 08:50 Alkaline Phosphatase 101 units/L (35-129) 09/15/20 08:50 Lactate Dehydrogenase 658 units/L (91-180) H 09/14/20 10:45 Total Creatine Kinase 1113 units/L (55-170) H 09/10/20 08:42 Troponin T 0.020 ng/mL (0.00-0.029) 09/09/20 04:25 C-Reactive Protein 15.80 mg/dL (0.00-1.30) H 09/14/20 10:45 NT-Pro-B Natriuret Pep 4471 pg/mL (0-900) H 09/08/20 20:34 Total Protein 4.9 g/dL (6.3-8.2) L 09/15/20 08:50 Albumin 2.2 g/dL (3.9-5) L 09/15/20 08:50 Albumin/Globulin Ratio 0.8 % 09/15/20 08:50 Procalcitonin 0.44 ng/mL (<0.15) 09/12/20 Unknown TSH 0.581 mlU/mL (0.270-4.200) 09/08/20 20:34 Free T4 1.37 ng/dL (0.76-1.46) 09/08/20 20:34 Arterial Blood Glucose 194 mg/dL (65-95) H 09/15/20 04:00 Arterial Blood Ionized Calcium 4.4 mg/dL (4.6-5.3) L 09/14/20 21:00 Urine Color Yellow (Yellow) 09/08/20 Unknown Urine Turbidity Hazy (Clear) 09/08/20 Unknown Urine pH 5.0 (5.0-7.0) 09/08/20 Unknown Ur Specific [place] 1.015 (1.003-1.030) 09/08/20 Unknown Urine Protein 30 mg/dl mg/dL (Negative) 09/08/20 Unknown Urine Glucose (UA) 50 mg/dL (Negative) 09/08/20 Unknown Urine Ketones Neg mg/dL (Negative) 09/08/20 Unknown Urine Blood Mod (Negative) 09/08/20 Unknown Urine Nitrite Pos (Negative) 09/08/20 Unknown Urine Bilirubin Neg (Negative) 09/08/20 Unknown Urine Urobilinogen < 2.0 mg/dL (<2.0) 09/08/20 Unknown Ur Leukocyte Esterase Neg (Negative) 09/08/20 Unknown Urine WBC (Auto) 7.0 /HPF (0.0-6.0) H 09/08/20 Unknown Urine RBC (Auto) 3.0 /HPF (0.0-6.0) 09/08/20 Unknown Urine Bacteria (Auto) 4+ /HPF (Negative) 09/08/20 Unknown Hyaline Casts 1 /LPF 09/08/20 Unknown Urine Mucus Few /HPF 09/08/20 Unknown Coronavirus (PCR) Positive (Negative) A 09/08/20 Unknown Villarreal/IV: Voiding Method Condom Catheter Active Medications - Current Medications Current Medications: Generic Name Dose Route Start Last Admin Trade Name Freq PRN Reason Stop Dose Admin Acetaminophen 650 mg 09/09/20 02:56 Acetaminophen 325 Mg Tab PO Q4H PRN Pain MILD(1-3)/Fever >100.5/SALAMANCA Acetylcysteine 200 mg 09/12/20 20:00 09/15/20 08:25 Acetylcysteine 20% 200 Mg/1 Ml *For Inhalation Use* INHALATION 09/17/20 19:59 Not Given TIDRT TEJAS Albuterol 2.5 mg 09/12/20 20:00 09/15/20 08:25 Albuterol 2.5 Mg/3 Ml Nebu IH Not Given TIDRT TEJAS Lipase/Protease/Amylase 1 each 09/12/20 09:57 Lipase 10,500/Protease 25,000/Amylase 43,750 (Units) Dr Rowe FEEDTUBE PRN PRN For Clogged Feeding Tube Apixaban 2.5 mg 09/11/20 22:00 09/15/20 09:57 Apixaban 2.5 Mg Tab PO 2.5 mg Q12HR TEJAS Administration Ascorbic Acid 500 mg 09/11/20 22:00 09/15/20 09:57 Ascorbic Acid 500 Mg Tab PO 500 mg BID TEJAS Administration Dexamethasone 6 mg 09/09/20 18:00 09/15/20 09:57 Dexamethasone 4 Mg/Ml Vial IV 09/19/20 17:59 6 mg Q24HR TEJAS Administration Dextrose 50 ml 09/14/20 12:17 Dextrose 50% In Water (25gm) 50 Ml Syringe IV Q30MIN PRN Hypoglycemia Protocol Docusate Sodium 100 mg 09/15/20 10:00 09/15/20 09:57 Docusate Sodium 100 Mg/10 Ml Oral Liqd FEEDTUBE 100 mg BID TEJAS Administration Famotidine 10 mg 09/14/20 22:00 09/15/20 09:57 Famotidine 20 Mg/2 Ml Inj IV 10 mg BID TEJAS Administration Fentanyl 50 mcg 09/14/20 13:58 09/14/20 15:10 Fentanyl 100 Mcg/2 Ml Inj IV 50 mcg Q10MIN PRN Administration ANALGESIA Hydrophilic Ointment 1 applic 09/14/20 15:02 Lip Therapy Vaseline TP Q2H PRN Dry Lips Dextrose/Sodium Chloride 1,000 mls @ 42 mls/hr 09/10/20 20:00 09/14/20 20:23 D5ns IV 42 mls/hr DIRECT TEJAS Administration Norepinephrine 4 mg in 250 mls @ 7.5 mls/hr 09/11/20 20:00 09/15/20 09:54 Levophed Drip 4 Mg/Ns 250 Ml IV 12 mcg/min TITR TEJAS 45 mls/hr Administration Protocol 2 MCG/MIN Vasopressin 20 unit/ Sodium 101 mls @ 9.09 mls/hr 09/14/20 14:00 09/15/20 07:40 Chloride IV 0.03 units/min TITR TEJAS 9.09 mls/hr Administration Protocol 0.03 UNITS/MIN Fentanyl Citrate 2,000 mcg in 100 mls @ 2.2 mls/hr 09/14/20 14:00 09/14/20 17:47 Fentanyl Drip Premix IV 2 mcg/kg/hr TITR TEJAS 4.4 mls/hr Titration Protocol 1 MCG/KG/HR Insulin Human Lispro 0 unit 09/14/20 18:00 09/15/20 05:32 Insulin Lispro 100 Unit/Ml SUB-Q Not Given Q6HR TEJAS Protocol Multi-Ingred Cream/Lotion/Oil/Oint 1 applic 09/14/20 13:15 Mineral Oil/Petrolatum, White Ophth Oint 3.5 Gm OU Q4HR PRN Dry Eye(s) Naloxone HCl 0.1 mg 09/09/20 02:56 Naloxone 0.4 Mg/1 Ml Inj IV Q2MIN PRN Res Rate </= 8 or 02 SAT < 92% Ondansetron HCl 4 mg 09/09/20 02:56 Ondansetron 4 Mg/2 Ml Inj IV Q6H PRN Nausea And Vomiting Oxycodone/Acetaminophen 1 tab 09/09/20 02:56 09/13/20 03:27 Oxycodone /Acetaminophen 5-325mg Tab PO 1 tab Q6H PRN Administration Pain, Moderate (4-6) Senna/Docusate Sodium 1 tab 09/14/20 22:00 09/15/20 09:57 Sennosides/Docusate Sodium 8.6/50 Mg Tab FEEDTUBE 1 tab BID TEJAS Administration Simple Syrup 15 ml 09/12/20 09:57 Simple Syrup 15 Ml FEEDTUBE PRN PRN Hypoglycemia Simple Syrup 30 ml 09/12/20 09:57 Simple Syrup 15 Ml FEEDTUBE PRN PRN Hypoglycemia Sodium Bicarbonate 325 mg 09/12/20 09:57 Sodium Bicarbonate 325 Mg Tab FEEDTUBE PRN PRN For Clogged Feeding Tube Sodium Chloride 10 ml 09/09/20 10:00 09/15/20 09:58 Sodium Chloride 0.9% 10 Ml Flush Syringe IV 10 ml BID TEJAS Administration Sodium Chloride 10 ml 09/09/20 02:56 Sodium Chloride 0.9% 10 Ml Flush Syringe IV PRN PRN LINE FLUSH Zinc Sulfate 220 mg 09/09/20 10:00 09/15/20 09:57 Zinc Sulfate 220 Mg Cap PO 220 mg BID TEJAS Administration Nutrition/Malnutrition Assess - Dietary Evaluation Nutrition/Malnutrition Findings: Nutrition Notes Start: 09/09/20 08:51 Freq: Status: Active Protocol: Document 09/15/20 09:24 CW (Rec: 09/15/20 09:38 CW [id number]) Nutrition Notes Need for Assessment generated from: MD Order Initial or Follow up Reassessment Current Diagnosis Sepsis Other Pertinent Diagnosis Cardiac Arrest, FTT,Pneu, COVID-19, acute metabolic encephalopathy Current Diet Cardiac/Consistent CHO Labs/Tests 09/14/2020 BUN 42 BG 169 Pertinent Medications Levophed,Vasopressin Humalog Decadron Senakot, Colace, Ducolax () Propofol (09/14/2020) NS 1L Height 5 ft 5 in Weight 50.2 kg Meno Body Weight (kg) 61.81 BMI 18.3 Weight change and time frame weight change noted; likely r/ t to fluids and equipment Weight Status Underweight Subjective/Other Information MD consult for evaluate nut risk. Pt is currently receiving TF regimen. Pt has already been screened for malnutrition by RD team. TF being held at this time d/t " hypoactive bowel sounds". Pt has not had a BM since 09/10. Pt undergoing bowel tx regimen . Pt s/p cardiac arrest at 1300 on 09/14 Burn Absent Trauma Absent GI Symptoms Other Difficulty In Swallowing Skin Integrity/Comment Pressure ulcers present Current % PO Negligible Minimum of two criteria Yes Body Fat Depletion Moderate depletion (severe) Muscle Mass Moderate Depletion (severe) Reduced Renal Dietitian Strength Measurably Reduced (severe) Protein-Calorie Malnutrition Severe #2 Nutrition Diagnosis Increased nutrient needs ( specify in comment below) Diagnosis Progress(for reassessment Continues documentation) #1 Nutrition Diagnosis Malnutrition Diagnosis Progress(for reassessment Continues documentation) Is patient on ventilator? No Is Patient Ambulatory and/or Out of Bed No REE-([facility]-confined to bed) 1367.820 Kcal/Kg value to use for calculation 40 Approximate Energy Requirements Using 2008 kcal/Kg Calculation Used for Recommendations Kcal/kg Additional Notes Pro needs 1.2-2g/k-89g/ day (44.5kg) Fluid needs 1500ml/day Nutrition Intervention Change Diet Order: Restart TF regimen when medically feasible Nutrition Support: Osmolite 1.5 at 50 ml/hr. Flush 150 ml q4h Kcal 1,800 Protein (gm) 75 Fluid (mL) 914 Add Supplement/Snack (indicate name/kcal d/c /protein ) Goal #1 Meet 80-100% energy and pro needs via TF Goal #2 Wt maintenance and/or gain Goal #3 TF restart Anticipated Discharge Needs: Unable to detemine at this time Follow-Up By: 09/17/20 Additional Comments F/U for TF restart/tolerance; BM
--- NOTE | 2020-09-15 10:28 | Electrocardiograph Report ---
[facility] Test Date: 2020-09-14 Test Time: 13:34:53 Pat Name: LUIS CAO Department: Room: A256 1 Gender: M Clip Coater: RENEE : 1940 Requested By: WOO BATISTA Order Number: [id number] Reading MD: Ryan Johnson Measurements Intervals [place] Rate: 95 P: 85 AR: 181 QRS: -86 QRSD: 162 T: 240 QT: 409 QTc: 514 Interpretive Statements Sinus rhythm Probable left atrial enlargement Right bundle branch block Inferior infarct, age indeterminate Compared to ECG 09/13/2020 09:02:15 Myocardial infarct finding now present T-wave abnormality no longer present Possible ischemia no longer present Electronically Signed On 09-15-2020 10:28:23 EDT by Ryan Johnson
--- NOTE | 2020-09-15 10:35 | Event Note ---
Date: 09/15/20 family updated on cardiac arrest Courtney Louise [phone] and daughter Vicky [phone] At this time they know ROSC has been regained but they know this is likely to recur - they want full code at this time. But they will discuss and let us know if they change their mind.
--- NOTE | 2020-09-15 11:42 | Progress Note ---
Assessment and Plan Continue anticoagulation with Eliquis 2.5mg BID. Recommend PRN correction of electrolytes. Wean pressors and vent as tolerated. Prognosis remains guarded. Will follow. Pt seen in conjunction with Dr. Johnson, who agrees with the assessment and plan of care. - Patient Problems (1) Acute metabolic encephalopathy Current Visit: Yes Status: Acute (2) Cardiac arrest Current Visit: Yes Status: Acute (3) Acute respiratory failure Current Visit: Yes Status: Acute (4) Sepsis Current Visit: Yes Status: Acute (5) Pneumonia due to COVID-19 virus Current Visit: Yes Status: Acute (6) UTI (urinary tract infection) Current Visit: Yes Status: Acute (7) Rhabdomyolysis Current Visit: Yes Status: Acute (8) Thrombocytopenia Current Visit: Yes Status: Acute (9) Atrial flutter Current Visit: Yes Status: Acute (10) LV dysfunction Current Visit: Yes Status: Acute (11) Tobacco abuse Current Visit: Yes Status: Chronic (12) Failure to thrive Current Visit: Yes Status: Chronic Subjective Date of service: 09/15/20 Principal diagnosis: COVID-19 PNA Interval history: Pt required intubation yesterday. Following intubation at approximately 1335, pt went into PEA arrest, with ROSC achieved after 1 round of ACLS. Tele reviewed this AM - SR 50-60s w/PVCs, no events overnight. Upon assessment this AM, a second PEA arrest occurred. Approximately 9min of ACLS protocol completed prior to ROSC per documentation. SpO2 noted to be dropping prior to cardiac arrest, though upper extremity where O2 probe was placed noted to be cold. Now requiring Levo and Vaso gtts. Objective Last Vital Signs Temp 99.5 F 09/15/20 08:59 Pulse 64 09/15/20 11:15 Resp 30 H 09/15/20 11:15 BP 104/53 09/15/20 11:15 Pulse Ox 82 L 09/15/20 11:15 - Physical Examination General: Cachectic, Other (intubated) HEENT: Positive: Normocephaly Neck: Negative: JVD/HJR Cardiac: Positive: Reg Rate and Rhythm, S1/S2 Lungs: Positive: Ventilated Respirations Neuro: Positive: Other (intubated) Abdomen: Positive: Soft Skin: Negative: Rash Musculoskeletal: No Fluid Collection Extremities: Present: lower extr. pulses. Absent: edema - Labs and Meds Cardiac Enzymes 09/15/20 Range/Units 08:50 AST 82 H (5-40) units/L CBC 09/15/20 Range/Units 08:50 WBC 20.3 H (4.5-11.0) K/mm3 RBC 3.91 (3.65-5.03) M/mm3 Hgb 12.3 (11.8-15.2) gm/dl Hct 37.6 (35.5-45.6) % Plt Count 116 L (140-440) K/mm3 Comprehensive Metabolic Panel 09/15/20 Range/Units 08:50 Sodium 150 H (137-145) mmol/L Potassium 5.1 H D (3.6-5.0) mmol/L Chloride 116.5 H (98-107) mmol/L Carbon Dioxide 22 (22-30) mmol/L BUN 53 H (9-20) mg/dL Creatinine 1.2 D (0.8-1.3) mg/dL Glucose 211 H (75-100) mg/dL Calcium 7.7 L (8.4-10.2) mg/dL AST 82 H (5-40) units/L ALT 49 (7-56) units/L Alkaline Phosphatase 101 (35-129) units/L Total Protein 4.9 L (6.3-8.2) g/dL Albumin 2.2 L (3.9-5) g/dL - Imaging and Cardiology EKG: report reviewed, image reviewed Echo: report reviewed (09/09/2020 - EF 40-45%, mild diastolic dysfxn, mild-mod AR, mild MR, mild-mod IA) - Telemetry EKG Rhythm: Sinus Bradycardia - EKG Sinus rhythms and dysrhythmias: sinus rhythm AV and intraventricular conduction: right bundle branch block Myocardial infarction: inferior [place] (old age inde - Allied health notes Allied health notes reviewed: nursing
[2020-09-15] MEDS ORDERED: SODIUM CHLORIDE 0.9% 500 ML 500 ML ONE (12:00)
[2020-09-15 12:18] LABS: Hematocrit 35.5 % (35.5-45.6); Hemoglobin 11.6 gm/dl (11.8-15.2); Mean Corpuscular HGB Conc 33 % (32-34); Mean Corpuscular Volume 97 fl (84-94); Platelet Count 113 K/mm3 (140-440); Red Blood Count 3.67 M/mm3 (3.65-5.03); Red Cell Distribution Width 15.7 % (13.2-15.2)
[2020-09-15 12:21] LABS: Calcium 7.1 mg/dL (8.4-10.2)
[2020-09-15] MEDS ORDERED: SODIUM CHLORIDE 0.9% 500 ML 500 ML IV PRN (12:21)
[2020-09-15] MEDS: DEXTROSE 5% IN WATER 1,000 ML IV SCH (12:23)
[2020-09-15] MEDS ORDERED: VANCOMYCIN 750 MG in SODIUM CHLORIDE 0.9% 500 ML 500 ML IV ONE (12:29)
--- NOTE | 2020-09-15 12:29 | Progress Note ---
Assessment and Plan Cultures: SARS-CoV-2 PCR positive Blood cultures no growth Assessment: 79-year-old male with smoking abuse, hard of hearing, admitted on 09/08/2020 secondary to a week history of generalized malaise, cough and subjective fever: #Shock, status post cardiopulmonary arrest on 09/15/2020 #Severe sepsis: likely due to bilateral pneumonia +/-UTI. #Severe COVID pneumonia: Chest CT with bibasilar airspace disease. Inflammatory markers elevated CRP 5.4, ferritin 628, D-dimer 405. Patient is not vaccinated. #Mild UTI with mild right hydronephrosis noted on renal US: Urinalysis with mild pyuria. S/P ceftriaxone. #Acute hypoxemic respiratory failure: secondary to COVID-19 infection. On the vent now #Elevated LFTs: from COVID #Thrombocytopenia: Mild likely secondary to COVID-19 #Sinusitis on CT #A flutter/RVR #Encephalopathy: Noted global brain atrophy and extensive confluent white matter on MRI. Recs: -Empiric cefepime, vancomycin added, renally dosed -Prognosis is extremely poor, unlikely to benefit from Tocilizumab at this point given high likelihood of impending -Continue steroids -Completed Remdesivir x 5 days -Monitor inflammatory markers - Ddimer, CRP every 2-3 days -on Eliquis for A.fib Francisco Hazel MD, FACP [facility] ([facility] O: [phone] F: [phone] Subjective Date of service: 09/15/20 Principal diagnosis: COVID-19 PNA Interval history: Afebrile. Was intubated yesterday, since then, coded multiple times per discussion with RN. Remains on the vent, on pressors. Objective - Exam Narrative Exam: Physical Exam: Constitutional: sedated, intubated, on the vent Head, Ears, Nose: Normocephalic, atraumatic. External ears, nose normal Eyes: Conjunctivae/corneas clear. No icterus. No ptosis. Neck: intubated Oral: intubated Cardiovascular: S1, S2 + Respiratory: AE fair bilaterally GI: Soft, bowel sounds hypo Musculoskeletal: No pedal edema, no cyanosis. Skin: No rash or abscess Hem/Lymphatic: No palpable cervical or supraclavicular nodes. No lymphangitis Psych: no agitation Neurological: sedated, intubated, on the vent, exam limited - Constitutional Vitals: Vital Signs Temp Pulse Resp BP Pulse Ox 99.5 F 64 30 H 104/53 82 L 09/15/20 08:59 09/15/20 11:15 09/15/20 11:15 09/15/20 11:15 09/15/20 11:15 Temperature -Last 24 Hours Temperature 99.5 F Temperature 99.4 F Temperature 99 F Temperature 99.4 F Temperature 98.1 F - Labs CBC & Chem 7: 09/15/20 11:45 09/15/20 11:45 Labs: Abnormal lab results 09/14/20 09/14/20 09/14/20 Range/Units 12:42 13:32 17:54 WBC (4.5-11.0) K/mm3 Hgb (11.8-15.2) gm/dl MCV (84-94) fl RDW (13.2-15.2) % Plt Count (140-440) K/mm3 ABG pH 7.275 L 7.129 L (7.320-7.450) POC ABG pCO2 52.3 H 62.6 H (32.0-48.0) mmHg POC ABG pO2 52.4 L 60.7 L (83-108) mmHg ABG Oxyhemoglobin 78.6 L 80.0 L (94-98) ABG Sodium (136.0-145.0) mmol/L ABG Potassium 5.1 H (3.40-4.50) mmol/L ABG Chloride 113.0 H 115.0 H (98-107) mmol/L ABG Glucose 179 H 402 H (65-95) mg/dL Carboxyhemoglobin 0.2 L (0.5-1.5) Sodium (137-145) mmol/L Potassium (3.6-5.0) mmol/L Chloride (98-107) mmol/L Carbon Dioxide (22-30) mmol/L BUN (9-20) mg/dL Creatinine (0.8-1.3) mg/dL Glucose (75-100) mg/dL POC Glucose 193 H (70-105) mg/dL Calcium (8.4-10.2) mg/dL AST (5-40) units/L Total Protein (6.3-8.2) g/dL Albumin (3.9-5) g/dL Arterial Blood Glucose 179 H 402 H (65-95) mg/dL Arterial Blood Ionized Calcium (4.6-5.3) mg/dL 09/14/20 09/14/20 09/15/20 Range/Units 21:00 23:58 04:00 WBC (4.5-11.0) K/mm3 Hgb (11.8-15.2) gm/dl MCV (84-94) fl RDW (13.2-15.2) % Plt Count (140-440) K/mm3 ABG pH 7.305 L (7.320-7.450) POC ABG pCO2 (32.0-48.0) mmHg POC ABG pO2 56.4 L 63.0 L (83-108) mmHg ABG Oxyhemoglobin 85.1 L 88.8 L (94-98) ABG Sodium 146.9 H 147.5 H (136.0-145.0) mmol/L ABG Potassium 4.6 H (3.40-4.50) mmol/L ABG Chloride 116.0 H 117.0 H (98-107) mmol/L ABG Glucose 162 H 194 H (65-95) mg/dL Carboxyhemoglobin 0 L (0.5-1.5) Sodium (137-145) mmol/L Potassium (3.6-5.0) mmol/L Chloride (98-107) mmol/L Carbon Dioxide (22-30) mmol/L BUN (9-20) mg/dL Creatinine (0.8-1.3) mg/dL Glucose (75-100) mg/dL POC Glucose 144 H (70-105) mg/dL Calcium (8.4-10.2) mg/dL AST (5-40) units/L Total Protein (6.3-8.2) g/dL Albumin (3.9-5) g/dL Arterial Blood Glucose 162 H 194 H (65-95) mg/dL Arterial Blood Ionized Calcium 4.4 L (4.6-5.3) mg/dL 09/15/20 09/15/20 09/15/20 Range/Units 05:12 08:50 08:50 WBC 20.3 H (4.5-11.0) K/mm3 Hgb (11.8-15.2) gm/dl MCV 96 H (84-94) fl RDW (13.2-15.2) % Plt Count 116 L (140-440) K/mm3 ABG pH (7.320-7.450) POC ABG pCO2 (32.0-48.0) mmHg POC ABG pO2 (83-108) mmHg ABG Oxyhemoglobin (94-98) ABG Sodium (136.0-145.0) mmol/L ABG Potassium (3.40-4.50) mmol/L ABG Chloride (98-107) mmol/L ABG Glucose (65-95) mg/dL Carboxyhemoglobin (0.5-1.5) Sodium 150 H (137-145) mmol/L Potassium 5.1 H D (3.6-5.0) mmol/L Chloride 116.5 H (98-107) mmol/L Carbon Dioxide (22-30) mmol/L BUN 53 H (9-20) mg/dL Creatinine (0.8-1.3) mg/dL Glucose 211 H (75-100) mg/dL POC Glucose 150 H (70-105) mg/dL Calcium 7.7 L (8.4-10.2) mg/dL AST 82 H (5-40) units/L Total Protein 4.9 L (6.3-8.2) g/dL Albumin 2.2 L (3.9-5) g/dL Arterial Blood Glucose (65-95) mg/dL Arterial Blood Ionized Calcium (4.6-5.3) mg/dL 09/15/20 09/15/20 09/15/20 Range/Units 10:10 11:45 11:45 WBC 21.1 H (4.5-11.0) K/mm3 Hgb 11.6 L (11.8-15.2) gm/dl MCV 97 H (84-94) fl RDW 15.7 H (13.2-15.2) % Plt Count 113 L (140-440) K/mm3 ABG pH (7.320-7.450) POC ABG pCO2 (32.0-48.0) mmHg POC ABG pO2 (83-108) mmHg ABG Oxyhemoglobin (94-98) ABG Sodium (136.0-145.0) mmol/L ABG Potassium (3.40-4.50) mmol/L ABG Chloride (98-107) mmol/L ABG Glucose (65-95) mg/dL Carboxyhemoglobin (0.5-1.5) Sodium 153 H (137-145) mmol/L Potassium (3.6-5.0) mmol/L Chloride 117.3 H (98-107) mmol/L Carbon Dioxide 20 L (22-30) mmol/L BUN 57 H (9-20) mg/dL Creatinine 1.5 H (0.8-1.3) mg/dL Glucose 229 H (75-100) mg/dL POC Glucose 174 H (70-105) mg/dL Calcium 7.1 L (8.4-10.2) mg/dL AST (5-40) units/L Total Protein (6.3-8.2) g/dL Albumin (3.9-5) g/dL Arterial Blood Glucose (65-95) mg/dL Arterial Blood Ionized Calcium (4.6-5.3) mg/dL 09/15/20 Range/Units 11:48 WBC (4.5-11.0) K/mm3 Hgb (11.8-15.2) gm/dl MCV (84-94) fl RDW (13.2-15.2) % Plt Count (140-440) K/mm3 ABG pH (7.320-7.450) POC ABG pCO2 (32.0-48.0) mmHg POC ABG pO2 (83-108) mmHg ABG Oxyhemoglobin (94-98) ABG Sodium (136.0-145.0) mmol/L ABG Potassium (3.40-4.50) mmol/L ABG Chloride (98-107) mmol/L ABG Glucose (65-95) mg/dL Carboxyhemoglobin (0.5-1.5) Sodium (137-145) mmol/L Potassium (3.6-5.0) mmol/L Chloride (98-107) mmol/L Carbon Dioxide (22-30) mmol/L BUN (9-20) mg/dL Creatinine (0.8-1.3) mg/dL Glucose (75-100) mg/dL POC Glucose 186 H (70-105) mg/dL Calcium (8.4-10.2) mg/dL AST (5-40) units/L Total Protein (6.3-8.2) g/dL Albumin (3.9-5) g/dL Arterial Blood Glucose (65-95) mg/dL Arterial Blood Ionized Calcium (4.6-5.3) mg/dL - Imaging and cardiology Chest x-ray: report reviewed, image reviewed (airspace disease, ET tube +)
[2020-09-15] MEDS ORDERED: VANCOMYCIN/NS 1 GM/250 ML 1 GM/250 ML BAG IV ONE (13:00)
[2020-09-15] MEDS ORDERED: VANCOMYCIN PHARMACY TO DOSE IV SCH (13:00)
--- NOTE | 2020-09-15 14:22 | Progress Note ---
Assessment and Plan Acute hypoxemic respiratory failure COVID-19 virus infection Bilateral pneumonia Acute toxic metabolic encephalopathy Severe sepsis Urinary tract infection Tobacco use disorder Dehydration and a mild element of intravascular volume depletion Rhabdomyolysis Congestive heart failure with reduced ejection fraction Adult failure to thrive - free water 250 ml's q4h - trickle feeds @ 10 cc/hr - wean Levophed for target MAP > 65 mmHg - continue vasopressin for now @ 0.03 units/min - tentative family conference shortly - get wound care consult re: hip wound from home fall - trend CVP's (11 now) - continue care as below otherwise; - A-fib rate & rhythm control per cardiology - continue to wean supplemental oxygen for target O2 sat's > 92% acutely - continue Daily SAT and SBT assessment as tolerated - VAP bundle addressed - continue lung protective strategies - continue bronchodilators (YAMILKA & LABA) with pulmonary hygiene per RT - wean per pulmonary driven protocols otherwise - continue accuchecks with glycemic control per SSI (While critically ill target blood glucose of 140-180 mg/dL; avoid hypoglycemia) - sedation prn for target RASS 0 to -1 - avoid nephrotoxins, renally dose all medications - continue to avoid benzodiazepine's, reduce the possibility of delirium - complete antiinfective's per ID rec's - prn analgesia per CPOT score - Maintenance of sleep-wake cycle, avoid delirium - continue enteral nutritional support at goal rate as tolerated - G.I. & VTE prophylaxis - PT/OT/ROM exercises - continue mobility protocols for pressure ulcer prophylaxis - Monitor hemodynamics closely - continue other care per attending / other consultants - discharge planning ongoing concurrently COVID SPECIFIC INTERVENTIONS - Remdesivir as per ID/Pulmonary developed protocols - continue systemic steroids for severe COVID-19 infection empirically - follow repeat COVID tests results - zinc and vitamin C supplementation - Monitor inflammatory markers per facility protocol - ferritin, Ddimer, CRP - therapeutic anticoagulation per system Protocol based on d-dimer and clinical considerations (Full anticoagulation for A-fib) - Continue contact and airborne isolation .... Re-evaluate in am & prn CONDITION: CRITICAL PROGNOSIS: POOR CODE STATUS: FULL CODE The high probability of a clinically significant, sudden or life-threatening deterioration of the [respiratory, cardiovascular & neurologic] system(s) required my full and direct attention, intervention and personal management. The aggregate critical care time was [33] minutes without overlap. Time includes spent on; [x] Data Review and interpretation [x] Patient assessment and monitoring of vital signs [x] Documentation [x] Medication orders and management Subjective Date of service: 09/15/20 Principal diagnosis: Ac hypoxemic resp failure; COVID-19; PNA; AMS; Sepsis; UTI; A-fib; CHF Interval history: Patient is seen today for: Acute hypoxemic respiratory failure; COVID-19 infxn; Chay. pneumonia; Acute toxic metabolic encephalopathy; Severe sepsis; UTI; Rhabdomyolysis; HFrEF; A-fib with RVR Seen and examined at bedside; 24hour events reviewed; nursing and respiratory care staff consulted; no adverse overnight events reported to me; resting peacefully in bed; s/p cardiac arrest overnight and this morning; family wants continued aggressive care; no gross bleeding; no emesis or overt aspiration; no high grade fevers Objective Vital Signs - 12hr 09/15/20 09/15/20 09/15/20 02:30 03:01 03:24 Temperature 99.4 F Pulse Rate 72 62 Pulse Rate [ From Monitor] Respiratory 29 H Rate Blood Pressure 127/54 O2 Sat by Pulse 79 L 85 Oximetry 09/15/20 09/15/20 09/15/20 04:01 05:01 05:56 Temperature Pulse Rate 62 66 63 Pulse Rate [ From Monitor] Respiratory 30 H 23 Rate Blood Pressure 76/46 142/72 151/72 O2 Sat by Pulse 83 L 86 90 Oximetry 09/15/20 09/15/20 09/15/20 06:01 06:20 07:01 Temperature Pulse Rate 65 72 62 Pulse Rate [ From Monitor] Respiratory 30 H 30 H Rate Blood Pressure 137/55 135/57 O2 Sat by Pulse 89 87 Oximetry 09/15/20 09/15/20 09/15/20 07:31 07:45 08:00 Temperature Pulse Rate 64 61 62 Pulse Rate [ 63 From Monitor] Respiratory 29 H 30 H 30 H Rate Blood Pressure 119/74 127/69 124/67 O2 Sat by Pulse 86 86 86 Oximetry 09/15/20 09/15/20 09/15/20 08:06 08:15 08:30 Temperature Pulse Rate 66 60 59 L Pulse Rate [ From Monitor] Respiratory 30 H 30 H Rate Blood Pressure 152/74 126/58 121/42 O2 Sat by Pulse 94 84 83 L Oximetry 09/15/20 09/15/2021 08:45 08:59 09:00 Temperature 99.5 F Pulse Rate 59 L 56 L Pulse Rate [ From Monitor] Respiratory 30 H 30 H Rate Blood Pressure 105/35 100/45 O2 Sat by Pulse 84 83 L Oximetry 09/15/20 09/15/20 09/15/20 09:15 09:30 09:45 Temperature Pulse Rate 56 L 56 L 52 L Pulse Rate [ From Monitor] Respiratory 30 H 30 H 30 H Rate Blood Pressure 108/60 103/52 103/52 O2 Sat by Pulse 83 L 83 L 75 L Oximetry 09/15/20 09/15/20 09/15/20 10:01 10:15 10:30 Temperature Pulse Rate 36 L 103 H 84 Pulse Rate [ From Monitor] Respiratory 30 H 22 30 H Rate Blood Pressure 77/29 96/75 143/49 O2 Sat by Pulse 53 L 95 Oximetry 09/15/20 09/15/20 09/15/20 10:44 10:45 11:01 Temperature Pulse Rate 60 72 69 Pulse Rate [ From Monitor] Respiratory 30 H 30 H Rate Blood Pressure 144/48 130/40 O2 Sat by Pulse 88 81 L 70 L Oximetry 09/15/20 09/15/20 11:15 12:00 Temperature 97.9 F Pulse Rate 64 Pulse Rate [ From Monitor] Respiratory 30 H Rate Blood Pressure 104/53 O2 Sat by Pulse 82 L Oximetry Constitutional: appears uncomfortable, other (elderly thin male with mildly increased respiratory effort at rest now on MVS) Eyes: non-icteric ENT: oropharynx dry, other (ETT 24 cm EBENEZER) Neck: supple, no lymphadenopathy, no JVD Effort: mildly labored Ascultation: Bilateral: diminished breath sounds, rhonchi Percussion: Bilateral: not dull Cardiovascular: regular rate and rhythm Gastrointestinal: normoactive bowel sounds, soft, non-tender, non-distended Integumentary: other (poor turgor) Extremities: no cyanosis, no edema, pink and warm, pulses normal Neurologic: pupils equal and round, unable to assess, other (flaccid paresis) Psychiatric: other (sedated) CBC and BMP: 09/15/20 11:45 09/15/20 11:45 ABG, PT/INR, D-dimer: ABG ABG pH 7.305 (7.320-7.450) L 09/15/20 04:00 POC ABG pCO2 43.0 mmHg (32.0-48.0) 09/15/20 04:00 POC ABG pO2 63.0 mmHg (83-108) L 09/15/20 04:00 POC ABG HCO3 20.9 09/15/20 04:00 ABG O2 Saturation 89.1 (0-100) 09/15/20 04:00 PT/INR, D-dimer PT 15.5 Sec. (12.2-14.9) H 09/11/20 11:07 INR 1.17 (0.87-1.13) H 09/11/20 11:07 D-Dimer 430.94 ng/mlDDU (0-234) H 09/14/20 10:45 Abnormal lab findings: Abnormal Labs 09/08/20 09/08/20 09/08/20 20:34 20:34 20:34 WBC Hgb MCV RDW Plt Count Lymph % (Auto) Hood % (Auto) Lymph # (Auto) Seg Neutrophils % Seg Neuts % (Manual) 90.0 H Lymphocytes % (Manual) 4.0 L Lymphocytes # (Manual) 0.3 L PT INR APTT D-Dimer ABG pH POC ABG pCO2 POC ABG pO2 ABG Oxyhemoglobin ABG Sodium ABG Potassium ABG Chloride ABG Glucose Carboxyhemoglobin Sodium Potassium 3.3 L Chloride 97.1 L Carbon Dioxide BUN 21 H Creatinine 0.7 L Glucose 162 H POC Glucose Lactic Acid 3.00 H* Calcium Ferritin AST 96 H Lactate Dehydrogenase Total Creatine Kinase 1277 H C-Reactive Protein NT-Pro-B Natriuret Pep 4471 H Total Protein Albumin 3.3 L Arterial Blood Glucose Arterial Blood Ionized Calcium Urine WBC (Auto) Coronavirus (PCR) 09/08/20 09/08/20 09/08/20 20:34 20:34 20:34 WBC Hgb MCV RDW Plt Count Lymph % (Auto) Hood % (Auto) Lymph # (Auto) Seg Neutrophils % Seg Neuts % (Manual) Lymphocytes % (Manual) Lymphocytes # (Manual) PT INR APTT D-Dimer 405.34 H ABG pH POC ABG pCO2 POC ABG pO2 ABG Oxyhemoglobin ABG Sodium ABG Potassium ABG Chloride ABG Glucose Carboxyhemoglobin Sodium Potassium Chloride Carbon Dioxide BUN Creatinine Glucose 164 H POC Glucose Lactic Acid Calcium Ferritin 638.9 H AST Lactate Dehydrogenase 286 H Total Creatine Kinase C-Reactive Protein 5.40 H NT-Pro-B Natriuret Pep Total Protein Albumin Arterial Blood Glucose Arterial Blood Ionized Calcium Urine WBC (Auto) Coronavirus (PCR) 09/08/20 09/08/20 09/09/20 Unknown Unknown 16:04 WBC Hgb MCV RDW Plt Count Lymph % (Auto) Hood % (Auto) Lymph # (Auto) Seg Neutrophils % Seg Neuts % (Manual) Lymphocytes % (Manual) Lymphocytes # (Manual) PT INR APTT D-Dimer ABG pH POC ABG pCO2 POC ABG pO2 ABG Oxyhemoglobin ABG Sodium ABG Potassium ABG Chloride ABG Glucose Carboxyhemoglobin Sodium Potassium Chloride Carbon Dioxide BUN Creatinine Glucose POC Glucose Lactic Acid Calcium Ferritin AST Lactate Dehydrogenase Total Creatine Kinase 1303 H C-Reactive Protein NT-Pro-B Natriuret Pep Total Protein Albumin Arterial Blood Glucose Arterial Blood Ionized Calcium Urine WBC (Auto) 7.0 H Coronavirus (PCR) Positive A 09/10/20 09/10/20 09/10/20 08:42 08:42 08:42 WBC Hgb 15.3 H MCV RDW Plt Count 123 L Lymph % (Auto) 6.2 L Hood % (Auto) 7.6 H Lymph # (Auto) 0.4 L Seg Neutrophils % 86.0 H Seg Neuts % (Manual) Lymphocytes % (Manual) Lymphocytes # (Manual) PT INR APTT D-Dimer ABG pH POC ABG pCO2 POC ABG pO2 ABG Oxyhemoglobin ABG Sodium ABG Potassium ABG Chloride ABG Glucose Carboxyhemoglobin Sodium 134 L Potassium Chloride 93.0 L Carbon Dioxide BUN 23 H Creatinine 0.5 L Glucose 134 H POC Glucose Lactic Acid Calcium Ferritin AST 117 H Lactate Dehydrogenase Total Creatine Kinase 1113 H C-Reactive Protein NT-Pro-B Natriuret Pep Total Protein Albumin 3.2 L Arterial Blood Glucose Arterial Blood Ionized Calcium Urine WBC (Auto) Coronavirus (PCR) 09/11/20 09/11/20 09/11/20 06:43 11:07 11:07 WBC Hgb MCV RDW Plt Count 121 L Lymph % (Auto) Hood % (Auto) Lymph # (Auto) Seg Neutrophils % Seg Neuts % (Manual) Lymphocytes % (Manual) Lymphocytes # (Manual) PT 15.5 H INR 1.17 H APTT 39.2 H D-Dimer ABG pH POC ABG pCO2 POC ABG pO2 ABG Oxyhemoglobin ABG Sodium ABG Potassium ABG Chloride ABG Glucose Carboxyhemoglobin Sodium 136 L Potassium Chloride 97.3 L Carbon Dioxide BUN 53 H Creatinine Glucose 175 H POC Glucose Lactic Acid Calcium 8.3 L Ferritin AST 94 H Lactate Dehydrogenase Total Creatine Kinase C-Reactive Protein NT-Pro-B Natriuret Pep Total Protein 6.0 L Albumin 2.9 L Arterial Blood Glucose Arterial Blood Ionized Calcium Urine WBC (Auto) Coronavirus (PCR) 09/11/20 09/11/20 09/11/20 14:39 17:26 23:27 WBC Hgb MCV RDW Plt Count Lymph % (Auto) Hood % (Auto) Lymph # (Auto) Seg Neutrophils % Seg Neuts % (Manual) Lymphocytes % (Manual) Lymphocytes # (Manual) PT INR APTT D-Dimer ABG pH POC ABG pCO2 POC ABG pO2 81.5 L ABG Oxyhemoglobin ABG Sodium 135.5 L ABG Potassium 3.3 L ABG Chloride ABG Glucose 355 H Carboxyhemoglobin 0.4 L Sodium Potassium Chloride Carbon Dioxide BUN Creatinine Glucose POC Glucose 220 H 136 H Lactic Acid Calcium Ferritin AST Lactate Dehydrogenase Total Creatine Kinase C-Reactive Protein NT-Pro-B Natriuret Pep Total Protein Albumin Arterial Blood Glucose 355 H Arterial Blood Ionized Calcium 4.3 L Urine WBC (Auto) Coronavirus (PCR) 09/12/20 09/12/20 09/12/20 05:16 06:40 17:25 WBC Hgb MCV RDW Plt Count Lymph % (Auto) Hood % (Auto) Lymph # (Auto) Seg Neutrophils % Seg Neuts % (Manual) Lymphocytes % (Manual) Lymphocytes # (Manual) PT INR APTT D-Dimer ABG pH POC ABG pCO2 POC ABG pO2 ABG Oxyhemoglobin ABG Sodium ABG Potassium ABG Chloride ABG Glucose Carboxyhemoglobin Sodium Potassium Chloride Carbon Dioxide BUN 54 H Creatinine Glucose 140 H POC Glucose 137 H 126 H Lactic Acid Calcium 8.1 L Ferritin AST 100 H Lactate Dehydrogenase Total Creatine Kinase C-Reactive Protein NT-Pro-B Natriuret Pep Total Protein 5.9 L Albumin 2.8 L Arterial Blood Glucose Arterial Blood Ionized Calcium Urine WBC (Auto) Coronavirus (PCR) 09/12/20 09/12/20 09/12/20 23:20 Unknown Unknown WBC Hgb MCV RDW Plt Count Lymph % (Auto) Hood % (Auto) Lymph # (Auto) Seg Neutrophils % Seg Neuts % (Manual) Lymphocytes % (Manual) Lymphocytes # (Manual) PT INR APTT D-Dimer 352.35 H ABG pH POC ABG pCO2 POC ABG pO2 ABG Oxyhemoglobin ABG Sodium ABG Potassium ABG Chloride ABG Glucose Carboxyhemoglobin Sodium Potassium Chloride Carbon Dioxide BUN Creatinine Glucose POC Glucose 169 H Lactic Acid Calcium Ferritin 1869.0 H AST Lactate Dehydrogenase Total Creatine Kinase C-Reactive Protein NT-Pro-B Natriuret Pep Total Protein Albumin Arterial Blood Glucose Arterial Blood Ionized Calcium Urine WBC (Auto) Coronavirus (PCR) 09/12/20 09/13/20 09/13/20 Unknown 05:00 05:00 WBC 11.5 H Hgb MCV RDW Plt Count 115 L Lymph % (Auto) Hood % (Auto) Lymph # (Auto) Seg Neutrophils % Seg Neuts % (Manual) Lymphocytes % (Manual) Lymphocytes # (Manual) PT INR APTT D-Dimer ABG pH POC ABG pCO2 POC ABG pO2 ABG Oxyhemoglobin ABG Sodium ABG Potassium ABG Chloride ABG Glucose Carboxyhemoglobin Sodium Potassium Chloride 108.0 H Carbon Dioxide BUN 46 H Creatinine Glucose 187 H POC Glucose Lactic Acid Calcium 7.5 L Ferritin AST 93 H Lactate Dehydrogenase 521 H Total Creatine Kinase C-Reactive Protein 5.70 H NT-Pro-B Natriuret Pep Total Protein 5.5 L Albumin 2.3 L Arterial Blood Glucose Arterial Blood Ionized Calcium Urine WBC (Auto) Coronavirus (PCR) 09/13/20 09/13/20 09/13/20 05:35 09:00 10:12 WBC 13.6 H Hgb MCV RDW Plt Count 113 L Lymph % (Auto) Hood % (Auto) Lymph # (Auto) Seg Neutrophils % Seg Neuts % (Manual) Lymphocytes % (Manual) Lymphocytes # (Manual) PT INR APTT D-Dimer ABG pH POC ABG pCO2 POC ABG pO2 69.0 L ABG Oxyhemoglobin 92.1 L ABG Sodium ABG Potassium ABG Chloride 110.0 H ABG Glucose 196 H Carboxyhemoglobin 0.2 L Sodium Potassium Chloride Carbon Dioxide BUN Creatinine Glucose POC Glucose 181 H Lactic Acid Calcium Ferritin AST Lactate Dehydrogenase Total Creatine Kinase C-Reactive Protein NT-Pro-B Natriuret Pep Total Protein Albumin Arterial Blood Glucose 196 H Arterial Blood Ionized Calcium 4.5 L Urine WBC (Auto) Coronavirus (PCR) 09/13/20 09/13/20 09/14/20 11:34 23:13 05:28 WBC Hgb MCV RDW Plt Count Lymph % (Auto) Hood % (Auto) Lymph # (Auto) Seg Neutrophils % Seg Neuts % (Manual) Lymphocytes % (Manual) Lymphocytes # (Manual) PT INR APTT D-Dimer ABG pH POC ABG pCO2 POC ABG pO2 ABG Oxyhemoglobin ABG Sodium ABG Potassium ABG Chloride ABG Glucose Carboxyhemoglobin Sodium Potassium Chloride Carbon Dioxide BUN Creatinine Glucose POC Glucose 188 H 176 H 169 H Lactic Acid Calcium Ferritin AST Lactate Dehydrogenase Total Creatine Kinase C-Reactive Protein NT-Pro-B Natriuret Pep Total Protein Albumin Arterial Blood Glucose Arterial Blood Ionized Calcium Urine WBC (Auto) Coronavirus (PCR) 09/14/20 09/14/20 09/14/20 10:45 10:45 10:45 WBC Hgb MCV RDW Plt Count Lymph % (Auto) Hood % (Auto) Lymph # (Auto) Seg Neutrophils % Seg Neuts % (Manual) Lymphocytes % (Manual) Lymphocytes # (Manual) PT INR APTT D-Dimer 430.94 H ABG pH POC ABG pCO2 POC ABG pO2 ABG Oxyhemoglobin ABG Sodium ABG Potassium ABG Chloride ABG Glucose Carboxyhemoglobin Sodium Potassium Chloride Carbon Dioxide BUN Creatinine Glucose POC Glucose Lactic Acid Calcium Ferritin 2709.0 H AST Lactate Dehydrogenase 658 H Total Creatine Kinase C-Reactive Protein 15.80 H NT-Pro-B Natriuret Pep Total Protein Albumin Arterial Blood Glucose Arterial Blood Ionized Calcium Urine WBC (Auto) Coronavirus (PCR) 09/14/20 09/14/20 09/14/20 10:45 11:38 12:42 WBC Hgb MCV RDW Plt Count Lymph % (Auto) Hood % (Auto) Lymph # (Auto) Seg Neutrophils % Seg Neuts % (Manual) Lymphocytes % (Manual) Lymphocytes # (Manual) PT INR APTT D-Dimer ABG pH 7.275 L POC ABG pCO2 52.3 H POC ABG pO2 52.4 L ABG Oxyhemoglobin 78.6 L ABG Sodium ABG Potassium ABG Chloride 113.0 H ABG Glucose 179 H Carboxyhemoglobin Sodium Potassium Chloride 111.5 H Carbon Dioxide BUN 42 H Creatinine 0.7 L Glucose 169 H POC Glucose 154 H Lactic Acid Calcium 8.3 L Ferritin AST 90 H Lactate Dehydrogenase Total Creatine Kinase C-Reactive Protein NT-Pro-B Natriuret Pep Total Protein 5.6 L Albumin 2.4 L Arterial Blood Glucose 179 H Arterial Blood Ionized Calcium Urine WBC (Auto) Coronavirus (PCR) 09/14/20 09/14/20 09/14/20 13:32 17:54 21:00 WBC Hgb MCV RDW Plt Count Lymph % (Auto) Hood % (Auto) Lymph # (Auto) Seg Neutrophils % Seg Neuts % (Manual) Lymphocytes % (Manual) Lymphocytes # (Manual) PT INR APTT D-Dimer ABG pH 7.129 L POC ABG pCO2 62.6 H POC ABG pO2 60.7 L 56.4 L ABG Oxyhemoglobin 80.0 L 85.1 L ABG Sodium 146.9 H ABG Potassium 5.1 H ABG Chloride 115.0 H 116.0 H ABG Glucose 402 H 162 H Carboxyhemoglobin 0.2 L Sodium Potassium Chloride Carbon Dioxide BUN Creatinine Glucose POC Glucose 193 H Lactic Acid Calcium Ferritin AST Lactate Dehydrogenase Total Creatine Kinase C-Reactive Protein NT-Pro-B Natriuret Pep Total Protein Albumin Arterial Blood Glucose 402 H 162 H Arterial Blood Ionized Calcium 4.4 L Urine WBC (Auto) Coronavirus (PCR) 09/14/20 09/15/20 09/15/20 23:58 04:00 05:12 WBC Hgb MCV RDW Plt Count Lymph % (Auto) Hood % (Auto) Lymph # (Auto) Seg Neutrophils % Seg Neuts % (Manual) Lymphocytes % (Manual) Lymphocytes # (Manual) PT INR APTT D-Dimer ABG pH 7.305 L POC ABG pCO2 POC ABG pO2 63.0 L ABG Oxyhemoglobin 88.8 L ABG Sodium 147.5 H ABG Potassium 4.6 H ABG Chloride 117.0 H ABG Glucose 194 H Carboxyhemoglobin 0 L Sodium Potassium Chloride Carbon Dioxide BUN Creatinine Glucose POC Glucose 144 H 150 H Lactic Acid Calcium Ferritin AST Lactate Dehydrogenase Total Creatine Kinase C-Reactive Protein NT-Pro-B Natriuret Pep Total Protein Albumin Arterial Blood Glucose 194 H Arterial Blood Ionized Calcium Urine WBC (Auto) Coronavirus (PCR) 09/15/20 09/15/20 09/15/20 08:50 08:50 10:10 WBC 20.3 H Hgb MCV 96 H RDW Plt Count 116 L Lymph % (Auto) Hood % (Auto) Lymph # (Auto) Seg Neutrophils % Seg Neuts % (Manual) Lymphocytes % (Manual) Lymphocytes # (Manual) PT INR APTT D-Dimer ABG pH POC ABG pCO2 POC ABG pO2 ABG Oxyhemoglobin ABG Sodium ABG Potassium ABG Chloride ABG Glucose Carboxyhemoglobin Sodium 150 H Potassium 5.1 H D Chloride 116.5 H Carbon Dioxide BUN 53 H Creatinine Glucose 211 H POC Glucose 174 H Lactic Acid Calcium 7.7 L Ferritin AST 82 H Lactate Dehydrogenase Total Creatine Kinase C-Reactive Protein NT-Pro-B Natriuret Pep Total Protein 4.9 L Albumin 2.2 L Arterial Blood Glucose Arterial Blood Ionized Calcium Urine WBC (Auto) Coronavirus (PCR) 09/15/20 09/15/20 09/15/20 11:45 11:45 11:48 WBC 21.1 H Hgb 11.6 L MCV 97 H RDW 15.7 H Plt Count 113 L Lymph % (Auto) Hood % (Auto) Lymph # (Auto) Seg Neutrophils % Seg Neuts % (Manual) Lymphocytes % (Manual) Lymphocytes # (Manual) PT INR APTT D-Dimer ABG pH POC ABG pCO2 POC ABG pO2 ABG Oxyhemoglobin ABG Sodium ABG Potassium ABG Chloride ABG Glucose Carboxyhemoglobin Sodium 153 H Potassium Chloride 117.3 H Carbon Dioxide 20 L BUN 57 H Creatinine 1.5 H Glucose 229 H POC Glucose 186 H Lactic Acid Calcium 7.1 L Ferritin AST Lactate Dehydrogenase Total Creatine Kinase C-Reactive Protein NT-Pro-B Natriuret Pep Total Protein Albumin Arterial Blood Glucose Arterial Blood Ionized Calcium Urine WBC (Auto) Coronavirus (PCR) Chest x-ray: image reviewed Allied health notes reviewed: nursing
[2020-09-15] MEDS: FREE WATER PO SCH ×3 (14:30→21:23)
[2020-09-15] MEDS ORDERED: CEFEPIME/NS 1 GM/100 ML 1 GM/100 ML BAG IV SCH (18:00)
[2020-09-15 21:52] LABS: Hematocrit 37.6 % (35.5-45.6); Hemoglobin 11.9 gm/dl (11.8-15.2)
[2020-09-15] MEDS ORDERED: INSULIN GLARGINE 100 UNITS/ML SUB-Q SCH (22:00)
[2020-09-16] MEDS: INSULIN LISPRO 100 UNIT/ML SUB-Q SCH ×3 (00:05→13:16)
[2020-09-16] MEDS: SENNOSIDES/DOCUSATE SODIUM 8.6/50 MG TAB FEEDTUBE SCH ×2 (00:06→10:01)
[2020-09-16] MEDS: DEXTROSE 5% IN WATER 1,000 ML IV SCH ×2 (01:45→14:50)
[2020-09-16] MEDS: FREE WATER PO SCH ×4 (02:00→13:16)
[2020-09-16] MEDS: VASOPRESSIN 20 UNIT in SODIUM CHLORIDE 0.9% 100 ML IV SCH ×2 (03:32→14:44)
[2020-09-16] MEDS: NORepinephrine/NS 4 MG-250 ML 4 MG/250 ML BAG IV SCH ×3 (03:32→14:41)
[2020-09-16 04:34] LABS: C-Reactive Protein 26.3 mg/dL (0.00-1.30); Calcium 7.4 mg/dL (8.4-10.2)
--- NOTE | 2020-09-16 04:44 | XRay Report ---
CHEST 1 VIEW 09/16/2020 3:31 AM INDICATION / CLINICAL INFORMATION: follow up respiratory failure. COMPARISON: One view of the chest from 09/15/2020 FINDINGS: SUPPORT DEVICES: Unchanged. HEART / MEDIASTINUM: No significant abnormality. LUNGS / PLEURA: Bilateral pulmonary opacities are similar, accounting for differences in technique. S imilar small left pleural effusion. No pneumothorax. ADDITIONAL FINDINGS: No significant additional findings. IMPRESSION: Stable appearance of the chest. Signer Name: Paul Gonzáles MD Signed: 09/16/2020 4:39 AM Workstation Name: [id number]
[2020-09-16] MEDS: ACETYLCYSTEINE 20% 200 MG/1 ML *FOR INHALATION USE INHALATION SCH (08:15)
[2020-09-16] MEDS: ALBUTEROL 2.5 MG/3 ML NEBU IH SCH (08:15)
--- NOTE | 2020-09-16 09:34 | Progress Note ---
Assessment and Plan Atrial Flutter 2:1 conduction with RVR * Atrial flutter resolved. Patient converted to sinus rhythm after amiodorone drip * Continue Eliquis 2.5mg PO BID for anticoagulation * Continue to monitor on Tele * Echo 09/09/2020-Left ventricular function is mildly decreased with an EF of 40 to 45%, mild diastolic dysfunction, normal left ventricular wall thickness, right ventricular function is normal, mild to moderate aortic regurgitation, no tricuspid valve regurgitation mild to moderate pulmonic regurgitation COVID-19 Severe Sepsis * Wean pressors as tolerated * Likely Secondary to COVID-19 infection * Infectious disease is following Acute hypoxic respiratory failure * Likely due to COVID-19 infection * Pulmonology is following DVT prophylaxis * Patient anticoagulated on Eliquis Wean pressors as tolerated. Patient seen in conjunction with Dr. Johnson who agrees with this plan. We will continue to follow - Patient Problems (1) Atrial flutter Current Visit: Yes Status: Acute (2) Acute respiratory failure with hypoxia Current Visit: Yes Status: Acute (3) SIRS (systemic inflammatory response syndrome) Current Visit: Yes Status: Acute (4) Suspected 2019 novel coronavirus infection Current Visit: Yes Status: Acute Subjective Date of service: 09/16/20 Principal diagnosis: Ac hypoxemic resp failure; COVID-19; PNA; AMS; Sepsis; UTI; A-fib; CHF Interval history: Patient intubated sinus 60s with no events on monitor Objective Last Vital Signs Temp 98 F 09/16/20 07:59 Pulse 77 09/16/20 08:16 Resp 31 H 09/16/20 08:16 BP 108/28 09/16/20 08:09 Pulse Ox 79 L 09/16/20 08:09 - Physical Examination General: Cachectic, Other (intubated) HEENT: Positive: Normocephaly Neck: Positive: trachea midline. Negative: JVD/HJR Cardiac: Positive: Reg Rate and Rhythm Lungs: Positive: Ventilated Respirations Neuro: Positive: Other (intubated) Abdomen: Positive: Soft Skin: Negative: Rash Musculoskeletal: No Fluid Collection Extremities: Present: lower extr. pulses. Absent: edema - Labs and Meds Cardiac Enzymes 09/15/20 09/16/20 Range/Units 08:50 03:15 AST 82 H (5-40) units/L Lactate Dehydrogenase 617 H (91-180) units/L CBC 09/15/20 09/15/20 Range/Units 11:45 20:21 WBC 21.1 H (4.5-11.0) K/mm3 RBC 3.67 (3.65-5.03) M/mm3 Hgb 11.6 L 11.9 (11.8-15.2) gm/dl Hct 35.5 37.6 (35.5-45.6) % Plt Count 113 L (140-440) K/mm3 Comprehensive Metabolic Panel 09/15/20 09/15/20 09/16/20 Range/Units 08:50 11:45 03:15 Sodium 150 H 153 H 146 H (137-145) mmol/L Potassium 5.1 H D 4.8 4.8 (3.6-5.0) mmol/L Chloride 116.5 H 117.3 H 110.8 H (98-107) mmol/L Carbon Dioxide 22 20 L 23 (22-30) mmol/L BUN 53 H 57 H 61 H (9-20) mg/dL Creatinine 1.2 D 1.5 H 1.8 H (0.8-1.3) mg/dL Glucose 211 H 229 H 199 H (75-100) mg/dL Calcium 7.7 L 7.1 L 7.4 L (8.4-10.2) mg/dL AST 82 H (5-40) units/L ALT 49 (7-56) units/L Alkaline Phosphatase 101 (35-129) units/L Total Protein 4.9 L (6.3-8.2) g/dL Albumin 2.2 L (3.9-5) g/dL - Imaging and Cardiology EKG: report reviewed, image reviewed Echo: report reviewed (09/09/2020 - EF 40-45%, mild diastolic dysfxn, mild-mod AR, mild MR, mild-mod OR) - Telemetry EKG Rhythm: Sinus Rhythm - EKG Sinus rhythms and dysrhythmias: sinus rhythm AV and intraventricular conduction: right bundle branch block Repolarization changes or abnormalities: nonspecific abnormality, ST segment, and/or T wave Myocardial infarction: inferior KS (old age inde - Allied health notes Allied health notes reviewed: nursing
[2020-09-16] MEDS: ZINC SULFATE 220 MG CAP PO SCH (10:00)
[2020-09-16] MEDS: ASCORBIC ACID 500 MG TAB PO SCH (10:01)
[2020-09-16] MEDS: FAMOTIDINE 20 MG/2 ML INJ IV SCH (10:01)
[2020-09-16] MEDS: dexAMETHasone 4 MG/ML VIAL IV SCH (10:01)
[2020-09-16] MEDS: APIXABAN 2.5 MG TAB PO SCH (10:01)
[2020-09-16] MEDS: DOCUSATE SODIUM 100 MG/10 ML ORAL LIQD FEEDTUBE SCH (10:01)
--- NOTE | 2020-09-16 10:33 | Progress Note ---
Assessment and Plan Acute hypoxemic respiratory failure COVID-19 virus infection Bilateral pneumonia Acute toxic metabolic encephalopathy Severe sepsis Urinary tract infection Tobacco use disorder Dehydration and a mild element of intravascular volume depletion Rhabdomyolysis Congestive heart failure with reduced ejection fraction Adult failure to thrive - Code status now DNR / AND - continue full MVS - await goals of care decisions - continue free water 250 ml's q4h - wean Vasopressors for target MAP > 65 mmHg - begin fentanyl drip @ 0.5 mics/hr - continue care as below otherwise; - A-fib rate & rhythm control per cardiology - continue to wean supplemental oxygen for target O2 sat's > 92% acutely - continue Daily SAT and SBT assessment as tolerated - VAP bundle addressed - continue lung protective strategies - continue bronchodilators (YAMILKA & LABA) with pulmonary hygiene per RT - wean per pulmonary driven protocols otherwise - continue accuchecks with glycemic control per SSI (While critically ill target blood glucose of 140-180 mg/dL; avoid hypoglycemia) - sedation prn for target RASS 0 to -1 - avoid nephrotoxins, renally dose all medications - continue to avoid benzodiazepine's, reduce the possibility of delirium - complete antiinfective's per ID rec's - prn analgesia per CPOT score - Maintenance of sleep-wake cycle, avoid delirium - continue enteral nutritional support at goal rate as tolerated - G.I. & VTE prophylaxis - PT/OT/ROM exercises - continue mobility protocols for pressure ulcer prophylaxis - Monitor hemodynamics closely - continue other care per attending / other consultants - discharge planning ongoing concurrently COVID SPECIFIC INTERVENTIONS - Remdesivir as per ID/Pulmonary developed protocols - continue systemic steroids for severe COVID-19 infection empirically - follow repeat COVID tests results - zinc and vitamin C supplementation - Monitor inflammatory markers per facility protocol - ferritin, Ddimer, CRP - therapeutic anticoagulation per system Protocol based on d-dimer and clinical considerations (Full anticoagulation for A-fib) - Continue contact and airborne isolation .... Re-evaluate in am & prn CONDITION: CRITICAL PROGNOSIS: POOR CODE STATUS: FULL CODE The high probability of a clinically significant, sudden or life-threatening deterioration of the [respiratory, cardiovascular & neurologic] system(s) required my full and direct attention, intervention and personal management. The aggregate critical care time was [32] minutes without overlap. Time includes spent on; [x] Data Review and interpretation [x] Patient assessment and monitoring of vital signs [x] Documentation [x] Medication orders and management Subjective Date of service: 09/16/20 Principal diagnosis: Ac hypoxemic resp failure; COVID-19; PNA; AMS; Sepsis; UTI; A-fib; CHF Interval history: Patient is seen today for: Acute hypoxemic respiratory failure; COVID-19 infxn; Chay. pneumonia; Acute toxic metabolic encephalopathy; Severe sepsis; UTI; R habdomyolysis; HFrEF; A-fib with RVR Seen and examined at bedside; 24hour events reviewed; nursing and respiratory care staff consulted; no adverse overnight events reported to me; resting peacefully in bed; remains hypoxemic on 100% DiO2 and 18 of peep; his family is set up for a discussion on end-of-life issues at 2pm; no emesis or overt aspiration; afebrile Objective Vital Signs - 12hr 09/15/20 09/15/20 09/15/20 22:45 23:00 23:15 Temperature Pulse Rate 59 L 82 83 Pulse Rate [ Anterior Bilateral Throughout] Pulse Rate [ 61 From Monitor] Respiratory 30 H 30 H 31 H Rate Respiratory Rate [Anterior Bilateral Throughout] Blood Pressure 134/37 142/70 142/63 O2 Sat by Pulse 91 93 Oximetry 09/15/20 09/15/20 09/15/20 23:30 23:45 23:51 Temperature 99.0 F Pulse Rate 82 57 L Pulse Rate [ Anterior Bilateral Throughout] Pulse Rate [ From Monitor] Respiratory 10 L 24 Rate Respiratory Rate [Anterior Bilateral Throughout] Blood Pressure 152/68 127/41 O2 Sat by Pulse 92 89 Oximetry 09/16/20 09/16/20 09/16/20 00:00 00:15 00:18 Temperature Pulse Rate 76 58 L 58 L Pulse Rate [ Anterior Bilateral Throughout] Pulse Rate [ From Monitor] Respiratory 12 18 Rate Respiratory Rate [Anterior Bilateral Throughout] Blood Pressure 142/68 129/42 129/42 O2 Sat by Pulse 89 88 88 Oximetry 09/16/20 09/16/20 09/16/20 00:30 00:45 01:00 Temperature Pulse Rate 67 57 L 59 L Pulse Rate [ Anterior Bilateral Throughout] Pulse Rate [ From Monitor] Respiratory 28 H 27 H 24 Rate Respiratory Rate [Anterior Bilateral Throughout] Blood Pressure 124/46 132/44 138/57 O2 Sat by Pulse 87 87 86 Oximetry 09/16/20 09/16/20 09/16/20 01:15 01:30 01:47 Temperature Pulse Rate 59 L 59 L 59 L Pulse Rate [ Anterior Bilateral Throughout] Pulse Rate [ From Monitor] Respiratory 26 H 30 H 27 H Rate Respiratory Rate [Anterior Bilateral Throughout] Blood Pressure 129/54 117/46 O2 Sat by Pulse 86 86 84 Oximetry 09/16/20 09/16/20 09/16/20 01:55 02:00 02:15 Temperature Pulse Rate 59 L 58 L 61 Pulse Rate [ Anterior Bilateral Throughout] Pulse Rate [ From Monitor] Respiratory 30 H 30 H 29 H Rate Respiratory Rate [Anterior Bilateral Throughout] Blood Pressure 129/53 133/46 O2 Sat by Pulse 0 L 85 85 Oximetry 09/16/20 09/16/20 09/16/20 02:30 02:45 03:00 Temperature Pulse Rate 60 59 L 60 Pulse Rate [ Anterior Bilateral Throughout] Pulse Rate [ From Monitor] Respiratory 31 H 27 H 31 H Rate Respiratory Rate [Anterior Bilateral Throughout] Blood Pressure 120/44 124/53 134/60 O2 Sat by Pulse 85 84 85 Oximetry 09/16/20 09/16/20 09/16/20 03:15 03:30 03:46 Temperature Pulse Rate 61 65 59 L Pulse Rate [ Anterior Bilateral Throughout] Pulse Rate [ From Monitor] Respiratory 26 H 11 L 27 H Rate Respiratory Rate [Anterior Bilateral Throughout] Blood Pressure 121/40 100/57 113/51 O2 Sat by Pulse 85 84 85 Oximetry 09/16/20 09/16/20 09/16/20 04:00 04:15 04:30 Temperature 99.1 F Pulse Rate 60 60 61 Pulse Rate [ Anterior Bilateral Throughout] Pulse Rate [ From Monitor] Respiratory 17 28 H 27 H Rate Respiratory Rate [Anterior Bilateral Throughout] Blood Pressure 125/48 129/48 128/50 O2 Sat by Pulse 82 L 82 L 82 L Oximetry 09/16/20 09/16/20 09/16/20 04:45 04:49 05:00 Temperature Pulse Rate 61 61 62 Pulse Rate [ Anterior Bilateral Throughout] Pulse Rate [ From Monitor] Respiratory 28 H 18 Rate Respiratory Rate [Anterior Bilateral Throughout] Blood Pressure 119/44 119/44 134/38 O2 Sat by Pulse 80 L 81 L 82 L Oximetry 09/16/20 09/16/20 09/16/20 05:09 05:15 05:27 Temperature Pulse Rate 59 L 78 Pulse Rate [ Anterior Bilateral Throughout] Pulse Rate [ From Monitor] Respiratory 14 Rate Respiratory Rate [Anterior Bilateral Throughout] Blood Pressure 145/74 O2 Sat by Pulse 0 L 80 L 81 L Oximetry 09/16/20 09/16/20 09/16/20 05:30 05:45 06:00 Temperature Pulse Rate 60 60 59 L Pulse Rate [ Anterior Bilateral Throughout] Pulse Rate [ From Monitor] Respiratory 27 H 25 H 27 H Rate Respiratory Rate [Anterior Bilateral Throughout] Blood Pressure 123/33 121/41 126/35 O2 Sat by Pulse 81 L 80 L 82 L Oximetry 09/16/20 09/16/20 09/16/20 06:16 06:30 07:59 Temperature 98 F Pulse Rate 62 55 L Pulse Rate [ Anterior Bilateral Throughout] Pulse Rate [ From Monitor] Respiratory 23 24 Rate Respiratory Rate [Anterior Bilateral Throughout] Blood Pressure 92/31 118/47 O2 Sat by Pulse 73 L 79 L Oximetry 09/16/20 09/16/20 08:09 08:16 Temperature Pulse Rate 60 Pulse Rate [ 77 Anterior Bilateral Throughout] Pulse Rate [ From Monitor] Respiratory Rate Respiratory 31 H Rate [Anterior Bilateral Throughout] Blood Pressure 108/28 O2 Sat by Pulse 79 L Oximetry Constitutional: appears uncomfortable, other (elderly thin male with mildly increased respiratory effort at rest on MVS) Eyes: non-icteric ENT: oropharynx dry, other (ETT 24 cm EBENEZER) Neck: supple, no lymphadenopathy, no JVD Effort: mildly labored Ascultation: Bilateral: diminished breath sounds, rhonchi Percussion: Bilateral: not dull Cardiovascular: regular rate and rhythm Gastrointestinal: normoactive bowel sounds, soft, non-tender, non-distended Integumentary: other (poor turgor) Extremities: no cyanosis, no edema, pink and warm, pulses normal Neurologic: pupils equal and round, unable to assess, other (flaccid paresis) Psychiatric: other (sedated) CBC and BMP: 09/15/20 20:21 09/16/20 03:15 ABG, PT/INR, D-dimer: ABG ABG pH 7.207 (7.320-7.450) L 09/16/20 03:30 POC ABG pCO2 54.2 mmHg (32.0-48.0) H 09/16/20 03:30 POC ABG pO2 46.9 mmHg (83-108) L 09/16/20 03:30 POC ABG HCO3 21.0 09/16/20 03:30 ABG O2 Saturation 75.9 (0-100) 09/16/20 03:30 PT/INR, D-dimer PT 15.5 Sec. (12.2-14.9) H 09/11/20 11:07 INR 1.17 (0.87-1.13) H 09/11/20 11:07 D-Dimer 2544.42 ng/mlDDU (0-234) H 09/16/20 03:15 Abnormal lab findings: Abnormal Labs 09/08/20 09/08/20 09/08/20 20:34 20:34 20:34 WBC Hgb MCV RDW Plt Count Lymph % (Auto) [place] % (Auto) Lymph # (Auto) Seg Neutrophils % Seg Neuts % (Manual) 90.0 H Lymphocytes % (Manual) 4.0 L Lymphocytes # (Manual) 0.3 L PT INR APTT D-Dimer ABG pH POC ABG pCO2 POC ABG pO2 ABG Oxyhemoglobin ABG Sodium ABG Potassium ABG Chloride ABG Glucose Carboxyhemoglobin Sodium Potassium 3.3 L Chloride 97.1 L Carbon Dioxide BUN 21 H Creatinine 0.7 L Glucose 162 H POC Glucose Lactic Acid 3.00 H* Calcium Ferritin AST 96 H Lactate Dehydrogenase Total Creatine Kinase 1277 H C-Reactive Protein NT-Pro-B Natriuret Pep 4471 H Total Protein Albumin 3.3 L Arterial Blood Glucose Arterial Blood Ionized Calcium Urine WBC (Auto) Coronavirus (PCR) 09/08/20 09/08/20 09/08/20 20:34 20:34 20:34 WBC Hgb MCV RDW Plt Count Lymph % (Auto) [place] % (Auto) Lymph # (Auto) Seg Neutrophils % Seg Neuts % (Manual) Lymphocytes % (Manual) Lymphocytes # (Manual) PT INR APTT D-Dimer 405.34 H ABG pH POC ABG pCO2 POC ABG pO2 ABG Oxyhemoglobin ABG Sodium ABG Potassium ABG Chloride ABG Glucose Carboxyhemoglobin Sodium Potassium Chloride Carbon Dioxide BUN Creatinine Glucose 164 H POC Glucose Lactic Acid Calcium Ferritin 638.9 H AST Lactate Dehydrogenase 286 H Total Creatine Kinase C-Reactive Protein 5.40 H NT-Pro-B Natriuret Pep Total Protein Albumin Arterial Blood Glucose Arterial Blood Ionized Calcium Urine WBC (Auto) Coronavirus (PCR) 09/08/20 09/08/20 09/09/20 Unknown Unknown 16:04 WBC Hgb MCV RDW Plt Count Lymph % (Auto) [place] % (Auto) Lymph # (Auto) Seg Neutrophils % Seg Neuts % (Manual) Lymphocytes % (Manual) Lymphocytes # (Manual) PT INR APTT D-Dimer ABG pH POC ABG pCO2 POC ABG pO2 ABG Oxyhemoglobin ABG Sodium ABG Potassium ABG Chloride ABG Glucose Carboxyhemoglobin Sodium Potassium Chloride Carbon Dioxide BUN Creatinine Glucose POC Glucose Lactic Acid Calcium Ferritin AST Lactate Dehydrogenase Total Creatine Kinase 1303 H C-Reactive Protein NT-Pro-B Natriuret Pep Total Protein Albumin Arterial Blood Glucose Arterial Blood Ionized Calcium Urine WBC (Auto) 7.0 H Coronavirus (PCR) Positive A 09/10/20 09/10/20 09/10/20 08:42 08:42 08:42 WBC Hgb 15.3 H MCV RDW Plt Count 123 L Lymph % (Auto) 6.2 L [place] % (Auto) 7.6 H Lymph # (Auto) 0.4 L Seg Neutrophils % 86.0 H Seg Neuts % (Manual) Lymphocytes % (Manual) Lymphocytes # (Manual) PT INR APTT D-Dimer ABG pH POC ABG pCO2 POC ABG pO2 ABG Oxyhemoglobin ABG Sodium ABG Potassium ABG Chloride ABG Glucose Carboxyhemoglobin Sodium 134 L Potassium Chloride 93.0 L Carbon Dioxide BUN 23 H Creatinine 0.5 L Glucose 134 H POC Glucose Lactic Acid Calcium Ferritin AST 117 H Lactate Dehydrogenase Total Creatine Kinase 1113 H C-Reactive Protein NT-Pro-B Natriuret Pep Total Protein Albumin 3.2 L Arterial Blood Glucose Arterial Blood Ionized Calcium Urine WBC (Auto) Coronavirus (PCR) 09/11/20 09/11/20 09/11/20 06:43 11:07 11:07 WBC Hgb MCV RDW Plt Count 121 L Lymph % (Auto) [place] % (Auto) Lymph # (Auto) Seg Neutrophils % Seg Neuts % (Manual) Lymphocytes % (Manual) Lymphocytes # (Manual) PT 15.5 H INR 1.17 H APTT 39.2 H D-Dimer ABG pH POC ABG pCO2 POC ABG pO2 ABG Oxyhemoglobin ABG Sodium ABG Potassium ABG Chloride ABG Glucose Carboxyhemoglobin Sodium 136 L Potassium Chloride 97.3 L Carbon Dioxide BUN 53 H Creatinine Glucose 175 H POC Glucose Lactic Acid Calcium 8.3 L Ferritin AST 94 H Lactate Dehydrogenase Total Creatine Kinase C-Reactive Protein NT-Pro-B Natriuret Pep Total Protein 6.0 L Albumin 2.9 L Arterial Blood Glucose Arterial Blood Ionized Calcium Urine WBC (Auto) Coronavirus (PCR) 09/11/20 09/11/20 09/11/20 14:39 17:26 23:27 WBC Hgb MCV RDW Plt Count Lymph % (Auto) [place] % (Auto) Lymph # (Auto) Seg Neutrophils % Seg Neuts % (Manual) Lymphocytes % (Manual) Lymphocytes # (Manual) PT INR APTT D-Dimer ABG pH POC ABG pCO2 POC ABG pO2 81.5 L ABG Oxyhemoglobin ABG Sodium 135.5 L ABG Potassium 3.3 L ABG Chloride ABG Glucose 355 H Carboxyhemoglobin 0.4 L Sodium Potassium Chloride Carbon Dioxide BUN Creatinine Glucose POC Glucose 220 H 136 H Lactic Acid Calcium Ferritin AST Lactate Dehydrogenase Total Creatine Kinase C-Reactive Protein NT-Pro-B Natriuret Pep Total Protein Albumin Arterial Blood Glucose 355 H Arterial Blood Ionized Calcium 4.3 L Urine WBC (Auto) Coronavirus (PCR) 09/12/20 09/12/20 09/12/20 05:16 06:40 17:25 WBC Hgb MCV RDW Plt Count Lymph % (Auto) [place] % (Auto) Lymph # (Auto) Seg Neutrophils % Seg Neuts % (Manual) Lymphocytes % (Manual) Lymphocytes # (Manual) PT INR APTT D-Dimer ABG pH POC ABG pCO2 POC ABG pO2 ABG Oxyhemoglobin ABG Sodium ABG Potassium ABG Chloride ABG Glucose Carboxyhemoglobin Sodium Potassium Chloride Carbon Dioxide BUN 54 H Creatinine Glucose 140 H POC Glucose 137 H 126 H Lactic Acid Calcium 8.1 L Ferritin AST 100 H Lactate Dehydrogenase Total Creatine Kinase C-Reactive Protein NT-Pro-B Natriuret Pep Total Protein 5.9 L Albumin 2.8 L Arterial Blood Glucose Arterial Blood Ionized Calcium Urine WBC (Auto) Coronavirus (PCR) 09/12/20 09/12/20 09/12/20 23:20 Unknown Unknown WBC Hgb MCV RDW Plt Count Lymph % (Auto) [place] % (Auto) Lymph # (Auto) Seg Neutrophils % Seg Neuts % (Manual) Lymphocytes % (Manual) Lymphocytes # (Manual) PT INR APTT D-Dimer 352.35 H ABG pH POC ABG pCO2 POC ABG pO2 ABG Oxyhemoglobin ABG Sodium ABG Potassium ABG Chloride ABG Glucose Carboxyhemoglobin Sodium Potassium Chloride Carbon Dioxide BUN Creatinine Glucose POC Glucose 169 H Lactic Acid Calcium Ferritin 1869.0 H AST Lactate Dehydrogenase Total Creatine Kinase C-Reactive Protein NT-Pro-B Natriuret Pep Total Protein Albumin Arterial Blood Glucose Arterial Blood Ionized Calcium Urine WBC (Auto) Coronavirus (PCR) 09/12/20 09/13/20 09/13/20 Unknown 05:00 05:00 WBC 11.5 H Hgb MCV RDW Plt Count 115 L Lymph % (Auto) [place] % (Auto) Lymph # (Auto) Seg Neutrophils % Seg Neuts % (Manual) Lymphocytes % (Manual) Lymphocytes # (Manual) PT INR APTT D-Dimer ABG pH POC ABG pCO2 POC ABG pO2 ABG Oxyhemoglobin ABG Sodium ABG Potassium ABG Chloride ABG Glucose Carboxyhemoglobin Sodium Potassium Chloride 108.0 H Carbon Dioxide BUN 46 H Creatinine Glucose 187 H POC Glucose Lactic Acid Calcium 7.5 L Ferritin AST 93 H Lactate Dehydrogenase 521 H Total Creatine Kinase C-Reactive Protein 5.70 H NT-Pro-B Natriuret Pep Total Protein 5.5 L Albumin 2.3 L Arterial Blood Glucose Arterial Blood Ionized Calcium Urine WBC (Auto) Coronavirus (PCR) 09/13/20 09/13/20 09/13/20 05:35 09:00 10:12 WBC 13.6 H Hgb MCV RDW Plt Count 113 L Lymph % (Auto) [place] % (Auto) Lymph # (Auto) Seg Neutrophils % Seg Neuts % (Manual) Lymphocytes % (Manual) Lymphocytes # (Manual) PT INR APTT D-Dimer ABG pH POC ABG pCO2 POC ABG pO2 69.0 L ABG Oxyhemoglobin 92.1 L ABG Sodium ABG Potassium ABG Chloride 110.0 H ABG Glucose 196 H Carboxyhemoglobin 0.2 L Sodium Potassium Chloride Carbon Dioxide BUN Creatinine Glucose POC Glucose 181 H Lactic Acid Calcium Ferritin AST Lactate Dehydrogenase Total Creatine Kinase C-Reactive Protein NT-Pro-B Natriuret Pep Total Protein Albumin Arterial Blood Glucose 196 H Arterial Blood Ionized Calcium 4.5 L Urine WBC (Auto) Coronavirus (PCR) 09/13/20 09/13/20 09/14/20 11:34 23:13 05:28 WBC Hgb MCV RDW Plt Count Lymph % (Auto) [place] % (Auto) Lymph # (Auto) Seg Neutrophils % Seg Neuts % (Manual) Lymphocytes % (Manual) Lymphocytes # (Manual) PT INR APTT D-Dimer ABG pH POC ABG pCO2 POC ABG pO2 ABG Oxyhemoglobin ABG Sodium ABG Potassium ABG Chloride ABG Glucose Carboxyhemoglobin Sodium Potassium Chloride Carbon Dioxide BUN Creatinine Glucose POC Glucose 188 H 176 H 169 H Lactic Acid Calcium Ferritin AST Lactate Dehydrogenase Total Creatine Kinase C-Reactive Protein NT-Pro-B Natriuret Pep Total Protein Albumin Arterial Blood Glucose Arterial Blood Ionized Calcium Urine WBC (Auto) Coronavirus (PCR) 09/14/20 09/14/20 09/14/20 10:45 10:45 10:45 WBC Hgb MCV RDW Plt Count Lymph % (Auto) [place] % (Auto) Lymph # (Auto) Seg Neutrophils % Seg Neuts % (Manual) Lymphocytes % (Manual) Lymphocytes # (Manual) PT INR APTT D-Dimer 430.94 H ABG pH POC ABG pCO2 POC ABG pO2 ABG Oxyhemoglobin ABG Sodium ABG Potassium ABG Chloride ABG Glucose Carboxyhemoglobin Sodium Potassium Chloride Carbon Dioxide BUN Creatinine Glucose POC Glucose Lactic Acid Calcium Ferritin 2709.0 H AST Lactate Dehydrogenase 658 H Total Creatine Kinase C-Reactive Protein 15.80 H NT-Pro-B Natriuret Pep Total Protein Albumin Arterial Blood Glucose Arterial Blood Ionized Calcium Urine WBC (Auto) Coronavirus (PCR) 09/14/20 09/14/20 09/14/20 10:45 11:38 12:42 WBC Hgb MCV RDW Plt Count Lymph % (Auto) [place] % (Auto) Lymph # (Auto) Seg Neutrophils % Seg Neuts % (Manual) Lymphocytes % (Manual) Lymphocytes # (Manual) PT INR APTT D-Dimer ABG pH 7.275 L POC ABG pCO2 52.3 H POC ABG pO2 52.4 L ABG Oxyhemoglobin 78.6 L ABG Sodium ABG Potassium ABG Chloride 113.0 H ABG Glucose 179 H Carboxyhemoglobin Sodium Potassium Chloride 111.5 H Carbon Dioxide BUN 42 H Creatinine 0.7 L Glucose 169 H POC Glucose 154 H Lactic Acid Calcium 8.3 L Ferritin AST 90 H Lactate Dehydrogenase Total Creatine Kinase C-Reactive Protein NT-Pro-B Natriuret Pep Total Protein 5.6 L Albumin 2.4 L Arterial Blood Glucose 179 H Arterial Blood Ionized Calcium Urine WBC (Auto) Coronavirus (PCR) 09/14/20 09/14/20 09/14/20 13:32 17:54 21:00 WBC Hgb MCV RDW Plt Count Lymph % (Auto) [place] % (Auto) Lymph # (Auto) Seg Neutrophils % Seg Neuts % (Manual) Lymphocytes % (Manual) Lymphocytes # (Manual) PT INR APTT D-Dimer ABG pH 7.129 L POC ABG pCO2 62.6 H POC ABG pO2 60.7 L 56.4 L ABG Oxyhemoglobin 80.0 L 85.1 L ABG Sodium 146.9 H ABG Potassium 5.1 H ABG Chloride 115.0 H 116.0 H ABG Glucose 402 H 162 H Carboxyhemoglobin 0.2 L Sodium Potassium Chloride Carbon Dioxide BUN Creatinine Glucose POC Glucose 193 H Lactic Acid Calcium Ferritin AST Lactate Dehydrogenase Total Creatine Kinase C-Reactive Protein NT-Pro-B Natriuret Pep Total Protein Albumin Arterial Blood Glucose 402 H 162 H Arterial Blood Ionized Calcium 4.4 L Urine WBC (Auto) Coronavirus (PCR) 09/14/20 09/15/20 09/15/20 23:58 04:00 05:12 WBC Hgb MCV RDW Plt Count Lymph % (Auto) [place] % (Auto) Lymph # (Auto) Seg Neutrophils % Seg Neuts % (Manual) Lymphocytes % (Manual) Lymphocytes # (Manual) PT INR APTT D-Dimer ABG pH 7.305 L POC ABG pCO2 POC ABG pO2 63.0 L ABG Oxyhemoglobin 88.8 L ABG Sodium 147.5 H ABG Potassium 4.6 H ABG Chloride 117.0 H ABG Glucose 194 H Carboxyhemoglobin 0 L Sodium Potassium Chloride Carbon Dioxide BUN Creatinine Glucose POC Glucose 144 H 150 H Lactic Acid Calcium Ferritin AST Lactate Dehydrogenase Total Creatine Kinase C-Reactive Protein NT-Pro-B Natriuret Pep Total Protein Albumin Arterial Blood Glucose 194 H Arterial Blood Ionized Calcium Urine WBC (Auto) Coronavirus (PCR) 09/15/20 09/15/20 09/15/20 08:50 08:50 10:10 WBC 20.3 H Hgb MCV 96 H RDW Plt Count 116 L Lymph % (Auto) [place] % (Auto) Lymph # (Auto) Seg Neutrophils % Seg Neuts % (Manual) Lymphocytes % (Manual) Lymphocytes # (Manual) PT INR APTT D-Dimer ABG pH POC ABG pCO2 POC ABG pO2 ABG Oxyhemoglobin ABG Sodium ABG Potassium ABG Chloride ABG Glucose Carboxyhemoglobin Sodium 150 H Potassium 5.1 H D Chloride 116.5 H Carbon Dioxide BUN 53 H Creatinine Glucose 211 H POC Glucose 174 H Lactic Acid Calcium 7.7 L Ferritin AST 82 H Lactate Dehydrogenase Total Creatine Kinase C-Reactive Protein NT-Pro-B Natriuret Pep Total Protein 4.9 L Albumin 2.2 L Arterial Blood Glucose Arterial Blood Ionized Calcium Urine WBC (Auto) Coronavirus (PCR) 09/15/20 09/15/20 09/15/20 11:45 11:45 11:48 WBC 21.1 H Hgb 11.6 L MCV 97 H RDW 15.7 H Plt Count 113 L Lymph % (Auto) [place] % (Auto) Lymph # (Auto) Seg Neutrophils % Seg Neuts % (Manual) Lymphocytes % (Manual) Lymphocytes # (Manual) PT INR APTT D-Dimer ABG pH POC ABG pCO2 POC ABG pO2 ABG Oxyhemoglobin ABG Sodium ABG Potassium ABG Chloride ABG Glucose Carboxyhemoglobin Sodium 153 H Potassium Chloride 117.3 H Carbon Dioxide 20 L BUN 57 H Creatinine 1.5 H Glucose 229 H POC Glucose 186 H Lactic Acid Calcium 7.1 L Ferritin AST Lactate Dehydrogenase Total Creatine Kinase C-Reactive Protein NT-Pro-B Natriuret Pep Total Protein Albumin Arterial Blood Glucose Arterial Blood Ionized Calcium Urine WBC (Auto) Coronavirus (PCR) 09/15/20 09/15/20 09/16/20 17:42 23:30 03:15 WBC Hgb MCV RDW Plt Count Lymph % (Auto) [place] % (Auto) Lymph # (Auto) Seg Neutrophils % Seg Neuts % (Manual) Lymphocytes % (Manual) Lymphocytes # (Manual) PT INR APTT D-Dimer 2544.42 H ABG pH POC ABG pCO2 POC ABG pO2 ABG Oxyhemoglobin ABG Sodium ABG Potassium ABG Chloride ABG Glucose Carboxyhemoglobin Sodium Potassium Chloride Carbon Dioxide BUN Creatinine Glucose POC Glucose 204 H 187 H Lactic Acid Calcium Ferritin AST Lactate Dehydrogenase Total Creatine Kinase C-Reactive Protein NT-Pro-B Natriuret Pep Total Protein Albumin Arterial Blood Glucose Arterial Blood Ionized Calcium Urine WBC (Auto) Coronavirus (PCR) 09/16/20 09/16/20 09/16/20 03:15 03:15 03:15 WBC Hgb MCV RDW Plt Count Lymph % (Auto) [place] % (Auto) Lymph # (Auto) Seg Neutrophils % Seg Neuts % (Manual) Lymphocytes % (Manual) Lymphocytes # (Manual) PT INR APTT D-Dimer ABG pH POC ABG pCO2 POC ABG pO2 ABG Oxyhemoglobin ABG Sodium ABG Potassium ABG Chloride ABG Glucose Carboxyhemoglobin Sodium 146 H Potassium Chloride 110.8 H Carbon Dioxide BUN 61 H Creatinine 1.8 H Glucose 199 H POC Glucose Lactic Acid 4.30 H* Calcium 7.4 L Ferritin 3300.0 H AST Lactate Dehydrogenase 617 H Total Creatine Kinase C-Reactive Protein 26.30 H NT-Pro-B Natriuret Pep Total Protein Albumin Arterial Blood Glucose Arterial Blood Ionized Calcium Urine WBC (Auto) Coronavirus (PCR) 09/16/20 09/16/20 03:30 05:15 WBC Hgb MCV RDW Plt Count Lymph % (Auto) [place] % (Auto) Lymph # (Auto) Seg Neutrophils % Seg Neuts % (Manual) Lymphocytes % (Manual) Lymphocytes # (Manual) PT INR APTT D-Dimer ABG pH 7.207 L POC ABG pCO2 54.2 H POC ABG pO2 46.9 L ABG Oxyhemoglobin 75.3 L ABG Sodium ABG Potassium ABG Chloride 113.0 H ABG Glucose 183 H Carboxyhemoglobin Sodium Potassium Chloride Carbon Dioxide BUN Creatinine Glucose POC Glucose 176 H Lactic Acid Calcium Ferritin AST Lactate Dehydrogenase Total Creatine Kinase C-Reactive Protein NT-Pro-B Natriuret Pep Total Protein Albumin Arterial Blood Glucose 183 H Arterial Blood Ionized Calcium 4.3 L Urine WBC (Auto) Coronavirus (PCR) Chest x-ray: image reviewed (no PTX no new infiltrate) Allied health notes reviewed: nursing
--- NOTE | 2020-09-16 11:25 | Progress Note ---
Assessment and Plan Cultures: SARS-CoV-2 PCR positive Blood cultures no growth 09/14/2020 sputum culture: In process Assessment: 79-year-old male with smoking abuse, hard of hearing, admitted on 09/08/2020 secondary to a week history of generalized malaise, cough and subjective fever: #Shock, status post cardiopulmonary arrest on 09/15/2020 #Severe sepsis: likely due to bilateral pneumonia +/-UTI. #Severe COVID pneumonia: Chest CT with bibasilar airspace disease. Inflammatory markers elevated CRP 5.4, ferritin 628, D-dimer 405. Patient is not vaccinated. #Mild UTI with mild right hydronephrosis noted on renal US: Urinalysis with mild pyuria. S/P ceftriaxone. #Acute hypoxemic respiratory failure: secondary to COVID-19 infection. On the vent now #Elevated LFTs: from COVID #Thrombocytopenia: Mild likely secondary to COVID-19 #Sinusitis on CT #A flutter/RVR #Encephalopathy: Noted global brain atrophy and extensive confluent white matter on MRI. Recs: -continue with cefepime, vancomycin, renally dosed, D2 -Prognosis is extremely poor, unlikely to benefit from Tocilizumab at this point given high likelihood of impending -Continue steroids -Completed Remdesivir x 5 days -on Eliquis for A.fib -agree with DNR, goals of care discussion. Very high mortality risk. Francisco Hazel MD, FACP [facility] O: [phone] F: [phone] Subjective Date of service: 09/16/20 Principal diagnosis: Ac hypoxemic resp failure; COVID-19; PNA; AMS; Sepsis; UTI; A-fib; CHF Interval history: Afebrile. Remains on the vent, on 2 pressors. Objective - Exam Narrative Exam: Physical Exam: Constitutional: sedated, intubated, on the vent Head, Ears, Nose: Normocephalic, atraumatic. External ears, nose normal Eyes: Conjunctivae/corneas clear. No icterus. No ptosis. Neck: intubated Oral: intubated Cardiovascular: S1, S2 + Respiratory: AE fair bilaterally GI: Soft, bowel sounds hypo Musculoskeletal: No pedal edema, no cyanosis. Skin: No rash or abscess Hem/Lymphatic: No palpable cervical or supraclavicular nodes. No lymphangitis Psych: no agitation Neurological: sedated, intubated, on the vent, exam limited - Constitutional Vitals: Vital Signs Temp Pulse Resp BP Pulse Ox 98 F 77 31 H 108/28 79 L 09/16/20 07:59 09/16/20 08:16 09/16/20 08:16 09/16/20 08:09 09/16/20 08:09 Temperature -Last 24 Hours Temperature 98 F Temperature 99.1 F Temperature 99.0 F Temperature 98.7 F Temperature 98.7 F Temperature 97.9 F - Labs CBC & Chem 7: 09/15/20 20:21 09/16/20 03:15 Labs: Abnormal lab results 09/15/20 09/15/20 09/15/20 Range/Units 11:45 11:45 11:48 WBC 21.1 H (4.5-11.0) K/mm3 Hgb 11.6 L (11.8-15.2) gm/dl MCV 97 H (84-94) fl RDW 15.7 H (13.2-15.2) % Plt Count 113 L (140-440) K/mm3 D-Dimer (0-234) ng/mlDDU ABG pH (7.320-7.450) POC ABG pCO2 (32.0-48.0) mmHg POC ABG pO2 (83-108) mmHg ABG Oxyhemoglobin (94-98) ABG Chloride (98-107) mmol/L ABG Glucose (65-95) mg/dL Sodium 153 H (137-145) mmol/L Chloride 117.3 H (98-107) mmol/L Carbon Dioxide 20 L (22-30) mmol/L BUN 57 H (9-20) mg/dL Creatinine 1.5 H (0.8-1.3) mg/dL Glucose 229 H (75-100) mg/dL POC Glucose 186 H (70-105) mg/dL Lactic Acid (0.7-2.0) mmol/L Calcium 7.1 L (8.4-10.2) mg/dL Ferritin (30.0-300.0) ng/mL Lactate Dehydrogenase (91-180) units/L C-Reactive Protein (0.00-1.30) mg/dL Arterial Blood Glucose (65-95) mg/dL Arterial Blood Ionized Calcium (4.6-5.3) mg/dL 09/15/20 09/15/20 09/16/20 Range/Units 17:42 23:30 03:15 WBC (4.5-11.0) K/mm3 Hgb (11.8-15.2) gm/dl MCV (84-94) fl RDW (13.2-15.2) % Plt Count (140-440) K/mm3 D-Dimer 2544.42 H (0-234) ng/mlDDU ABG pH (7.320-7.450) POC ABG pCO2 (32.0-48.0) mmHg POC ABG pO2 (83-108) mmHg ABG Oxyhemoglobin (94-98) ABG Chloride (98-107) mmol/L ABG Glucose (65-95) mg/dL Sodium (137-145) mmol/L Chloride (98-107) mmol/L Carbon Dioxide (22-30) mmol/L BUN (9-20) mg/dL Creatinine (0.8-1.3) mg/dL Glucose (75-100) mg/dL POC Glucose 204 H 187 H (70-105) mg/dL Lactic Acid (0.7-2.0) mmol/L Calcium (8.4-10.2) mg/dL Ferritin (30.0-300.0) ng/mL Lactate Dehydrogenase (91-180) units/L C-Reactive Protein (0.00-1.30) mg/dL Arterial Blood Glucose (65-95) mg/dL Arterial Blood Ionized Calcium (4.6-5.3) mg/dL 09/16/20 09/16/20 09/16/20 Range/Units 03:15 03:15 03:15 WBC (4.5-11.0) K/mm3 Hgb (11.8-15.2) gm/dl MCV (84-94) fl RDW (13.2-15.2) % Plt Count (140-440) K/mm3 D-Dimer (0-234) ng/mlDDU ABG pH (7.320-7.450) POC ABG pCO2 (32.0-48.0) mmHg POC ABG pO2 (83-108) mmHg ABG Oxyhemoglobin (94-98) ABG Chloride (98-107) mmol/L ABG Glucose (65-95) mg/dL Sodium 146 H (137-145) mmol/L Chloride 110.8 H (98-107) mmol/L Carbon Dioxide (22-30) mmol/L BUN 61 H (9-20) mg/dL Creatinine 1.8 H (0.8-1.3) mg/dL Glucose 199 H (75-100) mg/dL POC Glucose (70-105) mg/dL Lactic Acid 4.30 H* (0.7-2.0) mmol/L Calcium 7.4 L (8.4-10.2) mg/dL Ferritin 3300.0 H (30.0-300.0) ng/mL Lactate Dehydrogenase 617 H (91-180) units/L C-Reactive Protein 26.30 H (0.00-1.30) mg/dL Arterial Blood Glucose (65-95) mg/dL Arterial Blood Ionized Calcium (4.6-5.3) mg/dL 09/16/20 09/16/20 Range/Units 03:30 05:15 WBC (4.5-11.0) K/mm3 Hgb (11.8-15.2) gm/dl MCV (84-94) fl RDW (13.2-15.2) % Plt Count (140-440) K/mm3 D-Dimer (0-234) ng/mlDDU ABG pH 7.207 L (7.320-7.450) POC ABG pCO2 54.2 H (32.0-48.0) mmHg POC ABG pO2 46.9 L (83-108) mmHg ABG Oxyhemoglobin 75.3 L (94-98) ABG Chloride 113.0 H (98-107) mmol/L ABG Glucose 183 H (65-95) mg/dL Sodium (137-145) mmol/L Chloride (98-107) mmol/L Carbon Dioxide (22-30) mmol/L BUN (9-20) mg/dL Creatinine (0.8-1.3) mg/dL Glucose (75-100) mg/dL POC Glucose 176 H (70-105) mg/dL Lactic Acid (0.7-2.0) mmol/L Calcium (8.4-10.2) mg/dL Ferritin (30.0-300.0) ng/mL Lactate Dehydrogenase (91-180) units/L C-Reactive Protein (0.00-1.30) mg/dL Arterial Blood Glucose 183 H (65-95) mg/dL Arterial Blood Ionized Calcium 4.3 L (4.6-5.3) mg/dL
[2020-09-16] MEDS ORDERED: LORazepam 2 MG/ML VIAL IV PRN (15:30)
[2020-09-16] MEDS ORDERED: GLYCOPYRROLATE 0.4 MG/2 ML INJ IV PRN (15:30)
[2020-09-16] MEDS: fentaNYL 100 MCG/2 ML INJ IV PRN (15:56)
[2020-09-16 16:07] VITALS: BP 129/31
--- NOTE | 2020-09-16 17:24 | Death Summary ---
Summary - Providers Date of service: 09/09/20 (2549) Consults: 09/09/20 02:56 Consult to Physician [CONS] Routine Comment: Consulting Provider: MITCHELL CHAVSI Physician Instructions: Reason For Exam: Suspected COVID-19 virus infection 09/09/20 03:00 Consult to Dietitian/Nutrition [CONS] Routine Physician Instructions: Reason For Exam: Reason for Consult: Malnutrition 09/09/20 03:02 Occupational Therapy Evaluate and Treat [CONS] Routine Comment: Reason For Exam: Eval Physical Therapy Evaluation and Treat [CONS] Routine Comment: Reason For Exam: Eval 09/09/20 04:57 Consult to Wound/ET Nurse [CONS] Routine Reason For Exam: wound eval 09/10/20 18:57 Consult to Dietitian/Nutrition [CONS] Routine Physician Instructions: Reason For Exam: Reason for Consult: Poor oral intake Speech Therapy Evaluation and Treat [CONS] Urgent Reason For Exam: coughing with intake 09/11/20 07:17 Consult to Physician [CONS] Routine Comment: Consulting Provider: SCOOBY KAUR Physician Instructions: Reason For Exam: afib with RVR 09/11/20 12:08 Consult to Physician [CONS] Routine Comment: DR. Francisco noted/ rajesh Consulting Provider: SHAR FRANCISCO Physician Instructions: Reason For Exam: COVID WITH COVID PNEUMONIA 09/11/20 15:11 Consult to Dietitian/Nutrition [CONS] Stat Physician Instructions: Reason For Exam: Reason for Consult: Write/Manage Tube Feeding 09/11/20 18:46 Consult to PICC Line RN [CONS] Stat Reason For Exam: pressors Type Line:: PICC 09/12/20 08:24 Consult to Dietitian/Nutrition [CONS] Routine Physician Instructions: Reason For Exam: Reason for Consult: Write/Manage Tube Feeding 09/14/20 13:15 Consult to Dietitian/Nutrition [CONS] Routine Physician Instructions: Reason For Exam: Reason for Consult: Evaluate nutritional intake 09/15/20 13:50 Consult to Wound/ET Nurse [CONS] Stat Reason For Exam: wound eval- hips Attending: ALKA CHRISTIANSON MD - summary Date of admission: 09/09/20 02:56 Date of : 09/16/20 (0651) Reason for admission: acute respiratory failure Significant findings: 09/09/2020 admitted with acute respiratory failure/ PUI Procedures/treatments rendered: 09/14 pt intubated Pertinent studies: covid pos 7-20 on admit to ER Disposition: home - Complications Complications: History Interval history: 79-year-old male with current tobacco abuse and hard of hearing with no significant past medical history transported to [facility] on 09/09 via EMS 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 Patient's reported a prolonged period of time was spent with her grandson over the past 2 weeks who had tested positive for COVID-19 on 09/08. Upon arrival to the emergency department patient was found to be febrile, tachycardic and hypoxic on room air and upon assessment patient was seen weak on a stretcher, able to track and spontaneously move extremities but unable to answer simple yes/no questions. CT abdomen/pelvis showed right hydronephrosis. Patient was admitted to the hospitalist service with consults to ID. Patient subsequently required transfer to ICU and CCM was consulted and developed A. fib with RVR and cardiology was consulted. 09/10: ID input is appreciated of also discussed with family of the patient and informed him of the diagnosis and the need to have other people at home tested. Patient is on 3 L of oxygen will continue to monitor. Patient will need PT OT evaluation considering recurrent falls. May actually need rehab based on the condition he appears. Dietitian consultation. Considering his age he is with a guarded prognosis at this time. Azithromycin has been discontinued for the antibiotics management per ID at this time. We will continue remdesivir and steroid therapy. And intermittent pulse ox monitoring. We will continue to encourage prone positioning. We will also obtain pulmonary evaluation 09/11: Afib with RVR, Cardiology consulted, will start on Eliquis. Echo Reviewed. Pulmonary consulted due to worsening hypoxia. Prone positioning if able. Will give a dose of lasix today. Monitor Renal function. Disucssed and updated spouse. She is still insistent of home management when he is better,and also tells me he was not on any medication of physician care prior to hospitalization. Poor prognosis considering her tobacco use disorder and overall medical condition including severe protein calorie malnutrition 09/12: Patient unfortunately is declining medically. Now with A. fib with RVR and was hypotensive yesterday right central line placed and internal jugular pressure extremely good satisfactory position. Also NG tube in place will obtain dietary consultation for tube feeds. Patient currently off pressors on my understanding was that the amiodarone drip was off for some time due to mechanical issues which has since been fixed and the drip is back on running heart rate was still in the 130s this morning he remains very lethargic discussed with the nurse to continue to monitor closely. I have also called the family (Spouse) and updated them on the condition and the patient being in the ICU. Continue aggressive Blood sugar control 09/13: Blood pressure shown some improvement. Patient currently on amiodarone and Cardizem. Heart rate appears better controlled with the addition of the Cardizem may need to adjust as mild bradycardia is also noted in regards today a flutter/A. fib. Electrolytes reviewed and stable. Still with some hypoxia. Very high risk for aspiration and as a result tube feeds has been held. Continue monitoring discussed with nursing staff at bedside Patient is on Mucomyst nebs for secretion. Still with intermittent BiPAP 09/14: Patient went sinus pericardiac and had a PEA arrest with ACLS x1 being administered. Patient was intubated and ROSC was achieved. Patient received a femoral A-line today. He was started on pressors due to hypotension. In the morning patient was on high flow nasal cannula at 100%. 09/15: s/p cardiac arrest (see code sheet for details), remains on vasopressin and levophed, increase in FWF d/t increasing Na, trend BMP. Abx added per ID. acute resp. failure due to covid pna/sepsis Pt was made DNR by family Today during a family meeting the elected to go to comfort care. She wanted pt extubated and a natural to occur. She stated this was in accord with pt's wishes. Daughter was also present for meeting and concurred -Pt extubated at 1557 and asystole// with cessation of cardiopulmonary activity occurred at [address] Christianson and Shar notified Pronouncing MD: Dr. Mic Christianson Past medical history: None per family Past surgical history: None per family Social history: Smoker Home medications: No known home medications Neuro: Acute metabolic encephalopathy, s/p GLF per family -CT head shows no acute intracranial abnormality, soft tissue gas noted in the anterior temporal musculature bilaterally in the musculature posterior to the maxillary sinus however shows decrease in soft tissue gas, no fracture, no fluid collection -CT neck shows volume soft tissue gas noted in the temporal regions and posterior to the maxillary sinuses decreased, arthrosclerosis disease in the carotid arteries and vertebral arteries -Aspiration/fall precautions -fentanyl PRN for comfort -SAT daily as tolerated -family updated on plan of care CV: A. fib with RVR, hypotension due to covid pna/sespsis ; SR, s/p cardiac arrest -Cardiology consulted, patient recommendations -Vasopressor support with Levophed, vasopressin -MAP goal of 65 or greater -Blood pressure monitoring per protocol -Anticoagulation with Eliquis -Hold Metoprolol -Echocardiogram shows LVEF 40 to 45% -09/14 & 09/15 cardiac arrest (see code sheets for details) Respiratory: Acute hypoxic respiratory failure, nicotine abuse -Was on high flow nasal cannula 100%, 40 L and BiPAP nightly / at 32% FiO2 -Intubated 09/14 -Oral ETT 7.5 at 24 at lip -Current vent settings: AC, rate 30, TV 400, FiO2 100%, PEEP of 14 trend RT flow sheet wean as tolerated -Serial CXR and ABGs -VAP bundle -CCM consulted, appreciate recommendations -Nicotine patch -Pt extubated at 1557 and asystole// with cessation of cardiopulmonary activity occurred at [address] Christianson and Shar notified Pronouncing MD: Dr. Mic Christianson GI: Malnutrition, adult failure to thrive, tube feedings -Accu-Cheks every 6 -PPI -Nutrition consulted, appreciate recommendations -Dulcolax suppository x1 -BR: Senokot -ST consulted and recommended n.p.o. with alternative mode of nutrition -trickle feeding for now : Hyperchloremia, Hypernatremia, hyperkalemia (resolved) mild hydronephrosis -villarreal placed for accurate I&Os -CT abdomen shows moderate right hydronephrosis, no renal or ureteral calculi seen, atherosclerotic disease -Renal ultrasound shows small amount of fluid between the liver and the right kidney, mild right hydronephrosis -Trend BMP -D5W@75ml/hr, FWF 200q4 -FW deficit 3.25 L Heme: Thrombocytopenia -Presented with platelet count of 146, now trending down -Anticoagulation with Eliquis for A. fib -SCDs to bilateral LE while in bed -Trend CBC ID: Severe sepsis, COVID-19 pneumonia, UTI, sinusitis, stage II per RN, Leukocytosis -COVID-19 PCR positive on 09/08 -Infectious disease consulted, appreciate recommendations -Ceftriaxone 09/08 through 09/12 -Remdesivir 09/09 through 09/13 -Dexamethasone 09/08 through 09/19 -Isolation/droplet precautions -Vitamin C, zinc -Zithromax and 09/08 through 09/12, Rocephin 09/08 through 09/11 -ID started empiric cefepime, vancomycin added, renally dosed on 09/15 -Trend COVID-19 inflammatory markers -UA showed UTI -09/08 BCx2 NGTD -WOCN consult for bilateral hip wounds; pt had recent falls at home Endo: Hyperglycemia -SSI, Accu-Cheks every 6 -Avoid hypoglycemia The high probability of a clinically significant, sudden or life threatening deterioration of the [pulmonary, cardiac] system(s) required my full and direct attention, intervention and personal management. The aggregate critical care time was [60] minutes. This time is in addition to time spent performing reported procedures but includes the following: [x] Data Review and interpretation [x] Patient assessment and monitoring of vital signs [x] Documentation [x] Medication orders and management
[2020-09-17] MEDS: ACETYLCYSTEINE 20% 200 MG/1 ML *FOR INHALATION USE INHALATION SCH (15:05)
[2020-09-17] MEDS: ALBUTEROL 2.5 MG/3 ML NEBU IH SCH (15:06)
== END 2020-09-16 16:45 | DRG 871 ==
LOC: ED 19:13 → 3A 09-09 02:56 → IMCU 09-11 13:46 → CC1 09-11 19:30
PROVIDERS: ADMIT Internal Medicine Geriatric Medicine; ATTEND Internal Medicine
PROC: XW033E5 Introduction of Remdesivir Anti-infective into Peripheral Vein, Percutaneous Approach, New Technology Group 5 (ICD-10-PCS; 2020-09-10)
PROC: 05HM33Z Insertion of Infusion Device into Right Internal Jugular Vein, Percutaneous Approach (ICD-10-PCS; principal; 2020-09-11)
PROC: B543ZZA Ultrasonography of Right Jugular Veins, Guidance (ICD-10-PCS; 2020-09-11)
PROC: 4A033R1 Measurement of Arterial Saturation, Peripheral, Percutaneous Approach (ICD-10-PCS; 2020-09-11)
PROC: 5A09457 Assistance with Respiratory Ventilation, 24-96 Consecutive Hours, Continuous Positive Airway Pressure (ICD-10-PCS; 2020-09-11)
PROC: 5A1945Z Respiratory Ventilation, 24-96 Consecutive Hours (ICD-10-PCS; 2020-09-14)
PROC: 0BH17EZ Insertion of Endotracheal Airway into Trachea, Via Natural or Artificial Opening (ICD-10-PCS; 2020-09-14)
DX: A41.89 Other specified sepsis (principal); U07.1 COVID-19; J96.01 Acute respiratory failure with hypoxia; J12.82 Pneumonia due to coronavirus disease 2019; E43 Unspecified severe protein-calorie malnutrition; G92 Toxic encephalopathy; Z68.1 Body mass index [BMI] 19.9 or less, adult; M62.82 Rhabdomyolysis; I50.20 Unspecified systolic (congestive) heart failure; I48.92 Unspecified atrial flutter; N13.6 Pyonephrosis; R73.9 Hyperglycemia, unspecified; E86.9 Volume depletion, unspecified; E86.0 Dehydration; J32.9 Chronic sinusitis, unspecified; I95.9 Hypotension, unspecified; F17.210 Nicotine dependence, cigarettes, uncomplicated; I48.91 Unspecified atrial fibrillation; R65.20 Severe sepsis without septic shock; I70.8 Atherosclerosis of other arteries; W18.39XA Other fall on same level, initial encounter; E87.6 Hypokalemia; D69.6 Thrombocytopenia, unspecified; I70.90 Unspecified atherosclerosis; R62.7 Adult failure to thrive; Z91.81 History of falling; Z79.899 Other long term (current) drug therapy; Z79.891 Long term (current) use of opiate analgesic; Z79.01 Long term (current) use of anticoagulants; Y93.89 Activity, other specified; Y92.89 Other specified places as the place of occurrence of the external cause; Y99.8 Other external cause status
CPT/HCPCS: 36415; 36600; 70450; 70486; 70490; 70551; 71045; 71250; 74018; 74176; 76770; 80048; 80053; 81001; 82140; 82550; 82565; 82728; 82805; 82947; 82962; 83615; 83735; 83880; 84100; 84145; 84439; 84443; 84484; 85007; 85014; 85018; 85025; 85027; 85379; 85610; 85730; 86140; 87040; 87070; 87205; 93005; 93306; 94002; 94003; 94640; 94660; G0378; J0171; J0282; J0330; J0456; J0461; J0692; J0696; J1100; J1650; J1815; J2060; J2704; J3010; J3370; J3480; J7030; J7040; J7042; J7050; J7060; J7070; J7120; U0003